=== PATIENT | female | born 1955 | race Caucasian/White ===

== ENCOUNTER 2016-08-21 10:24 | Outpatient (CLI) | payer OTHER ==
[~2016-08-21] VITALS: Ht 165.1 cm; Wt 92.3 kg
[~2016-08-21 10:24] MED LIST: /ADVA50050 IN; /ADVA50050 INH; /ESOM40CA; /ESOM40CA OR; /ONDA4TA; /TIOT18INH; ABIL2TAB; ABIL2TAB PO; ABIL2TAB2 PO; ACAM0.05 PO; ACET-654 PO; ACET500C; ACET50TA PO; ACET65TA PO; ACETAMINOPHEN TAB 650MG DOSE (2X325MG) PO SCH; ADV500INH INH; ALB2.5NEB INH; ALBU17IN INH; ALBU17IN2; ALBU83IN; ALBU83IN IN; ALBU83IN INH; ALBUTEROL SULFATE INH; ALPR0.25 PO; AMBI5TAB; ATRO1SOL13; ATROVENT INH; BACT20SS PO; BACT800T5 PO; BENA25CA2 PO; BENZ100C5 PO; BONI150T PO; BONI3INJ IV; BONIVA; BONIVA PO; BUDE0.5S6 INH; BUPR150T5 PO; BUPR15TA; BUPR15TA OR; BUPR300T34 PO; CALA180T PO; CALC600T10 PO; CALC600T21 PO; CALCCHW12; CALCCHW12 OR; CAMP333T PO; CEFD1CAP8 PO; CEFT500T; CEFT500T PO; CIPR500T89 PO; COLA100C2; DIPH50TA3 PO; DOCU10ELUD PO; ESTR3TA; ESTR625TA; FERR325T PO; FIRS3SUS PO; FURO20TA2 PO; FURO40TA2 PO; IBUP400T PO; IBUPOTC PO; IPRAINH INH; IPRASOL4 NEB; K-TA10TA; K-TA10TA2 PO; K-TA1TAB PO; KYTRIL; LACT10SO8; LASI40TA PO; LEVA1.256 INH; LEVA12INH INH; LEVA250T PO; LEVA500T; LEVA500T PO; LEVO750T PO; LISI10TA4 PO; MAG-TAB; MARINOL; MUCI600T34 PO; MULTTAB4 PO; NEXI1CAP4 PO; NEXI20CA; NEXI40CA PO; NORC7.5T PO; OCEA0.65; PERF20NE2 INH; POTA10CA2; POTA10PO PO; POTA20EL PO; PRED10TA PO; PRED10TA2; PRED10TA2 OR; PRED10TA2 PO; PRED20TA; PRED20TA PO; PRED20TAB PO; PRIV5INJ IV; PRIVIGEN IV; PULM1SUS INH; SENN8.6T5; SENO8.6T2 PO; SENO8.6T9 PO; SERT-138 PO; SING10TA32 PO; SING5CHW PO; SLEEPING PILL; SPIR1CAP INH; SPIRIVA INH; SPIRIVIA INH; SUCR1TA PO; Sucralfate PO; TAMAFLU; TESS100C; TESS100C PO; TUSSSUS5; VALT1TAB PO; VERA120T2 PO; VERA18TASA PO; VERA1TAB11 PO; VICO7.5T11 PO; VITA10002 PO; VITA100037 PO; VITA200016 PO; VITA250L PO; WELL75TA; WELLBUTRIN PO; XANA0.25; XANA0.25 PO; ZOLO100T; ZOLO100T PO; ZOLO25TA; ZOLO50TA; [UNRECOGNIZED DRUG - CODE] PO; [UNRECOGNIZED DRUG - OTHER]; [UNRECOGNIZED DRUG - OTHER] OR; [UNRECOGNIZED DRUG - REMARK]; [UNRECOGNIZED DRUG - REMARK]; [UNRECOGNIZED DRUG - REMARK] OR; diphenhydrAMINE 25 MG CAP PO SCH; home o2; marinol; mylicon PO
[2016-08-21] MEDS ORDERED: IMMUNE GLOBULIN 10% 5 GM in APPROPRIATE DILUENT 1 EA IV ONE (10:45)
[2016-08-21] MEDS ORDERED: PRED20TA PO (10:57)
[2016-08-21] MEDS ORDERED: IMMUNE GLOBULIN 10% 20 GM in APPROPRIATE DILUENT 1 EA IV ONE (11:30)
== END 2016-08-21 13:20 | disposition home or self-care (01) ==
LOC: M INFU 10:24
PROVIDERS: ATTEND Internal Medicine Infectious Disease
DX: D72.810 Lymphocytopenia (principal)
CPT/HCPCS: 96365; 96366; J1568

== ENCOUNTER 2016-09-18 08:25 | Outpatient (CLI) | payer OTHER ==
[~2016-09-18] VITALS: Ht 165.1 cm; Wt 92.3 kg
[2016-09-18] MEDS ORDERED: diphenhydrAMINE 50 MG CAP PO ONE (08:45)
[2016-09-18] MEDS ORDERED: ACETAMINOPHEN TAB 650MG DOSE (2X325MG) PO ONE (08:45)
[2016-09-18] MEDS ORDERED: IMMUNE GLOBULIN 10% 20 GM in APPROPRIATE DILUENT 1 EA IV ONE (09:00)
[2016-09-18] MEDS ORDERED: IMMUNE GLOBULIN 10% 5 GM in APPROPRIATE DILUENT 1 EA IV ONE (09:00)
== END 2016-09-18 11:30 | disposition home or self-care (01) ==
LOC: M INFU 08:25
PROVIDERS: ATTEND Internal Medicine Infectious Disease
DX: D80.1 Nonfamilial hypogammaglobulinemia (principal); Z79.51 Long term (current) use of inhaled steroids; Z79.52 Long term (current) use of systemic steroids; Z79.899 Other long term (current) drug therapy; Z88.5 Allergy status to narcotic agent
CPT/HCPCS: 96365; 96366; J1568

== ENCOUNTER → 2016-09-18 | Outpatient (CLI) | payer OTHER ==
[~2016-09-18] MED LIST changes: -ACETAMINOPHEN TAB 650MG DOSE (2X325MG) PO SCH; +POTA10SO11 PO; -POTA20EL PO; -diphenhydrAMINE 25 MG CAP PO SCH
--- NOTE | 2016-09-19 09:26 | REP ---
PET/CT: History: Restaging lung cancer. Comparisons: Comparison PET/CTs are reviewed, the most recent of which is from August 03, 2015. Comparison chest x-ray July 15, 2016. TECHNIQUE: 60 minutes following the intravenous injection of a 7.5 mCi dose of F-18 FDG, three-dimensional PET scintigraphy is acquired from the skull base to the proximal thighs. Triplanar noncontrast CT scanning is acquired through the same anatomic range for attenuation correction, and image registration with scan parameters optimized to minimize radiation exposure to the patient. PET scintigraphy and CT datasets were fused and displayed on a workstation with multiplanar and projection display capability. PET/CT Findings: There is a new area of hypermetabolic pulmonary parenchymal uptake in the left upper lobe. Maximum standard uptake value is 14.5 within this oval-shaped, 1.6 cm density in the periphery of the left upper lobe. This is infiltrative morphologically and may reflect an infectious etiology, i.e. pneumonia. Follow-up is recommended. The previously noted post-treatment fibrotic changes in the right chest are again seen with a small amount of right pleural fluid and right pericardial fluid. The right pleural fluid is decreased since the prior PET-CT study. No other abnormal hypermetabolic uptake is seen within the chest. No abnormal adrenal hypermetabolic uptake is seen. No abnormal uptake is seen in the abdomen or pelvis. Impression: New focus of hypermetabolic uptake in a peripheral infiltrate opacity in the left upper lobe. This may reflect a pneumonia. Follow-up is recommended. Signed by Moy Chaudhry MD 09/19/2016 09:17 A
== END ==
LOC: M RAD 11:28
DX: C34.90 Malignant neoplasm of unspecified part of unspecified bronchus or lung (principal)
CPT/HCPCS: 78815; A9552

== ENCOUNTER 2016-10-01 12:37 | Inpatient (IN) | payer OTHER ==
[~2016-10-01] VITALS: Ht 162.6 cm; Wt 85.3 kg
--- NOTE | 2016-10-01 14:07 | REP ---
Clinical: Shortness of breath. Comparison: 07/15/2016. Findings: Left perihilar opacities appear increased from prior examination and may reflect acute infiltrate. Right suprahilar markings are essentially unchanged and may represent chronic findings. No obvious effusion. No pneumothorax. Cardiac silhouette stable. Skeletal structures intact. Impression: Chronic mediastinal and right hilar/suprahilar findings. Increased opacities emanating from the left hilum may reflect acute pneumonia. Signed by Oh Torres MD 10/01/2016 01:58 P
[2016-10-01 14:12] LABS: BASO % 0.1 % (0.0-1.0); EOS # 0.1 K/mm3 (0.0-0.50); EOS % 0.7 % (0.0-3.0); LARGE UNSTAINED CELL # 0.1 K/mm3 (0.0-0.4); LARGE UNSTAINED CELL % 0.4 % (0.0-4.0); LYMPH # 0.5 K/mm3 (1.5-4.5); LYMPH % 3.5 % (24.0-44.0); MEAN CORPUSCULAR HEMOGLOBIN 25.1 pg (27.0-33.0); MEAN CORPUSCULAR HGB CONC 31.9 g/dl (32.0-36.5); MEAN CORPUSCULAR VOLUME 78.8 fl (80.0-96.0); MONO # 0.5 K/mm3 (0.0-0.8); MONO % 3.6 % (0.0-5.0); NEUTROPHILS # 11.7 K/mm3 (1.8-7.7); NEUTROPHILS % 91.6 % (36.0-66.0); PLATELET COUNT, AUTOMATED 279 k/mm3 (150-450); RED CELL DISTRIBUTION WIDTH 15.5 % (11.5-14.5); WHITE BLOOD COUNT 12.8 K/mm3 (4.0-10.0)
[2016-10-01] MEDS ORDERED: FUROSEMIDE 20 MG/2 ML VIAL (J1940) As Ordered ONE (14:14)
[2016-10-01 14:20] LABS: ABG BASE EXCESS 2.4 (-2.0-2.0); ABG DEVICE NASAL CANN; ABG HCO3 25.6 MEQ/L (22.0-26.0); ABG PARTIAL PRESSURE CO2 34.7 mmHg (35.0-45.0); ABG PARTIAL PRESSURE O2 63.3 mmHg (75.0-100.0); ABG STANDARD HCO3 26.5 MEQ/L (22.0-26.0); ABG TOTAL CO2 26.6 MEQ/L (22.0-29.0); ABG pH (ARTERIAL) 7.485 UNITS (7.350-7.450)
[2016-10-01 14:39] LABS: CALCIUM LEVEL 8.9 MG/DL (8.5-10.1); CREATININE FOR GFR 1.1 MG/DL (0.55-1.02); GLOMERULAR FILTRATION RATE 54.1 (>51); POTASSIUM SERUM 3.2 MEQ/L (3.5-5.1)
[2016-10-01] MEDS ORDERED: ISOVUE-370 76% 100ML VIAL (Q9967) As Ordered ONE (15:17)
[2016-10-01] MEDS ORDERED: ACAM0.05 PO (15:41)
[2016-10-01] MEDS ORDERED: NEXI40CA PO (15:41)
[2016-10-01] MEDS ORDERED: ALBU17IN INH (15:41)
--- NOTE | 2016-10-01 16:10 | REP ---
Clinical: Acute chest pain. Comparison: 09/23/2016 Technique: Axial contrast enhanced images from the thoracic inlet to the upper abdomen using 100 ml Isovue 370 intravenous contrast material with coronal and sagittal re-formations. Findings: Satisfactory enhancement of the pulmonary vasculature is achieved and no filling defects are identified to suggest pulmonary embolus. Areas of consolidation and alveolar ground-glass opacities involving the right lower lobe, left upper lobe, and left lower lobe as well as suspected adenopathy. These findings have increased since prior examination. Atherosclerotic changes of the coronary arteries and thoracic aorta noted. Mild cardiomegaly. Small right pleural effusion. No pneumothorax. Impression: No evidence for pulmonary embolus. Areas of consolidation involving the medial left upper lobe, perihilar right lower lobe and diffuse bilateral ground-glass alveolar opacities involving the left upper lobe and lower lobes. Signed by Oh Torres MD 10/01/2016 04:01 P
[2016-10-01] MEDS ORDERED: ALBUTEROL SULFATE 2.5 MG/0.5 ML INH NEB SOLN NEB PRN (17:15)
[2016-10-01] MEDS ORDERED: FUROSEMIDE 20 MG/2 ML VIAL (J1940) IV ONE (17:15)
[2016-10-01] MEDS ORDERED: LevoFLOXacin(LEVAQUIN)500 MG/100 ML BAG (J1956) As Ordered ONE (17:29)
[2016-10-01] MEDS ORDERED: DEXTROSE 50% 50 ML SYRINGE IV PRN (17:30)
[2016-10-01] MEDS ORDERED: ALBUTEROL 90 MCG/ACT 8GM HFA INHALER INH PRN (17:30)
[2016-10-01] MEDS ORDERED: GLUCAGON FOR INJ 1 MG VIAL (J1610) SC PRN (17:30)
[2016-10-01] MEDS ORDERED: GLUCOSE 4 GM CHEW TABLET PO PRN (17:30)
[2016-10-01] MEDS ORDERED: ALBUTEROL SULFATE 2.5 MG/0.5 ML INH NEB SOLN As Ordered ONE (17:54)
[2016-10-01] MEDS ORDERED: POTASSIUM CHLORIDE 10 MEQ SR TABLET PO SCH (20:00)
--- NOTE | 2016-10-01 20:32 | HPE ---
DATE OF ADMISSION: 10/01/2016 PRIMARY CARE PROVIDER: Casandra Ross DO HISTORY OF PRESENT ILLNESS: The patient is a 61-year-old female with a past medical history significant for chronic obstructive pulmonary disease (COPD), radiation pneumonitis, stage IIIB nonsmall cell lung cancer status post chemotherapy and radiation, obstructive sleep apnea (SILVER) on continuous positive airway pressure (CPAP), diastolic heart failure, history of cardiac tamponade status post pericardial window, diabetes, chronic kidney disease (CKD), hypertension, gastroesophageal reflux disease (GERD), anxiety/depression, presented to [facility] on 10/01/2016, for acute respiratory distress. Patient stated she was at her baseline yesterday, however this morning when she was walking around the house she started having acute shortness of breath, she started having significant sweating, she was complaining of chills, and when she used pulse oximetry she found that she had oxygen saturation of 75% and at baseline patient does not require any oxygen, and patient also complained about starting to have foamy, pink sputum production. Patient has been experiencing chest discomfort, unable to describe the details and the quality of the chest pain, it occurred in the past few days. Denies any associated symptoms. Denies any recent sick contacts. Patient was hospitalized in [facility] from 07/15/2016 to 07/26/2016, for COPD exacerbation, however patient stated her breathing returned to baseline after discharge from the hospital. ALLERGIES: CODEINE SULFATE (vomit). HOME MEDICATIONS: - Campral 666 mg by mouth three times a day - Ventolin two puffs inhalation four times a day as needed - Xanax 0.25 mg by mouth four times a day - Abilify 2 mg by mouth twice a day - Wellbutrin 300 mg by mouth daily - Protonix 40 mg by mouth daily - Lasix 40 mg by mouth daily - 25 grams intravenous (IV) monthly - Singulair 10 mg by mouth nightly - prednisone 20 mg by mouth daily - Zoloft 100 mg by mouth twice a day - verapamil 180 mg by mouth daily PAST MEDICAL HISTORY: 1. COPD. 2. Bronchial stenosis with radiation pneumonitis. 3. 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 4. Stage IIIB nonsmall cell lung cancer status post chemotherapy and radiation, in remission since 2008. 5. SILVER on CPAP. 6. Diastolic congestive heart failure. 7. History of cardiac tamponade status post pericardial window. 8. History of esophageal stricture. 9. Chronic kidney disease. 10. Diabetes. 11. Hypertension. 12. Gastroesophageal reflux disease. 13. Anxiety/depression. 14. Insomnia. PAST SURGICAL HISTORY: History of section, hysterectomy, upper endoscopy, pericardial window. SOCIAL HISTORY: Patient quit smoking in 2006. Patient had around 60 pack years. Patient drinks beer everyday. Denies any recreational drug use. REVIEW OF SYSTEMS: GENERAL: Positive chills starting today. Denies any fever. HEENT: No vision change or auditory changes. CARDIOVASCULAR: Vague chest discomfort located at left chest, unable to describe the quality of the discomfort, it started a few days ago. RESPIRATORY: Acute worsening of respiratory function since this morning. Patient has a history of COPD, does not require home oxygen at the baseline. GASTROINTESTINAL (GI): No nausea, no vomiting, no diarrhea. MUSCULOSKELETAL: No muscle pain or joint pain. NEUROLOGICAL: No numbness or tingling. OBJECTIVE: VITAL SIGNS: Blood pressure 136/78, pulse 109, respiration rate 21, temperature 97.6, pulse oximetry 98% on noninvasive positive pressure ventilation (NIPPV), bilevel positive airway pressure (BiPAP). GENERAL: Mild to moderate distress secondary to respiratory failure. Alert and oriented times three. HEENT: Normocephalic, atraumatic. Extraocular motors grossly intact. CARDIOVASCULAR: Positive S1, S2, regular rate, distant heart sounds. LUNGS: Coarse sounds throughout, bilateral wheezes. ABDOMEN: Obese, soft, nontender, nondistended, bowel sounds present. EXTREMITIES: 1+ edema bilaterally. No sign of cyanosis. LABORATORY DATA: WBC 12.8, hemoglobin 11.7, hematocrit 36.6, platelet count 279. Sodium 135, potassium 3.2, chloride 97, carbon dioxide 28, BUN 12, creatinine 1.1, GFR is 54.1, fasting glucose 88, calcium 8.9, total CK 148, troponin I is 0.75, BNP is 314. Arterial blood gas (ABG) shows pH of 7.485, pCO2 is 34.7, pO2 is 63.3, HCO3 is 25.6. IMAGING STUDIES: CT angiogram of the chest shows no evidence of pulmonary embolus (PE). Area of consolidation involving the medial left upper lobe, perihilar right lower lobe, and diffuse bilateral ground-glass alveolar opacities involving the left upper lobe and lower lobes. ASSESSMENT AND PLAN: 1. Acute respiratory failure. 2. Chronic obstructive pulmonary disease (COPD). 3. Diastolic congestive heart failure. 4. History of stage IIIB nonsmall cell lung cancer status post chemotherapy and radiation. 5. History of radiation pneumonitis. 6. Immunosuppression from prolonged steroid use. 7. Obstructive sleep apnea (SILVER) on continuous positive airway pressure (CPAP). 8. Gastroesophageal reflux disease. 9. Diabetes. 10. Chronic kidney disease. 11. Anxiety/depression. 12. Insomnia. 13. History of esophageal stricture. 14. History of cardiac tamponade status post pericardial window. 15. Elevated troponin. PLAN: Currently patient still requires bilevel positive airway pressure (BiPAP). Patient was admitted to the intensive care unit (ICU) under inpatient status. Robotic Machine Operator/rim roller setter, Dr. De Los Santos, has been consulted. Patient started on Rocephin and azithromycin for multifocal pneumonia. Patient will continue on breathing treatments. Patient shows some sign of fluid overload. Will give one dose of intravenous (IV) Lasix to help with diuresis and she can resume her home Lasix dose. We will follow with the sputum culture and upper respiratory panel. During admission, patient was found to have a troponin I of 0.75, however there is no significant ST changes noted on EKG. Will cycle the troponins every 6-8 hours. Patient will get potassium supplement for hypokalemia. Patient will be on consistent carbohydrate diet and insulin sliding scale for her diabetes. Patient will have heparin for deep venous thrombosis (DVT) prophylaxis.
[2016-10-01] MEDS: HumaLOG INSULIN (NovoLOG) PER UNIT SC SCH (21:00)
[2016-10-01] MEDS: ARIPiprazole 2 MG TAB PO SCH (21:00)
[2016-10-01] MEDS ORDERED: TICAGRELOR 90 MG TABLET (BRILINTA) PO SCH (21:30)
[2016-10-01] MEDS ORDERED: FUROSEMIDE 40 MG/4 ML VIAL (J1940) IV SCH (21:30)
[2016-10-01] MEDS ORDERED: ASPIRIN 325 MG TAB PO SCH (21:30)
--- NOTE | 2016-10-01 21:50 | EDDOCDS ---
Nurse's Notes [facility] Name: Carmen Ayala Age: 61 yrs Sex: Female : 1955 Arrival Date: 10/01/2016 Time: 12:37 Bed 7 Private MD: Casandra Meek DO Diagnosis: Shortness of breath;Chest pain, unspecified Presentation: 10/01 12:47 Presenting complaint: Patient states: sudden onset of diff breathing , sob on even mk4 slight exertion expect thick pink sputum , dyspneic on arrival. Adult Sepsis Screening: The patient does not have new or worsening altered mentation. Patient has a respiratory rate of greater than or equal to 22 (1 point). Systolic blood pressure is greater than 100. Patient has a qSOFA score of 1- Negative Sepsis Screen. Suicide/Homicide risk assessment- the patient denies having any suicidal and/or homicidal ideations and does not present with any other emotional, behavioral or mental health complaints. Status: Patient is not a customer service professional or dependent. Transition of care: patient was not received from another setting of care. 12:47 Acuity: MELISSA Level 2 mk4 12:47 Method Of Arrival: Walkin/Carried/Asstd mk4 12:49 Presenting complaint: sao2 87% room air, neb by EMS. mk4 Triage Assessment: 12:49 General: Appears in no apparent distress. mk4 12:52 Pain: Denies pain. HIV screening NA for this visit Offered previously. Neurological: mk4 Level of Consciousness is awake, alert. Respiratory: Onset: The symptoms/episode began/occurred this morning, Airway is patent Respiratory effort is labored, Respiratory pattern is hyperventilation. Derm: Skin is intact, Skin is pale. Historical: - Allergies: Codeine Sulfate (Vomit); - Home Meds: 1. alprazolam 0.25 mg Oral tab four times a day 2. Abilify 2 mg Oral tab 2 mg twice a day 3. bupropion HCl 300 mg Oral Tb24 1 tab once daily 4. furosemide 40 mg Oral tab 1 tab once daily 5. Privigen 25 grams intravenous monthly 6. Singulair 10 mg Oral tab 1 tab once daily 7. prednisone 20 mg Oral tab once daily increased to 40 mg daily 07/13/16 8. Zoloft 100 mg Oral tab 1 tab twice a day 9. verapamil 180 mg Oral C24P 1 tab once daily 10. camparil 333 mg 2 tab three times a day 11. benzonatate 100 mg oral cap 1 cap twice a day 12. esomeprazole magnesium 40 mg Oral cpDR 1 cap 2 times per day - PMHx: COPD; Cardiac tamponade; lung cancer; Anxiety; GERD; CHF; kidney disease; Sleep Apnea w/ CPAP; Depression; Hypogammaglobulinemia; lung ( bronchila) cancer; - PSHx: ; Hysterectomy; pericardial window; - Social history: Smoking status: Patient states former smoker of tobacco. No barriers to communication noted, The patient speaks fluent Chilean. - Family history: Not pertinent. - : The pt / caregiver states he / she is on anticoagulants: Home medication list is obtained from the patient. - Exposure Risk Screening:: None identified. Screenin:31 Screening information is obtained from the patient. Fall risk: No risks identified. cf2 Assistance ADL's: requires no assistance with activities of daily living. Abuse/DV Screen: The patient / caregiver reports he/she is: not in a situation that causes fear, pain or injury. Nutritional screening: No deficits noted. Advance Directives: Further advance directive information is declined. home support is adequate. Assessment: 12:30 Adult Sepsis Screening: The patient does not have new or worsening altered mentation. mk4 Patient has a respiratory rate of greater than or equal to 22 (1 point). Systolic blood pressure is greater than 100. Patient has cough and/or SOB- Positive Sepsis Screen. Patient made MELISSA Level 2. Patient placed in exam room. Charge nurse notified. General: Appears ill. Pain: Denies pain. Neurological: Level of Consciousness is awake, alert. Cardiovascular: Rhythm is sinus tachycardia Chest pain is denied. Respiratory: Airway is patent Respiratory effort is labored, Respiratory pattern is tachypnea Stridor noted Breath sounds with wheezes expiratory bilaterally. Reports cough that is productive, thick pink sputum , had a CT at [facility] last Friday that revealed pnuemonia however bc she was not symptomatic they did not treat , sudden onset this am of wheezing and dyspmea the patient has moderate shortness of breath. Derm: Skin is intact. 13:45 General: Appears in no apparent distress, comfortable, ill, Behavior is appropriate for ms18 age, cooperative, pleasant. Neurological: Level of Consciousness is awake, alert, obeys commands, Oriented to person, place, time. Respiratory: Airway is patent Respiratory effort is labored, Respiratory pattern is tachypnea. Derm: Skin is pink, warm & dry. 14:49 General: Appears in no apparent distress, Behavior is appropriate for age. dsf Neurological: Level of Consciousness is awake, alert. Cardiovascular: Capillary refill < 3 seconds Heart tones S1 S2 present. Respiratory: Airway is patent Respiratory effort is labored, Respiratory pattern is tachypnea Breath sounds are coarse bilaterally. Derm: Skin is pink, warm & dry. 15:49 General: Appears in no apparent distress, Behavior is appropriate for age, cooperative. dsf Neurological: Level of Consciousness is awake, alert. Cardiovascular: Capillary refill < 3 seconds Rhythm is sinus tachycardia No ectopy. Respiratory: Airway is patent Respiratory effort is even, Respiratory pattern is regular. Derm: Skin is pink, warm & dry. 16:31 General: Appears in no apparent distress, comfortable, Behavior is appropriate for age, dsf cooperative. Pain: Denies pain. Neurological: Level of Consciousness is awake, alert, Oriented to person, place, time. Cardiovascular: Capillary refill < 3 seconds Heart tones S1 S2 present Rhythm is sinus tachycardia No ectopy. Respiratory: Airway is patent Respiratory effort is even, Respiratory pattern is tachypnea Breath sounds are coarse bilaterally. Breath sounds with wheezes expiratory bilaterally. GI: Abdomen is non- distended Bowel sounds present X 4 quads. Abd is soft and non tender X 4 quads. Derm: Skin is pink, warm & dry. 17:31 Adult Sepsis Screening: The patient does not have new or worsening altered mentation. dsf Patient's respiratory rate is less than 22. Systolic blood pressure is greater than 100. General: Appears in no apparent distress, Behavior is appropriate for age, cooperative. Pain: Denies pain. Neurological: Level of Consciousness is awake, alert, Oriented to person, place, time. Cardiovascular: Capillary refill < 3 seconds Heart tones S1 S2 present Rhythm is sinus tachycardia No ectopy. Respiratory: Airway is patent Respiratory effort is labored, Respiratory pattern is regular, Breath sounds are coarse bilaterally. GI: Abdomen is non- distended Bowel sounds present X 4 quads. Abd is soft and non tender X 4 quads. Derm: Skin is pink, warm & dry. 17:57 General: Dr. De Los Santos in room examining patient. pt removed from bipap and placed on 4 dsf LNC . 18:00 General: Appears in no apparent distress, Behavior is appropriate for age, cooperative. dsf Neurological: Level of Consciousness is awake, alert. Cardiovascular: Capillary refill < 3 seconds. Respiratory: Airway is patent Respiratory effort is even, Respiratory pattern is regular. Derm: Skin is pink, warm & dry. 20:27 Reassessment: Patient states feeling better. Patient states symptoms have improved. cf2 General: Patient currently in high cardoso's position eating a snack tray. 20:57 Reassessment: Patient denies pain at this time. Patient states feeling better. Patient cf2 states symptoms have improved. 20:59 General: Report to ICU. Room being cleaned. cf2 Vital Signs: 12:45 BP 140 / 71 (auto/); mk4 12:46 Pulse 116 MON; Pulse Ox 87% on R/A; mk4 13:00 BP 113 / 70 (auto/); mk4 13:01 Pulse 110 MON; Pulse Ox 96% on 4 lpm NC; mk4 13:45 BP 112 / 76 (auto/); ms18 13:45 Pulse 106 MON; Pulse Ox 95% ; ms18 13:45 Resp 22; ms18 14:00 BP 139 / 72 (auto/); ms18 14:00 Pulse 106 MON; Pulse Ox 94% ; ms18 14:01 Pulse 104 MON; Pulse Ox 96% ; ms18 14:09 Temp 97.6(O); ms18 14:46 BP 121 / 79 (auto/); dsf 14:47 Pulse 102 MON; Resp 20; Pulse Ox 96% on 40% BiPAP; dsf 15:57 BP 126 / 71 (auto/); dsf 15:59 Pulse 103 MON; Pulse Ox 96% ; dsf 16:28 BP 130 / 71 (auto/); dsf 16:28 Pulse 106 MON; Pulse Ox 98% ; dsf 16:29 Pulse 109 MON; Pulse Ox 98% ; dsf 16:30 BP 136 / 78 (auto/); Resp 21; Temp 98.0(TE); Pain 0/10; dsf 16:45 BP 124 / 68 (auto/); dsf 16:46 Pulse 104 MON; Pulse Ox 100% ; dsf 17:00 Pulse 109 MON; Pulse Ox 99% ; dsf 17:00 BP 121 / 73 (auto/); dsf 17:01 Pulse 111 MON; Pulse Ox 100% ; dsf 17:15 BP 114 / 72 (auto/); dsf 17:16 Pulse 105 MON; Pulse Ox 98% ; dsf 17:30 BP 123 / 67 (auto/); dsf 17:31 Pulse 107 MON; Pulse Ox 99% ; dsf 17:50 BP 119 / 81 (auto/); dsf 17:51 Pulse 109 MON; Pulse Ox 100% ; dsf 19:00 BP 116 / 56 (auto/); cf2 19:01 Pulse 108 MON; Pulse Ox 97% ; cf2 19:15 BP 114 / 64 (auto/); cf2 19:16 Pulse 108 MON; Pulse Ox 98% ; cf2 19:30 BP 111 / 56 (auto/); cf2 19:31 Pulse 107 MON; Pulse Ox 99% ; cf2 19:45 BP 115 / 61 (auto/); cf2 19:46 Pulse 105 MON; Pulse Ox 97% ; cf2 20:00 BP 113 / 65 (auto/); cf2 20:01 Pulse 106 MON; Pulse Ox 98% ; cf2 20:15 BP 123 / 72 (auto/); cf2 20:16 Pulse 113 MON; Pulse Ox 97% ; cf2 20:30 BP 116 / 69 (auto/); cf2 20:31 Pulse 107 MON; Pulse Ox 98% ; cf2 20:45 BP 110 / 61 (auto/); cf2 20:46 Pulse 108 MON; Pulse Ox 98% ; cf2 21:15 BP 116 / 64 (auto/); cf2 21:16 Pulse 109 MON; Pulse Ox 98% ; cf2 21:30 BP 118 / 65 (auto/); cf2 21:31 Pulse 110 MON; Pulse Ox 98% ; cf2 ED Course: 12:38 Patient visited by Shayy Torrez, Customer Strategy Manager. lbd 12:38 Casandra Meek is Private Physician. lbd 12:38 Beatrice Fernando,JARET is Primary Nurse. lbd 12:38 Patient moved to Waiting lbd 12:38 Patient moved to 13 lbd 12:49 Triage Initiated mk4 13:16 The patient / caregiver is instructed regarding the plan of care and ED course. Cardiac mk4 monitor on. Pulse ox on. NIBP on. 13:16 Maintain field IV. IV is intact. mk4 13:16 O2 via nasal cannula \T\ 4L/min. mk4 13:17 Patient visited by Deedee Weiss RN. mk4 13:26 Yaneth Armas MD is Attending Physician. fg 13:41 Patient visited by Yaneth Armas MD. fg 14:02 Patient visited by Beatrice Fernando RN. ms18 14:02 B-Type Natiuretic Peptide Sent. ms18 14:02 Basic Metabolic Profile Sent. ms18 14:02 CBC with Diff Sent. ms18 14:02 Cardiac Injury Profile Sent. ms18 14:02 Troponin Sent. ms18 14:09 Patient visited by Beatrice Fernando RN. ms18 14:09 EKG done. (by ED staff). Reviewed by Yaneth Armas MD. ms18 14:36 portable chest Returned. EDMS 14:37 Patient visited by Beatrice Fernando RN. ms18 14:37 Patient moved to 1 kcs 14:50 Patient visited by Brielle Gonzales RN. dsf 15:02 BIPAP: Inspiratory Pressure: 10, Expiratory Pressure: 5, FiO2: 40%, Full face fask. dsf 15:28 Other: MOLST was scanned into [employer] and attached to record. gb 15:[address] dsf 15:59 Patient moved to 1 dsf 16:00 Patient visited by Brielle Gonzales RN. dsf 16:13 [facility] Payment Agreement was scanned into [employer] and attached to record. gjb 16:28 Mohini Porras is Hospitalizing Provider. fg 16:32 Patient visited by Brielle Gonzales RN. dsf 16:53 CT Chest Angio R/O PE Returned. EDMS 17:57 -Blood Culture Sent. dsf 17:59 Patient visited by Brielle Gonzales RN. dsf 17:59 Lactic Acid (Ramírez tube on ice) Sent. mk4 17:59 BLOOD CULTURES Sent. mk4 18:06 RESPIRATORY PANEL Sent. dsf 18:26 Written Provider Order was scanned into [employer] and attached to record. lbd 18:52 Patient visited by Brielle Gonzales RN. dsf 18:53 Patient moved to Admit Hold ml3 19:06 Primary Nurse role handed off by Beatrice Fernando RN cf2 19:06 Swathi Quinones,JARET is Primary Nurse. cf2 19:06 Patient visited by Swathi Quinones RN. cf2 20:16 Patient visited by Swathi Quinones RN. cf2 20:24 Patient moved to 1 ml3 20:26 Patient visited by Swathi Quinones RN. cf2 20:31 Patient has correct armband on for positive identification. Placed in gown. Bed in low cf2 position. Call light in reach. Side rails up X 1. Side rails up X2. Property :Personal belongings accompany Pt. Door closed. Noise minimized. Visitors limited. Lights dimmed. Moved to private room. 20:56 Patient visited by Swathi Quinones RN. cf2 21:09 Notified private physician of abnormal lab values. Dr Jacobo notified if troponin of 09.02 at 2100. 21:36 Patient visited by Swathi Quinones RN. cf2 21:37 Patient visited by Swathi Quinones RN. cf2 21:44 Patient moved to 7 ml3 Administered Medications: 17:57 Drug: levofloxacin 500 mg [levofloxacin 250 mg/50 mL in 5 % dextrose intravenous dsf piggyback] Route: IVPB; Infused Over: 60 mins; Site: right hand; 18:52 Not Given (doctor canceled order ): Furosemide 20 mg IVP once dsf RT: 14:15 ABG's drawn from right radial artery allens test done and positive pressure held for 5 ac1 minutes no bleeding noted pressure bandage applied specimen sent pt. tolerated well. 17:57 Initial Med Neb Given as ordered Patient was instructed and evaluated on procedure. ac1 Respiratory: Breath sounds with rhonchi bilaterally. Order Results: Lab Order: B-Type Natiuretic Peptide; SPEC'M 10/01/16 13:58 Test: BRAIN NATRIURETIC PEPTIDE; Value: 314; Range: <100; Abnormal: Above high normal; Units: PG/ML; Status: F Lab Order: Basic Metabolic Profile; SPEC'M 10/01/16 13:58 Test: GLUCOSE, FASTING; Value: 88; Range: 70-105; Units: MG/DL; Status: F Test: BLOOD UREA NITROGEN; Value: 12; Range: 7-18; Units: MG/DL; Status: F Test: CREATININE FOR GFR; Value: 1.10; Range: 0.55-1.02; Abnormal: Above high normal; Units: MG/DL; Status: F Test: GLOMERULAR FILTRATION RATE; Value: 54.1; Range: >51; Status: F Test: SODIUM LEVEL; Value: 135; Range: 136-145; Abnormal: Below low normal; Units: MEQ/L; Status: F Test: POTASSIUM SERUM; Value: 3.2; Range: 3.5-5.1; Abnormal: Below low normal; Units: MEQ/L; Status: F Test: CHLORIDE LEVEL; Value: 97; Range: 98-107; Abnormal: Below low normal; Units: MEQ/L; Status: F Test: CARBON DIOXIDE LEVEL; Value: 28; Range: 21-32; Units: MEQ/L; Status: F Test: ANION GAP; Value: 10; Range: 8-16; Units: MEQ/L; Status: F Test: CALCIUM LEVEL; Value: 8.9; Range: 8.5-10.1; Units: MG/DL; Status: F Test Note: ; Units are mL/min/1.73 m2 Chronic Kidney Disease Staging per NKF: Stage I & II GFR >=60 Normal to Mildly Decreased Stage III GFR 30-59 Moderately Decreased Stage IV GFR 15-29 Severely Decreased Stage V GFR <15 Very Little GFR Left ESRD GFR <15 on BELT PICKER Lab Order: CBC with Diff; SPEC'M 10/01/16 13:58 Test: WHITE BLOOD COUNT; Value: 12.8; Range: 4.0-10.0; Abnormal: Above high normal; Units: K/mm3; Status: F Test: RED BLOOD COUNT; Value: 4.65; Range: 4.00-5.40; Units: M/mm3; Status: F Test: HEMOGLOBIN; Value: 11.7; Range: 12.0-16.0; Abnormal: Below low normal; Units: g/dl; Status: F Test: HEMATOCRIT; Value: 36.6; Range: 36.0-47.0; Units: %; Status: F Test: MEAN CORPUSCULAR VOLUME; Value: 78.8; Range: 80.0-96.0; Abnormal: Below low normal; Units: fl; Status: F Test: MEAN CORPUSCULAR HEMOGLOBIN; Value: 25.1; Range: 27.0-33.0; Abnormal: Below low normal; Units: pg; Status: F Test: MEAN CORPUSCULAR HGB CONC; Value: 31.9; Range: 32.0-36.5; Abnormal: Below low normal; Units: g/dl; Status: F Test: RED CELL DISTRIBUTION WIDTH; Value: 15.5; Range: 11.5-14.5; Abnormal: Above high normal; Units: %; Status: F Test: PLATELET COUNT, AUTOMATED; Value: 279; Range: 150-450; Units: k/mm3; Status: F Test: NEUTROPHILS %; Value: 91.6; Range: 36.0-66.0; Abnormal: Above high normal; Units: %; Status: F Test: LYMPH %; Value: 3.5; Range: 24.0-44.0; Abnormal: Below low normal; Units: %; Status: F Test: MONO %; Value: 3.6; Range: 0.0-5.0; Units: %; Status: F Test: EOS %; Value: 0.7; Range: 0.0-3.0; Units: %; Status: F Test: BASO %; Value: 0.1; Range: 0.0-1.0; Units: %; Status: F Test: LARGE UNSTAINED CELL %; Value: 0.4; Range: 0.0-4.0; Units: %; Status: F Test: NEUTROPHILS #; Value: 11.7; Range: 1.8-7.7; Abnormal: Above high normal; Units: K/mm3; Status: F Test: LYMPH #; Value: 0.5; Range: 1.5-4.5; Abnormal: Below low normal; Units: K/mm3; Status: F Test: MONO #; Value: 0.5; Range: 0.0-0.8; Units: K/mm3; Status: F Test: EOS #; Value: 0.1; Range: 0.0-0.50; Units: K/mm3; Status: F Test: BASO #; Value: 0.0; Range: 0.0-0.2; Units: K/mm3; Status: F Test: LARGE UNSTAINED CELL #; Value: 0.1; Range: 0.0-0.4; Units: K/mm3; Status: F Lab Order: Cardiac Injury Profile; SPEC'M 02/14/17 13:58 Test: CPK CREATINE PHOSPHOKINASE; Value: 148; Range: 26-192; Units: U/L; Status: F Test: CK-MB VALUE MASS; Value: 7.3; Range: 0.0-3.6; Abnormal: Above high normal; Units: NG/ML; Status: F Test: MB/CK RELATIVE INDEX; Value: 4.93; Range: < OR =4; Abnormal: Above high normal; Status: F Test Note: ; DIAGNOSIS CRITERIA MMB ng/ml Relative Index (RI) NON-AMI < or = 5 N/A RAMÍREZ ZONE > 5 < or = 4 AMI > 5 > 4 Lab Order: Troponin; [facility] 10/01/16 13:58 Test: TROPONIN I; Value: 0.75; Range: < 0.10; Abnormal: Above high normal; Units: NG/ML; Status: F Test Note: ; Troponin I Reference Interval for [employer] LOCI: 99th Percentile= 0.00-0.045 ng/ml Risk Stratification: <= 0.10 ng/ml Decreased Risk for Adverse Clinical Events. 0.10-1.50 ng/ml Increased Risk for Adverse Clinical Events. Evaluation of additional criterion and/or repeat testing in 2-6 hours is suggested to rule out myocardial damage. >= 1.50 ng/ml Indicative of Myocardial Injury. Lab Order: -Arterial Blood Gas; [facility]' 10/01/16 14:08 Test: ABG pH (ARTERIAL); Value: 7.485; Range: 7.350-7.450; Abnormal: Above high normal; Units: UNITS; Status: F Test: ABG PARTIAL PRESSURE CO2; Value: 34.7; Range: 35.0-45.0; Abnormal: Below low normal; Units: mmHg; Status: F Test: ABG PARTIAL PRESSURE O2; Value: 63.3; Range: 75.0-100.0; Abnormal: Below low normal; Units: mmHg; Status: F Test: ABG TOTAL CO2; Value: 26.6; Range: 22.0-29.0; Units: MEQ/L; Status: F Test: ABG HCO3; Value: 25.6; Range: 22.0-26.0; Units: MEQ/L; Status: F Test: ABG BASE EXCESS; Value: 2.4; Range: -2.0-2.0; Abnormal: Above high normal; Status: F Test: ABG STANDARD HCO3; Value: 26.5; Range: 22.0-26.0; Abnormal: Above high normal; Units: MEQ/L; Status: F Test: ABG O2 SATURATION; Value: 92.0; Range: 95.0-99.0; Abnormal: Below low normal; Units: %; Status: F Test: ABG DEVICE; Value: NASAL EZEKIEL; Status: F Lab Order: Lactic Acid (Ramírez tube on ice); [facility] 10/01/16 17:39 Test: LACTIC ACID SEPSIS PROTOCOL; Value: 1.5; Range: 0.4-2.0; Units: MMOL/L; Status: F Lab Order: C REACTIVE PROTEIN QUANTITATIV; [facility] 10/01/16 17:48 Test: C REACTIVE PROTEIN QUANTITATIV; Value: 0.91; Range: 0.00-0.30; Abnormal: Above high normal; Units: MG/DL; Status: F Lab Order: ERYTHROCYTE SEDIMENTATION RATE; [facility] 17[facility]48 Test: ERYTHROCYTE SEDIMENTATION RATE; Value: 25; Range: 0-30; Units: mm/hr; Status: F Lab Order: TROPONIN; [facility] 10/01/16 19:55 Test: TROPONIN I; Value: 1.61; Range: < 0.10; Abnormal: Critical Delta High; Units: NG/ML; Status: F Test Note: ; Troponin I Reference Interval for [employer] LOCI: 99th Percentile= 0.00-0.045 ng/ml Risk Stratification: <= 0.10 ng/ml Decreased Risk for Adverse Clinical Events. 0.10-1.50 ng/ml Increased Risk for Adverse Clinical Events. Evaluation of additional criterion and/or repeat testing in 2-6 hours is suggested to rule out myocardial damage. >= 1.50 ng/ml Indicative of Myocardial Injury. Lab Order: RESPIRATORY PANEL; [facility] 18[facility]04 Test: RESPIRATORY PANEL; Value: RP PANEL RESULT NEGATIVE by PCR; Status: F Test: RESPIRATORY PANEL; Value: Comments:; Status: F Test Note: ; This respiratory PCR panel detects Influenza A H1, H3 and 2009 H1 viruses, Influenza B virus, Respiratory syncytial virus, Human metapneumovirus, Parainfluenza virus 1, 2, 3 and 4, Adenovirus, Rhinovirus/Enterovirus, Coronavirus HKU1, NL63, OC43 and 229E, Bordetella pertussis, Mycoplasma pneumoniae and Chlamydia pneumoniae. Lab Order: CARDIAC RISK PROFILE; SPEC'M 10/01/16 19:55 Test: TRIGLYCERIDES LEVEL; Range: <150; Units: MG/DL; Status: I Test: CHOLESTEROL LEVEL; Range: <200; Units: MG/DL; Status: I Test: HDL CHOLESTEROL; Range: >40; Units: MG/DL; Status: I Test: LDL CHOLESTEROL; Range: <100; Units: MG/DL; Status: I Test: NON-HDL-C; Units: MG/DL; Status: I Test: CHOLESTEROL RISK RATIO; Range: <5; Status: I Radiology Order: portable chest Test: portable chest REASON FOR EXAMINATION: Shortness of Breath; Clinical: Shortness of breath.; ; Comparison: 07/15/2016.; ; Findings:; Left perihilar opacities appear increased from prior examination and may reflect; acute infiltrate. Right suprahilar markings are essentially unchanged and may; represent chronic findings. No obvious effusion. No pneumothorax. Cardiac; silhouette stable. Skeletal structures intact.; ; Impression:; Chronic mediastinal and right hilar/suprahilar findings.; Increased opacities emanating from the left hilum may reflect acute pneumonia.; ; ; Signed by; Oh Torres MD 10/01/2016 01:58 P; Radiology Order: CT Chest Angio R/O PE Test: CT Chest Angio R/O PE REASON FOR EXAMINATION: Shortness of Breath; Clinical: Acute chest pain.; ; Comparison: 09/23/2016; ; Technique: Axial contrast enhanced images from the thoracic inlet to the upper; abdomen using 100 ml Isovue 370 intravenous contrast material with coronal and; sagittal re-formations.; ; Findings: Satisfactory enhancement of the pulmonary vasculature is achieved and; no filling defects are identified to suggest pulmonary embolus. Areas of; consolidation and alveolar ground-glass opacities involving the right lower lobe,; left upper lobe, and left lower lobe as well as suspected adenopathy. These; findings have increased since prior examination. Atherosclerotic changes of the; coronary arteries and thoracic aorta noted. Mild cardiomegaly. Small right; pleural effusion. No pneumothorax.; ; Impression:; No evidence for pulmonary embolus.; Areas of consolidation involving the medial left upper lobe, perihilar right; lower lobe and diffuse bilateral ground-glass alveolar opacities involving the; left upper lobe and lower lobes.; ; ; Signed by; Oh Torres MD 10/01/2016 04:01 P; Outcome: 16:28 Decision to Hospitalize by Provider. fg 21:47 The following High Risk Discharge criteria are identified: Admitted to ICU accompanied dion by nurse, on monitor, with chart. Condition: unchanged. 21:49 Patient left the ED. dion Signatures: Dispatcher [employer] EDMS Trang Good RN RN Shayy Wallace, Customer Strategy Manager Unit lbd Nadya Renee RN RN Sharon [place], Reg Reg gb Mila Ireland,RT RT ac1 Carlos Cuellar, Customer Strategy Manager Unit ml3 Brielle GonzalesRN RN dsf Deedee Weiss RN RN chun4 Beatrice Fernando,RN RN ms18 Yaneth Armas MD MD fg Beck, Gabriela gjb Familetti-Gonzalez, Christina,RN RN cf2 Corrections: (The following items were deleted from the chart) 12:50 12:47 Adult Sepsis Screening: The patient does not have new or worsening altered mk4 mentation. Patient has a respiratory rate of greater than or equal to 22 (1 point). Systolic blood pressure is greater than 100. Patient has a qSOFA score of 1- Negative Sepsis Screen. mk4 13:15 12:58 PMHx: COPD [Inactive]; kcs mk4 13:15 12:58 PMHx: Cardiac tamponade [Inactive]; kcs mk4 13:15 12:58 PMHx: lung cancer [Inactive]; kcs mk4 13:15 12:58 PMHx: Anxiety [Inactive]; kcs mk4 13:15 12:58 PMHx: GERD [Inactive]; kcs mk4 13:15 12:58 PMHx: CHF [Inactive]; kcs mk4 13:15 12:58 PMHx: kidney disease [Inactive]; kcs mk4 13:15 12:58 PMHx: Sleep Apnea w/ CPAP [Inactive]; kcs mk4 13:15 12:58 PMHx: Depression [Inactive]; kcs mk4 : PMHx: Hypogammaglobulinemia [Inactive]; kcs mk4 MTDD
--- NOTE | 2016-10-01 21:50 | EDDOCDS ---
Physician Documentation [facility] Name: Carmen Ayala Age: 61 yrs Sex: Female : 1955 Arrival Date: 10/01/2016 Time: 12:37 Bed 7 Private MD: Casandra Meek DO Disposition: 10/01/16 16:28 Hospitalization ordered by Mohini Porras for Inpatient Admission. Preliminary diagnosis are Shortness of breath, Chest pain, unspecified. - Bed requested for M ICU. - Status is Inpatient Admission. dion - Condition is Stable. - Problem is new. - Symptoms have improved. Historical: - Allergies: Codeine Sulfate (Vomit); - Home Meds: 1. alprazolam 0.25 mg Oral tab four times a day 2. Abilify 2 mg Oral tab 2 mg twice a day 3. bupropion HCl 300 mg Oral Tb24 1 tab once daily 4. furosemide 40 mg Oral tab 1 tab once daily 5. Privigen 25 grams intravenous monthly 6. Singulair 10 mg Oral tab 1 tab once daily 7. prednisone 20 mg Oral tab once daily increased to 40 mg daily 07/13/16 8. Zoloft 100 mg Oral tab 1 tab twice a day 9. verapamil 180 mg Oral C24P 1 tab once daily 10. camparil 333 mg 2 tab three times a day 11. benzonatate 100 mg oral cap 1 cap twice a day 12. esomeprazole magnesium 40 mg Oral cpDR 1 cap 2 times per day - PMHx: COPD; Cardiac tamponade; lung cancer; Anxiety; GERD; CHF; kidney disease; Sleep Apnea w/ CPAP; Depression; Hypogammaglobulinemia; lung ( bronchila) cancer; - PSHx: ; Hysterectomy; pericardial window; - Social history: Smoking status: Patient states former smoker of tobacco. No barriers to communication noted, The patient speaks fluent Andorran. - Family history: Not pertinent. - : The pt / caregiver states he / she is on anticoagulants: Home medication list is obtained from the patient. - Exposure Risk Screening:: None identified. Vital Signs: 10/01 12:45 BP 140 / 71 (auto/); mk4 12:46 Pulse 116 MON; Pulse Ox 87% on R/A; mk4 13:00 BP 113 / 70 (auto/); mk4 13:01 Pulse 110 MON; Pulse Ox 96% on 4 lpm NC; mk4 13:45 BP 112 / 76 (auto/); ms18 13:45 Pulse 106 MON; Pulse Ox 95% ; ms18 13:45 Resp 22; ms18 14:00 BP 139 / 72 (auto/); ms18 14:00 Pulse 106 MON; Pulse Ox 94% ; ms18 14:01 Pulse 104 MON; Pulse Ox 96% ; ms18 14:09 Temp 97.6(O); ms18 14:46 BP 121 / 79 (auto/); dsf 14:47 Pulse 102 MON; Resp 20; Pulse Ox 96% on 40% BiPAP; dsf 15:57 BP 126 / 71 (auto/); dsf 15:59 Pulse 103 MON; Pulse Ox 96% ; dsf 16:28 BP 130 / 71 (auto/); dsf 16:28 Pulse 106 MON; Pulse Ox 98% ; dsf 16:29 Pulse 109 MON; Pulse Ox 98% ; dsf 16:30 BP 136 / 78 (auto/); Resp 21; Temp 98.0(TE); Pain 0/10; dsf 16:45 BP 124 / 68 (auto/); dsf 16:46 Pulse 104 MON; Pulse Ox 100% ; dsf 17:00 Pulse 109 MON; Pulse Ox 99% ; dsf 17:00 BP 121 / 73 (auto/); dsf 17:01 Pulse 111 MON; Pulse Ox 100% ; dsf 17:15 BP 114 / 72 (auto/); dsf 17:16 Pulse 105 MON; Pulse Ox 98% ; dsf 17:30 BP 123 / 67 (auto/); dsf 17:31 Pulse 107 MON; Pulse Ox 99% ; dsf 17:50 BP 119 / 81 (auto/); dsf 17:51 Pulse 109 MON; Pulse Ox 100% ; dsf 19:00 BP 116 / 56 (auto/); cf2 19:01 Pulse 108 MON; Pulse Ox 97% ; cf2 19:15 BP 114 / 64 (auto/); cf2 19:16 Pulse 108 MON; Pulse Ox 98% ; cf2 19:30 BP 111 / 56 (auto/); cf2 19:31 Pulse 107 MON; Pulse Ox 99% ; cf2 19:45 BP 115 / 61 (auto/); cf2 19:46 Pulse 105 MON; Pulse Ox 97% ; cf2 20:00 BP 113 / 65 (auto/); cf2 20:01 Pulse 106 MON; Pulse Ox 98% ; cf2 20:15 BP 123 / 72 (auto/); cf2 20:16 Pulse 113 MON; Pulse Ox 97% ; cf2 20:30 BP 116 / 69 (auto/); cf2 20:31 Pulse 107 MON; Pulse Ox 98% ; cf2 20:45 BP 110 / 61 (auto/); cf2 20:46 Pulse 108 MON; Pulse Ox 98% ; cf2 21:15 BP 116 / 64 (auto/); cf2 21:16 Pulse 109 MON; Pulse Ox 98% ; cf2 21:30 BP 118 / 65 (auto/); cf2 21:31 Pulse 110 MON; Pulse Ox 98% ; cf2 MDM: 13:15 [facility] Order ordered. kcs 13:16 [facility] Order complete. jlm 13:27 Community Association Manager/Pulse Ox/q 30 min VS ordered. fg 13:27 IV Saline Lock ordered. fg 13:27 Rhythm Strip to chart ordered. fg 13:27 Undress patient appropriately for examination ordered. fg 13:28 portable chest Ordered. EDMS 13:28 B-Type Natiuretic Peptide Ordered. EDMS 13:28 Basic Metabolic Profile Ordered. EDMS 13:28 CBC with Diff Ordered. EDMS 13:28 Cardiac Injury Profile Ordered. EDMS 13:28 Troponin Ordered. EDMS 13:28 ECG WITH READING ER PHYS+CARDIAG ordered. EDMS 13:57 Call Respiratory ordered. fg 13:58 -Arterial Blood Gas Ordered. EDMS 14:02 Call Respiratory complete. ms18 14:06 Furosemide 20 mg IVP once ordered. fg 14:37 BED REQUEST+ADM ordered. EDMS 15:13 CT Chest Angio R/O PE Ordered. EDMS 15:28 Other: MOLST was scanned into [employer] and attached to record. gb 15:42 Financial registration complete. gjb 16:13 [facility] Payment Agreement was scanned into [employer] and attached to record. gjb 16:28 -Blood Culture (Adults Only), peripheral from different site, or from device/port/PICC fg etc. if present ordered. 16:28 levofloxacin 500 mg IVPB once over 60 mins ordered. fg 16:29 Lactic Acid (Ramírez tube on ice) Ordered. EDMS 16:30 -Blood Culture Ordered. EDMS 16:37 -Blood Culture (Adults Only), peripheral from different site, or from device/port/PICC lbd etc. if present complete. 16:39 BLOOD CULTURES Ordered. EDMS 17:07 Admission / Observation Status ordered. EDMS 17:08 2 GRAM SODIUM DIET ordered. EDMS 17:09 C REACTIVE PROTEIN QUANTITATIV Ordered. EDMS 17:09 ERYTHROCYTE SEDIMENTATION RATE Ordered. EDMS 17:10 RESPIRATORY PANEL Ordered. EDMS 17:10 SPUTUM CULTURE AND GRAM STAIN Ordered. EDMS 17:16 TROPONIN Ordered. EDMS 17:57 Misc. Nursing Order ordered. fg 18:11 RESPIRATORY PANEL Ordered. EDMS 18:25 REGULAR+DIET ordered. EDMS 18:26 Written Provider Order was scanned into [employer] and attached to record. lbd 19:33 COMPLETE BLOOD COUNT Ordered. EDMS 19:33 BASIC METABOLIC PROFILE Ordered. EDMS 21:23 CARDIAC MARKER PANEL Ordered. EDMS 21:24 CARDIAC MARKER PANEL Ordered. EDMS 21:26 ELECTROCARDIOGRAM ADULT ordered. EDMS 21:26 ECHOCARD,DOPPLER/COLOR FLOW ordered. EDMS 21:32 CARDIAC RISK PROFILE Ordered. EDMS Administered Medications: 17:57 Drug: levofloxacin 500 mg [levofloxacin 250 mg/50 mL in 5 % dextrose intravenous dsf piggyback] Route: IVPB; Infused Over: 60 mins; Site: right hand; 18:52 Not Given (doctor canceled order ): Furosemide 20 mg IVP once dsf Signatures: Dispatcher [employer] EDMS Trang Good RN RN kcs Daly, Linda, Animal Husbandman Unit lbd Nadya Renee RN RN jan Barnhardt, Gloria, Pepe Reg Carlos Knight, [employer] ml3 Deedee Weiss RN Florecita Yancey, Animal Husbandman Unit jlBeatrice LangfordRN RN ms18 Yaneth Armas MD MD fg Beck, Gabriela gjb Fuller, Desiree RN dsf The chart was reviewed and I authenticate all verbal orders and agree with the evaluation and treatment provided.Corrections: (The following items were deleted from the chart) 13:15 12:58 PMHx: COPD [Inactive]; erika garcia 13:15 12:58 PMHx: Cardiac tamponade [Inactive]; kcs mk4 13:15 12:58 PMHx: lung cancer [Inactive]; kcs mk4 13:15 12:58 PMHx: Anxiety [Inactive]; kcs mk4 13:15 12:58 PMHx: GERD [Inactive]; kcs mk4 13:15 12:58 PMHx: CHF [Inactive]; kcs mk4 13:15 12:58 PMHx: kidney disease [Inactive]; kcs mk4 13:15 12:58 PMHx: Sleep Apnea w/ CPAP [Inactive]; kcs mk4 13:15 12:58 PMHx: Depression [Inactive]; kcs mk4 13:15 12:58 PMHx: Hypogammaglobulinemia [Inactive]; [facility] [place] mk4 21:25 19:31 CARDIAC MARKER PANEL ordered. EDMS EDMS 21:35 21:25 CARDIAC RISK PROFILE ordered. EDMS EDMS Attachments: 16:13 [facility] Payment Agreement gj 18:26 Written Provider Order lbd MTDD
[2016-10-01 22:00] VITALS: BP 116/75
[2016-10-01] MEDS: AZITHROMYCIN INJ 500 MG, VIAL MATE ADAPTER 1 EACH in D5W 250 ML IV SCH (22:47)
[2016-10-01] MEDS: KCL 10MEQ IN 100ML SWI (KRUN) 10 MEQ in APPROPRIATE DILUENT 1 EA IV SCH ×4 (22:47→23:58)
[2016-10-01] MEDS: predniSONE 20 MG TAB PO SCH (23:06)
[2016-10-01] MEDS: ISOSORBIDE MON. (IMDUR) 30 MG XR TAB PO SCH (23:07)
[2016-10-01] MEDS: SERTRALINE 100 MG TAB PO SCH (23:08)
[2016-10-01] MEDS: PANTOPRAZOLE 40MG TAB (PROTONIX) PO SCH (23:08)
[2016-10-01] MEDS: ATORVASTATIN 20 MG TAB PO SCH (23:11)
[2016-10-01] MEDS: ACAMPROSATE CALCIUM 333 MG TABLET (CAMPRAL) PO SCH (23:12)
[2016-10-01] MEDS: MONTELUKAST 10 MG TAB PO SCH (23:13)
[2016-10-01] MEDS: ALPRAZolam 0.25 MG TAB PO SCH (23:13)
[2016-10-01] MEDS: HEPARIN SOD (PORCINE) 5000 UNITS/ML VIAL SC SCH (23:16)
[2016-10-01] MEDS ORDERED: ONDANSETRON 4MG/2ML VIAL (J2405) IV PRN (23:45)
[2016-10-01] MEDS: cefTRIAXone SOD 2 GM in D5W MINI-BAG PLUS 50 ML IV SCH (23:49)
[2016-10-02] VITALS (11 sets, daily range): BP systolic 93–116; BP diastolic 53–70; O2SAT 91
--- NOTE | 2016-10-02 03:46 | IPN ---
DATE: 10/01/2016 Patient was initially admitted on 10/01/2016, in the afternoon, with initial set of troponins was 0.5, without any significant EKG changes. The repeated troponin showed elevation from 0.75 to 1.6. I have consulted the as400 administrator, Dr. Humphreys (patient is seeing Dr. Brandon in the outpatient setting). After lengthy discussion of the case, Dr. Humphreys feels the patient will benefit from transfer. At this moment, he recommends to continue trending of the troponin and start the patient on aspirin 325 mg times one and Brilinta 180 mg times one now, and patient was started on aspirin 81 mg daily and Brilinta 90 mg by mouth twice a day. Patient will be on metoprolol 12.5 mg by mouth twice a day. It is recommended that the patient should have an echocardiogram tomorrow. We will also followup lipid panel and repeat EKG. Dr. Humphreys will evaluate the patient tomorrow.
[2016-10-02 06:09] LABS: MEAN CORPUSCULAR HEMOGLOBIN 24.6 pg (27.0-33.0); MEAN CORPUSCULAR HGB CONC 31.5 g/dl (32.0-36.5); RED CELL DISTRIBUTION WIDTH 15.7 % (11.5-14.5); WHITE BLOOD COUNT 9.3 K/mm3 (4.0-10.0)
[2016-10-02 06:15] LABS: CALCIUM LEVEL 8.9 MG/DL (8.5-10.1); CREATININE FOR GFR 1.24 MG/DL (0.55-1.02); GLOMERULAR FILTRATION RATE 47.1 (>51); POTASSIUM SERUM 4.5 MEQ/L (3.5-5.1)
[2016-10-02] MEDS: HEPARIN SOD (PORCINE) 5000 UNITS/ML VIAL SC SCH ×3 (06:27→21:45)
[2016-10-02] MEDS: ACETAMINOPHEN TAB 650MG DOSE (2X325MG) PO PRN ×2 (07:42→13:55)
[2016-10-02] MEDS: HumaLOG INSULIN (NovoLOG) PER UNIT SC SCH ×4 (07:43→21:00)
--- NOTE | 2016-10-02 07:45 | CCN ---
DATE: 10/01/2016 CRITICAL CARE NOTE: I was called to the emergency department to evaluate this patient well known to the pulmonary service with complex lung disease. Today while breathing at her baseline, she noted abrupt onset of symptoms. She was working around her home, developed dyspnea, measured her oxygen saturations and found them to be low and her pulse rate to be very high. She is not experiencing palpitations or chest pain at this time. A meter dose inhaler did not provide her with relief and she was brought to the emergency department via ambulance. When she was picked up by the ambulance, her oxygen saturations were low and heart rate elevated as was her blood pressure. In the emergency department after use of pressure therapy and oxygen, she is improved and is now comfortable, conversant, coughing, jim sputum. She has had no ill contacts that she or her are aware of, has been exposed no new environmental irritants. Her temperature is 99, pulse rate 103, respirations 26, blood pressure 126/76. She is awake, alert, oriented. HEENT: Oral mucosa is pink. Neck is supple. Jugular veins are 1-2 cm. Carotid upstroke is brisk. Heart: Sounds regular, distant breath sounds. Rhonchi over the right chest. Rales over the left. Abdomen is soft with intact bowel sounds. Extremities: Show no significant edema. Extensive diagnostic studies were reviewed. Her chest x-ray and CT scan were reviewed. There are ground-glass opacities in the left upper lobe, more concentrated in the left lower lobe and some in the right lower lobe in addition to chronic scarring changes. Her sodium is 135, potassium 3.2, chloride 97, CO2 28, BUN 12, creatinine 1.1, glucose 88. BNP 314. Troponin is 0.75, CPK 148, white count of 12.8, hemoglobin 11.7, hematocrit 36.8, platelet count is 279. Neutrophils 91.6%. An EKG shows really no change when compared to one performed in 06/2016. Arterial blood gases show pH 7.48, pCO2 34, pO2 63. The primary problem requiring critical attention is acute respiratory failure with hypoxemia. The patient has responded to positive pressure therapy but is more comfortable now without it. Will discontinue the BiPAP and continue supplemental oxygen to maintain a saturation of 90% plus. Interstitial infiltrate. Given the patient's history, infectious disease has to be a consideration, cultures are pending. I will ask that a nasal swab be performed for viral infections given the appearance on imaging. I agree with broad-spectrum antibiotics initially until cultures can be obtained. I do question the fact that this interstitial infiltrate may be related to edema from a cardiac event. The patient has not experienced chest pain and is not experiencing it now, however, will follow CIPs and repeat EKG in the morning. COPD. The patient has an extensive past smoking history and known underlying obstructive lung disease. Will continue bronchodilator therapy. Lung carcinoma. 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 Obstructive sleep apnea syndrome. The patient's disease is controlled on C-PAP. She does have her home device, will encourage her to use it. The patient's condition is critical. Prognosis is guarded. Will facilitate admission in the intensive care unit. 58 minutes spent in provision of bedside critical care and coordination.
--- NOTE | 2016-10-02 08:42 | ECGEPIP ---
Stationary ECG Study [facility] - ED Test Date: 2016-10-01 Pat Name: KYM OLIVER Department: Room: - Gender: F What Job Titles Mean: mayra : 1955 Requested By: FELIPE Stanley Order Number: [id number] Reading MD: Don Miner Measurements Intervals [place] Rate: 103 P: -72 [place]: 149 QRS: -81 QRSD: 109 T: 64 QT: 380 QTc: 499 Interpretive Statements ECTOPIC ATRIAL TACHYCARDIA MARKED LEFT AXIS DEVIATION PATTERN CONSISTENT WITH PULMONARY DISEASE NONSPECIFIC T-WAVE ABNORMALITY SIMILAR TO Electronically Signed On 10-02-2016 8:41:49 EST by Don Miner
[2016-10-02] MEDS ORDERED: METOPROLOL TART 12.5 MG PER 1/2 TAB PO SCH (09:00)
[2016-10-02] MEDS ORDERED: VERAPAMIL 180 MG SR TAB PO SCH (09:00)
[2016-10-02] MEDS: SERTRALINE 100 MG TAB PO SCH ×2 (09:15→21:46)
[2016-10-02] MEDS: predniSONE 20 MG TAB PO SCH ×2 (09:15→21:46)
[2016-10-02] MEDS: ALPRAZolam 0.25 MG TAB PO SCH ×4 (09:15→21:45)
[2016-10-02] MEDS: buPROPion **XL** TABLET 150MG (WELLBUTRIN XL) PO SCH (09:15)
[2016-10-02] MEDS: TICAGRELOR 90 MG TABLET (BRILINTA) PO SCH ×2 (09:15→21:46)
[2016-10-02] MEDS: ASPIRIN 81 MG ENTERIC TAB PO SCH (09:16)
[2016-10-02] MEDS: PANTOPRAZOLE 40MG TAB (PROTONIX) PO SCH ×2 (09:16→21:46)
[2016-10-02] MEDS: FUROSEMIDE 40 MG TAB PO SCH (09:16)
[2016-10-02] MEDS: ACAMPROSATE CALCIUM 333 MG TABLET (CAMPRAL) PO SCH ×3 (12:13→21:45)
[2016-10-02] MEDS: cefTRIAXone SOD 2 GM in D5W MINI-BAG PLUS 50 ML IV SCH ×2 (12:13→23:23)
[2016-10-02] MEDS: ARIPiprazole 2 MG TAB PO SCH ×2 (12:14→21:46)
--- NOTE | 2016-10-02 19:28 | IPNPDOC ---
Subjective General Date Seen The patient was seen on 10/02/16. Subjective Chief Complaint/HPI The patient is a 61-year-old female admitted with a reason for visit of Acute Respiratory Failure. Constitutional: Denies: Chills, Fever, Night Sweats Pulmonary: Reports: Dyspnea, Denies: Cough Cardiovascular: Denies: Chest Pain, Edema, Lt Headedness, Orthopnea, Other Symptoms, Palpitations, Paroxysmal Noc. Dyspnea Objective Physical Examination General Exam: Positive: Alert, No Acute Distress Eye Exam: Positive: Conjunctiva & lids normal, EOMI, PERRLA, Negative: Sclera icteric ENT Exam: Positive: Atraumatic, Mucous membr. moist/pink, Pharynx Normal Chest Exam: Positive: Diminished Heart Exam: Positive: Rate Normal Abdomen Exam: Positive: Normal bowel sounds, Soft, Negative: Hepatospenomegaly, Tenderness Extremity Exam: Positive: Normal pulses, Negative: Clubbing, Cyanosis, Edema Assessment /Plan Problems Problems: (1) Dyspnea and respiratory abnormalities Onset Date: 06/04/2014 Status: Acute Response to Treatment: Improving Problem Text: * pt has history of respiratory failure due to copd, lung ca * Dr salvador consulted (2) Lung cancer Status: Chronic (3) Elevated troponin Status: Acute Response to Treatment: Improving Problem Specific Plan: Consult Specialist Problem Text: * trending down * per Dr Humphreys he doesn't feel that pt needs to be transferred now * he has made medication adjustments * echo pending (4) Diabetes Status: Chronic (5) Bronchial stenosis Status: Chronic (6) Chronic respiratory failure with hypoxia Status: Chronic VS, I&O, 24H, Fishbone Vital Signs/I&O Vital Signs Date Time Temp Pulse Resp B/P Pulse Ox O2 Delivery O2 Flow Rate FiO2 10/02/16 18:00 92 16 116/56 96 Room Air 10/02/16 16:00 97.8 10/02/16 12:00 0.5 I&O- Last 24 Hours up to 6 AM 10/02/16 06:00 Intake Total 1600 ml Output Total 1225 ml Balance 375 ml Laboratory Data 24H LABS Laboratory Tests 2 10/01/16 19:55: Triglycerides Level 123, Cholesterol Level 255H, HDL Cholesterol 67, LDL Cholesterol 163.4H, Cholesterol/HDL Ratio 3.805, Non-HDL Cholesterol (LDL + VLDL ) 188, Troponin I 1.61#*H 10/01/16 22:55: Bedside Glucose (Misc Panel) 129H 10/02/16 00:59: Troponin I 0.66#H, Creatine Kinase MB 6.7H, Creatine Kinase MB Relative Index 4.18H, Total Creatine Kinase 160 10/02/16 05:40: Troponin I 0.42#H, Creatine Kinase MB 6.1H, Creatine Kinase MB Relative Index 4.80H, Total Creatine Kinase 127, Anion Gap 9, Blood Urea Nitrogen 12, Creatinine 1.24H, Sodium Level 133L, Potassium Level 4.5#, Chloride Level 97L, Carbon Dioxide Level 27, Calcium Level 8.9, Glomerular Filtration Rate 47.1L 10/02/16 12:12: Bedside Glucose (Misc Panel) 133H 10/02/16 16:38: Bedside Glucose (Misc Panel) 135H CBC/BMP Laboratory Tests 10/02/16 05:40 Calcium Level 8.9, Red Blood Count 4.17, Mean Corpuscular Volume 78.0 L, Mean Corpuscular Hemoglobin 24.6 L, Mean Corpuscular Hemoglobin Concent 31.5 L, Red Cell Distribution Width 15.7 H Microbiology Microbiology 10/01/16 Blood Culture - Preliminary, Resulted No growth after 24 hours . All specim... 10/01/16 Blood Culture - Preliminary, Resulted No growth after 24 hours . All specim... 10/01/16 MRSA Screen, Received Pending 10/01/16 Respiratory Virus Panel (PCR) (DIANE) - Final, Complete DARLINE STILES DO Oct 02, 2016 19:28
[2016-10-02] MEDS: METOPROLOL TART 50 MG TAB PO SCH (21:00)
[2016-10-02] MEDS: AZITHROMYCIN INJ 500 MG, VIAL MATE ADAPTER 1 EACH in D5W 250 ML IV SCH (21:45)
[2016-10-02] MEDS: ATORVASTATIN 20 MG TAB PO SCH (21:45)
[2016-10-02] MEDS: MONTELUKAST 10 MG TAB PO SCH (21:46)
[2016-10-02] MEDS: ISOSORBIDE MON. (IMDUR) 30 MG XR TAB PO SCH (21:46)
[2016-10-03] VITALS (10 sets, daily range): BP systolic 94–134; BP diastolic 51–68
--- NOTE | 2016-10-03 03:26 | IPN ---
DATE: 10/02/2016 Mrs. Carmen Ayala was seen early this morning. She was lying in bed in no acute distress at rest. She stated that her shortness of breath has improved and she has not been having any chest pain. She denies any bleeding. She was seen yesterday in the evening because of abnormal serum troponin and upon talking to her, it seemed that chest pain might be related to angina and she has multiple risk factors for coronary artery disease (CAD) and she was started on treatment for acute coronary syndrome. She has no nausea, vomiting, diarrhea, melena or hematemesis. There is no report of bleeding. PHYSICAL EXAMINATION: Patient is alert and oriented, in no acute distress at rest. Her last vital signs today revealed a blood pressure of 106/69 with a pulse of 94, respirations 18, and her temperature is 97.4 degrees Fahrenheit with an oxygen saturation of 90-96% on room air. Examination of the head, ears, eyes, nose and throat: Atraumatic. Neck is supple. No jugular venous distention (JVD). The lungs were clear bilaterally on auscultation without any wheezing. The heart examination revealed normal S1 and S2 without gallops. The point of maximal impulse (PMI) is slightly displaced inferiorly. There is no rub. There is a diastolic murmur over the precordium at the left side of the sternum without radiation. Abdomen is soft and nontender. Bowel sounds are active. Extremities revealed no pedal edema. Neurological examination grossly is negative for focal deficit. LABORATORIES: CBC done today revealed a WBC of 9.3, hemoglobin 10.2, hematocrit 32.5, and platelets 267,000. BMP revealed a sodium of 133, potassium 4.5, chloride 97, CO2 27, BUN 12, creatinine 1.24, GFR 47.1, fasting glucose 139, and calcium 8.9. Serum CPK peaked up to 1.61, then around midnight it was 0.66 and this morning 0.42. IMPRESSION: 61-year-old woman with a history of hypertension, hyperlipidemia developed sudden onset of shortness of breath and also she was complaining of chest discomfort that seems to be related to angina. Her chest x-ray is negative, but the etiology of the findings on the chest x-ray is not quite clear and case was discussed earlier this morning with Dr. De Los Santos. Case was further discussed with her hospitalist and we will continue current cardiac medications. She did have an echocardiogram done today and it seemed that the left ventricular ejection fraction (LVEF) is lower when compared with last echocardiogram done at the beginning of 2016. Therefore, I will discontinue the and she will be started on a beta raven in short acting of metoprolol tartrate at 60 mg by mouth twice a day and she will be monitored. In the future, I plan to start her on an angiotensin-converting enzyme (NATE) inhibitor or ARB, but this is on hold for now because I am contemplating possibly with a cardiac catheterization. She will continue with the aspirin, the statin, and the long-acting nitrate, as well as the ticagrelor.
[2016-10-03 04:40] LABS: MEAN CORPUSCULAR HEMOGLOBIN 24.3 pg (27.0-33.0); MEAN CORPUSCULAR HGB CONC 30.9 g/dl (32.0-36.5); MEAN CORPUSCULAR VOLUME 78.5 fl (80.0-96.0); RED CELL DISTRIBUTION WIDTH 15.6 % (11.5-14.5); WHITE BLOOD COUNT 7.8 K/mm3 (4.0-10.0)
[2016-10-03 04:55] LABS: CALCIUM LEVEL 8.7 MG/DL (8.5-10.1); CREATININE FOR GFR 1.2 MG/DL (0.55-1.02); POTASSIUM SERUM 4.2 MEQ/L (3.5-5.1)
[2016-10-03] MEDS: HEPARIN SOD (PORCINE) 5000 UNITS/ML VIAL SC SCH ×3 (05:21→22:09)
--- NOTE | 2016-10-03 05:46 | ECHO ---
DATE OF PROCEDURE: 10/02/2016 DATE OF : 1955 AGE: 61 REFERRING PROVIDER: Dr. Porras. PATIENT LOCATION: Room 3201. REASON FOR ECHOCARDIOGRAM: Shortness of breath. 2D MEASUREMENTS: IVS: 1.3 cm LV: 4,1 cm LVPW: 1.2 cm LA: 3.7 cm Aorta: 2.7 cm IVC: 1.8 cm DOPPLER MEASUREMENTS: Peak velocity across the aortic valve: 1.4 m/s Peak velocity across the LVOT: 0.87 m/s Mitral E: 0.98 Mitral A: 0.87 Ratio 1.1 Maximum tricuspid valve velocity: 1.9 m/s 2D COMMENTS: 1. Normal left ventricular size with mildly increased left ventricular wall thickness but left ventricular systolic function appeared to be mildly depressed with an estimated LVEF of 45%. The anterior septum mid to apical portion appeared to be mildly hypokinetic. The estimated global left ventricular systolic ejection fraction is 45%. 2. Normal left atrium. Normal right atrium and right ventricle. 3. The atrial septum appeared to be normal without evidence of defect or shunt. 4. Normal aortic root. 5. Possible trace pericardial effusion noted. 6. Mildly calcified aortic valve with normal leaflet excursion. Normal mitral valve, tricuspid valve. The pulmonic valve and proximal pulmonary artery branches were not well visualized. 7. The inferior vena cava was normal in size, central venous pressure is most likely normal. DOPPLER: It detects probably moderate aortic regurgitation, mild mitral regurgitation, trace tricuspid regurgitation. The calculated pulmonary artery systolic pressure was normal. Abnormal relaxation pattern was noted across the septal and lateral mitral valve annulus consistent with a pseudonormal pattern, left ventricular and diastolic pressure may be elevated. IMPRESSION: 1. Probably mild global left ventricular systolic dysfunction with regional wall motion abnormalities as mentioned above. There are features of left ventricular diastolic dysfunction. 2. Aortic valve sclerosis with moderate aortic regurgitation. 3. Mild mitral regurgitation. 4. Trace tricuspid regurgitation with a normal calculated pulmonary artery systolic pressure. 5. Trace pericardial effusion. 6. This echocardiogram report was compared with echocardiogram report on 08/30/2015 and at that time, the anterior septum was moving very well and LVEF was normal. 7. Aortic regurgitation seems to be about the same.
--- NOTE | 2016-10-03 07:13 | CR ---
DATE OF CONSULTATION: 10/01/2016 CARDIOLOGY CONSULTATION: REFERRING PROVIDER: Dr. Mohini Porras REASON FOR THE CONSULTATION: Abnormal serum troponin. HISTORY OF PRESENT ILLNESS: 61-year-old woman with a history of hypertension came to the hospital with shortness of breath and was found to have abnormal serum troponin. She also was complaining of some chest discomfort. Cardiology consult was called. When I saw Mrs. Carmen Ayala, she just arrived at the intensive care unit (ICU)/critical care unit (CCU), in supine in bed in no acute distress at rest. She said that she was feeling fine yesterday and this morning, but suddenly started having shortness of breath , cough, and a foamy pink sputum as well as discomfort in her chest and on a scale of 0-10, it was a 3. That chest pain was going back and forth, and she is still having it while in the hospital. She denies any palpitations, and there was no orthopnea or paroxysmal nocturnal dyspnea (PND). Patient denied prior history of chest pain. She has no fever or chills. She has nausea, vomiting, diarrhea, melena, or hematemesis. She denies any bleeding. She has no focal manifestation. She has no headache or dizziness or lightheadedness. She has a past medical history positive for lung cancer in 01/2009, has not been any recurrence. 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 She also has history of chronic obstructive pulmonary disease (COPD), obstructive sleep apnea for which she has been on continuous positive airway pressure (CPAP), congestive heart failure secondary to left ventricular diastolic dysfunction, cardiac tamponade and pericardial window, hypertension, anxiety/depression, gastroesophageal reflux disease (GERD), insomnia. She denies any history of diabetes mellitus, prior history of hyperlipidemia, prior history of coronary artery disease, myocardial infarction, significant valvular heart disease, atrial fibrillation, CVA, cardiomyopathy, sudden cardiac . MEDICATIONS AT HOME: - verapamil 180 mg by mouth daily - Zoloft 100 mg by mouth twice a day - prednisone 20 mg by mouth daily - Singulair 10 mg by mouth daily - Lasix 40 mg by mouth daily - Protonix 40 mg by mouth daily - Wellbutrin 300 mg by mouth daily - Abilify 2 mg by mouth twice a day - Xanax 0.25 mg by mouth four times a day - Ventolin two puffs inhalation four times a day as needed - Campral 666 mg by mouth three times a day CURRENT MEDICATIONS: Are: - Wellbutrin 300 mg by mouth daily - Lasix 40 mg by mouth daily - verapamil 180 mg by mouth daily - Ecotrin 81 mg by mouth daily - Ticagrelor 90 mg by mouth twice a day - Humalog insulin as directed - ondansetron 4 mg intravenously (IV) every 6 hours as needed for nausea or vomiting - ceftriaxone 2 grams IV every 12 hours - heparin subcutaneously 5000 units every 8 hours - azithromycin 500 mg IV every 24 hours - Lasix 40 mg IV one time given at 9:30 p.m. - KCl 10 mEq IV times two - She had received ticagrelor 180 mg at about 9:30, aspirin 325 mg also at about 9:30. - She is also on prednisone 40 mg by mouth every 12 hours. - Campral 666 mg by mouth three times daily - alprazolam 0.25 mg by mouth four times a day - Abilify 2 mg by mouth twice a day - pantoprazole 40 mg by mouth twice a day - Singulair 10 mg by mouth daily - sertraline 100 mg by mouth twice a day - insulin coverage and also has received potassium 40 mEq by mouth at 8 p.m. - Also on albuterol metered-dose inhaler (MDI) two puffs four times a day as needed via inhalation. - glucagon 1 mg subcutaneously as needed for hypoglycemia - glucose 16 grams by mouth as needed for hypoglycemia - D50, 25 mL as needed for hypoglycemia - Tylenol 650 mg every 4 hours as needed for mild pain or fever PAST SURGICAL HISTORY: Is positive for (C) section, hysterectomy, pericardial window. SOCIAL HISTORY: Patient lives with her , and she is a former smoker, stopped in 2006. She denies ethyl alcohol (EtOH) abuse or illicit drugs. ALLERGIES: She has allergies to CODEINE. ADVANCE DIRECTIVES: Patient is a FULL CODE. ON PHYSICAL EXAMINATION: Patient is alert and oriented, in no acute distress at rest, and her last vital signs revealed a blood pressure of 116/75 with a pulse of 103, respiration 18-20. Examination of head, ears, eyes, nose, and throat: Atraumatic. Neck is supple with extended jugular. The lungs did not reveal any wheezing or crackles. The heart examination revealed normal S1 and S2 without gallops. The point of maximal impulse (PMI) is slightly displaced inferiorly. There is no rub. Abdomen is unremarkable. Extremities reveal trace bilateral ankle and lower leg edema. Neurological examination is negative for focal deficit. LABS: The CBC on 10/01/2016 revealed a WBC of 12.8, hemoglobin 11.7, hematocrit 36.6, and platelets 279,000. BMP revealed a sodium of 135, potassium 3.2, chloride of 97, CO2 of 28, BUN 12, creatinine 1.1, GFR 54.1, fasting glucose 88, and calcium 8.9. Serum troponin was 0.75 and 1.61. Serum C-reactive protein was 0.91. Serum BNP was 314. Lipid profile done in the evening revealed a total cholesterol of 255, LDL 163, triglycerides 123, and HDL 66 with a total cholesterol/HDL ratio of 3.8. ABG on admission revealed a pH of 7.48, pCO2 of 34.7, pO2 of 63.3, and bicarbonate was 26.5 with an oxygen saturation of 92% on nasal cannula. Chest x-ray revealed chronic changes and increased opacities at the level of the left hilum that may reflect infiltrate. CT angiogram done on 10/01/2016 revealed no evidence of pulmonary embolism but areas of consolidation involving the medial left upper lobe, perihilar right lower lobe, and diffuse bilateral ground glass alveolar opacity involving the left upper and lower lobes. Electrocardiogram revealed normal sinus rhythm without any significant ST-T abnormalities. IMPRESSION: 1. Possible acute coronary syndrome. 2. Congestive heart failure, appears to be acute. 3. Probably pneumonia. 4. Hypertension. 5. Hyperlipidemia. 6. Gastroesophageal reflux disorder. 7. Hypokalemia. 8. Anxiety/depression. 9. History of lung cancer, treated with chemotherapy and radiotherapy and in remission since 2008. 10. Obesity and sleep apnea, on CPAP. 11. Chronic obstructive pulmonary disease. Mrs. Carmen Ayala is probably having acute coronary syndrome in addition to probably bilateral pneumonia. She continues to have minimal chest pain in the hospital, and her shortness of breath seems to be stable. Otherwise, her physical examination is benign. Her blood pressure is under control. Case was discussed with the hospitalist covering, and patient was loaded with ticagrelor and started on a baby aspirin daily. Initially, she was started on beta-raven on top of the calcium channel raven and, in the morning, I will discontinue the calcium channel raven and she will be started back on the beta-raven if no contraindication. In the meantime, she will be started on nitrate. She was not given nitro paste because her blood pressure is on the low side. Because her cholesterol is markedly elevated, she was started on atorvastatin, as mentioned above. She will have an echocardiogram done in the morning in order to assess her left ventricular ejection fraction (LVEF), and also case will be discussed with Dr. De Los Santos who has more information about her underlying cardiac condition. She might benefit from a cardiac catheterization. It was a pleasure to participate in the care of Mrs. Carmen Ayala for her underlying cardiac condition. I will continue to monitor her along with you here. Please do not hesitate to call if any questions.
[2016-10-03] MEDS: HumaLOG INSULIN (NovoLOG) PER UNIT SC SCH ×4 (07:25→20:09)
--- NOTE | 2016-10-03 08:23 | REP ---
Clinical: Shortness of breath. Pulmonary edema. Comparison: 10/01/2016. Findings: Bilateral perihilar markings are again identified and essentially unchanged. No new acute process identified. Elevation of the right hemidiaphragm is stable. No pneumothorax. No obvious pleural effusion. Skeletal structures intact. Impression: No significant change from prior examination. Increased markings emanating from the bilateral brenda again noted which may reflect chronic changes with superimposed infiltrates. Signed by Oh Torres MD 10/03/2016 08:15 A
[2016-10-03] MEDS: TICAGRELOR 90 MG TABLET (BRILINTA) PO SCH ×2 (08:45→20:32)
[2016-10-03] MEDS: predniSONE 20 MG TAB PO SCH ×2 (08:45→20:31)
[2016-10-03] MEDS: METOPROLOL TART 50 MG TAB PO SCH ×2 (08:45→20:31)
[2016-10-03] MEDS: buPROPion **XL** TABLET 150MG (WELLBUTRIN XL) PO SCH (08:46)
[2016-10-03] MEDS: ACAMPROSATE CALCIUM 333 MG TABLET (CAMPRAL) PO SCH ×3 (08:46→20:31)
[2016-10-03] MEDS: FUROSEMIDE 40 MG TAB PO SCH (08:46)
[2016-10-03] MEDS: ASPIRIN 81 MG ENTERIC TAB PO SCH (08:46)
[2016-10-03] MEDS: SERTRALINE 100 MG TAB PO SCH ×2 (08:46→20:32)
[2016-10-03] MEDS: ALPRAZolam 0.25 MG TAB PO SCH ×4 (08:46→20:31)
[2016-10-03] MEDS: PANTOPRAZOLE 40MG TAB (PROTONIX) PO SCH ×2 (08:46→20:31)
[2016-10-03] MEDS: ARIPiprazole 2 MG TAB PO SCH ×2 (08:46→20:32)
--- NOTE | 2016-10-03 09:02 | ECGEPIP ---
Stationary ECG Study [facility] Test Date: 2016-10-02 Pat Name: KYM OLIVER Department: Room: [place] [address] Gender: F Senior Biostatistician/Group Leader: KENDY : 1955 Requested By: LISA LOMELI Order Number: [id number] Reading MD: Vineet Park Measurements Intervals [place] Rate: 102 P: -73 CO: 145 QRS: 267 QRSD: 114 T: 145 QT: 386 QTc: 503 Interpretive Statements ECTOPIC ATRIAL TACHYCARDIA PATTERN CONSISTENT WITH PULMONARY DISEASE INCOMPLETE RIGHT BUNDLE BRANCH BLOCK RIGHT VENTRICULAR HYPERTROPHY AND ST-T CHANGE No change from 10/01/16 Electronically Signed On 10-03-2016 9:01:51 EST by Vineet Park
[2016-10-03] MEDS: cefTRIAXone SOD 2 GM in D5W MINI-BAG PLUS 50 ML IV SCH ×2 (10:55→22:09)
--- NOTE | 2016-10-03 19:13 | IPNPDOC ---
Subjective Date Seen The patient was seen on 10/03/16. Subjective Chief Complaint/HPI The patient is a 61-year-old female admitted with a reason for visit of Acute Respiratory Failure. Events since last encounter pt seen and examined, doing well feels better she had some chest pain last night. Objective Physical Examination General Exam: Positive: Alert, No Acute Distress Eye Exam: Positive: Conjunctiva & lids normal, EOMI, PERRLA, Negative: Sclera icteric ENT Exam: Positive: Atraumatic, Mucous membr. moist/pink, Pharynx Normal Chest Exam: Positive: Diminished Heart Exam: Positive: Rate Normal Abdomen Exam: Positive: Normal bowel sounds, Soft, Negative: Hepatospenomegaly, Tenderness Extremity Exam: Positive: Normal pulses, Negative: Clubbing, Cyanosis, Edema Assessment /Plan Problems (1) Elevated troponin Status: Acute Response to Treatment: Improving Problem Specific Plan: Consult Specialist Problem Text: * trending down * per Dr Humphreys is consulted * she states she had some chest pain last nigh * nothing today * he will reassess today (2) Dyspnea and respiratory abnormalities Onset Date: 06/04/2014 Status: Acute Response to Treatment: Improving Problem Text: * pt has history of respiratory failure due to copd, lung ca * Dr salvador consulted (3) Lung cancer Status: Chronic (4) Diabetes Status: Chronic (5) Bronchial stenosis Status: Chronic (6) Chronic respiratory failure with hypoxia Status: Chronic VS, I&O, 24H, Fishbone Vital Signs/I&O Vital Signs Date Time Temp Pulse Resp B/P Pulse Ox O2 Delivery O2 Flow Rate FiO2 10/03/16 16:00 97.8 92 18 109/59 94 Room Air 10/03/16 00:00 1.0 I&O- Last 24 Hours up to 6 AM 10/03/16 06:00 Intake Total 3225 ml Output Total 1100 ml Balance 2125 ml Laboratory Data 24H LABS Laboratory Tests 2 10/02/16 21:31: Bedside Glucose (Misc Panel) 114H 10/03/16 04:07: Anion Gap 8, Blood Urea Nitrogen 16, Creatinine 1.20H, Sodium Level 137, Potassium Level 4.2, Chloride Level 101, Carbon Dioxide Level 28, Calcium Level 8.7, Glomerular Filtration Rate 49.0L 10/03/16 11:33: Bedside Glucose (Misc Panel) 115H 10/03/16 17:15: Bedside Glucose (Misc Panel) 129H CBC/BMP Laboratory Tests 10/03/16 04:07 Calcium Level 8.7, Red Blood Count 3.92 L, Mean Corpuscular Volume 78.5 L, Mean Corpuscular Hemoglobin 24.3 L, Mean Corpuscular Hemoglobin Concent 30.9 L, Red Cell Distribution Width 15.6 H Microbiology Microbiology 10/01/16 Blood Culture - Preliminary, Resulted No Growth after 48 hours. All Specime... 10/01/16 Blood Culture - Preliminary, Resulted No Growth after 48 hours. All Specime... 10/03/16 Gram Stain - Final, Resulted 10/03/16 Sputum Culture, Resulted Pending 10/01/16 MRSA Screen - Final, Complete 10/01/16 Respiratory Virus Panel (PCR) ([facility]) - Final, Complete DARLINE STILES DO Oct 03, 2016 19:13
[2016-10-03] MEDS: ATORVASTATIN 20 MG TAB PO SCH (20:30)
[2016-10-03] MEDS: MONTELUKAST 10 MG TAB PO SCH (20:32)
[2016-10-03] MEDS: ISOSORBIDE MON. (IMDUR) 30 MG XR TAB PO SCH (20:32)
[2016-10-03] MEDS ORDERED: AZITHROMYCIN 250 MG TAB PO SCH (21:00)
[2016-10-03] MEDS: METOPROLOL TARTRATE 100 MG TAB PO SCH (21:06)
--- NOTE | 2016-10-03 21:14 | IPN ---
DATE: 10/03/2016 CARDIOLOGY IN HOUSE PROGRESS NOTE Mrs. Carmen Ayala was seen this evening, she was sitting in a chair in no acute distress at rest. Her shortness of breath and cough have improved, but she continues to have chest discomfort on and off with activities, at rest. She also complains of feeling diaphoretic at times. She denies any palpitations. There is no orthopnea or paroxysmal nocturnal dyspnea (PND). There is no bleeding reported. She has not been having any fever. She was admitted here on 10/01/2016 with manifestation of congestive heart failure that was thought to be related to pneumonia versus congestive heart failure proper. Her serum troponin initially was 0.75, then peaked up to 1.61 and the last one was 0.42. She underwent an echocardiogram yesterday that revealed a left ventricular ejection fraction (LVEF) estimated at 45% and when compared with prior echocardiogram done last year, the LVEF was essentially normal. On physical examination, the patient is alert and oriented, in no acute distress at rest and her vital signs today revealed a blood pressure of 109/59 with a pulse of 92, respirations 18 and her temperature is 97.8 degrees Fahrenheit with an oxygen saturation of 94% on room air. She was in a positive fluid balance of 1.6 liters on 10/02/2016. Examination of the head, ears, eyes, nose and throat: Atraumatic. Neck is supple. No jugular venous distention (JVD). The lungs did not reveal any wheezing or crackles. The heart examination revealed normal S1 and S2 without gallops. The point of maximum impulse (PMI) is not displaced. There is no rub. There is a diastolic murmur noted on the left side of the sternum, grade 2/6. Abdomen is soft and nontender. Extremities reveal no pedal edema. Neurological examination is negative for focal deficit. LABORATORY: BMP done today revealed a sodium of 137, potassium 4.2, chloride 101, CO2 28, BUN 16, creatinine 1.2, GFR 49.0, fasting glucose 134 and calcium 8.7. CBC revealed a WBC of 7.8, hemoglobin 9.5, hematocrit 30.8 and platelets 242,000. Chest x-ray done today revealed no manifestation of congestive heart failure, no pleural effusion. There are increased markings from bilateral brenda that may reflect chronic changes with possible superimposed infiltrates. Telemetry revealed normal sinus rhythm. IMPRESSION: A 61-year-old woman with hypertension, hyperlipidemia, diabetes mellitus and she is a former smoker, was admitted with shortness of breath and also complained of chest pain. Initially, it was thought to be related to pneumonia with some demand ischemia. Based on the pattern of the serum troponin, the normally depressed global left ventricular systolic function when compared with 1 year ago and she continues to have chest discomfort in the hospital, she probably was having acute coronary syndrome and she will benefit from a cardiac catheterization to reassess her coronary anatomy and have a treatment plan. The case will be discussed with the invasive team in [place]. I have discussed her condition earlier today with the hospitalist. I will increase the beta raven and will hold the furosemide for tomorrow. After the cardiac catheterization, she should be started on one of the angiotensin-converting enzyme (NATE) inhibitors or angiotensin receptor blockers (ARBs). This was discussed with the patient. She has agreed to proceed.
--- NOTE | 2016-10-03 22:51 | EDDOCDS ---
Nurse's Notes [facility] Name: Carmen Ayala Age: 61 yrs Sex: Female : 1955 Arrival Date: 10/01/2016 Time: 12:37 Bed 7 Private MD: Casandra Meek DO Diagnosis: Shortness of breath;Chest pain, unspecified Presentation: 10/01 12:47 Presenting complaint: Patient states: sudden onset of diff breathing , sob on even mk4 slight exertion expect thick pink sputum , dyspneic on arrival. Adult Sepsis Screening: The patient does not have new or worsening altered mentation. Patient has a respiratory rate of greater than or equal to 22 (1 point). Systolic blood pressure is greater than 100. Patient has a qSOFA score of 1- Negative Sepsis Screen. Suicide/Homicide risk assessment- the patient denies having any suicidal and/or homicidal ideations and does not present with any other emotional, behavioral or mental health complaints. Status: Patient is not a claim service representative or dependent. Transition of care: patient was not received from another setting of care. 12:47 Acuity: MELISSA Level 2 mk4 12:47 Method Of Arrival: Walkin/Carried/Asstd mk4 12:49 Presenting complaint: sao2 87% room air, neb by EMS. mk4 Triage Assessment: 12:49 General: Appears in no apparent distress. mk4 12:52 Pain: Denies pain. HIV screening NA for this visit Offered previously. Neurological: mk4 Level of Consciousness is awake, alert. Respiratory: Onset: The symptoms/episode began/occurred this morning, Airway is patent Respiratory effort is labored, Respiratory pattern is hyperventilation. Derm: Skin is intact, Skin is pale. Historical: - Allergies: Codeine Sulfate (Vomit); - Home Meds: 1. alprazolam 0.25 mg Oral tab four times a day 2. Abilify 2 mg Oral tab 2 mg twice a day 3. bupropion HCl 300 mg Oral Tb24 1 tab once daily 4. furosemide 40 mg Oral tab 1 tab once daily 5. Privigen 25 grams intravenous monthly 6. Singulair 10 mg Oral tab 1 tab once daily 7. prednisone 20 mg Oral tab once daily increased to 40 mg daily 07/13/16 8. Zoloft 100 mg Oral tab 1 tab twice a day 9. verapamil 180 mg Oral C24P 1 tab once daily 10. camparil 333 mg 2 tab three times a day 11. benzonatate 100 mg oral cap 1 cap twice a day 12. esomeprazole magnesium 40 mg Oral cpDR 1 cap 2 times per day - PMHx: COPD; Cardiac tamponade; lung cancer; Anxiety; GERD; CHF; kidney disease; Sleep Apnea w/ CPAP; Depression; Hypogammaglobulinemia; lung ( bronchila) cancer; - PSHx: ; Hysterectomy; pericardial window; - Social history: Smoking status: Patient states former smoker of tobacco. No barriers to communication noted, The patient speaks fluent Liberian. - Family history: Not pertinent. - : The pt / caregiver states he / she is on anticoagulants: Home medication list is obtained from the patient. - Exposure Risk Screening:: None identified. Screenin:31 Screening information is obtained from the patient. Fall risk: No risks identified. cf2 Assistance ADL's: requires no assistance with activities of daily living. Abuse/DV Screen: The patient / caregiver reports he/she is: not in a situation that causes fear, pain or injury. Nutritional screening: No deficits noted. Advance Directives: Further advance directive information is declined. home support is adequate. Assessment: 12:30 Adult Sepsis Screening: The patient does not have new or worsening altered mentation. mk4 Patient has a respiratory rate of greater than or equal to 22 (1 point). Systolic blood pressure is greater than 100. Patient has cough and/or SOB- Positive Sepsis Screen. Patient made MELISSA Level 2. Patient placed in exam room. Charge nurse notified. General: Appears ill. Pain: Denies pain. Neurological: Level of Consciousness is awake, alert. Cardiovascular: Rhythm is sinus tachycardia Chest pain is denied. Respiratory: Airway is patent Respiratory effort is labored, Respiratory pattern is tachypnea Stridor noted Breath sounds with wheezes expiratory bilaterally. Reports cough that is productive, thick pink sputum , had a CT at [facility] last Friday that revealed pnuemonia however bc she was not symptomatic they did not treat , sudden onset this am of wheezing and dyspmea the patient has moderate shortness of breath. Derm: Skin is intact. 13:45 General: Appears in no apparent distress, comfortable, ill, Behavior is appropriate for ms18 age, cooperative, pleasant. Neurological: Level of Consciousness is awake, alert, obeys commands, Oriented to person, place, time. Respiratory: Airway is patent Respiratory effort is labored, Respiratory pattern is tachypnea. Derm: Skin is pink, warm & dry. 14:49 General: Appears in no apparent distress, Behavior is appropriate for age. dsf Neurological: Level of Consciousness is awake, alert. Cardiovascular: Capillary refill < 3 seconds Heart tones S1 S2 present. Respiratory: Airway is patent Respiratory effort is labored, Respiratory pattern is tachypnea Breath sounds are coarse bilaterally. Derm: Skin is pink, warm & dry. 15:49 General: Appears in no apparent distress, Behavior is appropriate for age, cooperative. dsf Neurological: Level of Consciousness is awake, alert. Cardiovascular: Capillary refill < 3 seconds Rhythm is sinus tachycardia No ectopy. Respiratory: Airway is patent Respiratory effort is even, Respiratory pattern is regular. Derm: Skin is pink, warm & dry. 16:31 General: Appears in no apparent distress, comfortable, Behavior is appropriate for age, dsf cooperative. Pain: Denies pain. Neurological: Level of Consciousness is awake, alert, Oriented to person, place, time. Cardiovascular: Capillary refill < 3 seconds Heart tones S1 S2 present Rhythm is sinus tachycardia No ectopy. Respiratory: Airway is patent Respiratory effort is even, Respiratory pattern is tachypnea Breath sounds are coarse bilaterally. Breath sounds with wheezes expiratory bilaterally. GI: Abdomen is non- distended Bowel sounds present X 4 quads. Abd is soft and non tender X 4 quads. Derm: Skin is pink, warm & dry. 17:31 Adult Sepsis Screening: The patient does not have new or worsening altered mentation. dsf Patient's respiratory rate is less than 22. Systolic blood pressure is greater than 100. General: Appears in no apparent distress, Behavior is appropriate for age, cooperative. Pain: Denies pain. Neurological: Level of Consciousness is awake, alert, Oriented to person, place, time. Cardiovascular: Capillary refill < 3 seconds Heart tones S1 S2 present Rhythm is sinus tachycardia No ectopy. Respiratory: Airway is patent Respiratory effort is labored, Respiratory pattern is regular, Breath sounds are coarse bilaterally. GI: Abdomen is non- distended Bowel sounds present X 4 quads. Abd is soft and non tender X 4 quads. Derm: Skin is pink, warm & dry. 17:57 General: Dr. De Los Santos in room examining patient. pt removed from bipap and placed on 4 dsf LNC . 18:00 General: Appears in no apparent distress, Behavior is appropriate for age, cooperative. dsf Neurological: Level of Consciousness is awake, alert. Cardiovascular: Capillary refill < 3 seconds. Respiratory: Airway is patent Respiratory effort is even, Respiratory pattern is regular. Derm: Skin is pink, warm & dry. 20:27 Reassessment: Patient states feeling better. Patient states symptoms have improved. cf2 General: Patient currently in high cardoso's position eating a snack tray. 20:57 Reassessment: Patient denies pain at this time. Patient states feeling better. Patient cf2 states symptoms have improved. 20:59 General: Report to ICU. Room being cleaned. cf2 Vital Signs: 12:45 BP 140 / 71 (auto/); mk4 12:46 Pulse 116 MON; Pulse Ox 87% on R/A; mk4 13:00 BP 113 / 70 (auto/); mk4 13:01 Pulse 110 MON; Pulse Ox 96% on 4 lpm NC; mk4 13:45 BP 112 / 76 (auto/); ms18 13:45 Pulse 106 MON; Pulse Ox 95% ; ms18 13:45 Resp 22; ms18 14:00 BP 139 / 72 (auto/); ms18 14:00 Pulse 106 MON; Pulse Ox 94% ; ms18 14:01 Pulse 104 MON; Pulse Ox 96% ; ms18 14:09 Temp 97.6(O); ms18 14:46 BP 121 / 79 (auto/); dsf 14:47 Pulse 102 MON; Resp 20; Pulse Ox 96% on 40% BiPAP; dsf 15:57 BP 126 / 71 (auto/); dsf 15:59 Pulse 103 MON; Pulse Ox 96% ; dsf 16:28 BP 130 / 71 (auto/); dsf 16:28 Pulse 106 MON; Pulse Ox 98% ; dsf 16:29 Pulse 109 MON; Pulse Ox 98% ; dsf 16:30 BP 136 / 78 (auto/); Resp 21; Temp 98.0(TE); Pain 0/10; dsf 16:45 BP 124 / 68 (auto/); dsf 16:46 Pulse 104 MON; Pulse Ox 100% ; dsf 17:00 Pulse 109 MON; Pulse Ox 99% ; dsf 17:00 BP 121 / 73 (auto/); dsf 17:01 Pulse 111 MON; Pulse Ox 100% ; dsf 17:15 BP 114 / 72 (auto/); dsf 17:16 Pulse 105 MON; Pulse Ox 98% ; dsf 17:30 BP 123 / 67 (auto/); dsf 17:31 Pulse 107 MON; Pulse Ox 99% ; dsf 17:50 BP 119 / 81 (auto/); dsf 17:51 Pulse 109 MON; Pulse Ox 100% ; dsf 19:00 BP 116 / 56 (auto/); cf2 19:01 Pulse 108 MON; Pulse Ox 97% ; cf2 19:15 BP 114 / 64 (auto/); cf2 19:16 Pulse 108 MON; Pulse Ox 98% ; cf2 19:30 BP 111 / 56 (auto/); cf2 19:31 Pulse 107 MON; Pulse Ox 99% ; cf2 19:45 BP 115 / 61 (auto/); cf2 19:46 Pulse 105 MON; Pulse Ox 97% ; cf2 20:00 BP 113 / 65 (auto/); cf2 20:01 Pulse 106 MON; Pulse Ox 98% ; cf2 20:15 BP 123 / 72 (auto/); cf2 20:16 Pulse 113 MON; Pulse Ox 97% ; cf2 20:30 BP 116 / 69 (auto/); cf2 20:31 Pulse 107 MON; Pulse Ox 98% ; cf2 20:45 BP 110 / 61 (auto/); cf2 20:46 Pulse 108 MON; Pulse Ox 98% ; cf2 21:15 BP 116 / 64 (auto/); cf2 21:16 Pulse 109 MON; Pulse Ox 98% ; cf2 21:30 BP 118 / 65 (auto/); cf2 21:31 Pulse 110 MON; Pulse Ox 98% ; cf2 ED Course: 12:38 Patient visited by Shayy Torrez, [employer]. lbd 12:38 Casandra Meek is Private Physician. lbd 12:38 Beatrice Fernando,JARET is Primary Nurse. lbd 12:38 Patient moved to Waiting lbd 12:38 Patient moved to 13 lbd 12:49 Triage Initiated mk4 13:16 The patient / caregiver is instructed regarding the plan of care and ED course. Cardiac mk4 monitor on. Pulse ox on. NIBP on. 13:16 Maintain field IV. IV is intact. mk4 13:16 O2 via nasal cannula \T\ 4L/min. mk4 13:17 Patient visited by Deedee Weiss RN. mk4 13:26 Yaneth Armas MD is Attending Physician. fg 13:41 Patient visited by Yaneth Armas MD. fg 14:02 Patient visited by Beatrice Fernando RN. ms18 14:02 B-Type Natiuretic Peptide Sent. ms18 14:02 Basic Metabolic Profile Sent. ms18 14:02 CBC with Diff Sent. ms18 14:02 Cardiac Injury Profile Sent. ms18 14:02 Troponin Sent. ms18 14:09 Patient visited by Beatrice Fernando RN. ms18 14:09 EKG done. (by ED staff). Reviewed by Yaneth Armas MD. ms18 14:36 portable chest Returned. EDMS 14:37 Patient visited by Beatrice Fernando RN. ms18 14:37 Patient moved to 1 kcs 14:50 Patient visited by Brielle Gonzales RN. dsf 15:02 BIPAP: Inspiratory Pressure: 10, Expiratory Pressure: 5, FiO2: 40%, Full face fask. dsf 15:28 Other: MOLST was scanned into [employer] and attached to record. gb 15:[address] dsf 15:59 Patient moved to 1 dsf 16:00 Patient visited by Brielle Gonzales RN. dsf 16:13 [facility] Payment Agreement was scanned into [employer] and attached to record. gjb 16:28 Mohini Porras is Hospitalizing Provider. fg 16:32 Patient visited by Brielle Gonzales RN. dsf 16:53 CT Chest Angio R/O PE Returned. EDMS 17:57 -Blood Culture Sent. dsf 17:59 Patient visited by Brielle Gonzales RN. dsf 17:59 Lactic Acid (Ramírez tube on ice) Sent. mk4 17:59 BLOOD CULTURES Sent. mk4 18:06 RESPIRATORY PANEL Sent. dsf 18:26 Written Provider Order was scanned into [employer] and attached to record. lbd 18:52 Patient visited by Brielle Gonzales RN. dsf 18:53 Patient moved to Admit Hold ml3 19:06 Primary Nurse role handed off by Beatrice Fernando RN cf2 19:06 Swathi Quinones,JARET is Primary Nurse. cf2 19:06 Patient visited by Swathi Quinones RN. cf2 20:16 Patient visited by Swathi Quinones RN. cf2 20:24 Patient moved to 1 ml3 20:26 Patient visited by Swathi Quinones RN. cf2 20:31 Patient has correct armband on for positive identification. Placed in gown. Bed in low cf2 position. Call light in reach. Side rails up X 1. Side rails up X2. Property :Personal belongings accompany Pt. Door closed. Noise minimized. Visitors limited. Lights dimmed. Moved to private room. 20:56 Patient visited by Swathi Quinones RN. cf2 21:09 Notified private physician of abnormal lab values. Dr Jacobo notified if troponin of 09.02 at 2100. 21:36 Patient visited by Swathi Quinones RN. cf2 21:37 Patient visited by Swathi Quinones RN. cf2 21:44 Patient moved to 7 ml3 10/02 13:13 T-Sheet-- Draft Copy was scanned into [employer] and attached to record. gb 13:14 ECG/EKG was scanned into [employer] and attached to record. gb Administered Medications: 10/01 17:57 Drug: levofloxacin 500 mg [levofloxacin 250 mg/50 mL in 5 % dextrose intravenous dsf piggyback] Route: IVPB; Infused Over: 60 mins; Site: right hand; 18:52 Not Given (doctor canceled order ): Furosemide 20 mg IVP once dsf RT: 14:15 ABG's drawn from right radial artery allens test done and positive pressure held for 5 ac1 minutes no bleeding noted pressure bandage applied specimen sent pt. tolerated well. 17:57 Initial Med Neb Given as ordered Patient was instructed and evaluated on procedure. ac1 Respiratory: Breath sounds with rhonchi bilaterally. Order Results: Lab Order: B-Type Natiuretic Peptide; SPEC'M 10/01/16 13:58 Test: BRAIN NATRIURETIC PEPTIDE; Value: 314; Range: <100; Abnormal: Above high normal; Units: PG/ML; Status: F Lab Order: Basic Metabolic Profile; SPEC'M 10/01/16 13:58 Test: GLUCOSE, FASTING; Value: 88; Range: 70-105; Units: MG/DL; Status: F Test: BLOOD UREA NITROGEN; Value: 12; Range: 7-18; Units: MG/DL; Status: F Test: CREATININE FOR GFR; Value: 1.10; Range: 0.55-1.02; Abnormal: Above high normal; Units: MG/DL; Status: F Test: GLOMERULAR FILTRATION RATE; Value: 54.1; Range: >51; Status: F Test: SODIUM LEVEL; Value: 135; Range: 136-145; Abnormal: Below low normal; Units: MEQ/L; Status: F Test: POTASSIUM SERUM; Value: 3.2; Range: 3.5-5.1; Abnormal: Below low normal; Units: MEQ/L; Status: F Test: CHLORIDE LEVEL; Value: 97; Range: 98-107; Abnormal: Below low normal; Units: MEQ/L; Status: F Test: CARBON DIOXIDE LEVEL; Value: 28; Range: 21-32; Units: MEQ/L; Status: F Test: ANION GAP; Value: 10; Range: 8-16; Units: MEQ/L; Status: F Test: CALCIUM LEVEL; Value: 8.9; Range: 8.5-10.1; Units: MG/DL; Status: F Test Note: ; Units are mL/min/1.73 m2 Chronic Kidney Disease Staging per NKF: Stage I & II GFR >=60 Normal to Mildly Decreased Stage III GFR 30-59 Moderately Decreased Stage IV GFR 15-29 Severely Decreased Stage V GFR <15 Very Little GFR Left ESRD GFR <15 on STAFF [employer] Lab Order: CBC with Diff; SPEC'M 10/01/16 13:58 Test: WHITE BLOOD COUNT; Value: 12.8; Range: 4.0-10.0; Abnormal: Above high normal; Units: K/mm3; Status: F Test: RED BLOOD COUNT; Value: 4.65; Range: 4.00-5.40; Units: M/mm3; Status: F Test: HEMOGLOBIN; Value: 11.7; Range: 12.0-16.0; Abnormal: Below low normal; Units: g/dl; Status: F Test: HEMATOCRIT; Value: 36.6; Range: 36.0-47.0; Units: %; Status: F Test: MEAN CORPUSCULAR VOLUME; Value: 78.8; Range: 80.0-96.0; Abnormal: Below low normal; Units: fl; Status: F Test: MEAN CORPUSCULAR HEMOGLOBIN; Value: 25.1; Range: 27.0-33.0; Abnormal: Below low normal; Units: pg; Status: F Test: MEAN CORPUSCULAR HGB CONC; Value: 31.9; Range: 32.0-36.5; Abnormal: Below low normal; Units: g/dl; Status: F Test: RED CELL DISTRIBUTION WIDTH; Value: 15.5; Range: 11.5-14.5; Abnormal: Above high normal; Units: %; Status: F Test: PLATELET COUNT, AUTOMATED; Value: 279; Range: 150-450; Units: k/mm3; Status: F Test: NEUTROPHILS %; Value: 91.6; Range: 36.0-66.0; Abnormal: Above high normal; Units: %; Status: F Test: LYMPH %; Value: 3.5; Range: 24.0-44.0; Abnormal: Below low normal; Units: %; Status: F Test: MONO %; Value: 3.6; Range: 0.0-5.0; Units: %; Status: F Test: EOS %; Value: 0.7; Range: 0.0-3.0; Units: %; Status: F Test: BASO %; Value: 0.1; Range: 0.0-1.0; Units: %; Status: F Test: LARGE UNSTAINED CELL %; Value: 0.4; Range: 0.0-4.0; Units: %; Status: F Test: NEUTROPHILS #; Value: 11.7; Range: 1.8-7.7; Abnormal: Above high normal; Units: K/mm3; Status: F Test: LYMPH #; Value: 0.5; Range: 1.5-4.5; Abnormal: Below low normal; Units: K/mm3; Status: F Test: MONO #; Value: 0.5; Range: 0.0-0.8; Units: K/mm3; Status: F Test: EOS #; Value: 0.1; Range: 0.0-0.50; Units: K/mm3; Status: F Test: BASO #; Value: 0.0; Range: 0.0-0.2; Units: K/mm3; Status: F Test: LARGE UNSTAINED CELL #; Value: 0.1; Range: 0.0-0.4; Units: K/mm3; Status: F Lab Order: Cardiac Injury Profile; [facility] 10/01/16 13:58 Test: CPK CREATINE PHOSPHOKINASE; Value: 148; Range: 26-192; Units: U/L; Status: F Test: CK-MB VALUE MASS; Value: 7.3; Range: 0.0-3.6; Abnormal: Above high normal; Units: NG/ML; Status: F Test: MB/CK RELATIVE INDEX; Value: 4.93; Range: < OR =4; Abnormal: Above high normal; Status: F Test Note: ; DIAGNOSIS CRITERIA MMB ng/ml Relative Index (RI) NON-AMI < or = 5 N/A RAMÍREZ ZONE > 5 < or = 4 AMI > 5 > 4 Lab Order: Troponin; [facility] 10/01/16 13:58 Test: TROPONIN I; Value: 0.75; Range: < 0.10; Abnormal: Above high normal; Units: NG/ML; Status: F Test Note: ; Troponin I Reference Interval for [employer] LOCI: 99th Percentile= 0.00-0.045 ng/ml Risk Stratification: <= 0.10 ng/ml Decreased Risk for Adverse Clinical Events. 0.10-1.50 ng/ml Increased Risk for Adverse Clinical Events. Evaluation of additional criterion and/or repeat testing in 2-6 hours is suggested to rule out myocardial damage. >= 1.50 ng/ml Indicative of Myocardial Injury. Lab Order: -Arterial Blood Gas; [facility] 10/01/16 14:08 Test: ABG pH (ARTERIAL); Value: 7.485; Range: 7.350-7.450; Abnormal: Above high normal; Units: UNITS; Status: F Test: ABG PARTIAL PRESSURE CO2; Value: 34.7; Range: 35.0-45.0; Abnormal: Below low normal; Units: mmHg; Status: F Test: ABG PARTIAL PRESSURE O2; Value: 63.3; Range: 75.0-100.0; Abnormal: Below low normal; Units: mmHg; Status: F Test: ABG TOTAL CO2; Value: 26.6; Range: 22.0-29.0; Units: MEQ/L; Status: F Test: ABG HCO3; Value: 25.6; Range: 22.0-26.0; Units: MEQ/L; Status: F Test: ABG BASE EXCESS; Value: 2.4; Range: -2.0-2.0; Abnormal: Above high normal; Status: F Test: ABG STANDARD HCO3; Value: 26.5; Range: 22.0-26.0; Abnormal: Above high normal; Units: MEQ/L; Status: F Test: ABG O2 SATURATION; Value: 92.0; Range: 95.0-99.0; Abnormal: Below low normal; Units: %; Status: F Test: ABG DEVICE; Value: NASAL EZEKIEL; Status: F Lab Order: Lactic Acid (Ramírez tube on ice); [facility] 10/01/16 17:39 Test: LACTIC ACID SEPSIS PROTOCOL; Value: 1.5; Range: 0.4-2.0; Units: MMOL/L; Status: F Lab Order: C REACTIVE PROTEIN QUANTITATIV; [facility] 10/01/16 17:48 Test: C REACTIVE PROTEIN QUANTITATIV; Value: 0.91; Range: 0.00-0.30; Abnormal: Above high normal; Units: MG/DL; Status: F Lab Order: ERYTHROCYTE SEDIMENTATION RATE; [facility] 10/01/16 17:48 Test: ERYTHROCYTE SEDIMENTATION RATE; Value: 25; Range: 0-30; Units: mm/hr; Status: F Lab Order: TROPONIN; [facility] 10/01/16 19:55 Test: TROPONIN I; Value: 1.61; Range: < 0.10; Abnormal: Critical Delta High; Units: NG/ML; Status: F Test Note: ; Troponin I Reference Interval for [employer] LOCI: 99th Percentile= 0.00-0.045 ng/ml Risk Stratification: <= 0.10 ng/ml Decreased Risk for Adverse Clinical Events. 0.10-1.50 ng/ml Increased Risk for Adverse Clinical Events. Evaluation of additional criterion and/or repeat testing in 2-6 hours is suggested to rule out myocardial damage. >= 1.50 ng/ml Indicative of Myocardial Injury. Lab Order: RESPIRATORY PANEL; [facility] 10/01/16 18:04 Test: RESPIRATORY PANEL; Value: RP PANEL RESULT NEGATIVE by PCR; Status: F Test: RESPIRATORY PANEL; Value: Comments:; Status: F Test Note: ; This respiratory PCR panel detects Influenza A H1, H3 and 2009 H1 viruses, Influenza B virus, Respiratory syncytial virus, Human metapneumovirus, Parainfluenza virus 1, 2, 3 and 4, Adenovirus, Rhinovirus/Enterovirus, Coronavirus HKU1, NL63, OC43 and 229E, Bordetella pertussis, Mycoplasma pneumoniae and Chlamydia pneumoniae. Lab Order: CARDIAC RISK PROFILE; SPEC'M 10/01/16 19:55 Test: TRIGLYCERIDES LEVEL; Value: 123; Range: <150; Units: MG/DL; Status: F Test: CHOLESTEROL LEVEL; Value: 255; Range: <200; Abnormal: Above high normal; Units: MG/DL; Status: F Test: HDL CHOLESTEROL; Value: 67; Range: >40; Units: MG/DL; Status: F Test: LDL CHOLESTEROL; Value: 163.4; Range: <100; Abnormal: Above high normal; Units: MG/DL; Status: F Test: NON-HDL-C; Value: 188; Units: MG/DL; Status: F Test: CHOLESTEROL RISK RATIO; Value: 3.805; Range: <5; Status: F Radiology Order: portable chest Test: portable chest REASON FOR EXAMINATION: Shortness of Breath; Clinical: Shortness of breath.; ; Comparison: 07/15/2016.; ; Findings:; Left perihilar opacities appear increased from prior examination and may reflect; acute infiltrate. Right suprahilar markings are essentially unchanged and may; represent chronic findings. No obvious effusion. No pneumothorax. Cardiac; silhouette stable. Skeletal structures intact.; ; Impression:; Chronic mediastinal and right hilar/suprahilar findings.; Increased opacities emanating from the left hilum may reflect acute pneumonia.; ; ; Signed by; Oh Torres MD 10/01/2016 01:58 P; Radiology Order: CT Chest Angio R/O PE Test: CT Chest Angio R/O PE REASON FOR EXAMINATION: Shortness of Breath; Clinical: Acute chest pain.; ; Comparison: 09/23/2016; ; Technique: Axial contrast enhanced images from the thoracic inlet to the upper; abdomen using 100 ml Isovue 370 intravenous contrast material with coronal and; sagittal re-formations.; ; Findings: Satisfactory enhancement of the pulmonary vasculature is achieved and; no filling defects are identified to suggest pulmonary embolus. Areas of; consolidation and alveolar ground-glass opacities involving the right lower lobe,; left upper lobe, and left lower lobe as well as suspected adenopathy. These; findings have increased since prior examination. Atherosclerotic changes of the; coronary arteries and thoracic aorta noted. Mild cardiomegaly. Small right; pleural effusion. No pneumothorax.; ; Impression:; No evidence for pulmonary embolus.; Areas of consolidation involving the medial left upper lobe, perihilar right; lower lobe and diffuse bilateral ground-glass alveolar opacities involving the; left upper lobe and lower lobes.; ; ; Signed by; Oh Torres MD 10/01/2016 04:01 P; Outcome: 16:28 Decision to Hospitalize by Provider. fg 21:47 The following High Risk Discharge criteria are identified: Admitted to ICU accompanied dion by nurse, on monitor, with chart. Condition: unchanged. 21:49 Patient left the ED. dion Signatures: Dispatcher [employer] EDMS Trang Good, RN RN Shayy Wallace, [employer] lbd Nadya Renee, RN RN Sharon [place], Reg Reg gb Mila Ireland,RT RT ac1 Carlos Cuellar, [employer] ml3 Brielle Gonzales,RN RN dsf Deedee Weiss RN RN mk4 Beatrice Fernando,RN RN ms18 Yaneth Armas MD MD fg Beck, Gabriela gjb Familetti-Gonzalez, Christina,RN RN cf2 Corrections: (The following items were deleted from the chart) 12:50 12:47 Adult Sepsis Screening: The patient does not have new or worsening altered mk4 mentation. Patient has a respiratory rate of greater than or equal to 22 (1 point). Systolic blood pressure is greater than 100. Patient has a qSOFA score of 1- Negative Sepsis Screen. mk4 13:15 12:58 PMHx: COPD [Inactive]; kcs mk4 13:15 12:58 PMHx: Cardiac tamponade [Inactive]; kcs mk4 13:15 12:58 PMHx: lung cancer [Inactive]; kcs mk4 13:15 12:58 PMHx: Anxiety [Inactive]; kcs mk4 13:15 12:58 PMHx: GERD [Inactive]; kcs mk4 : 12:58 PMHx: CHF [Inactive]; kcs mk4 : 12:58 PMHx: kidney disease [Inactive]; kcs mk4 : 12:58 PMHx: Sleep Apnea w/ CPAP [Inactive]; kcs mk4 : 12:58 PMHx: Depression [Inactive]; kcs mk4 :15 12:58 PMHx: Hypogammaglobulinemia [Inactive]; kcs mk4 Chart Complete MTDD
--- NOTE | 2016-10-03 22:51 | EDDOCDS ---
Physician Documentation [facility] Name: Carmen Ayala Age: 61 yrs Sex: Female : 1955 Arrival Date: 10/01/2016 Time: 12:37 Bed 7 Private MD: Casandra Meek DO Disposition: 10/01/16 16:28 Hospitalization ordered by Mohini Porras for Inpatient Admission. Preliminary diagnosis are Shortness of breath, Chest pain, unspecified. - Bed requested for M ICU. - Status is Inpatient Admission. dion - Condition is Stable. - Problem is new. - Symptoms have improved. Historical: - Allergies: Codeine Sulfate (Vomit); - Home Meds: 1. alprazolam 0.25 mg Oral tab four times a day 2. Abilify 2 mg Oral tab 2 mg twice a day 3. bupropion HCl 300 mg Oral Tb24 1 tab once daily 4. furosemide 40 mg Oral tab 1 tab once daily 5. Privigen 25 grams intravenous monthly 6. Singulair 10 mg Oral tab 1 tab once daily 7. prednisone 20 mg Oral tab once daily increased to 40 mg daily 07/13/16 8. Zoloft 100 mg Oral tab 1 tab twice a day 9. verapamil 180 mg Oral C24P 1 tab once daily 10. camparil 333 mg 2 tab three times a day 11. benzonatate 100 mg oral cap 1 cap twice a day 12. esomeprazole magnesium 40 mg Oral cpDR 1 cap 2 times per day - PMHx: COPD; Cardiac tamponade; lung cancer; Anxiety; GERD; CHF; kidney disease; Sleep Apnea w/ CPAP; Depression; Hypogammaglobulinemia; lung ( bronchila) cancer; - PSHx: ; Hysterectomy; pericardial window; - Social history: Smoking status: Patient states former smoker of tobacco. No barriers to communication noted, The patient speaks fluent Australian. - Family history: Not pertinent. - : The pt / caregiver states he / she is on anticoagulants: Home medication list is obtained from the patient. - Exposure Risk Screening:: None identified. Vital Signs: 10/01 12:45 BP 140 / 71 (auto/); mk4 12:46 Pulse 116 MON; Pulse Ox 87% on R/A; mk4 13:00 BP 113 / 70 (auto/); mk4 13:01 Pulse 110 MON; Pulse Ox 96% on 4 lpm NC; mk4 13:45 BP 112 / 76 (auto/); ms18 13:45 Pulse 106 MON; Pulse Ox 95% ; ms18 13:45 Resp 22; ms18 14:00 BP 139 / 72 (auto/); ms18 14:00 Pulse 106 MON; Pulse Ox 94% ; ms18 14:01 Pulse 104 MON; Pulse Ox 96% ; ms18 14:09 Temp 97.6(O); ms18 14:46 BP 121 / 79 (auto/); dsf 14:47 Pulse 102 MON; Resp 20; Pulse Ox 96% on 40% BiPAP; dsf 15:57 BP 126 / 71 (auto/); dsf 15:59 Pulse 103 MON; Pulse Ox 96% ; dsf 16:28 BP 130 / 71 (auto/); dsf 16:28 Pulse 106 MON; Pulse Ox 98% ; dsf 16:29 Pulse 109 MON; Pulse Ox 98% ; dsf 16:30 BP 136 / 78 (auto/); Resp 21; Temp 98.0(TE); Pain 0/10; dsf 16:45 BP 124 / 68 (auto/); dsf 16:46 Pulse 104 MON; Pulse Ox 100% ; dsf 17:00 Pulse 109 MON; Pulse Ox 99% ; dsf 17:00 BP 121 / 73 (auto/); dsf 17:01 Pulse 111 MON; Pulse Ox 100% ; dsf 17:15 BP 114 / 72 (auto/); dsf 17:16 Pulse 105 MON; Pulse Ox 98% ; dsf 17:30 BP 123 / 67 (auto/); dsf 17:31 Pulse 107 MON; Pulse Ox 99% ; dsf 17:50 BP 119 / 81 (auto/); dsf 17:51 Pulse 109 MON; Pulse Ox 100% ; dsf 19:00 BP 116 / 56 (auto/); cf2 19:01 Pulse 108 MON; Pulse Ox 97% ; cf2 19:15 BP 114 / 64 (auto/); cf2 19:16 Pulse 108 MON; Pulse Ox 98% ; cf2 19:30 BP 111 / 56 (auto/); cf2 19:31 Pulse 107 MON; Pulse Ox 99% ; cf2 19:45 BP 115 / 61 (auto/); cf2 19:46 Pulse 105 MON; Pulse Ox 97% ; cf2 20:00 BP 113 / 65 (auto/); cf2 20:01 Pulse 106 MON; Pulse Ox 98% ; cf2 20:15 BP 123 / 72 (auto/); cf2 20:16 Pulse 113 MON; Pulse Ox 97% ; cf2 20:30 BP 116 / 69 (auto/); cf2 20:31 Pulse 107 MON; Pulse Ox 98% ; cf2 20:45 BP 110 / 61 (auto/); cf2 20:46 Pulse 108 MON; Pulse Ox 98% ; cf2 21:15 BP 116 / 64 (auto/); cf2 21:16 Pulse 109 MON; Pulse Ox 98% ; cf2 21:30 BP 118 / 65 (auto/); cf2 21:31 Pulse 110 MON; Pulse Ox 98% ; cf2 [facility]. kcs [facility] Order complete. jlm 13:27 Radial Drill Operator/Pulse Ox/q 30 min VS ordered. fg 13:27 IV Saline Lock ordered. fg 13:27 Rhythm Strip to chart ordered. fg 13:27 Undress patient appropriately for examination ordered. fg 13:28 portable chest Ordered. EDMS 13:28 B-Type Natiuretic Peptide Ordered. EDMS 13:28 Basic Metabolic Profile Ordered. EDMS 13:28 CBC with Diff Ordered. EDMS 13:28 Cardiac Injury Profile Ordered. EDMS 13:28 Troponin Ordered. EDMS 13:28 ECG WITH READING ER PHYS+CARDIAG ordered. EDMS 13:57 Call Respiratory ordered. fg 13:58 -Arterial Blood Gas Ordered. EDMS 14:02 Call Respiratory complete. ms18 14:06 Furosemide 20 mg IVP once ordered. fg 14:37 BED REQUEST+ADM ordered. EDMS 15:13 CT Chest Angio R/O PE Ordered. EDMS 15:28 Other: MOLST was scanned into [employer] and attached to record. gb 15:42 Financial registration complete. gjb 16:13 [facility] Payment Agreement was scanned into [employer] and attached to record. gjb 16:28 -Blood Culture (Adults Only), peripheral from different site, or from device/port/PICC fg etc. if present ordered. 16:28 levofloxacin 500 mg IVPB once over 60 mins ordered. fg 16:29 Lactic Acid (Ramírez tube on ice) Ordered. EDMS 16:30 -Blood Culture Ordered. EDMS 16:37 -Blood Culture (Adults Only), peripheral from different site, or from device/port/PICC lbd etc. if present complete. 16:39 BLOOD CULTURES Ordered. EDMS 17:07 Admission / Observation Status ordered. EDMS 17:08 2 GRAM SODIUM DIET ordered. EDMS 17:09 C REACTIVE PROTEIN QUANTITATIV Ordered. EDMS 17:09 ERYTHROCYTE SEDIMENTATION RATE Ordered. EDMS 17:10 RESPIRATORY PANEL Ordered. EDMS 17:10 SPUTUM CULTURE AND GRAM STAIN Ordered. EDMS 17:16 TROPONIN Ordered. EDMS 17:57 Misc. Nursing Order ordered. fg 18:11 RESPIRATORY PANEL Ordered. EDMS 18:25 REGULAR+DIET ordered. EDMS 18:26 Written Provider Order was scanned into [employer] and attached to record. lbd 19:33 COMPLETE BLOOD COUNT Ordered. EDMS 19:33 BASIC METABOLIC PROFILE Ordered. EDMS 21:23 CARDIAC MARKER PANEL Ordered. EDMS 21:24 CARDIAC MARKER PANEL Ordered. EDMS 21:26 ELECTROCARDIOGRAM ADULT ordered. EDMS 21:26 ECHOCARD,DOPPLER/COLOR FLOW ordered. EDMS 21:32 CARDIAC RISK PROFILE Ordered. EDMS 10/02 13:13 T-Sheet-- Draft Copy was scanned into [employer] and attached to record. 13:14 ECG/EKG was scanned into [employer] and attached to record. gb Administered Medications: 10/01 17:57 Drug: levofloxacin 500 mg [levofloxacin 250 mg/50 mL in 5 % dextrose intravenous dsf piggyback] Route: IVPB; Infused Over: 60 mins; Site: right hand; 18:52 Not Given (doctor canceled order ): Furosemide 20 mg IVP once dsf Signatures: Dispatcher [employer] EDMS Trang Good, RN RN Shayy Wallace, Rotary Bar Operator Unit lbd Nadya Renee RN Sharon Woodson, Pepe Reg gb Carlos Cuellar, Rotary Bar Operator Unit ml3 Deedee Weiss RN RN mk4 Florecita Ruiz, Rotary Bar Operator Unit jlBeatrice Langford RN RN ms18 Yaneth Armas MD MD fg Beck, Gabriela gjb Fuller, Desiree RN dsf The chart was reviewed and I authenticate all verbal orders and agree with the evaluation and treatment provided.Corrections: (The following items were deleted from the chart) 13:15 12:58 PMHx: COPD [Inactive]; kcs mk4 13:15 12:58 PMHx: Cardiac tamponade [Inactive]; kcs mk4 13:15 12:58 PMHx: lung cancer [Inactive]; kcs mk4 13:15 12:58 PMHx: Anxiety [Inactive]; kcs mk4 13:15 12:58 PMHx: GERD [Inactive]; kcs mk4 13:15 12:58 PMHx: CHF [Inactive]; kcs mk4 13:15 12:58 PMHx: kidney disease [Inactive]; kcs mk4 13:15 12:58 PMHx: Sleep Apnea w/ CPAP [Inactive]; kcs mk4 13:15 12:58 PMHx: Depression [Inactive]; kcs mk4 13:15 12:58 PMHx: Hypogammaglobulinemia [Inactive]; kcs mk4 21:25 19:31 CARDIAC MARKER PANEL ordered. EDMS EDMS 21:35 21:25 CARDIAC RISK PROFILE ordered. EDMS EDMS Attachments: 16:13 [facility] Payment Agreement gjb 18:26 Written Provider Order lbd 10/02 13:13 T-Sheet-- Draft Copy gb 13:14 ECG/EKG gb Chart Complete MTDD
--- NOTE | 2016-10-03 22:52 | EDDOCDS ---
Physician Documentation [facility] Name: Carmen Ayala Age: 61 yrs Sex: Female : 1955 Arrival Date: 10/01/2016 Time: 12:37 Bed 7 Private MD: Casandra Meek DO Disposition: 10/01/16 16:28 Hospitalization ordered by Mohini Porras for Inpatient Admission. Preliminary diagnosis are Shortness of breath, Chest pain, unspecified. - Bed requested for M ICU. - Status is Inpatient Admission. dion - Condition is Stable. - Problem is new. - Symptoms have improved. Historical: - Allergies: Codeine Sulfate (Vomit); - Home Meds: 1. alprazolam 0.25 mg Oral tab four times a day 2. Abilify 2 mg Oral tab 2 mg twice a day 3. bupropion HCl 300 mg Oral Tb24 1 tab once daily 4. furosemide 40 mg Oral tab 1 tab once daily 5. Privigen 25 grams intravenous monthly 6. Singulair 10 mg Oral tab 1 tab once daily 7. prednisone 20 mg Oral tab once daily increased to 40 mg daily 07/13/16 8. Zoloft 100 mg Oral tab 1 tab twice a day 9. verapamil 180 mg Oral C24P 1 tab once daily 10. camparil 333 mg 2 tab three times a day 11. benzonatate 100 mg oral cap 1 cap twice a day 12. esomeprazole magnesium 40 mg Oral cpDR 1 cap 2 times per day - PMHx: COPD; Cardiac tamponade; lung cancer; Anxiety; GERD; CHF; kidney disease; Sleep Apnea w/ CPAP; Depression; Hypogammaglobulinemia; lung ( bronchila) cancer; - PSHx: ; Hysterectomy; pericardial window; - Social history: Smoking status: Patient states former smoker of tobacco. No barriers to communication noted, The patient speaks fluent Yemeni. - Family history: Not pertinent. - : The pt / caregiver states he / she is on anticoagulants: Home medication list is obtained from the patient. - Exposure Risk Screening:: None identified. Vital Signs: 10/01 12:45 BP 140 / 71 (auto/); mk4 12:46 Pulse 116 MON; Pulse Ox 87% on R/A; mk4 13:00 BP 113 / 70 (auto/); mk4 13:01 Pulse 110 MON; Pulse Ox 96% on 4 lpm NC; mk4 13:45 BP 112 / 76 (auto/); ms18 13:45 Pulse 106 MON; Pulse Ox 95% ; ms18 13:45 Resp 22; ms18 14:00 BP 139 / 72 (auto/); ms18 14:00 Pulse 106 MON; Pulse Ox 94% ; ms18 14:01 Pulse 104 MON; Pulse Ox 96% ; ms18 14:09 Temp 97.6(O); ms18 14:46 BP 121 / 79 (auto/); dsf 14:47 Pulse 102 MON; Resp 20; Pulse Ox 96% on 40% BiPAP; dsf 15:57 BP 126 / 71 (auto/); dsf 15:59 Pulse 103 MON; Pulse Ox 96% ; dsf 16:28 BP 130 / 71 (auto/); dsf 16:28 Pulse 106 MON; Pulse Ox 98% ; dsf 16:29 Pulse 109 MON; Pulse Ox 98% ; dsf 16:30 BP 136 / 78 (auto/); Resp 21; Temp 98.0(TE); Pain 0/10; dsf 16:45 BP 124 / 68 (auto/); dsf 16:46 Pulse 104 MON; Pulse Ox 100% ; dsf 17:00 Pulse 109 MON; Pulse Ox 99% ; dsf 17:00 BP 121 / 73 (auto/); dsf 17:01 Pulse 111 MON; Pulse Ox 100% ; dsf 17:15 BP 114 / 72 (auto/); dsf 17:16 Pulse 105 MON; Pulse Ox 98% ; dsf 17:30 BP 123 / 67 (auto/); dsf 17:31 Pulse 107 MON; Pulse Ox 99% ; dsf 17:50 BP 119 / 81 (auto/); dsf 17:51 Pulse 109 MON; Pulse Ox 100% ; dsf 19:00 BP 116 / 56 (auto/); cf2 19:01 Pulse 108 MON; Pulse Ox 97% ; cf2 19:15 BP 114 / 64 (auto/); cf2 19:16 Pulse 108 MON; Pulse Ox 98% ; cf2 19:30 BP 111 / 56 (auto/); cf2 19:31 Pulse 107 MON; Pulse Ox 99% ; cf2 19:45 BP 115 / 61 (auto/); cf2 19:46 Pulse 105 MON; Pulse Ox 97% ; cf2 20:00 BP 113 / 65 (auto/); cf2 20:01 Pulse 106 MON; Pulse Ox 98% ; cf2 20:15 BP 123 / 72 (auto/); cf2 20:16 Pulse 113 MON; Pulse Ox 97% ; cf2 20:30 BP 116 / 69 (auto/); cf2 20:31 Pulse 107 MON; Pulse Ox 98% ; cf2 20:45 BP 110 / 61 (auto/); cf2 20:46 Pulse 108 MON; Pulse Ox 98% ; cf2 21:15 BP 116 / 64 (auto/); cf2 21:16 Pulse 109 MON; Pulse Ox 98% ; cf2 21:30 BP 118 / 65 (auto/); cf2 21:31 Pulse 110 MON; Pulse Ox 98% ; cf2 MDM: 13:15 [facility] Business Development Coordinator Order ordered. kcs 13:16 [facility] Business Development Coordinator Order complete. jlm 13:27 Russet Repairer/Pulse Ox/q 30 min VS ordered. fg 13:27 IV Saline Lock ordered. fg 13:27 Rhythm Strip to chart ordered. fg 13:27 Undress patient appropriately for examination ordered. fg 13:28 portable chest Ordered. EDMS 13:28 B-Type Natiuretic Peptide Ordered. EDMS 13:28 Basic Metabolic Profile Ordered. EDMS 13:28 CBC with Diff Ordered. EDMS 13:28 Cardiac Injury Profile Ordered. EDMS 13:28 Troponin Ordered. EDMS 13:28 ECG WITH READING ER PHYS+CARDIAG ordered. EDMS 13:57 Call Respiratory ordered. fg 13:58 -Arterial Blood Gas Ordered. EDMS 14:02 Call Respiratory complete. ms18 14:06 Furosemide 20 mg IVP once ordered. fg 14:37 BED REQUEST+ADM ordered. EDMS 15:13 CT Chest Angio R/O PE Ordered. EDMS 15:28 Other: MOLST was scanned into [employer] and attached to record. gb 15:42 Financial registration complete. gjb 16:13 [facility] Payment Agreement was scanned into [employer] and attached to record. gjb 16:28 -Blood Culture (Adults Only), peripheral from different site, or from device/port/PICC fg etc. if present ordered. 16:28 levofloxacin 500 mg IVPB once over 60 mins ordered. fg 16:29 Lactic Acid (Ramírez tube on ice) Ordered. EDMS 16:30 -Blood Culture Ordered. EDMS 16:37 -Blood Culture (Adults Only), peripheral from different site, or from device/port/PICC lbd etc. if present complete. 16:39 BLOOD CULTURES Ordered. EDMS 17:07 Admission / Observation Status ordered. EDMS 17:08 2 GRAM SODIUM DIET ordered. EDMS 17:09 C REACTIVE PROTEIN QUANTITATIV Ordered. EDMS 17:09 ERYTHROCYTE SEDIMENTATION RATE Ordered. EDMS 17:10 RESPIRATORY PANEL Ordered. EDMS 17:10 SPUTUM CULTURE AND GRAM STAIN Ordered. EDMS 17:16 TROPONIN Ordered. EDMS 17:57 Misc. Nursing Order ordered. fg 18:11 RESPIRATORY PANEL Ordered. EDMS 18:25 REGULAR+DIET ordered. EDMS 18:26 Written Provider Order was scanned into [employer] and attached to record. lbd 19:33 COMPLETE BLOOD COUNT Ordered. EDMS 19:33 BASIC METABOLIC PROFILE Ordered. EDMS 21:23 CARDIAC MARKER PANEL Ordered. EDMS 21:24 CARDIAC MARKER PANEL Ordered. EDMS 21:26 ELECTROCARDIOGRAM ADULT ordered. EDMS 21:26 ECHOCARD,DOPPLER/COLOR FLOW ordered. EDMS 21:32 CARDIAC RISK PROFILE Ordered. EDMS 10/02 13:13 T-Sheet-- Draft Copy was scanned into [employer] and attached to record. 13:14 ECG/EKG was scanned into [employer] and attached to record. gb Administered Medications: 10/01 17:57 Drug: levofloxacin 500 mg [levofloxacin 250 mg/50 mL in 5 % dextrose intravenous dsf piggyback] Route: IVPB; Infused Over: 60 mins; Site: right hand; 18:52 Not Given (doctor canceled order ): Furosemide 20 mg IVP once dsf Signatures: Dispatcher [employer] EDMS Trang Good, RN RN Shayy Wallace, Baggage Handling Supervisor Unit lbd Nadya Renee RN Sharon Woodson, Pepe Reg gb Carlos Cuellar, Baggage Handling Supervisor Unit ml3 Deedee Weiss RN RN mk4 Florecita Ruiz, Baggage Handling Supervisor Unit jlBeatrice Langford RN RN ms18 Ynaeth Armas MD MD fg Beck, Gabriela gjb Fuller, Desiree RN dsf The chart was reviewed and I authenticate all verbal orders and agree with the evaluation and treatment provided.Corrections: (The following items were deleted from the chart) 13:15 12:58 PMHx: COPD [Inactive]; kcs mk4 13:15 12:58 PMHx: Cardiac tamponade [Inactive]; kcs mk4 13:15 12:58 PMHx: lung cancer [Inactive]; kcs mk4 13:15 12:58 PMHx: Anxiety [Inactive]; kcs mk4 13:15 12:58 PMHx: GERD [Inactive]; kcs mk4 13:15 12:58 PMHx: CHF [Inactive]; kcs mk4 13:15 12:58 PMHx: kidney disease [Inactive]; kcs mk4 13:15 12:58 PMHx: Sleep Apnea w/ CPAP [Inactive]; kcs mk4 13:15 12:58 PMHx: Depression [Inactive]; kcs mk4 13:15 12:58 PMHx: Hypogammaglobulinemia [Inactive]; kcs mk4 21:25 19:31 CARDIAC MARKER PANEL ordered. EDMS EDMS 21:35 21:25 CARDIAC RISK PROFILE ordered. EDMS EDMS Attachments: 16:13 [facility] Payment Agreement gjb 18:26 Written Provider Order lbd 10/02 13:13 T-Sheet-- Draft Copy gb 13:14 ECG/EKG gb Chart Complete MTDD
[2016-10-04 04:00] VITALS: BP 115/66
[2016-10-04] MEDS: HEPARIN SOD (PORCINE) 5000 UNITS/ML VIAL SC SCH (05:26)
[2016-10-04 05:38] LABS: MEAN CORPUSCULAR HEMOGLOBIN 25.5 pg (27.0-33.0); MEAN CORPUSCULAR HGB CONC 32.2 g/dl (32.0-36.5); MEAN CORPUSCULAR VOLUME 79.2 fl (80.0-96.0); RED CELL DISTRIBUTION WIDTH 15.7 % (11.5-14.5); WHITE BLOOD COUNT 10.4 K/mm3 (4.0-10.0)
[2016-10-04 05:45] LABS: CALCIUM LEVEL 9.2 MG/DL (8.5-10.1); CREATININE FOR GFR 1.15 MG/DL (0.55-1.02); GLOMERULAR FILTRATION RATE 51.4 (>51)
[2016-10-04] MEDS: HumaLOG INSULIN (NovoLOG) PER UNIT SC SCH (07:30)
[2016-10-04 07:40] VITALS: BP 136/77
[2016-10-04] MEDS: ASPIRIN 81 MG ENTERIC TAB PO SCH (09:02)
[2016-10-04] MEDS: ALPRAZolam 0.25 MG TAB PO SCH (09:02)
[2016-10-04] MEDS: predniSONE 20 MG TAB PO SCH (09:02)
[2016-10-04] MEDS: buPROPion **XL** TABLET 150MG (WELLBUTRIN XL) PO SCH (09:04)
[2016-10-04] MEDS: SERTRALINE 100 MG TAB PO SCH (09:05)
[2016-10-04] MEDS: PANTOPRAZOLE 40MG TAB (PROTONIX) PO SCH (09:05)
[2016-10-04] MEDS: TICAGRELOR 90 MG TABLET (BRILINTA) PO SCH (09:06)
[2016-10-04 09:08] VITALS: BP 136/77
[2016-10-04] MEDS: METOPROLOL TARTRATE 100 MG TAB PO SCH (09:08)
[2016-10-04] MEDS: cefTRIAXone SOD 2 GM in D5W MINI-BAG PLUS 50 ML IV SCH (10:23)
[2016-10-04] MEDS: ACAMPROSATE CALCIUM 333 MG TABLET (CAMPRAL) PO SCH (11:11)
[2016-10-04] MEDS: ARIPiprazole 2 MG TAB PO SCH (11:11)
--- NOTE | 2016-10-06 16:53 | DSES ---
DATE OF ADMISSION: 10/01/2016 DATE OF DISCHARGE: 10/04/2016 The patient was discharged. She was transferred to [facility] in [place]. REASON FOR ADMISSION: Shortness of breath and chest pain. PRIMARY CARE PROVIDER: Dr. Ross. FINAL DIAGNOSES: 1. Elevated troponin. 2. Non-ST segment elevation myocardial infarction (NSTEMI). 3. Dyspnea and respiratory abnormalities. 4. History of lung cancer. 5. Diabetes. 6. Bronchiostenosis. 7. Chronic respiratory failure with hypoxia. HISTORY OF PRESENT ILLNESS: The patient is a 61-year-old female, past medical history significant for: 1. Chronic obstructive pulmonary disease (COPD), radiation pneumonitis, stage IIIB [id number] lung cancer status post chemotherapy and radiation. 2. Obstructive sleep apnea 3. Diastolic heart failure. 4. History of cardiac tamponade status post pericardial window. 5. Diabetes. 6. Chronic kidney disease. 7. Hypertension. 8. Gastroesophageal reflux disease (GERD). 9. Anxiety/depression. The patient presented to the emergency room for acute respiratory distress, worsened from her baseline. This morning, the patient was walking around the house and started to have acute shortness of breath and significant sweating, diaphoresis, complaining of chills. Used her pulse oximeter and was found to have oxygen saturation of 75%. At her baseline did not require any oxygen. The patient presented to the emergency room. She stated she is also having foamy pink sputum production and was experiencing some chest discomfort, unable to describe in detail. The patient had no other associated symptoms. No sick contacts. She was hospitalized. The patient was found to have elevated troponins. She was started on bilevel positive airway pressure (BiPAP) and moved to the intensive care unit (ICU) where Dr. De Los Santos was consulted. She was started on Rocephin and azithromycin for pneumonia. Her troponin was 0.75 and went up to 1.6 before starting to come down again to 0.66. Dr. Humphreys was consulted. He ordered an echocardiogram which showed a reduced ejection fraction (EF) of 45% which is lower than it was when it was done last year. Initially was thought to be all related to demand ischemia due to pneumonia, but based on the pattern of serum troponin and the fact that she continued to have chest discomfort in the hospital, she was thought to may be having acute coronary syndrome and will benefit cardiac catheterization. At that time, the patient was transferred to [place] for cardiac catheterization. The patient's condition was guarded.
== END 2016-10-04 11:27 | disposition short-term general hospital (02) | DRG 190 ==
LOC: M ED 12:37 → M ED INP 17:02 → M ICU 22:07 → M PCU 10-03 21:23
PROVIDERS: ADMIT Internal Medicine; ATTEND Internal Medicine
DX: I21.4 Non-ST elevation (NSTEMI) myocardial infarction (principal); J96.21 Acute and chronic respiratory failure with hypoxia; I50.31 Acute diastolic (congestive) heart failure; E11.9 Type 2 diabetes mellitus without complications; K21.9 Gastro-esophageal reflux disease without esophagitis; I12.9 Hypertensive chronic kidney disease with stage 1 through stage 4 chronic kidney disease, or unspecified chronic kidney disease; G47.33 Obstructive sleep apnea (adult) (pediatric); Z85.818 Personal history of malignant neoplasm of other sites of lip, oral cavity, and pharynx; F41.9 Anxiety disorder, unspecified; F32.9 Major depressive disorder, single episode, unspecified; J44.9 Chronic obstructive pulmonary disease, unspecified; Z79.899 Other long term (current) drug therapy; Z87.891 Personal history of nicotine dependence; E87.6 Hypokalemia; E78.5 Hyperlipidemia, unspecified; Z79.82 Long term (current) use of aspirin; Z88.5 Allergy status to narcotic agent; E66.9 Obesity, unspecified

== ENCOUNTER 2016-10-16 08:26 | Outpatient (CLI) | payer OTHER ==
[~2016-10-16] VITALS: Ht 165.1 cm; Wt 92.3 kg
[~2016-10-16 08:26] MED LIST changes: +ACETAMINOPHEN TAB 650MG DOSE (2X325MG) PO SCH; +diphenhydrAMINE 50 MG CAP PO SCH
[2016-10-16] MEDS ORDERED: IMMUNE GLOBULIN 10% 20 GM in APPROPRIATE DILUENT 1 EA IV ONE (09:00)
[2016-10-16] MEDS ORDERED: IMMUNE GLOBULIN 10% 5 GM in APPROPRIATE DILUENT 1 EA IV ONE (09:00)
== END 2016-10-16 12:00 | disposition home or self-care (01) ==
LOC: M INFU 08:26
PROVIDERS: ATTEND Internal Medicine Infectious Disease
DX: D72.810 Lymphocytopenia (principal); D80.1 Nonfamilial hypogammaglobulinemia; I10 Essential (primary) hypertension; D64.9 Anemia, unspecified; Z88.2 Allergy status to sulfonamides; Z88.5 Allergy status to narcotic agent; Z79.52 Long term (current) use of systemic steroids; Z79.899 Other long term (current) drug therapy; Z87.891 Personal history of nicotine dependence
CPT/HCPCS: 82784; 86360; 96365; 96366; J1568

== ENCOUNTER → 2016-10-22 | Outpatient (REF) | payer OTHER ==
[~2016-10-22] MED LIST changes: -ACETAMINOPHEN TAB 650MG DOSE (2X325MG) PO SCH; -diphenhydrAMINE 50 MG CAP PO SCH
[2016-10-28 10:09] LABS: A1A FOR PHENOTYPE 143 mg/dL (90-200)
== END ==
LOC: M LABDRAWP 15:26
PROVIDERS: ATTEND Nurse Practitioner Family
DX: J44.9 Chronic obstructive pulmonary disease, unspecified (principal)

== ENCOUNTER → 2016-11-13 | Outpatient (REF) | payer OTHER ==
[2016-11-13 19:17] LABS: PERCENT SATURATION 14.9 % (13.2-37.4)
== END ==
LOC: M LAB REF 16:48
PROVIDERS: ATTEND Internal Medicine
DX: D64.9 Anemia, unspecified (principal)

== ENCOUNTER 2016-11-14 08:32 | Outpatient (CLI) | payer OTHER ==
[~2016-11-14] VITALS: Ht 165.1 cm; Wt 92.3 kg
[~2016-11-14 08:32] MED LIST changes: +ACETAMINOPHEN TAB 650MG DOSE (2X325MG) PO SCH; +diphenhydrAMINE 25 MG CAP PO SCH
[2016-11-14] MEDS ORDERED: IMMUNE GLOBULIN 10% 5 GM in APPROPRIATE DILUENT 1 EA IV ONE (08:45)
[2016-11-14] MEDS ORDERED: IMMUNE GLOBULIN 10% 20 GM in APPROPRIATE DILUENT 1 EA IV ONE (08:45)
== END 2016-11-14 12:10 | disposition home or self-care (01) ==
LOC: M INFU 08:32
PROVIDERS: ATTEND Internal Medicine Infectious Disease
DX: D80.1 Nonfamilial hypogammaglobulinemia (principal); Z79.899 Other long term (current) drug therapy; Z79.52 Long term (current) use of systemic steroids; Z88.5 Allergy status to narcotic agent
CPT/HCPCS: 96365; 96366; J1568

== ENCOUNTER → 2016-12-10 | Outpatient (CLI) | payer OTHER ==
[~2016-12-10] MED LIST changes: -ACETAMINOPHEN TAB 650MG DOSE (2X325MG) PO SCH; +E-Z-GAS II EFFERVESCENT PACKET (SODIUM BICARB./CITRIC ACID/SIMETHICONE) As Ordered ONE; +E-Z-HD 98% w/w 340GM SUSP BTL As Ordered ONE; +E-Z-PAQUE 96% w/w SUSP 176GM BTL As Ordered ONE; -diphenhydrAMINE 25 MG CAP PO SCH
--- NOTE | 2016-12-10 17:43 | REP ---
ESOPHAGRAM: The procedure was performed under the direct supervision of Dr. Ramírez. The exam was compared to the previous study performed on 01/02/2016. A single view PA chest x-ray is submitted as a assessment specialist film. There is no change compared to the previous study dated 01/02/2016. Liquid barium was given in the erect and prone oblique positions. During the oral and pharyngeal stages of deglutition there is penetration. During esophageal transport there are tertiary waves demonstrated. In the mid esophagus there is mucosal irregularity with mild narrowing. This measures approximately 4 to 5 cm in length. The length of the lesion and the narrowing is essentially unchanged compared to the previous examination. However, there is increased irregularity and thickening of the mucosa with multiple small ulcers. There is a hiatal hernia present. Gastroesophageal reflux is not demonstrated on this examination. IMPRESSION: 1. There is laryngeal penetration. 2. In the mid esophagus there is a 4 to 5 cm area of irregular mucosa and narrowing. The length of the lesion and narrowing is essentially unchanged compared to the previous study performed on 01/02/2016. However, there is increased irregularity and thickening of the mucosa with multiple small ulcers identified, 3. There is a hiatal hernia present. 1 minute and 39 seconds of fluoroscopy time was utilized for this procedure. Reviewed by CESAR Paz 12/11/2016 09:21 AEdited and Signed by Jose Ramírez MD 12/12/2016 04:58 P
== END ==
LOC: M RAD 09:48
PROVIDERS: ATTEND Internal Medicine Gastroenterology
DX: K22.2 Esophageal obstruction (principal)

== ENCOUNTER 2016-12-12 08:24 | Outpatient (CLI) | payer OTHER ==
[~2016-12-12] VITALS: Ht 165.1 cm; Wt 92.3 kg
[~2016-12-12 08:24] MED LIST changes: +ACETAMINOPHEN TAB 650MG DOSE (2X325MG) PO SCH; -E-Z-GAS II EFFERVESCENT PACKET (SODIUM BICARB./CITRIC ACID/SIMETHICONE) As Ordered ONE; -E-Z-HD 98% w/w 340GM SUSP BTL As Ordered ONE; -E-Z-PAQUE 96% w/w SUSP 176GM BTL As Ordered ONE; +diphenhydrAMINE 25 MG CAP PO SCH
[2016-12-12] MEDS ORDERED: IMMUNE GLOBULIN 10% 20 GM in APPROPRIATE DILUENT 1 EA IV ONE (08:45)
[2016-12-12] MEDS ORDERED: IMMUNE GLOBULIN 10% 5 GM in APPROPRIATE DILUENT 1 EA IV ONE (08:45)
== END 2016-12-12 12:10 | disposition home or self-care (01) ==
LOC: M INFU 08:24
PROVIDERS: ATTEND Internal Medicine Infectious Disease
DX: D80.1 Nonfamilial hypogammaglobulinemia (principal); D80.3 Selective deficiency of immunoglobulin G [IgG] subclasses; Z79.52 Long term (current) use of systemic steroids; Z79.899 Other long term (current) drug therapy; Z88.5 Allergy status to narcotic agent; Z88.2 Allergy status to sulfonamides; Z87.891 Personal history of nicotine dependence
CPT/HCPCS: 96365; 96366; J1568

== ENCOUNTER → 2016-12-17 | Outpatient (CLI) | payer OTHER ==
[~2016-12-17] MED LIST changes: -ACETAMINOPHEN TAB 650MG DOSE (2X325MG) PO SCH; -diphenhydrAMINE 25 MG CAP PO SCH
--- NOTE | 2016-12-18 02:00 | REP ---
Clinical: Chest pain. Cough. Technique: PA and lateral. Comparison: 11/05/2016. Findings: Right perihilar mass/opacity and bilateral mediastinal fullness is essentially unchanged from prior examination. Elevation and tenting to the right hemidiaphragm is again noted and relatively stable. Aerated lung cabrera are relatively clear. No obvious acute effusion, or pneumothorax. Skeletal structures demonstrate age-related osteopenia and degenerative changes primarily involving the thoracic spine. Impression: Right hilar and bilateral mediastinal fullness similar to prior examination may represent underlying mass lesion and adenopathy. Chronic pleuroparenchymal changes. Signed by Oh Torres MD 12/18/2016 01:52 A
== END ==
LOC: M RAD 12:40
PROVIDERS: ATTEND Nurse Practitioner Family
DX: J44.9 Chronic obstructive pulmonary disease, unspecified (principal)

== ENCOUNTER → 2016-12-17 | Outpatient (CLI) | payer OTHER ==
[~2016-12-17] MED LIST changes: +LIDOCAINE 1% MDV 20ML VIAL As Ordered ONE
--- NOTE | 2016-12-17 14:16 | REP ---
SPECIMEN RADIOGRAPH: Specimen radiograph performed following stereotactic biopsy of left breast microcalcifications. Multiple microcalcifications are seen in the specimens. Signed by Jose Ramírez MD 12/17/2016 07:50 P
--- NOTE | 2016-12-17 14:18 | REP ---
POSTBIOPSY MAMMOGRAM LEFT BREAST: Postbiopsy mammogram of the left breast is performed following stereotactic biopsy of microcalcifications in the upper outer quadrant. A metallic clip is seen at the site of the calcifications and the calcifications are no longer visualized. Signed by Jose Ramírez MD 12/17/2016 07:50 P
--- NOTE | 2016-12-17 18:09 | REP ---
STEREOTACTIC LEFT BREAST BIOPSY: The procedure was performed under the personal supervision of Dr. Ramírez. The patient has a history of calcifications in the upper outer quadrant of the left breast seen on a previous mammogram from [facility] performed on 11/28/2016. The risks and benefits of the procedure were explained to the patient and informed consent was obtained. A lateral medial approach was utilized. The calcifications were localized using stereotactic mammographic guidance. The skin was prepped and draped in a sterile fashion. 1% Xylocaine was used as a local anesthetic. A 10-gauge suction-assisted Mammotome needle was inserted and 5 core biopsy samples were obtained. Specimen radiograph demonstrates the presence of calcifications to be within the specimen. A marker clip was placed at the biopsy site. The patient tolerated the procedure well and there were no immediate complications. After the appropriate amount of monitored convalescence the patient was discharged from the department. Reviewed by CESAR Paz 12/18/2016 09:43 AEdited and Signed by Jose Ramírez MD 12/18/2016 04:41 P
== END ==
LOC: M RADPRO 12:33
PROVIDERS: ATTEND Internal Medicine
DX: R92.0 Mammographic microcalcification found on diagnostic imaging of breast (principal); Z88.5 Allergy status to narcotic agent; Z87.891 Personal history of nicotine dependence; Z79.82 Long term (current) use of aspirin; Z79.52 Long term (current) use of systemic steroids; Z79.899 Other long term (current) drug therapy

== ENCOUNTER 2017-01-09 08:35 | Outpatient (CLI) | payer OTHER ==
[~2017-01-09] VITALS: Ht 165.1 cm; Wt 92.3 kg
[~2017-01-09 08:35] MED LIST changes: -LIDOCAINE 1% MDV 20ML VIAL As Ordered ONE
[2017-01-09] MEDS ORDERED: ACETAMINOPHEN TAB 650MG DOSE (2X325MG) PO ONE (08:45)
[2017-01-09] MEDS ORDERED: diphenhydrAMINE 50 MG CAP PO ONE (08:45)
[2017-01-09] MEDS ORDERED: IMMUNE GLOBULIN 10% 20GM 200ML 20 GM in APPROPRIATE DILUENT 1 EA IV ONE (09:00)
[2017-01-09] MEDS ORDERED: IMMUNE GLOBULIN 10% 5GM 5 GM in APPROPRIATE DILUENT 1 EA IV ONE (09:00)
== END 2017-01-09 12:25 | disposition home or self-care (01) ==
LOC: M INFU 08:35
PROVIDERS: ATTEND Internal Medicine Infectious Disease
DX: D80.1 Nonfamilial hypogammaglobulinemia (principal); Z88.5 Allergy status to narcotic agent; Z88.2 Allergy status to sulfonamides; Z87.891 Personal history of nicotine dependence; Z79.52 Long term (current) use of systemic steroids; Z79.899 Other long term (current) drug therapy
CPT/HCPCS: 96365; 96366; J1569

== ENCOUNTER 2017-01-09 12:33 | Outpatient (RCR) | payer OTHER | END 2017-01-15 | LOC: M PR 12:33 | PROVIDERS: ATTEND Internal Medicine Pulmonary Disease | DX: Z51.81 Encounter for therapeutic drug level monitoring (principal); J44.9 Chronic obstructive pulmonary disease, unspecified ==

== ENCOUNTER → 2017-01-30 | Outpatient (CLI) | payer OTHER ==
[~2017-01-30] MED LIST changes: +E-Z-PAQUE 96% w/w SUSP 176GM BTL As Ordered ONE; +VARIBAR NECTAR 40% w/v 240ML SUSP BTL As Ordered ONE; +VARIBAR PUDDING 40% w/v 230ML TUBE As Ordered ONE
--- NOTE | 2017-01-30 12:24 | REP ---
COOKIE SWALLOW: The procedure was performed under the direct supervision of Dr. Ramírez. The procedure was performed with Gaby Sanchez from speech pathology present. 5 mL aliquots of nectar pudding, solid and thin consistency barium was administered. With thin consistency barium, there is penetration. A detailed report of this examination will be provided by speech pathology. 45 seconds of fluoroscopy time was utilized for this procedure. Reviewed by CESAR Paz 01/30/2017 03:16 PEdited and Signed by Jose Ramírez MD 01/30/2017 04:32 P
== END ==
LOC: M ST 10:22
PROVIDERS: ATTEND Nurse Practitioner Family
DX: R13.10 Dysphagia, unspecified (principal)
CPT/HCPCS: 74230; 92611; G8996; G8997; G8998

== ENCOUNTER 2017-02-05 08:17 | Outpatient (CLI) | payer OTHER ==
[~2017-02-05] VITALS: Ht 165.1 cm; Wt 92.3 kg
[~2017-02-05 08:17] MED LIST changes: -E-Z-PAQUE 96% w/w SUSP 176GM BTL As Ordered ONE; -VARIBAR NECTAR 40% w/v 240ML SUSP BTL As Ordered ONE; -VARIBAR PUDDING 40% w/v 230ML TUBE As Ordered ONE
[2017-02-05] MEDS ORDERED: IMMUNE GLOBULIN 10% 10 GM in APPROPRIATE DILUENT 1 EA IV ONE ×6 (08:30)
[2017-02-05] MEDS ORDERED: IMMUNE GLOBULIN 10% 20GM 200ML 20 GM in APPROPRIATE DILUENT 1 EA IV ONE (08:30)
[2017-02-05] MEDS ORDERED: IMMUNE GLOBULIN 10% 5GM 5 GM in APPROPRIATE DILUENT 1 EA IV ONE (08:30)
[2017-02-05] MEDS ORDERED: IMMUNE GLOBULIN 10% 5 GM in APPROPRIATE DILUENT 1 EA IV ONE (08:30)
[2017-02-05] MEDS ORDERED: diphenhydrAMINE 50 MG CAP PO ONE (09:15)
[2017-02-05] MEDS ORDERED: ACETAMINOPHEN TAB 650MG DOSE (2X325MG) PO ONE (09:15)
== END 2017-02-05 12:10 | disposition home or self-care (01) ==
LOC: M INFU 08:17
PROVIDERS: ATTEND Internal Medicine Infectious Disease
DX: D80.1 Nonfamilial hypogammaglobulinemia (principal); Z88.5 Allergy status to narcotic agent; Z88.2 Allergy status to sulfonamides; Z87.891 Personal history of nicotine dependence; Z79.52 Long term (current) use of systemic steroids; Z79.899 Other long term (current) drug therapy
CPT/HCPCS: 96365; 96366; J1569

== ENCOUNTER 2017-02-13 09:56 | Outpatient (RCR) | payer OTHER ==
[~2017-02-13 09:56] MED LIST changes: +ABIL1TAB13 PO; -ABIL2TAB2 PO; -ACET-654 PO; +ACET1TAB17 PO; -CALC600T10 PO; -CALC600T21 PO; +CALC600T31 PO; +CALC600T60 PO; +FERR1TAB8 PO; -FERR325T PO; +LEVA1TAB2 PO; -LEVA500T PO; -MUCI600T34 PO; +MUCI600T37 PO; -NORC7.5T PO; +NORC7.5T35 PO; -SENO8.6T2 PO; +SENO8.6T5 PO; -VITA100037 PO; +VITA100067 PO
== END 2017-02-14 ==
LOC: M PR 09:56
PROVIDERS: ATTEND Internal Medicine Pulmonary Disease
DX: J44.9 Chronic obstructive pulmonary disease, unspecified (principal); Z51.89 Encounter for other specified aftercare

== ENCOUNTER 2017-02-27 10:00 | Outpatient (RCR) | payer OTHER ==
[2017-03-01] MEDS ORDERED: ASPI81TA24 PO (18:37)
[2017-03-01] MEDS ORDERED: FERR1TAB8 PO (18:37)
[2017-03-01] MEDS ORDERED: SPIR1AER INH (18:37)
[2017-03-01] MEDS ORDERED: BREO1INH3 INH (18:37)
[2017-03-01] MEDS ORDERED: BACT400T PO (18:37)
[2017-03-01] MEDS ORDERED: TORS100T PO (18:37)
[2017-03-01] MEDS ORDERED: BENZ100C5 PO (18:37)
[2017-03-06] MEDS ORDERED: PRED10TA2 PO (10:27)
[2017-03-06] MEDS ORDERED: IPRASOL4 NEB (10:27)
[2017-03-06] MEDS ORDERED: LEVA750T7 PO (10:30)
== END 2017-03-17 ==
LOC: M PR 10:00
PROVIDERS: ATTEND Internal Medicine Pulmonary Disease
DX: Z51.89 Encounter for other specified aftercare (principal); J44.9 Chronic obstructive pulmonary disease, unspecified

== ENCOUNTER 2017-03-01 12:25 | Inpatient (IN) | payer OTHER ==
[~2017-03-01] VITALS: Ht 162.6 cm; Wt 81.7 kg
[2017-03-01] MEDS ORDERED: ASPIRIN 81 MG CHEW TABLET PO ONE ×2 (13:00→14:00)
[2017-03-01] MEDS ORDERED: IPRATROPIUM 0.5MG/ALBUTEROL 2.5MG INH SOL UD 3ML (DUONEB)(J7620) NEB ONE (13:00)
[2017-03-01] MEDS ORDERED: ONDANSETRON 4MG/2ML VIAL (J2405) IV ONE (13:00)
[2017-03-01 13:38] LABS: BASO % 0.1 % (0.0-1.0); EOS % 0.1 % (0.0-3.0); LARGE UNSTAINED CELL # 0.1 K/mm3 (0.0-0.4); LARGE UNSTAINED CELL % 0.4 % (0.0-4.0); LYMPH # 0.3 K/mm3 (1.5-4.5); LYMPH % 2.2 % (24.0-44.0); MEAN CORPUSCULAR HEMOGLOBIN 29.6 pg (27.0-33.0); MEAN CORPUSCULAR VOLUME 87.2 fl (80.0-96.0); MONO # 0.4 K/mm3 (0.0-0.8); MONO % 3.1 % (0.0-5.0); NEUTROPHILS # 12.4 K/mm3 (1.8-7.7); NEUTROPHILS % 94.1 % (36.0-66.0); PLATELET COUNT, AUTOMATED 224 k/mm3 (150-450); RED CELL DISTRIBUTION WIDTH 16.6 % (11.5-14.5); WHITE BLOOD COUNT 13.2 K/mm3 (4.0-10.0)
[2017-03-01 14:00] LABS: ALBUMIN 3.5 GM/DL (3.2-5.2); ALBUMIN/GLOBULIN RATIO 0.88 (1.00-1.93); BILIRUBIN,DIRECT 0.1 MG/DL (0.0-0.2); BILIRUBIN,TOTAL 0.5 MG/DL (0.2-1.0); CALCIUM LEVEL 9.7 MG/DL (8.5-10.1); CREATININE FOR GFR 1.19 MG/DL (0.55-1.02); GLOMERULAR FILTRATION RATE 49.4 (>51); POTASSIUM SERUM 3.1 MEQ/L (3.5-5.1); TOTAL PROTEIN 7.5 GM/DL (6.4-8.2)
[2017-03-01] MEDS ORDERED: ISOVUE-370 76% 100ML VIAL (Q9967) As Ordered ONE (14:09)
--- NOTE | 2017-03-01 14:47 | REP ---
PORTABLE CHEST, ONE VIEW: HISTORY: Chest pain. COMPARISON: 12/17/2016 There is elevation of the right hemidiaphragm. Ill-defined perihilar density is present in the right perihilar region that appears unchanged compared to the previous study. The left lung is clear. The heart is normal in size. The pulmonary vasculature is normal in appearance. IMPRESSION: Ill-defined right perihilar density , unchanged compared to the previous study. Signed by Varun Camacho MD 03/01/2017 02:50 P
--- NOTE | 2017-03-01 15:23 | REP ---
CT ANGIO CHEST: HISTORY: Rule out pulmonary embolism. CONTRAST: Isovue-370, 75 mL COMPARISON: CT chest 12/30/2016 There are no filling defects in the main, right and left pulmonary arteries or their branches. Patchy density is present in the right lower and left upper lobe, unchanged compared to the previous study. Patchy density is present in the right upper lobe increased compared to the previous study. A small right pleural effusion is present that is slightly increased in size compared to the previous study. A small pericardial effusion is present, unchanged compared to the previous study. Degenerative change is present in the spine. IMPRESSION: 1. There is no pulmonary embolism. 2. Right lower lobe and left upper lobe infiltrates, unchanged compared to the previous study. 3. Right upper lobe infiltrate increased compared to the previous study. 4. Small right pleural effusion increased in size compared to the previous study. 5. Small pericardial effusion, unchanged compared to the previous study. Signed by Varun Camacho MD 03/01/2017 03:27 P
[2017-03-01] MEDS ORDERED: PIPERACILLIN/TAZOBACTAM SOD 3.375 GM in D5W MINI-BAG PLUS 50 ML IV ONE (16:45)
--- NOTE | 2017-03-01 17:00 | ECGEPIP ---
Stationary ECG Study [facility] - ED Test Date: 2017-03-01 Pat Name: KYM OLIVER Department: Room: - Gender: F Cork Molder: colby : 1955 Requested By: FELIPE Stanley Order Number: [id number] Reading MD: Wanda Arellano Measurements Intervals [place] Rate: 94 P: 267 [place]: 141 QRS: -73 QRSD: 116 T: 69 QT: 414 QTc: 519 Interpretive Statements ECTOPIC ATRIAL RHYTHM Left axis deviation LEFT ANTERIOR FASCICULAR BLOCK NONSPECIFIC ST & T-WAVE ABNORMALITY INCOMPLETE RBBB CW 10/02/[address] T WAVE CHANGES Electronically Signed On 03-01-2017 17:00:29 EDT by Wanda Arellano
--- NOTE | 2017-03-01 18:15 | HPEPDOC ---
General Date of Admission 03-01-17 Primary Care Physician: Jr Christian Collins Chief Complaint The patient is a 61-year-old female admitted with a reason for visit of Chest Pain. Source: Patient Exam Limitations: No limitations Timing/Duration: Day(s) (3-4) History of Present Illness Ms. Ayala is a very pleasant 61 y/o female with an unfortunate past medical history of Stage IIIB non-small cell lung cancer lung cancer s/p chemo and radiation 7 years ago with complication of radiation pneumonitis, bronchial and esophageal stenosis of which she sees [facility] and a GI doctor in [place] for both periodic bronchoscopic balloon and esophageal dilatation respectively, pericardial effusion s/p pericardial window w/ Dr. Burris in 2006 , immunosuppresion due to chronic steroid use and history of T-cell counts less than 200, Grade 1 Diastolic HF w/ last Echo on 09/2016 showing EF 45%, SILVER on CPAP, COPD, DM2, HTN, GERD, anxiety/depression who presents to ED w/ CC of coughing up blood (2-3 episodes with 1/2 teaspoon bright red blood per episode) for the past three days associated with gradually worsening of chronic SOB and chest wall pain for the past two days, the pt states the chest wall pain is worse with inspiration and touching the area, she also states shes felt like shes been having fevers at home w/ highest 100.2 F. She denied abdominal pain, edema of extremities, palpitations of her heart, pain w/ urination/defecation nor blood in urine/stool, denied diarrhea or constipation, admits to increased vomiting episodes (almost every time she tries to eat) for the past week ( states its normal for her to vomit intermittently due to her esophageal stricture), states it is just the food and pills she attempts to swallow, she sees a GI doctor in [place] for her esophageal stricture and states she has an appt with him this coming , she states that her last Upper Endoscopy was December 2016 and he balloon dilated at that time, however she is unsure if he will again this time. She denies change in weight nor appetite, denies muscle aches or chills but does admit to sweating when her "Fever breaks", denies profuse sweats at night. Home Medications Scheduled (Spiriva Respimat) 1.25 Mcg/Act Aer, 1.25 MCG INH DAILY, (Reported) Acamprosate Calcium (Acamprosate Calcium Dr) 333 Mg Tab, 666 MG PO WM, (Reported ) Alprazolam (Alprazolam) 0.25 Mg Tab, 0.25 MG PO QID, (Reported) Aripiprazole (Abilify) 2 Mg Tab, 2 MG PO BID, (Reported) Aspirin (Aspirin EC) 81 Mg Tab, 81 MG PO DAILY, (Reported) Bupropion HCl (Bupropion HCl Xl) 300 Mg Tab, 300 MG PO DAILY, (Reported) Esomeprazole Magnesium Trihydr (Nexium) 40 Mg Cap, 40 MG PO BID, (Reported) Ferrous Sulfate (Ferrous Sulfate) 325 Mg Tab, 325 MG PO DAILY, (Reported) Fluticasone/Vilanterol (Breo Ellipta 200-25 Mcg/INH) 1 Inh Inh, 1 PUFF INH DAILY , (Reported) IV Immune Globulin (Rosado) (Privigen) 5 Gm/50 Ml Inj, 25 GM IV QMONTH, ( Reported) Montelukast Sodium (Singulair) 10 Mg Tab, 10 MG PO QHS, (Reported) Prednisone (Prednisone) 20 Mg Tab, 20 MG PO DAILY, (Reported) Sertraline Hcl (Zoloft) 100 Mg Tab, 100 MG PO BID, (Reported) Torsemide (Torsemide) 100 Mg Tab, 100 MG PO DAILY, (Reported) Trimethoprim/Sulfamethoxazole (Bactrim 400-80 mg) 1 Tab Tab, 1 TAB PO DAILY, ( Reported) Verapamil HCl (Verapamil HCl ER) 180 Mg Tab, 180 MG PO DAILY, (Reported) Scheduled PRN Albuterol Sulfate (Ventolin Hfa) 200 Puff/8 Gm Aers, 2 PUFF INH QID PRN for SHORTNESS OF BREATH, (Reported) Benzonatate (Benzonatate) 100 Mg Cap, 100 MG PO BID PRN for COUGH, (Reported) Allergies Coded Allergies: Codeine (Verified Adverse Reaction, Mild, VOMITING, 11/21/12) Past Medical History Medical History COPD HTN DLP STAGE 3 B NON SMALL CELL LUNG CA S/P RADIATION AND CHEMO RADIATION PNEUMONITIS W/BRONCHIAL STENOSIS ESOPHAGEAL STENOSIS DIASTOLIC CHF ANXIETY DM2 DEPRESSION HX OF PERICARDIAL EFFUSION S/P PERICARDIAL WINDOW Family History MOTHER HAD DM2 Social History * Smoker: former Smoker (QUIT 2006, PRIOR TO THIS WAS 27 YR SMOKER AT 1/2 [facility]) Alcohol: Denies LIVES AT HOME W/ HER Review of Symptoms Constitutional: Reports: Fever, Malaise, Weakness, Fatigue, Denies: Chills, Night Sweats, Weight Loss Eyes: Denies: Vision change, Conjunctivae inflammation ENT: Denies: Head Aches Skin: Denies: Rash, Lesions, Jaundice, Bruising Pulmonary: Reports: Dyspnea, Cough, Pleuritic Chest Pain Cardiovascular: Reports: Chest Pain, Denies: Palpitations, Orthopnea, Paroxysmal Noc. Dyspnea, Edema Gastrointestinal: Reports: Vomiting, Denies: Nausea, Abdominal Pain, Diarrhea, Constipation Genitourinary: Denies: Dysuria, Frequency Hematologic: Denies: Bruising Neurological: Denies: Weakness, Numbness Psych: Reports: Mood Normal Vital Signs Vital Signs Date Time Temp Pulse Resp B/P (MAP) Pulse Ox O2 Delivery O2 Flow Rate FiO2 03/01/17 17:36 90 110/61 (77) 91 03/01/17 12:26 97.3 18 Room Air Laboratory Data Labs 24H Laboratory Tests 2 03/01/17 13:14: White Blood Count 13.2H, Red Blood Count 4.08, Hemoglobin 12.1, Hematocrit 35.6L , Mean Corpuscular Volume 87.2, Mean Corpuscular Hemoglobin 29.6, Mean Corpuscular Hemoglobin Concent 34.0, Red Cell Distribution Width 16.6H, Platelet Count 224, Neutrophils (%) (Auto) 94.1H, Lymphocytes (%) (Auto) 2.2L, Monocytes (%) (Auto) 3.1, Eosinophils (%) (Auto) 0.1, Basophils (%) (Auto) 0.1, Neutrophils # (Auto) 12.4H, Lymphocytes # (Auto) 0.3L, Monocytes # (Auto) 0.4, Eosinophils # (Auto) 0.0, Basophils # (Auto) 0.0, Large Unclassified Cells % 0.4 , Large Unclassified Cells # 0.1, Activated Partial Thromboplast Time 28.7, Anion Gap 10, Glomerular Filtration Rate 49.4L, Calcium Level 9.7, Aspartate Amino Transf (AST/SGOT) 17, Alanine Aminotransferase (ALT/SGPT) 23, Alkaline Phosphatase 71, Total Bilirubin 0.5, Direct Bilirubin 0.1, Total Creatine Kinase 216H, Creatine Kinase MB 3.7H, Creatine Kinase MB Relative Index 1.71, Troponin I 0.04, Total Protein 7.5, Albumin 3.5, Albumin/Globulin Ratio 0.88L, Lipase 125 03/01/17 13:15: B-Type Natriuretic Peptide 294H CBC/BMP Laboratory Tests 03/01/17 13:14 Red Blood Count 4.08, Mean Corpuscular Volume 87.2, Mean Corpuscular Hemoglobin 29.6, Mean Corpuscular Hemoglobin Concent 34.0, Red Cell Distribution Width 16.6 H, Neutrophils (%) (Auto) 94.1 H, Lymphocytes (%) (Auto) 2.2 L, Monocytes ( %) (Auto) 3.1, Eosinophils (%) (Auto) 0.1, Basophils (%) (Auto) 0.1, Neutrophils # (Auto) 12.4 H, Lymphocytes # (Auto) 0.3 L, Monocytes # (Auto) 0.4 , Eosinophils # (Auto) 0.0, Basophils # (Auto) 0.0 Problems (1) Lung infiltrate Status: Acute Response to Treatment: Stable Problem Text: possibility for pneumonia- CAP vs Aspiration pneumonia will put in for speech evaluation in AM Pt has history of being on honey thickend diet, has not been on this for some time aspiration precautions -keep HOB elevated s/p chemo & radiation many years ago for stage 3B non-small cell lung cancer blood cx pending WBC 13.2 despite being on chronic steroids, pts WBC has not been chronically elevated, suspect this could be new finding no fever in ED, although admitted to fever highest of 100.3 at home 93% on room air-not on home oxygen culture sensitivities from prior admission + for Group F Strep and Pseudomonas, pt has responded well to Levo in past., will begin Levofloxacin 750 mg Iv qd sputum culture pending (2) Lung cancer Status: Chronic Response to Treatment: Stable Problem Text: Stage 3B non-small cell lung cancer s/p chemo. & radiation seven years ago in remission no new lesions on imaging-no hx of weight loss continue to montor (3) Pericardial effusion Status: Chronic Response to Treatment: Stable Problem Text: pt is not tachycardic, BP stable no radiographic changes will continue to monitor (4) Bronchial stenosis, right Status: Chronic Response to Treatment: Stable Problem Text: has been dilated 2x in past by [facility], most recent December 2016 stable and actually improved w/most recent dilatation continue to monitor (5) N&V (nausea and vomiting) Status: Acute Response to Treatment: Stable Problem Text: will schedule zofran Radiation esophageal stricture, sees GI doctor in [place] for balloon dilatation, most recent December 2016, has appt for this coming with him, will leave for outpt management and f/u stable continue to monitor (6) Hypokalemia Status: Acute Response to Treatment: Stable Problem Text: 3.1 on presentation will replete continue to monitor will check MAG level and replete if necessary (7) Anemia Status: Resolved Response to Treatment: Stable Problem Text: chronic Fe def. anemia H/H stable today, actually better than on past admissions do not suspect active source of bleeding continue to monitor (8) COPD exacerbation Status: Chronic Response to Treatment: Stable Problem Text: given hx of increasing SOB, change in sputum quality and production this could be TIFFANY exacerbation and cause of patients SOB will schedule O2 orders, Duonebs and columederaol 60mg q6h have ordered sputum cx will order Resp CPR panel continue to monitor (9) Radiation pneumonitis Status: Chronic Response to Treatment: Stable Problem Text: pt is on prednisone at home, chronic steroid use, will begin IV solumederol and d/c prednisone stable -no new changes on imaging no new radiation recently continue to monitor (10) Chronic kidney disease Status: Chronic Response to Treatment: Stable Problem Text: Kidney function is at baseline continue to monitor (11) HTN (hypertension) Status: Chronic Response to Treatment: Stable Problem Text: 113/89 conitnue to monitor c/w home meds stable (12) Anxiety and depression Status: Chronic Response to Treatment: Stable Problem Text: stable continue home meds (13) Diastolic CHF, chronic Status: Chronic Response to Treatment: Stable Problem Text: Minimal JVD on exam NO perphrial extermity edema Euvolemic, compensated pt admits some SOB with laying flat do not think SOB is due to CHF exacerbation BNP 294 last ECHO 09/2016 EF 45% continue to monitor continue home torsemide (14) SILVER on CPAP Status: Chronic Response to Treatment: Stable Problem Text: stable continue home cpap (15) Immunodeficiency Status: Chronic Response to Treatment: Stable Problem Text: pt sees ID Dr Hays on monthly IVIG-hold for now, if pt still inpt. at time when she needs meds, will continue stable pt is on Bactrim for PCP prophylaxix- will continue (16) DM2 (diabetes mellitus, type 2) Status: Chronic Response to Treatment: Stable Problem Text: sliding scale (17) DVT of proximal leg (deep vein thrombosis) Status: Acute Response to Treatment: Stable Problem Text: scd teds Plan / VTE VTE Prophylaxis Ordered?: Yes GME ATTESTATION GME ATTESTATION My preceptor for this patient encounter was physically present in the building during the encounter and was fully available. As needed, all aspects of the patient interview, examination, medical decision making process, and medical care plan development were reviewed and approved by the preceptor. Preceptor is aware and concurs with the plan as stated in the body of this note and will attest to such by his/her cosignature. ALLISON VERDUZCO DO Mar 01, 2017 18:15
[2017-03-01] MEDS ORDERED: FERR1TAB8 PO (18:37)
[2017-03-01] MEDS ORDERED: BACT400T PO (18:37)
[2017-03-01] MEDS ORDERED: BREO1INH3 INH (18:37)
[2017-03-01] MEDS ORDERED: TORS100T PO (18:37)
[2017-03-01] MEDS ORDERED: SPIR1AER INH (18:37)
[2017-03-01] MEDS ORDERED: BENZ100C5 PO (18:37)
[2017-03-01] MEDS ORDERED: ASPI81TA24 PO (18:37)
[2017-03-01] MEDS ORDERED: ONDANSETRON 4MG/2ML VIAL (J2405) IV PRN (19:45)
[2017-03-01] MEDS ORDERED: IPRATROPIUM 0.5MG/ALBUTEROL 2.5MG INH SOL UD 3ML (DUONEB)(J7620) NEB PRN (19:45)
[2017-03-01] MEDS ORDERED: DEXTROSE 50% 50 ML SYRINGE IV PRN (20:00)
[2017-03-01] MEDS ORDERED: BENZONATATE 100 MG CAP PO PRN (20:00)
[2017-03-01] MEDS ORDERED: GLUCAGON FOR INJ 1 MG VIAL (J1610) SC PRN (20:00)
[2017-03-01] MEDS ORDERED: GLUCOSE 4 GM CHEW TABLET PO PRN (20:00)
[2017-03-01 20:14] LABS: MAGNESIUM LEVEL 2.1 MG/DL (1.8-2.4)
[2017-03-01 20:50] VITALS: BP 111/57
[2017-03-01] MEDS: HumaLOG INSULIN (NovoLOG) PER UNIT SC SCH (21:00)
[2017-03-01] MEDS ORDERED: POTASSIUM CHLORIDE 10 MEQ SR TABLET PO ONE (21:00)
[2017-03-01] MEDS: MONTELUKAST 10 MG TAB PO SCH (22:16)
[2017-03-01] MEDS: LevoFLOXacin IV 750 MG in APPROPRIATE DILUENT 1 EA IV SCH (22:16)
[2017-03-01] MEDS: ARIPiprazole 2 MG TAB PO SCH (22:16)
[2017-03-01] MEDS: SERTRALINE 100 MG TAB PO SCH (22:17)
[2017-03-01] MEDS: ALPRAZolam 0.25 MG TAB PO SCH (22:17)
[2017-03-01] MEDS: PANTOPRAZOLE 40MG TAB (PROTONIX) PO SCH (22:17)
[2017-03-02] MEDS: methylPREDNISolone INJ 125 MG/2 ML VIAL (J2930) IV SCH ×2 (00:09→06:20)
[2017-03-02 05:58] LABS: BASO % 0.1 % (0.0-1.0); EOS # 0.1 K/mm3 (0.0-0.50); EOS % 0.8 % (0.0-3.0); LARGE UNSTAINED CELL % 0.2 % (0.0-4.0); LYMPH # 0.2 K/mm3 (1.5-4.5); LYMPH % 2.1 % (24.0-44.0); MEAN CORPUSCULAR HEMOGLOBIN 29.2 pg (27.0-33.0); MEAN CORPUSCULAR HGB CONC 32.8 g/dl (32.0-36.5); MEAN CORPUSCULAR VOLUME 89.2 fl (80.0-96.0); MONO # 0.2 K/mm3 (0.0-0.8); MONO % 1.9 % (0.0-5.0); NEUTROPHILS # 9.7 K/mm3 (1.8-7.7); NEUTROPHILS % 94.9 % (36.0-66.0); PLATELET COUNT, AUTOMATED 214 k/mm3 (150-450); RED CELL DISTRIBUTION WIDTH 16.8 % (11.5-14.5); WHITE BLOOD COUNT 10.2 K/mm3 (4.0-10.0)
[2017-03-02 06:00] VITALS: BP 127/78
[2017-03-02 06:03] LABS: CALCIUM LEVEL 10.2 MG/DL (8.5-10.1); CREATININE FOR GFR 1.22 MG/DL (0.55-1.02); POTASSIUM SERUM 3.8 MEQ/L (3.5-5.1)
[2017-03-02] MEDS: IPRATROPIUM 0.5MG/ALBUTEROL 2.5MG INH SOL UD 3ML (DUONEB)(J7620) NEB SCH ×4 (07:18→19:57)
[2017-03-02] MEDS ORDERED: MORPHINE 2 MG/ML 1ML SYRINGE IV ONE (08:15)
[2017-03-02] MEDS ORDERED: ONDANSETRON 4MG/2ML VIAL (J2405) IV PRN (08:15)
[2017-03-02] MEDS: ALPRAZolam 0.25 MG TAB PO SCH ×4 (08:41→21:16)
[2017-03-02] MEDS: ASPIRIN 81 MG ENTERIC TAB PO SCH (08:41)
[2017-03-02] MEDS: SERTRALINE 100 MG TAB PO SCH ×2 (08:42→21:15)
[2017-03-02] MEDS: buPROPion **XL** TABLET 150MG (WELLBUTRIN XL) PO SCH (08:42)
[2017-03-02] MEDS: PANTOPRAZOLE 40MG TAB (PROTONIX) PO SCH ×2 (08:42→21:15)
[2017-03-02] MEDS: FERROUS SULFATE 325MG TAB PO SCH (08:42)
[2017-03-02] MEDS ORDERED: IMMUNE GLOBULIN IV SCH (09:00)
[2017-03-02] MEDS ORDERED: TORSEMIDE 100 MG TAB PO SCH (09:00)
[2017-03-02] MEDS: VERAPAMIL 180 MG SR TAB PO SCH (10:01)
[2017-03-02] MEDS: ARIPiprazole 2 MG TAB PO SCH ×2 (10:01→21:16)
[2017-03-02] MEDS: ACAMPROSATE CALCIUM 333 MG TABLET (CAMPRAL) PO SCH ×3 (10:01→17:52)
[2017-03-02] MEDS: BACTRIM 80MG/400MG TAB PO SCH (10:01)
[2017-03-02] MEDS: HumaLOG INSULIN (NovoLOG) PER UNIT SC SCH ×4 (10:02→21:00)
--- NOTE | 2017-03-02 10:23 | IPNPDOC ---
Subjective Date Seen The patient was seen on 03/02/17. Subjective Chief Complaint/HPI The patient is a 61-year-old female admitted with a reason for visit of SOB. Events since last encounter complaining of chest heaviness and pain from this morning, continues to have cough with hemoptysis, no fever or chills, no nausea or vomiting or diarrhea. no palpitation. no abdominal pain . Objective Physical Examination General Exam: Positive: Alert, Cooperative, No Acute Distress Eye Exam: Positive: PERRLA, Conjunctiva & lids normal, EOMI, Negative: Sclera icteric ENT Exam: Positive: Atraumatic, Mucous membr. moist/pink, Pharynx Normal Neck Exam: Positive: Supple Chest Exam: Positive: Wheezing, Other (tenderness in the right costochondral junctions. ) Heart Exam: Positive: Rate Normal, Regular Rhythm, Normal S1, Normal S2 Abdomen Exam: Positive: Normal bowel sounds, Soft, Negative: Tenderness, Hepatospenomegaly Extremity Exam: Positive: Normal pulses, Negative: Clubbing, Cyanosis, Edema Skin Exam: Positive: Nl turgor and temperature, Negative: Rash, Breakdown Assessment /Plan Problems (1) Hemoptysis Status: Acute Problem Text: patient immunosuppressed. will send AFB three samples place on airborne isolation (2) Chest pain Status: Acute Problem Text: will work up for cardiological cause , till now ekg no acute changes and cardiac enzymes negative will get another set. may be musculoskeletal from coughing will try pain meds. not hypoxic , low probability for PE. (3) Lung infiltrate Status: Acute Response to Treatment: Stable Problem Text: possibility for pneumonia- CAP vs Aspiration pneumonia will put in for speech evaluation in AM Pt has history of being on honey thickend diet, has not been on this for some time aspiration precautions -keep HOB elevated s/p chemo & radiation many years ago for stage 3B non-small cell lung cancer blood cx pending WBC 13.2 despite being on chronic steroids, pts WBC has not been chronically elevated, suspect this could be new finding no fever in ED, although admitted to fever highest of 100.3 at home 93% on room air-not on home oxygen culture sensitivities from prior admission + for Group F Strep and Pseudomonas, pt has responded well to Levo in past., will begin Levofloxacin 750 mg Iv qd sputum culture pending (4) Lung cancer Status: Chronic Response to Treatment: Stable Problem Text: Stage 3B non-small cell lung cancer s/p chemo. & radiation seven years ago in remission no new lesions on imaging-no hx of weight loss continue to montor (5) Pericardial effusion Status: Chronic Response to Treatment: Stable Problem Text: pt is not tachycardic, BP stable no radiographic changes will continue to monitor (6) Bronchial stenosis, right Status: Chronic Response to Treatment: Stable Problem Text: has been dilated 2x in past by [facility], most recent December 2016 stable and actually improved w/most recent dilatation continue to monitor (7) N&V (nausea and vomiting) Status: Acute Response to Treatment: Stable Problem Text: will schedule zofran Radiation esophageal stricture, sees GI doctor in [place] for balloon dilatation, most recent December 2016, has appt for this coming with him, will leave for outpt management and f/u stable continue to monitor (8) Hypokalemia Status: Acute Response to Treatment: Stable Problem Text: 3.1 on presentation will replete continue to monitor will check MAG level and replete if necessary (9) Anemia Status: Resolved Response to Treatment: Stable Problem Text: chronic Fe def. anemia H/H stable today, actually better than on past admissions do not suspect active source of bleeding continue to monitor (10) COPD exacerbation Status: Chronic Response to Treatment: Stable Problem Text: given hx of increasing SOB, change in sputum quality and production this could be TIFFANY exacerbation and cause of patients SOB will schedule O2 orders, Duonebs and columederaol 60mg q6h have ordered sputum cx will order Resp CPR panel continue to monitor (11) Radiation pneumonitis Status: Chronic Response to Treatment: Stable Problem Text: pt is on prednisone at home, chronic steroid use, will begin IV solumederol and d/c prednisone stable -no new changes on imaging no new radiation recently continue to monitor (12) Chronic kidney disease Status: Chronic Response to Treatment: Stable Problem Text: Kidney function is at baseline continue to monitor (13) HTN (hypertension) Status: Chronic Response to Treatment: Stable Problem Text: 113/89 conitnue to monitor c/w home meds stable (14) Anxiety and depression Status: Chronic Response to Treatment: Stable Problem Text: stable continue home meds (15) Diastolic CHF, chronic Status: Chronic Response to Treatment: Stable Problem Text: Minimal JVD on exam NO perphrial extermity edema Euvolemic, compensated pt admits some SOB with laying flat do not think SOB is due to CHF exacerbation BNP 294 last ECHO 09/2016 EF 45% continue to monitor continue home torsemide (16) SILVER on CPAP Status: Chronic Response to Treatment: Stable Problem Text: stable continue home cpap (17) Immunodeficiency Status: Chronic Response to Treatment: Stable Problem Text: pt sees ID Dr Hays on monthly IVIG-hold for now, if pt still inpt. at time when she needs meds, will continue stable pt is on Bactrim for PCP prophylaxix- will continue (18) DM2 (diabetes mellitus, type 2) Status: Chronic Response to Treatment: Stable Problem Text: sliding scale (19) DVT of proximal leg (deep vein thrombosis) Status: Acute Response to Treatment: Stable Problem Text: scd teds Plan/VTE VTE Prophylaxis Ordered?: Yes VS, I&O, 24H, Fishbone Vital Signs/I&O Vital Signs Date Time Temp Pulse Resp B/P (MAP) Pulse Ox O2 Delivery O2 Flow Rate FiO2 03/02/17 08:43 16 Nasal Cannula 2.0 03/02/17 06:00 96.2 101 127/78 (94) 90 I&O- Last 24 Hours up to 6 AM 03/02/17 06:00 Intake Total 1350 ml Output Total 820 ml Balance 530 ml Laboratory Data 24H LABS Laboratory Tests 2 03/01/17 13:14: White Blood Count 13.2H, Red Blood Count 4.08, Hemoglobin 12.1, Hematocrit 35.6L , Mean Corpuscular Volume 87.2, Mean Corpuscular Hemoglobin 29.6, Mean Corpuscular Hemoglobin Concent 34.0, Red Cell Distribution Width 16.6H, Platelet Count 224, Neutrophils (%) (Auto) 94.1H, Lymphocytes (%) (Auto) 2.2L, Monocytes (%) (Auto) 3.1, Eosinophils (%) (Auto) 0.1, Basophils (%) (Auto) 0.1, Neutrophils # (Auto) 12.4H, Lymphocytes # (Auto) 0.3L, Monocytes # (Auto) 0.4, Eosinophils # (Auto) 0.0, Basophils # (Auto) 0.0, Large Unclassified Cells % 0.4 , Large Unclassified Cells # 0.1, Activated Partial Thromboplast Time 28.7, Anion Gap 10, Glomerular Filtration Rate 49.4L, Calcium Level 9.7, Magnesium Level 2.1, Aspartate Amino Transf (AST/SGOT) 17, Alanine Aminotransferase (ALT/ SGPT) 23, Alkaline Phosphatase 71, Total Bilirubin 0.5, Direct Bilirubin 0.1, Total Creatine Kinase 216H, Creatine Kinase MB 3.7H, Creatine Kinase MB Relative Index 1.71, Troponin I 0.04, Total Protein 7.5, Albumin 3.5, Albumin/ Globulin Ratio 0.88L, Lipase 125 03/01/17 13:15: B-Type Natriuretic Peptide 294H 03/01/17 21:48: Bedside Glucose (Misc Panel) 103 03/02/17 05:39: White Blood Count 10.2H, Red Blood Count 4.08, Hemoglobin 11.9L, Hematocrit 36.4 , Mean Corpuscular Volume 89.2, Mean Corpuscular Hemoglobin 29.2, Mean Corpuscular Hemoglobin Concent 32.8, Red Cell Distribution Width 16.8H, Platelet Count 214, Neutrophils (%) (Auto) 94.9H, Lymphocytes (%) (Auto) 2.1L, Monocytes (%) (Auto) 1.9, Eosinophils (%) (Auto) 0.8, Basophils (%) (Auto) 0.1, Neutrophils # (Auto) 9.7H, Lymphocytes # (Auto) 0.2L, Monocytes # (Auto) 0.2, Eosinophils # (Auto) 0.1, Basophils # (Auto) 0.0, Large Unclassified Cells % 0.2 , Large Unclassified Cells # 0.0, Anion Gap 9, Glomerular Filtration Rate 48.0L , Calcium Level 10.2H, Total Creatine Kinase 137, Creatine Kinase MB 2.4, Creatine Kinase MB Relative Index 1.75, Troponin I 0.02#, Blood Urea Nitrogen 14 , Creatinine 1.22H, Sodium Level 133L, Potassium Level 3.8#, Chloride Level 96L , Carbon Dioxide Level 28 CBC/BMP Laboratory Tests 03/01/17 13:14 Red Blood Count 4.08, Mean Corpuscular Volume 87.2, Mean Corpuscular Hemoglobin 29.6, Mean Corpuscular Hemoglobin Concent 34.0, Red Cell Distribution Width 16.6 H, Neutrophils (%) (Auto) 94.1 H, Lymphocytes (%) (Auto) 2.2 L, Monocytes ( %) (Auto) 3.1, Eosinophils (%) (Auto) 0.1, Basophils (%) (Auto) 0.1, Neutrophils # (Auto) 12.4 H, Lymphocytes # (Auto) 0.3 L, Monocytes # (Auto) 0.4 , Eosinophils # (Auto) 0.0, Basophils # (Auto) 0.0 03/02/17 05:39 Red Blood Count 4.08, Mean Corpuscular Volume 89.2, Mean Corpuscular Hemoglobin 29.2, Mean Corpuscular Hemoglobin Concent 32.8, Red Cell Distribution Width 16.8 H, Neutrophils (%) (Auto) 94.9 H, Lymphocytes (%) (Auto) 2.1 L, Monocytes ( %) (Auto) 1.9, Eosinophils (%) (Auto) 0.8, Basophils (%) (Auto) 0.1, Neutrophils # (Auto) 9.7 H, Lymphocytes # (Auto) 0.2 L, Monocytes # (Auto) 0.2, Eosinophils # (Auto) 0.1, Basophils # (Auto) 0.0, Calcium Level 10.2 H, Total Creatine Kinase 137 Microbiology Microbiology 03/01/17 Blood Culture, Received Pending 03/01/17 Blood Culture, Received Pending 03/01/17 Respiratory Virus Panel (PCR) ([facility]) - Final, Complete JEAN DELVALLE MD Mar 02, 2017 10:23
--- NOTE | 2017-03-02 11:45 | ECGEPIP ---
Stationary ECG Study [facility] Test Date: 2017-03-02 Pat Name: KYM OLIVER Department: Room: [place] [address] Gender: F [employer] Supervisor: KEVIN : 1955 Requested By: JEAN DELVALLE Order Number: [id number] Reading MD: [place] Measurements Intervals [place] Rate: 98 P: 268 [place]: 139 QRS: -70 QRSD: 113 T: 65 QT: 359 QTc: 460 Interpretive Statements Normal sinus rhythm. Intra-atrial conduction disturbance. Left anterior hemiblock. Incomplete Right bundle branch block , prominent right precordial R waves and S waves V5 and V6; RVH. Subtle primary repolarization abnormalities less than 03/01/17 Electronically Signed On 03-02-2017 11:44:53 EDT by Vineet Park
[2017-03-02] MEDS: methylPREDNISolone INJ 40 MG/1 ML VIAL (J2920) IV SCH ×3 (13:16→23:32)
[2017-03-02] MEDS ORDERED: traMADol 50 MG TAB PO PRN (13:30)
[2017-03-02 14:00] VITALS: BP 128/66
[2017-03-02] MEDS: ACETAMINOPHEN 500 MG TAB PO PRN (14:14)
[2017-03-02] MEDS: LevoFLOXacin IV 750 MG in APPROPRIATE DILUENT 1 EA IV SCH (21:15)
[2017-03-02] MEDS: MONTELUKAST 10 MG TAB PO SCH (21:15)
--- NOTE | 2017-03-02 21:33 | ECGEPIP ---
Stationary ECG Study [facility] Test Date: 2017-03-02 Pat Name: KYM OLIVER Department: Room: [place] [address] Gender: F [place] Guide: : 1955 Requested By: JEAN DELVALLE Order Number: [id number] Reading MD: [place]et Park Measurements Intervals [place] Rate: 87 P: -81 IN: 149 QRS: -63 QRSD: 122 T: 70 QT: 431 QTc: 521 Interpretive Statements NORMAL SINUS RHYTHM LA CONDUCTION DEFECT RIGHT BUNDLE BRANCH BLOCK LEFT ANTERIOR FASCICULAR BLOCK PROBABLE RVH NO CHANGE FROM EARLIER SAME DAY Electronically Signed On 03-02-2017 21:32:33 EDT by Vineet Park
[2017-03-02 22:00] VITALS: BP 110/64
[2017-03-03] MEDS: ACETAMINOPHEN 500 MG TAB PO PRN ×3 (02:15→17:51)
[2017-03-03] MEDS: methylPREDNISolone INJ 40 MG/1 ML VIAL (J2920) IV SCH ×2 (05:30→17:45)
[2017-03-03 06:00] VITALS: BP 130/68
[2017-03-03 06:17] LABS: BASO % 0.1 % (0.0-1.0); EOS # 0.1 K/mm3 (0.0-0.50); EOS % 0.8 % (0.0-3.0); LARGE UNSTAINED CELL # 0.1 K/mm3 (0.0-0.4); LARGE UNSTAINED CELL % 0.7 % (0.0-4.0); LYMPH # 0.2 K/mm3 (1.5-4.5); LYMPH % 1.7 % (24.0-44.0); MEAN CORPUSCULAR HEMOGLOBIN 29.3 pg (27.0-33.0); MEAN CORPUSCULAR HGB CONC 32.4 g/dl (32.0-36.5); MEAN CORPUSCULAR VOLUME 90.5 fl (80.0-96.0); MONO # 0.4 K/mm3 (0.0-0.8); MONO % 2.9 % (0.0-5.0); NEUTROPHILS # 12.2 K/mm3 (1.8-7.7); NEUTROPHILS % 93.9 % (36.0-66.0); PLATELET COUNT, AUTOMATED 230 k/mm3 (150-450); RED CELL DISTRIBUTION WIDTH 16.3 % (11.5-14.5)
[2017-03-03 06:29] LABS: CREATININE FOR GFR 1.12 MG/DL (0.55-1.02); POTASSIUM SERUM 4.3 MEQ/L (3.5-5.1)
[2017-03-03] MEDS: IPRATROPIUM 0.5MG/ALBUTEROL 2.5MG INH SOL UD 3ML (DUONEB)(J7620) NEB SCH ×4 (08:06→20:11)
[2017-03-03] MEDS: PANTOPRAZOLE 40MG TAB (PROTONIX) PO SCH ×2 (08:58→20:36)
[2017-03-03] MEDS: SERTRALINE 100 MG TAB PO SCH ×2 (08:58→20:36)
[2017-03-03] MEDS: ALPRAZolam 0.25 MG TAB PO SCH ×4 (08:58→20:36)
[2017-03-03] MEDS: FERROUS SULFATE 325MG TAB PO SCH (08:58)
[2017-03-03] MEDS: ARIPiprazole 2 MG TAB PO SCH ×2 (08:58→20:36)
[2017-03-03] MEDS: ASPIRIN 81 MG ENTERIC TAB PO SCH (08:59)
[2017-03-03] MEDS: buPROPion **XL** TABLET 150MG (WELLBUTRIN XL) PO SCH (08:59)
[2017-03-03] MEDS: TORSEMIDE 100 MG TAB PO SCH (08:59)
[2017-03-03] MEDS: HumaLOG INSULIN (NovoLOG) PER UNIT SC SCH ×4 (09:01→20:39)
--- NOTE | 2017-03-03 09:09 | IPNPDOC ---
Subjective Date Seen The patient was seen on 03/03/17. Subjective Chief Complaint/HPI The patient is a 61-year-old female admitted with a reason for visit of SOB. Events since last encounter chest pain a little better today , continues to have dry cough not much expectoration , continues to have hemoptysis. Objective Physical Examination General Exam: Positive: Alert, Cooperative, No Acute Distress Eye Exam: Positive: PERRLA, Conjunctiva & lids normal, EOMI, Negative: Sclera icteric ENT Exam: Positive: Atraumatic, Mucous membr. moist/pink, Pharynx Normal Neck Exam: Positive: Supple Chest Exam: Positive: Wheezing, Other (tenderness in the right costochondral junctions. ) Heart Exam: Positive: Rate Normal, Regular Rhythm, Normal S1, Normal S2 Abdomen Exam: Positive: Normal bowel sounds, Soft, Negative: Tenderness, Hepatospenomegaly Extremity Exam: Positive: Normal pulses, Negative: Clubbing, Cyanosis, Edema Skin Exam: Positive: Nl turgor and temperature, Negative: Rash, Breakdown Assessment /Plan Problems (1) Hemoptysis Status: Acute Problem Text: patient immunosuppressed. will send AFB three samples place on airborne isolation (2) Chest pain Status: Acute Problem Text: will work up for cardiological cause negative. may be musculoskeletal from coughing will try pain meds. No PE in ct angio. (3) Lung infiltrate Status: Acute Response to Treatment: Stable Problem Text: possibility for pneumonia- CAP vs Aspiration pneumonia will put in for speech evaluation in AM Pt has history of being on honey thickend diet, has not been on this for some time aspiration precautions -keep HOB elevated s/p chemo & radiation many years ago for stage 3B non-small cell lung cancer blood cx pending WBC 13.2 despite being on chronic steroids, pts WBC has not been chronically elevated, suspect this could be new finding no fever in ED, although admitted to fever highest of 100.3 at home 93% on room air-not on home oxygen culture sensitivities from prior admission + for Group F Strep and Pseudomonas, pt has responded well to Levo in past., will begin Levofloxacin 750 mg Iv qd sputum culture pending (4) Lung cancer Status: Chronic Response to Treatment: Stable Problem Text: Stage 3B non-small cell lung cancer s/p chemo. & radiation seven years ago in remission no new lesions on imaging-no hx of weight loss continue to monitor (5) Pericardial effusion Status: Chronic Response to Treatment: Stable Problem Text: pt is not tachycardic, BP stable no radiographic changes will continue to monitor (6) Bronchial stenosis, right Status: Chronic Response to Treatment: Stable Problem Text: has been dilated 2x in past by [facility], most recent December 2016 stable and actually improved w/most recent dilatation continue to monitor (7) N&V (nausea and vomiting) Status: Acute Response to Treatment: Stable Problem Text: will schedule zofran Radiation esophageal stricture, sees GI doctor in [place] for balloon dilatation, most recent December 2016, has appt for this coming with him, will leave for outpt management and f/u stable continue to monitor (8) Hypokalemia Status: Acute Response to Treatment: Stable Problem Text: 3.1 on presentation will replete continue to monitor will check MAG level and replete if necessary (9) Anemia Status: Resolved Response to Treatment: Stable Problem Text: chronic Fe def. anemia H/H stable today, actually better than on past admissions do not suspect active source of bleeding continue to monitor (10) COPD exacerbation Status: Chronic Response to Treatment: Stable Problem Text: given hx of increasing SOB, change in sputum quality and production this could be TIFFANY exacerbation and cause of patients SOB will schedule O2 orders, Duonebs and columederaol 60mg q6h have ordered sputum cx will order Resp CPR panel continue to monitor (11) Radiation pneumonitis Status: Chronic Response to Treatment: Stable Problem Text: pt is on prednisone at home, chronic steroid use, will begin IV solumederol and d/c prednisone stable -no new changes on imaging no new radiation recently continue to monitor (12) Chronic kidney disease Status: Chronic Response to Treatment: Stable Problem Text: Kidney function is at baseline continue to monitor (13) HTN (hypertension) Status: Chronic Response to Treatment: Stable Problem Text: 113/89 conitnue to monitor c/w home meds stable (14) CHF (congestive heart failure) Status: Chronic Problem Text: chronic systolic diastolic heart failure EF of 45% looks to be euvolemic at this point. will continue with torsemide. (15) Anxiety and depression Status: Chronic Response to Treatment: Stable Problem Text: stable continue home meds (16) SILVER on CPAP Status: Chronic Response to Treatment: Stable Problem Text: stable continue home cpap (17) Immunodeficiency Status: Chronic Response to Treatment: Stable Problem Text: pt sees ID Dr Hays on monthly IVIG-hold for now, if pt still inpt. at time when she needs meds, will continue stable pt is on Bactrim for PCP prophylaxix- will continue (18) DM2 (diabetes mellitus, type 2) Status: Chronic Response to Treatment: Stable Problem Text: sliding scale (19) DVT of proximal leg (deep vein thrombosis) Status: Acute Response to Treatment: Stable Problem Text: scd teds Plan/VTE VTE Prophylaxis Ordered?: Yes VS, I&O, 24H, Fishbone Vital Signs/I&O Vital Signs Date Time Temp Pulse Resp B/P (MAP) Pulse Ox O2 Delivery O2 Flow Rate FiO2 03/03/17 06:00 96.6 89 20 130/68 (88) 94 Nasal Cannula 2.0 I&O- Last 24 Hours up to 6 AM 03/03/17 06:00 Intake Total 3690 ml Output Total 3150 ml Balance 540 ml Laboratory Data 24H LABS Laboratory Tests 2 03/02/17 11:59: Bedside Glucose (Misc Panel) 116H 03/02/17 13:05: Total Creatine Kinase 129, Creatine Kinase MB 2.8, Creatine Kinase MB Relative Index 2.17, Troponin I 0.02 03/02/17 16:46: Bedside Glucose (Misc Panel) 174H 03/02/17 20:52: Bedside Glucose (Misc Panel) 242H 03/03/17 06:04: White Blood Count 13.0H, Red Blood Count 3.86L, Hemoglobin 11.3L, Hematocrit 34.9L, Mean Corpuscular Volume 90.5, Mean Corpuscular Hemoglobin 29.3, Mean Corpuscular Hemoglobin Concent 32.4, Red Cell Distribution Width 16.3H, Platelet Count 230, Neutrophils (%) (Auto) 93.9H, Lymphocytes (%) (Auto) 1.7L, Monocytes (%) (Auto) 2.9, Eosinophils (%) (Auto) 0.8, Basophils (%) (Auto) 0.1, Neutrophils # (Auto) 12.2H, Lymphocytes # (Auto) 0.2L, Monocytes # (Auto) 0.4, Eosinophils # (Auto) 0.1, Basophils # (Auto) 0.0, Large Unclassified Cells % 0.7 , Large Unclassified Cells # 0.1, Anion Gap 10, Glomerular Filtration Rate 53.0 , Blood Urea Nitrogen 15, Creatinine 1.12H, Sodium Level 133L, Potassium Level 4.3, Chloride Level 97L, Carbon Dioxide Level 26, Calcium Level 10.0 CBC/BMP Laboratory Tests 03/03/17 06:04 Red Blood Count 3.86 L, Mean Corpuscular Volume 90.5, Mean Corpuscular Hemoglobin 29.3, Mean Corpuscular Hemoglobin Concent 32.4, Red Cell Distribution Width 16.3 H, Neutrophils (%) (Auto) 93.9 H, Lymphocytes (%) (Auto ) 1.7 L, Monocytes (%) (Auto) 2.9, Eosinophils (%) (Auto) 0.8, Basophils (%) ( Auto) 0.1, Neutrophils # (Auto) 12.2 H, Lymphocytes # (Auto) 0.2 L, Monocytes # (Auto) 0.4, Eosinophils # (Auto) 0.1, Basophils # (Auto) 0.0, Calcium Level 10.0 Microbiology Microbiology 03/01/17 Blood Culture - Preliminary, Resulted No growth after 24 hours . All specim... 03/01/17 Blood Culture - Preliminary, Resulted No growth after 24 hours . All specim... 03/01/17 Respiratory Virus Panel (PCR) ([facility]) - Final, Complete JEAN DELVALLE MD Mar 03, 2017 09:09
[2017-03-03] MEDS: ACAMPROSATE CALCIUM 333 MG TABLET (CAMPRAL) PO SCH ×3 (10:32→17:45)
[2017-03-03] MEDS: BACTRIM 80MG/400MG TAB PO SCH (10:34)
[2017-03-03] MEDS: VERAPAMIL 180 MG SR TAB PO SCH (10:34)
[2017-03-03] MEDS ORDERED: E-Z-PAQUE 96% w/w SUSP 176GM BTL As Ordered ONE (12:46)
[2017-03-03] MEDS ORDERED: VARIBAR NECTAR 40% w/v 240ML SUSP BTL As Ordered ONE (12:46)
[2017-03-03] MEDS ORDERED: VARIBAR PUDDING 40% w/v 230ML TUBE As Ordered ONE (12:46)
[2017-03-03 14:00] VITALS: BP 121/71
[2017-03-03] MEDS ORDERED: SODIUM CHLORIDE 0.9% 3ML NEB SOLUTION FOR INHALATION INH ONE (14:00)
[2017-03-03] MEDS: LevoFLOXacin IV 750 MG in APPROPRIATE DILUENT 1 EA IV SCH (20:36)
[2017-03-03] MEDS: MONTELUKAST 10 MG TAB PO SCH (20:36)
[2017-03-03 22:00] VITALS: BP 138/60
[2017-03-04] MEDS: ACETAMINOPHEN 500 MG TAB PO PRN ×2 (03:28→17:31)
[2017-03-04] MEDS: methylPREDNISolone INJ 40 MG/1 ML VIAL (J2920) IV SCH ×2 (05:33→17:32)
[2017-03-04 06:00] VITALS: BP 118/68
[2017-03-04 06:07] LABS: EOS % 0.3 % (0.0-3.0); LARGE UNSTAINED CELL # 0.1 K/mm3 (0.0-0.4); LARGE UNSTAINED CELL % 0.6 % (0.0-4.0); LYMPH # 0.4 K/mm3 (1.5-4.5); MEAN CORPUSCULAR HEMOGLOBIN 29.3 pg (27.0-33.0); MEAN CORPUSCULAR HGB CONC 33.3 g/dl (32.0-36.5); MONO # 0.4 K/mm3 (0.0-0.8); MONO % 4.7 % (0.0-5.0); NEUTROPHILS # 7.8 K/mm3 (1.8-7.7); NEUTROPHILS % 90.4 % (36.0-66.0); PLATELET COUNT, AUTOMATED 251 k/mm3 (150-450); RED CELL DISTRIBUTION WIDTH 16.6 % (11.5-14.5); WHITE BLOOD COUNT 8.6 K/mm3 (4.0-10.0)
[2017-03-04 06:23] LABS: CALCIUM LEVEL 9.5 MG/DL (8.5-10.1); CREATININE FOR GFR 1.42 MG/DL (0.55-1.02); GLOMERULAR FILTRATION RATE 40.3 (>51); POTASSIUM SERUM 3.4 MEQ/L (3.5-5.1)
[2017-03-04] MEDS: IPRATROPIUM 0.5MG/ALBUTEROL 2.5MG INH SOL UD 3ML (DUONEB)(J7620) NEB SCH ×4 (07:18→18:55)
[2017-03-04] MEDS: ALPRAZolam 0.25 MG TAB PO SCH ×4 (08:21→20:36)
[2017-03-04] MEDS: ARIPiprazole 2 MG TAB PO SCH ×2 (08:21→20:36)
[2017-03-04] MEDS: FERROUS SULFATE 325MG TAB PO SCH (08:21)
[2017-03-04] MEDS: TORSEMIDE 100 MG TAB PO SCH (08:22)
[2017-03-04] MEDS: ASPIRIN 81 MG ENTERIC TAB PO SCH (08:22)
[2017-03-04] MEDS: buPROPion **XL** TABLET 150MG (WELLBUTRIN XL) PO SCH (08:22)
[2017-03-04] MEDS: PANTOPRAZOLE 40MG TAB (PROTONIX) PO SCH ×2 (08:22→20:37)
[2017-03-04] MEDS: SERTRALINE 100 MG TAB PO SCH ×2 (08:22→20:36)
[2017-03-04] MEDS: VERAPAMIL 180 MG SR TAB PO SCH (08:23)
[2017-03-04] MEDS: ACAMPROSATE CALCIUM 333 MG TABLET (CAMPRAL) PO SCH ×3 (08:23→17:30)
[2017-03-04] MEDS: BACTRIM 80MG/400MG TAB PO SCH (08:23)
[2017-03-04] MEDS: HumaLOG INSULIN (NovoLOG) PER UNIT SC SCH ×4 (08:24→20:28)
--- NOTE | 2017-03-04 08:31 | CR ---
DATE OF CONSULTATION: 03/03/2017 REQUESTING PHYSICIAN: Dr. Taveras I was asked to consult by Dr. Taveras for evaluation of hemoptysis and infiltrate in a 61-year-old female with a known history of chronic obstructive pulmonary disease (COPD) and lung cancer. HISTORY OF PRESENT ILLNESS: Carmen is a pleasant 61-year-old female with a history of stage IIIB non-small cell carcinoma status post radiation and chemotherapy about 7 years ago. The patient has developed complication of radiation pneumonitis, bronchial and esophageal stenosis. She follows up at the [facility] where she had a dilatation of the right lower bronchus done on February 07. She also follows up with gastrointestinal (GI), Dr. Dickinson, for esophageal dilatation. The patient was doing well a week ago when I saw her in my office. She did not have any complaints, not using oxygen, was not on prednisone. The patient is on chronic prednisone therapy 20 mg daily and therefore takes Bactrim for PCP prophylaxis. She was doing fairly well until the day of admission when she develops a fever of 100.2, associated with some chills. She had chest pain and difficulty with swallowing her food. She was having some problems with esophageal dysphagia. She denied any abdominal pain. She had some nausea and vomiting, no urinary symptoms. She stated that she coughed up blood, but it was mostly frankly blood. There was no mucus in it, about a teaspoon, and therefore came to the emergency room. She called the [facility] as well as her screen printer because both symptoms were related to recent procedures. They both recommended she come to the ER. She also had a sweating episodes, but now these have resolved. She has not had a fever or chill in the past couple days. PAST MEDICAL HISTORY: Chronic obstructive pulmonary disease (COPD). Hypertension. Dyslipidemia. Stage IIIB non-small cell CA status post radiation and chemotherapy with radiation pneumonitis and bronchial stenosis. Esophageal stenosis. Diastolic congestive heart failure. Anxiety. Diabetes type 2. Depression. History of pericardial effusion status post window. Alcohol abuse on Campral. ALLERGIES: 1. CODEINE. FAMILY HISTORY: Mother has diabetes. SOCIAL HISTORY: She quit smoking but continues alcohol use. Lives at home with her . REVIEW OF SYSTEMS: She had low grade fever with some chills that have resolved. She has fatigue. She had cough with hemoptysis. She has some shortness of breath. No rash. No dysuria, hematuria. LABORATORY DATA: White count on admission was 13.2, today it was 13, hemoglobin 11.3, hematocrit 34.9, platelets 230. Sodium 133, potassium 4.3, chloride 97, bicarb 26, BUN 15, creatinine 1.1, glucose 110, calcium 10, CPK 129, troponin 0.02, BNP 294, total protein 7.5, albumin 3.5, lipase 125. Blood cultures two sets on 03/01 were negative. Respiratory virus panel was negative. AFB smear was negative, culture is pending. Second AFB was sent and a sputum cultures was sent and is pending. Chest x-ray showed an ill defined infiltrate around the right perihilar area and a CT chest with angiogram done showed increased right upper lobe infiltrate, right lower lobe infiltrate and left upper lobe infiltrate are no change. On physical exam temperature is 98.2, respirations 17, pulse 98, O2 sat 97% on room air. She has not been febrile during this hospitalization at least in the hospital for 48 hours. HEART: Normal S1-S2. Systolic ejection murmur best heard at the left upper sternal border. LUNGS: Few expiratory wheezes bilaterally. Fair air entry. ABDOMEN: Soft, nontender. No hepatosplenomegaly. EXTREMITIES: No clubbing, cyanosis or edema. No calf tenderness. Oropharynx is clear with no thrush. 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 The patient is admitted with hemoptysis after bronchial dilatation. She has low grade fever with increasing cough. The hemoptysis is not concerning for tuberculosis. She was doing well one week before admission until this short lived fever. There is nothing to suggest tuberculosis. She has received IV Levaquin and feeling much better. Her fever has resolved. PLAN: Continue Levaquin, switch to p.o. dosing. Sputum AFB times two were sent yesterday and today. If tomorrow the AFB is negative, could discontinue isolation. The patient does not have tuberculosis. The patient is due for IVIG on Friday if she is not discharge by then, please arrange that she gets her dose at the hospital before discharge. Thank you for the consultation.
[2017-03-04 14:00] VITALS: BP 130/69
[2017-03-04] MEDS ORDERED: POTASSIUM CHLORIDE 10 MEQ SR TABLET PO ONE (16:00)
--- NOTE | 2017-03-04 16:02 | IPNPDOC ---
Subjective Date Seen The patient was seen on 03/04/17. Subjective Chief Complaint/HPI The patient is a 61-year-old female admitted with a reason for visit of SOB. Events since last encounter Ms. Ayala tolerated breakfast well this morning and slept well. She still complains of hemotypsis and chest pain. She denies dysphagia, SOB, abdominal pain, diarrhea, constipation or n/v. General: Reports: Normal Appetite, Denies: Chills, Night Sweats, Fatigue, Malaise Constitutional: Denies: Chills, Fever, Malaise, Night Sweats, Weakness, Fatigue , Weight Loss, Lethargy Eyes: Denies: Pain, Vision change, Conjunctivae inflammation, Eyelid inflammation, Redness ENT: Denies: Head Aches, Ear Pain, Dysphagia, Sinus Congestion Skin: Denies: Rash, Lesions Pulmonary: Reports: Cough Cardiovascular: Reports: Chest Pain, Denies: Palpitations, Orthopnea, Lt Headedness Gastrointestinal: Denies: Nausea, Vomiting, Abdominal Pain, Diarrhea, Constipation Genitourinary: Denies: Dysuria, Frequency, Incontinence Hematologic: Denies: Bruising, Bleeding Excessively Musculoskeletal: Denies: Neck Pain, Back Pain, Joint Pain Neurological: Denies: Weakness, Numbness, Change in speech, Confusion Psych: Reports: Mood Normal Objective Physical Examination General Exam: Positive: Alert, Cooperative, No Acute Distress Eye Exam: Positive: PERRLA, Conjunctiva & lids normal, EOMI, Negative: Sclera icteric ENT Exam: Positive: Atraumatic, Mucous membr. moist/pink, Pharynx Normal Neck Exam: Positive: Supple, Negative: JVD, thyromegaly Chest Exam: Positive: Wheezing (scattered wheezes throughout right upper and lower lobes), Other (tenderness in the right costochondral junctions. ), Negative: Rales, Rhonchi Heart Exam: Positive: Rate Normal, Regular Rhythm, Normal S1, Normal S2, Negative: Gallops, Murmurs, Rubs Abdomen Exam: Positive: Normal bowel sounds, Soft, Negative: Tenderness, Hepatospenomegaly Extremity Exam: Positive: Normal pulses, Negative: Clubbing, Cyanosis, Edema Skin Exam: Positive: Nl turgor and temperature, Negative: Rash, Breakdown Neuro Exam: Positive: Normal Speech Psych Exam: Positive: Mental status NL, Mood NL Assessment /Plan Problems (1) Hemoptysis Status: Acute Problem Text: Pt's hemoptysis has decreased, but unfortunately it does continue The patient is currently on airborne isolation Sputum culture has been collected and results are pending Possibly due to CAP, will rule out TB with results of sputum culture-Came back Neg. today Infectious Disease saw the pt-appreciate their help-recommend switch to PO Levaquin-750 mg PO Daily The patient currently isn't experiencing other symptoms of TB (denies night sweats, fever, weight loss) PCR panel negative C/W with PO levaquin treatment. (2) Chest pain Status: Acute Problem Text: Possibly 2/2 intercostal pain due to frequent coughing Cardiac markers are negative and there was no evidence of PE on CT angiogram in ED The patient is currently on Ultram and Tylenol- states CP is better but still present with coughing Is currently on Benznotate for cough suppression (3) Lung infiltrate Status: Acute Response to Treatment: Stable Problem Text: Possible CAP. CT angiogram of the chest revealed an increase in the RUL infiltrate compared to prior imaging. Blood cultures revealed no growth after 48 hrs sputum culture preliminary showed yeast like organisms-will await final read and sensitivities The patient is currently on Levofloxacin 750mg qD. (4) Lung cancer Status: Chronic Response to Treatment: Stable Problem Text: Stage 3B non-small cell lung cancer s/p chemo. & radiation seven years ago The cancer is in remission and there are no new lesions on imaging along with no history of weight loss Will continue to monitor. (5) Pericardial effusion Status: Chronic Response to Treatment: Stable Problem Text: There have no new radiographic changes. Will continue to monitor. (6) Bronchial stenosis, right Status: Chronic Response to Treatment: Stable Problem Text: Currently stable and has been improved with recent dilation. No current complaints of SOB or dysphagia. Will continue to monitor. (7) N&V (nausea and vomiting) Status: Acute Response to Treatment: Stable Problem Text: The patient has no current complaints of nausea and vomiting or dysphagia. She has been prescribed Zofran PRN. Will continue to monitor. (8) Hypokalemia Status: Acute Response to Treatment: Stable Problem Text: Currently 3.4 Will replete with 40 mEq KCl PO Will continue to monitor Will check Mag level (9) Anemia Status: Resolved Response to Treatment: Stable Problem Text: 10.9/32.7 today H/H Chronic iron deficiency anemia. H/H is at baseline No active source of bleeding suspected Will continue to monitor. (10) COPD exacerbation Status: Chronic Response to Treatment: Stable Problem Text: The patient is not currently complaining of SOB. She is currently receiving duoneb treatments along with singulair. Will continue to monitor. (11) Radiation pneumonitis Status: Chronic Response to Treatment: Stable Problem Text: Patient is currently on Solumedrol. No new changes on imaging. Will continue to monitor. (12) Chronic kidney disease Status: Chronic Response to Treatment: Stable Problem Text: Cr 1.42 today Kidney function is at baseline. Will continue to monitor. (13) HTN (hypertension) Status: Chronic Response to Treatment: Stable Problem Text: Currently stable 130/69 Continue with home meds, will monitor. (14) CHF (congestive heart failure) Status: Chronic Problem Text: Currently euvolemic and stable, no sign of volume overload on exam Will hold torsemide in light of worsened BUN/Cr today continue to monitor (15) Anxiety and depression Status: Chronic Response to Treatment: Stable Problem Text: Stable, continue with home meds. (16) SILVER on CPAP Status: Chronic Response to Treatment: Stable Problem Text: stable continue home cpap (17) Immunodeficiency Status: Chronic Response to Treatment: Stable Problem Text: Patient is on bactrim for PCP prophylaxis; will continue. Per Infectious Disease- if pt is still inpt on Fri., will order IvIg home medication (18) DM2 (diabetes mellitus, type 2) Status: Chronic Response to Treatment: Stable Problem Text: sliding scale (19) DVT of proximal leg (deep vein thrombosis) Status: Acute Response to Treatment: Stable Problem Text: scd teds Plan/VTE VTE Prophylaxis Ordered?: Yes VS, I&O, 24H, Fishbone Vital Signs/I&O Vital Signs Date Time Temp Pulse Resp B/P (MAP) Pulse Ox O2 Delivery O2 Flow Rate FiO2 03/04/17 08:23 93 118/68 03/04/17 06:00 95.8 18 98 Room Air 03/03/17 09:00 2.0 I&O- Last 24 Hours up to 6 AM 03/04/17 06:00 Intake Total 3270 ml Output Total 5000 ml Balance -1730 ml Laboratory Data 24H LABS Laboratory Tests 2 03/04/17 05:45: White Blood Count 8.6, Red Blood Count 3.71L, Hemoglobin 10.9L, Hematocrit 32.7L , Mean Corpuscular Volume 88.0, Mean Corpuscular Hemoglobin 29.3, Mean Corpuscular Hemoglobin Concent 33.3, Red Cell Distribution Width 16.6H, Platelet Count 251, Neutrophils (%) (Auto) 90.4H, Lymphocytes (%) (Auto) 4.0L, Monocytes (%) (Auto) 4.7, Eosinophils (%) (Auto) 0.3, Basophils (%) (Auto) 0.0, Neutrophils # (Auto) 7.8H, Lymphocytes # (Auto) 0.4L, Monocytes # (Auto) 0.4, Eosinophils # (Auto) 0.0, Basophils # (Auto) 0.0, Large Unclassified Cells % 0.6 , Large Unclassified Cells # 0.1, Anion Gap 10, Glomerular Filtration Rate 40.3L , Blood Urea Nitrogen 24#H, Creatinine 1.42H, Sodium Level 135L, Potassium Level 3.4#L, Chloride Level 96L, Carbon Dioxide Level 29, Calcium Level 9.5 CBC/BMP Laboratory Tests 03/04/17 05:45 Red Blood Count 3.71 L, Mean Corpuscular Volume 88.0, Mean Corpuscular Hemoglobin 29.3, Mean Corpuscular Hemoglobin Concent 33.3, Red Cell Distribution Width 16.6 H, Neutrophils (%) (Auto) 90.4 H, Lymphocytes (%) (Auto ) 4.0 L, Monocytes (%) (Auto) 4.7, Eosinophils (%) (Auto) 0.3, Basophils (%) ( Auto) 0.0, Neutrophils # (Auto) 7.8 H, Lymphocytes # (Auto) 0.4 L, Monocytes # ( Auto) 0.4, Eosinophils # (Auto) 0.0, Basophils # (Auto) 0.0, Calcium Level 9.5 Microbiology Microbiology 03/01/17 Blood Culture - Preliminary, Resulted No Growth after 48 hours. All Specime... 03/01/17 Blood Culture - Preliminary, Resulted No Growth after 48 hours. All Specime... 03/04/17 Acid Fast Stain, Received Pending 03/04/17 Mycobacterial Culture, Received Pending 03/03/17 Acid Fast Stain, Received Pending 7/17/17 Mycobacterial Culture, Received Pending 03/03/17 Gram Stain - Final, Resulted 03/03/17 Sputum Culture, Resulted Pending 03/03/17 Acid Fast Stain - Final, Resulted 03/03/17 Mycobacterial Culture, Resulted Pending 03/01/17 Respiratory Virus Panel (PCR) ([facility]) - Final, Complete GME ATTESTATION GME ATTESTATION My preceptor for this patient encounter was physically present in the building during the encounter and was fully available. As needed, all aspects of the patient interview, examination, medical decision making process, and medical care plan development were reviewed and approved by the preceptor. Preceptor is aware and concurs with the plan as stated in the body of this note and will attest to such by his/her cosignature. ALLISON VERDUZCO DO Mar 04, 2017 10:09
[2017-03-04] MEDS: LevoFLOXacin 750 MG TABLET PO SCH (17:30)
[2017-03-04] MEDS: MONTELUKAST 10 MG TAB PO SCH (20:36)
[2017-03-05 06:00] VITALS: BP 130/74
[2017-03-05] MEDS: methylPREDNISolone INJ 40 MG/1 ML VIAL (J2920) IV SCH ×2 (06:11→18:13)
[2017-03-05 06:16] LABS: BASO % 0.1 % (0.0-1.0); EOS % 0.7 % (0.0-3.0); LARGE UNSTAINED CELL # 0.1 K/mm3 (0.0-0.4); LARGE UNSTAINED CELL % 0.8 % (0.0-4.0); LYMPH # 0.4 K/mm3 (1.5-4.5); LYMPH % 5.9 % (24.0-44.0); MEAN CORPUSCULAR HEMOGLOBIN 29.2 pg (27.0-33.0); MEAN CORPUSCULAR HGB CONC 32.7 g/dl (32.0-36.5); MEAN CORPUSCULAR VOLUME 89.3 fl (80.0-96.0); MONO # 0.4 K/mm3 (0.0-0.8); MONO % 5.5 % (0.0-5.0); NEUTROPHILS # 5.9 K/mm3 (1.8-7.7); NEUTROPHILS % 87.1 % (36.0-66.0); PLATELET COUNT, AUTOMATED 237 k/mm3 (150-450); RED CELL DISTRIBUTION WIDTH 16.4 % (11.5-14.5); WHITE BLOOD COUNT 6.7 K/mm3 (4.0-10.0)
[2017-03-05 06:25] LABS: CALCIUM LEVEL 9.6 MG/DL (8.5-10.1); CREATININE FOR GFR 1.51 MG/DL (0.55-1.02); GLOMERULAR FILTRATION RATE 37.5 (>51); MAGNESIUM LEVEL 2.2 MG/DL (1.8-2.4); POTASSIUM SERUM 3.6 MEQ/L (3.5-5.1)
[2017-03-05] MEDS ORDERED: DILUENT IV SCH (08:00)
[2017-03-05] MEDS ORDERED: IMMUNE GLOBULIN IV SCH (08:00)
[2017-03-05] MEDS: SERTRALINE 100 MG TAB PO SCH ×2 (08:04→20:12)
[2017-03-05] MEDS: ALPRAZolam 0.25 MG TAB PO SCH ×4 (08:04→20:12)
[2017-03-05] MEDS: PANTOPRAZOLE 40MG TAB (PROTONIX) PO SCH ×2 (08:04→20:12)
[2017-03-05] MEDS: FERROUS SULFATE 325MG TAB PO SCH (08:04)
[2017-03-05] MEDS: ARIPiprazole 2 MG TAB PO SCH ×2 (08:04→20:12)
[2017-03-05] MEDS: ACAMPROSATE CALCIUM 333 MG TABLET (CAMPRAL) PO SCH ×3 (08:04→18:12)
[2017-03-05] MEDS: ASPIRIN 81 MG ENTERIC TAB PO SCH (08:04)
[2017-03-05] MEDS: VERAPAMIL 180 MG SR TAB PO SCH (08:05)
[2017-03-05] MEDS: HumaLOG INSULIN (NovoLOG) PER UNIT SC SCH ×4 (08:06→20:12)
[2017-03-05] MEDS: BACTRIM 80MG/400MG TAB PO SCH (08:12)
[2017-03-05] MEDS: buPROPion **XL** TABLET 150MG (WELLBUTRIN XL) PO SCH (08:12)
[2017-03-05] MEDS: TORSEMIDE 100 MG TAB PO SCH (09:26)
[2017-03-05] MEDS: TIOTROPIUM INHALER/CAPSULE (SPIRIVA) INH SCH ×2 (09:39→09:40)
[2017-03-05] MEDS: IPRATROPIUM 0.5MG/ALBUTEROL 2.5MG INH SOL UD 3ML (DUONEB)(J7620) NEB SCH ×4 (09:39→19:59)
[2017-03-05] MEDS ORDERED: DILUENT IV ONE (10:00)
[2017-03-05] MEDS ORDERED: IMMUNE GLOBULIN 10% 5GM 5 GM in APPROPRIATE DILUENT 1 EA IV ONE (10:00)
[2017-03-05] MEDS ORDERED: IMMUNE GLOBULIN IV ONE (10:00)
--- NOTE | 2017-03-05 11:54 | IPNPDOC ---
Subjective Date Seen The patient was seen on 03/05/17. Subjective Chief Complaint/HPI The patient is a 61-year-old female admitted with a reason for visit of SOB. Events since last encounter Ms. Ayala is feeling better this morning. She had an episode of hemotypsis at 4am but states her coughing has been improving. She admitted to still having some chest pain but rated it a "2/10" and denied any n/v, abdominal pain, fever , chills, constipation or diarrhea. She walked around the hallway 4 times this morning and felt a little SOB but had no coughing episodes. General: Reports: Normal Appetite, Denies: Chills, Night Sweats, Fatigue, Malaise Constitutional: Denies: Chills, Fever, Malaise, Night Sweats, Weakness Eyes: Denies: Pain, Vision change ENT: Denies: Head Aches, Ear Pain, Dysphagia Skin: Denies: Rash, Lesions Pulmonary: Reports: Dyspnea (patient got a little SOB this morning after she walked around the aguilar 4 times. ), Cough Cardiovascular: Reports: Chest Pain, Denies: Palpitations, Orthopnea Gastrointestinal: Denies: Nausea, Vomiting, Abdominal Pain, Diarrhea, Constipation Genitourinary: Denies: Dysuria, Frequency, Incontinence Hematologic: Reports: Bruising (the patient has some contusions on her right and left forearms; she states she bruises easily and does not recall how she got the bruises. She states they could be due to the blood draws. Her platelet count has been normal during her visit so it most likely isn't a bleeding disorder. Patient also denies nosebleeds, bleeding from gums. ), Denies: Bleeding Excessively, Petecchia, Purpura Musculoskeletal: Denies: Neck Pain, Back Pain, Joint Pain, Muscle Pain Neurological: Denies: Weakness, Numbness, Change in speech, Confusion Psych: Reports: Mood Normal Objective Physical Examination General Exam: Positive: Alert, Cooperative, No Acute Distress Eye Exam: Positive: PERRLA, Conjunctiva & lids normal, EOMI, Negative: Sclera icteric ENT Exam: Positive: Atraumatic, Mucous membr. moist/pink, Pharynx Normal Neck Exam: Positive: Supple, Negative: JVD, thyromegaly Chest Exam: Positive: Wheezing (scattered wheezes throughout right upper lobe) , Other (tenderness in the right costochondral junctions. , continued rhonchi in RU and RLL), Negative: Rales, Rhonchi Heart Exam: Positive: Rate Normal, Regular Rhythm, Normal S1, Normal S2, Negative: Gallops, Murmurs, Rubs Abdomen Exam: Positive: Normal bowel sounds, Soft, Negative: Tenderness, Hepatospenomegaly Extremity Exam: Positive: Normal pulses, Negative: Clubbing, Cyanosis, Edema Skin Exam: Positive: Nl turgor and temperature, Negative: Rash, Breakdown Neuro Exam: Positive: Normal Gait, Normal Speech Psych Exam: Positive: Mental status NL, Mood NL, Oriented x 3 Assessment /Plan Problems (1) Hemoptysis Status: Acute Problem Text: Pt's hemoptysis has decreased, but unfortunately it does continue , she had an episode of hemoptysis yesterday morning. The patient has been removed from airborne isolation as AFB cultures are negative. will order sputum cytology-pending Possibly due to CAP, have ruled out TB sputum cultures show growth of "yeast-like organisms"; suspect this is 2/2 her repeated instrumentation of airways w/ repeated bronchial diltations and lung malignancy s/p radiation-will continue to monitor as pt is likely colonized from aforementioned reasons hemoptysis likely secondary to CAP, but will need follow up of sputum cytology Infectious Disease saw the pt-appreciate their help-pt will continue PO Levaquin -750 mg PO Daily (2) Chest pain Status: Acute Problem Text: Possibly 2/2 intercostal pain due to frequent coughing Cardiac markers are negative and there was no evidence of PE on CT angiogram in ED The patient is currently on Ultram and Tylenol- states CP is better but still present with coughing - the patient rated the chest pain a 2/10 this morning Is currently on Benznotate for cough suppression (3) Lung infiltrate Status: Acute Response to Treatment: Stable Problem Text: Possible CAP. CT angiogram of the chest revealed an increase in the RUL infiltrate compared to prior imaging. Blood cultures revealed no growth after 48 hrs sputum culture showed yeast like organisms The patient is currently on Levofloxacin 750mg qD. (4) Lung cancer Status: Chronic Response to Treatment: Stable Problem Text: Stage 3B non-small cell lung cancer s/p chemo. & radiation seven years ago The cancer is in remission and there are no new lesions on imaging along with no history of weight loss Will continue to monitor. Given hemoptysis, cytology is pending, but she will need this followed up outpatient (5) Pericardial effusion Status: Chronic Response to Treatment: Stable Problem Text: There have no new radiographic changes. Will continue to monitor. (6) Bronchial stenosis, right Status: Chronic Response to Treatment: Stable Problem Text: Currently stable and has been improved with recent dilation. No current complaints of SOB or dysphagia. Tolerate breakfast well this morning. Will continue to monitor. (7) CHF (congestive heart failure) Status: Chronic Problem Text: Currently euvolemic and stable, no sign of volume overload on exam Held morning dose of torsemide due to worsening BUN/creatine continue to monitor (8) HTN (hypertension) Status: Chronic Response to Treatment: Stable Problem Text: Currently stable 130/74 Continue with home meds, will monitor. (9) Anemia Status: Resolved Response to Treatment: Stable Problem Text: 12.1/36.9 today H/H Chronic iron deficiency anemia. H/H is at baseline and has normalized today No active source of bleeding other than known hemoptysis, which is decreasing Will continue to monitor. (10) Hypokalemia Status: Acute Response to Treatment: Stable Problem Text: Currently normalized at 3.6, magnesium is at 2.2 and calcium is at 9.6 Will continue to monitor (11) N&V (nausea and vomiting) Status: Acute Response to Treatment: Stable Problem Text: The patient has no current complaints of nausea and vomiting or dysphagia. She has been prescribed Zofran PRN. Will continue to monitor. Patient does have esophageal stricture, for which she follows in [place] and gets dilatations (12) COPD exacerbation Status: Chronic Response to Treatment: Stable Problem Text: Pt currently on solumederol 40 mg q12 h, will transition to Oral steroid tomorrow The patient is not currently complaining of SOB. She is currently receiving duoneb treatments along with singulair. Will continue to monitor. (13) Radiation pneumonitis Status: Chronic Response to Treatment: Stable Problem Text: Patient is currently on Solumedrol. No new changes on imaging. Will continue to monitor. (14) Anxiety and depression Status: Chronic Response to Treatment: Stable Problem Text: Stable, continue with home meds. (15) SILVER on CPAP Status: Chronic Response to Treatment: Stable Problem Text: stable continue home cpap (16) Immunodeficiency Status: Chronic Response to Treatment: Stable Problem Text: Patient is on bactrim for PCP prophylaxis; will continue. Per Infectious disease, was originally going to order IVIG today, but spoke with Dr. Hays who said it is ok for patient to get outpt infusion of IVIG 2 weeks from 03/04/17 (17) GAIL (acute kidney injury) Permanent Comment: ON CKD Last Edited By: Allison Verduzco DO on Mar 05, 2017 11 :52 Status: Acute Response to Treatment: Stable Problem Text: BUN is 25 and creatinine is 1.51 this morning. Increase since yesterday. Held torsemide this morning. Will check kidney function tomorrow, if improved may proceed with d/c in AM. Will continue to monitor. (18) DM2 (diabetes mellitus, type 2) Status: Chronic Response to Treatment: Stable Problem Text: sliding scale; not on any meds at home and A1c is 6.0, so apparently diet controlled Plan/VTE VTE Prophylaxis Ordered?: Yes (SCDs) Disposition possibly home tomorrow, pending kidney function VS, I&O, 24H, [facility] Vital Signs/I&O Vital Signs Date Time Temp Pulse Resp B/P (MAP) Pulse Ox O2 Delivery O2 Flow Rate FiO2 03/05/17 08:05 99 148/72 03/05/17 06:00 97.2 17 96 Room Air 03/03/17 09:00 2.0 I&O- Last 24 Hours up to 6 AM 03/05/17 06:00 Intake Total 3480 ml Output Total 4100 ml Balance -620 ml Laboratory Data 24H LABS Laboratory Tests 2 03/04/17 11:25: Bedside Glucose (Misc Panel) 136H 03/04/17 16:56: Bedside Glucose (Misc Panel) 79 03/04/17 20:16: Bedside Glucose (Misc Panel) 143H 03/05/17 05:51: White Blood Count 6.7, Red Blood Count 4.13, Hemoglobin 12.1, Hematocrit 36.9, Mean Corpuscular Volume 89.3, Mean Corpuscular Hemoglobin 29.2, Mean Corpuscular Hemoglobin Concent 32.7, Red Cell Distribution Width 16.4H, Platelet Count 237, Neutrophils (%) (Auto) 87.1H, Lymphocytes (%) (Auto) 5.9L, Monocytes (%) (Auto) 5.5H, Eosinophils (%) (Auto) 0.7, Basophils (%) (Auto) 0.1 , Neutrophils # (Auto) 5.9, Lymphocytes # (Auto) 0.4L, Monocytes # (Auto) 0.4, Eosinophils # (Auto) 0.0, Basophils # (Auto) 0.0, Large Unclassified Cells % 0.8 , Large Unclassified Cells # 0.1, Anion Gap 10, Glomerular Filtration Rate 37.5L , Estimated Mean Plasma Glucose 126H, Hemoglobin A1c 6.0, Blood Urea Nitrogen 25H, Creatinine 1.51H, Sodium Level 134L, Potassium Level 3.6, Chloride Level 96L, Carbon Dioxide Level 28, Calcium Level 9.6, Magnesium Level 2.2 CBC/BMP Laboratory Tests 03/05/17 05:51 Red Blood Count 4.13, Mean Corpuscular Volume 89.3, Mean Corpuscular Hemoglobin 29.2, Mean Corpuscular Hemoglobin Concent 32.7, Red Cell Distribution Width 16.4 H, Neutrophils (%) (Auto) 87.1 H, Lymphocytes (%) (Auto) 5.9 L, Monocytes ( %) (Auto) 5.5 H, Eosinophils (%) (Auto) 0.7, Basophils (%) (Auto) 0.1, Neutrophils # (Auto) 5.9, Lymphocytes # (Auto) 0.4 L, Monocytes # (Auto) 0.4, Eosinophils # (Auto) 0.0, Basophils # (Auto) 0.0, Calcium Level 9.6 Microbiology Microbiology 03/01/17 Blood Culture - Preliminary, Resulted No Growth after 72 hours. All specime... 03/01/17 Blood Culture - Preliminary, Resulted No Growth after 72 hours. All specime... 03/04/17 Acid Fast Stain - Final, Resulted 03/04/17 Mycobacterial Culture, Resulted Pending 03/03/17 Acid Fast Stain - Final, Resulted 03/03/17 Mycobacterial Culture, Resulted Pending 03/03/17 Gram Stain - Final, Resulted 03/03/17 Sputum Culture - Preliminary, Resulted Yeast Like Organism 03/03/17 Acid Fast Stain - Final, Resulted 03/03/17 Mycobacterial Culture, Resulted Pending 03/01/17 Respiratory Virus Panel (PCR) (DIANE) - Final, Complete ALLISON VERDUZCO DO Mar 05, 2017 09:09 SATISH PORTILLO Mar 05, 2017 16:15
[2017-03-05 14:00] VITALS: BP 126/64
[2017-03-05] MEDS: LevoFLOXacin 750 MG TABLET PO SCH (18:12)
[2017-03-05] MEDS: MONTELUKAST 10 MG TAB PO SCH (20:12)
[2017-03-05 22:00] VITALS: BP 122/68
--- NOTE | 2017-03-05 22:25 | IPN ---
DATE: 03/04/2017 Carmen is doing better, but she continues to have hemoptysis. She has a mild cough, mild shortness of breath, no fever or chills, no nausea, vomiting, or diarrhea, her appetite is good. She was scheduled to have her IV immunoglobulin on 03/05/2017, and was wondering whether this could be postponed or she should get the infusion in the hospital. LABORATORY DATA: White count is 8.6, hemoglobin 10.9, hematocrit 32.7, platelets 251, 90% neutrophils, 4% lymphocytes, 4% monocytes. Sodium 135, potassium 3.4, chloride 96, bicarbonate 29, BUN 24, creatinine 1.4, glucose 106, calcium 9.5. Sputum culture had yeast-like organism final. Acid-fast bacillus (AFB) smear times three are negative. Cultures are pending. Respiratory panel is negative and blood cultures are negative. IMPRESSION: 1. Possibility of a new right upper lobe pneumonia. Patient on Levaquin by mouth, doing better. 2. Hemoptysis. Probably a combination of radiation pneumonitis, pneumonia, and the recent bronchial dilatation done at [facility]. 3. Hypogammaglobulinemia. Patient is scheduled for intravenous immunoglobulin (IVIG) on 03/05/2017. This could be postponed for 2 weeks from now as the patient will be starting intravenous immunoglobulin (IVIG) every 6 weeks. PLAN: 1. Continue by mouth Levaquin a total of 7 days. Discontinue airborne isolation, patient does not have any symptoms to suggest tuberculosis. 2. Schedule intravenous immunoglobulin (IVIG) at the infusion unit in 2 weeks after discharge.
[2017-03-06] MEDS: methylPREDNISolone INJ 40 MG/1 ML VIAL (J2920) IV SCH (05:01)
[2017-03-06 05:08] LABS: BASO % 0.2 % (0.0-1.0); EOS % 0.2 % (0.0-3.0); LARGE UNSTAINED CELL % 0.6 % (0.0-4.0); LYMPH # 0.4 K/mm3 (1.5-4.5); MEAN CORPUSCULAR HEMOGLOBIN 28.8 pg (27.0-33.0); MEAN CORPUSCULAR HGB CONC 32.6 g/dl (32.0-36.5); MEAN CORPUSCULAR VOLUME 88.3 fl (80.0-96.0); MONO # 0.5 K/mm3 (0.0-0.8); MONO % 6.6 % (0.0-5.0); NEUTROPHILS # 6.2 K/mm3 (1.8-7.7); NEUTROPHILS % 87.5 % (36.0-66.0); PLATELET COUNT, AUTOMATED 256 k/mm3 (150-450); RED CELL DISTRIBUTION WIDTH 16.6 % (11.5-14.5); WHITE BLOOD COUNT 7.1 K/mm3 (4.0-10.0)
[2017-03-06 05:30] LABS: CALCIUM LEVEL 9.6 MG/DL (8.5-10.1); CREATININE FOR GFR 1.26 MG/DL (0.55-1.02); GLOMERULAR FILTRATION RATE 46.3 (>51); MAGNESIUM LEVEL 2.5 MG/DL (1.8-2.4); POTASSIUM SERUM 3.7 MEQ/L (3.5-5.1)
[2017-03-06 06:00] VITALS: BP 157/83
[2017-03-06] MEDS: TIOTROPIUM INHALER/CAPSULE (SPIRIVA) INH SCH (07:49)
[2017-03-06] MEDS: IPRATROPIUM 0.5MG/ALBUTEROL 2.5MG INH SOL UD 3ML (DUONEB)(J7620) NEB SCH ×2 (07:49→11:08)
[2017-03-06 08:49] LABS: CREATININE FOR GFR 1.12 MG/DL (0.55-1.02); POTASSIUM SERUM 4.1 MEQ/L (3.5-5.1)
[2017-03-06 09:00] VITALS: BP 149/75
[2017-03-06] MEDS: TORSEMIDE 100 MG TAB PO SCH (09:00)
[2017-03-06] MEDS: VERAPAMIL 180 MG SR TAB PO SCH (09:00)
[2017-03-06] MEDS: SERTRALINE 100 MG TAB PO SCH (09:01)
[2017-03-06] MEDS: ASPIRIN 81 MG ENTERIC TAB PO SCH (09:01)
[2017-03-06] MEDS: ACAMPROSATE CALCIUM 333 MG TABLET (CAMPRAL) PO SCH (09:01)
[2017-03-06] MEDS: FERROUS SULFATE 325MG TAB PO SCH (09:04)
[2017-03-06] MEDS: ACETAMINOPHEN 500 MG TAB PO PRN (09:04)
[2017-03-06] MEDS: ALPRAZolam 0.25 MG TAB PO SCH (09:05)
[2017-03-06] MEDS: BACTRIM 80MG/400MG TAB PO SCH (09:05)
[2017-03-06] MEDS: buPROPion **XL** TABLET 150MG (WELLBUTRIN XL) PO SCH (09:05)
[2017-03-06] MEDS: HumaLOG INSULIN (NovoLOG) PER UNIT SC SCH (09:05)
[2017-03-06] MEDS: PANTOPRAZOLE 40MG TAB (PROTONIX) PO SCH (09:05)
[2017-03-06] MEDS: ARIPiprazole 2 MG TAB PO SCH (09:05)
[2017-03-06] MEDS ORDERED: IPRASOL4 NEB (10:27)
[2017-03-06] MEDS ORDERED: PRED10TA2 PO (10:27)
[2017-03-06] MEDS ORDERED: LEVA750T7 PO (10:30)
--- NOTE | 2017-03-06 11:12 | DS.PDOC ---
Discharge Summary General Date of Admission Mar 01, 2017 at 17:49 Date of Discharge 03/06/2017 Discharge Summary DISCHARGE SUMMARY DATE OF ADMISSION: 03/01/2017 DATE OF DISCHARGE: 03/06/2017 PRIMARY CARE PHYSICIAN: Dr. Christian DISCHARGE DIAGNOS(E)S: Community-acquired pneumonia Hemoptysis Acute kidney injury Chest pain COPD exacerbation HPI & HOSPITAL COURSE: 61-year-old female with history of non-small cell lung cancer status post chemotherapy and radiation with resultant radiation pneumonitis as well as bronchial and esophageal stenoses (each of these requiring repeated dilations), history of pericardial effusion status post pericardial window in 2006, CD-4 lymphopenia and hypogammaglobulinemia on IVIG as well as chronic steroids and PCP prophylaxis, mixed chronic heart failure, SILVER on CPAP, COPD, diabetes mellitus type 2, hypertension, GERD, anxiety and depression who presented with hemoptysis. Imaging showed an increase in infiltrate, it was determined that most likely, this was secondary to community-acquired pneumonia. 1. Hemoptysis: The patient did not have any other symptoms of tuberculosis, however, AFB testing was done and was noted to be negative. Sputum cytology was also completed and was negative. I suspect this is secondary to community- acquired pneumonia, coupled with a recent bronchial dilatation as well as her underlying radiation pneumonitis. The patient's hemoglobin was stable throughout her stay. 2. Community acquired pneumonia: The patient was evaluated by Dr. Hays, who believes that most likely this is secondary to pneumonia, and the patient is being treated with 7 days of Levaquin. 3. Acute kidney injury: The patient's creatinine was noted to bump up to 1.5. It appears that her baseline creatinine is closer to 1.1 or 1.2. Torsemide was held for 2 days, and her creatinine improved to 1.1. It will be resumed at discharge. 4. Chest pain: This appears to be secondary to her cough and hemoptysis. Troponins were unremarkable and EKG did not indicate acute ischemia or infarct. 5. COPD exacerbation: The patient was wheezing on exam, and we suspect this is secondary to the underlying pneumonia. We briefly increased patient's steroids and had her on Solu-Medrol, and added DuoNeb therapy. At discharge, she is being transitioned to oral prednisone which will be tapered back down to her chronic dose of 20 mg daily. 6. CD4 lymphopenia and hypogammaglobulinemia: Continue chronic steroids and Bactrim for PCP prophylaxis. Patient was initially due for IVIG on March 04, but as per Dr. Hays's recommendations, she is going to be transitioned to every 6 weeks therapy, so this was held and at discharge, we arranged for it to be administered in the infusion center 2 weeks after March 04. 7. Mixed chronic heart failure: The patient appeared euvolemic throughout her stay. As noted above, we did hold her torsemide for 2 days given a mild acute kidney injury, but the torsemide was resumed on discharge. 8. Diabetes mellitus type 2: The patient's A1c was noted to be 6.0. She does not report any home medications. It appears that this is diet controlled. 9. Esophageal stenosis: The patient did not have any difficulty tolerating oral intake during this admission. Upon discharge, she had an appointment that same afternoon with her GI doctor in [place] to further evaluate this. DVT prophylaxis: SCDs PHYSICAL EXAMINATION ON DISCHARGE: VITAL SIGNS: Vital Sign - Last 24 Hours 03/05/17 03/05/17 03/05/17 03/06/17 14:00 20:40 22:00 06:00 Temp 98.3 97.2 97.2 Pulse 101 89 96 Resp B/P (MAP) 126/64 (84) 122/68 (86) 157/83 (107) Pulse Ox 95 98 96 O2 Delivery Room Air Room Air Room Air Room Air 03/06/17 09:00 B/P (MAP) 149/75 GENERAL: Awake, alert, no acute distress CARDIOVASCULAR EXAMINATION: Regular rate and rhythm RESPIRATORY EXAMINATION: Scattered wheezes but moving good air ABDOMINAL EXAMINATION: Soft, nontender, nondistended. Bowel sounds present. EXTREMITIES: No clubbing or edema noted. 2+ pulses in the radial bilaterally. NEURO: AAOx3, normal speech PSYCH: normal mood and affect DISPOSITION: Home DISCHARGE INSTRUCTIONS: Follow-up with PCP at Dr. Christian's office within one week. The patient should receive a repeat BMP at this time. Follow-up with security chief museum Dr. Sotelo within 2 weeks. Follow-up with Dr. Hays within 2 weeks. Keep GI appointment previously scheduled in [place]. IVIG infusion in the outpatient infusion center on March 18. If symptoms return, or if you experience worsening of your symptoms, please call your doctor or return to the emergency department. ITEMS THAT NEED OUTPATIENT FOLLOWUP: At the time of discharge, the patient's sputum cytology was still pending, this should be followed up by her PCP and/or her security chief museum. The patient should get a repeat BMP with her PCP to ensure that her kidney function has remained at baseline. Patient was seen and examined by me on the day of discharge, and I spent a total time of greater than 30 minutes on this discharge. Vital Signs/I&Os Vital Signs Date Time Temp Pulse Resp B/P (MAP) Pulse Ox O2 Delivery O2 Flow Rate FiO2 03/06/17 09:00 149/75 03/06/17 06:00 97.2 96 17 96 Room Air 03/03/17 09:00 2.0 I&O- Last 24 Hours up to 6 AM 03/06/17 06:00 Intake Total 2100 ml Output Total 1800 ml Balance 300 ml Laboratory Data Labs 24H Laboratory Tests 2 03/06/17 04:49: White Blood Count 7.1, Red Blood Count 3.98L, Hemoglobin 11.5L, Hematocrit 35.1L , Mean Corpuscular Volume 88.3, Mean Corpuscular Hemoglobin 28.8, Mean Corpuscular Hemoglobin Concent 32.6, Red Cell Distribution Width 16.6H, Platelet Count 256, Neutrophils (%) (Auto) 87.5H, Lymphocytes (%) (Auto) 5.0L, Monocytes (%) (Auto) 6.6H, Eosinophils (%) (Auto) 0.2, Basophils (%) (Auto) 0.2 , Neutrophils # (Auto) 6.2, Lymphocytes # (Auto) 0.4L, Monocytes # (Auto) 0.5, Eosinophils # (Auto) 0.0, Basophils # (Auto) 0.0, Large Unclassified Cells % 0.6 , Large Unclassified Cells # 0.0, Anion Gap 9, Glomerular Filtration Rate 46.3L , Blood Urea Nitrogen 21H, Creatinine 1.26H, Sodium Level 144#, Potassium Level 3.7, Chloride Level 105, Carbon Dioxide Level 30, Calcium Level 9.6, Magnesium Level 2.5H 03/06/17 07:59: Anion Gap 9, Glomerular Filtration Rate 53.0, Blood Urea Nitrogen 21H, Creatinine 1.12H, Sodium Level 132#L, Potassium Level 4.1, Chloride Level 96L, Carbon Dioxide Level 27, Calcium Level 9.0 CBC/BMP Laboratory Tests 03/06/17 04:49 Red Blood Count 3.98 L, Mean Corpuscular Volume 88.3, Mean Corpuscular Hemoglobin 28.8, Mean Corpuscular Hemoglobin Concent 32.6, Red Cell Distribution Width 16.6 H, Neutrophils (%) (Auto) 87.5 H, Lymphocytes (%) (Auto ) 5.0 L, Monocytes (%) (Auto) 6.6 H, Eosinophils (%) (Auto) 0.2, Basophils (%) ( Auto) 0.2, Neutrophils # (Auto) 6.2, Lymphocytes # (Auto) 0.4 L, Monocytes # ( Auto) 0.5, Eosinophils # (Auto) 0.0, Basophils # (Auto) 0.0, Calcium Level 9.6 03/06/17 07:59 Calcium Level 9.0 Microbiology Microbiology 03/01/17 Blood Culture - Preliminary, Resulted No Growth after 72 hours. All specime... 03/01/17 Blood Culture - Preliminary, Resulted No Growth after 72 hours. All specime... 03/04/17 Acid Fast Stain - Final, Resulted 03/04/17 Mycobacterial Culture, Resulted Pending 03/03/17 Acid Fast Stain - Final, Resulted 03/03/17 Mycobacterial Culture, Resulted Pending 03/03/17 Gram Stain - Final, Complete 03/03/17 Sputum Culture - Final, Complete Yeast Like Organism 03/03/17 Acid Fast Stain - Final, Resulted 03/03/17 Mycobacterial Culture, Resulted Pending 03/01/17 Respiratory Virus Panel (PCR) (DIANE) - Final, Complete Discharge Medications Scheduled (Spiriva Respimat) 1.25 Mcg/Act Aer, 1.25 MCG INH DAILY, (Reported) Acamprosate Calcium (Acamprosate Calcium Dr) 333 Mg Tab, 666 MG PO WM, (Reported ) Alprazolam (Alprazolam) 0.25 Mg Tab, 0.25 MG PO QID, (Reported) Aripiprazole (Abilify) 2 Mg Tab, 2 MG PO BID, (Reported) Aspirin (Aspirin EC) 81 Mg Tab, 81 MG PO DAILY, (Reported) Bupropion HCl (Bupropion HCl Xl) 300 Mg Tab, 300 MG PO DAILY, (Reported) Esomeprazole Magnesium Trihydr (Nexium) 40 Mg Cap, 40 MG PO BID, (Reported) Ferrous Sulfate (Ferrous Sulfate) 325 Mg Tab, 325 MG PO DAILY, (Reported) Fluticasone/Vilanterol (Breo Ellipta 200-25 Mcg/INH) 1 Inh Inh, 1 PUFF INH DAILY , (Reported) IV Immune Globulin (Rosado) (Privigen) 5 Gm/50 Ml Inj, 25 GM IV QMONTH, ( Reported) Levofloxacin Hemihydrate (Levaquin) 750 Mg Tab, 750 MG PO DAILY First dose tonight on 03/06/17 Montelukast Sodium (Singulair) 10 Mg Tab, 10 MG PO QHS, (Reported) Prednisone (Prednisone) 10 Mg Tab, 10 MG PO TAPER Take 4 tabs daily (40mg) x 4 days, then 3 tabs daily (30mg) x 4 days, then resume home dose of 2 tabs (20mg) daily Sertraline Hcl (Zoloft) 100 Mg Tab, 100 MG PO BID, (Reported) Torsemide (Torsemide) 100 Mg Tab, 100 MG PO DAILY, (Reported) Trimethoprim/Sulfamethoxazole (Bactrim 400-80 mg) 1 Tab Tab, 1 TAB PO DAILY, ( Reported) Verapamil HCl (Verapamil HCl ER) 180 Mg Tab, 180 MG PO DAILY, (Reported) Scheduled PRN Albuterol Sulfate (Ventolin Hfa) 200 Puff/8 Gm Aers, 2 PUFF INH QID PRN for SHORTNESS OF BREATH, (Reported) Albuterol/Ipratropium (Ipratropium [place]/Albut 0.5-2.5 (3) mg/3Ml) 1 Kristin Kristin, 3 ML NEB Q4HP PRN for SHORTNESS OF BREATH Benzonatate (Benzonatate) 100 Mg Cap, 100 MG PO BID PRN for COUGH, (Reported) Allergies Coded Allergies: Codeine (Verified Adverse Reaction, Mild, VOMITING, 11/21/12) SATISH PORTILLO Mar 06, 2017 11:12
== END 2017-03-06 11:45 | disposition home or self-care (01) | DRG 140 ==
LOC: M ED 12:25 → M ED INP 17:49 → M MSPAV 20:44
PROVIDERS: ADMIT Internal Medicine; ATTEND Hospitalist
DX: J44.0 Chronic obstructive pulmonary disease with (acute) lower respiratory infection (principal); J18.9 Pneumonia, unspecified organism; D80.1 Nonfamilial hypogammaglobulinemia; I11.0 Hypertensive heart disease with heart failure; R04.2 Hemoptysis; K22.2 Esophageal obstruction; I50.32 Chronic diastolic (congestive) heart failure; G47.33 Obstructive sleep apnea (adult) (pediatric); E11.9 Type 2 diabetes mellitus without complications; K21.9 Gastro-esophageal reflux disease without esophagitis; F41.9 Anxiety disorder, unspecified; F32.9 Major depressive disorder, single episode, unspecified; E87.6 Hypokalemia; Z79.82 Long term (current) use of aspirin; Z79.52 Long term (current) use of systemic steroids; Z79.899 Other long term (current) drug therapy; Z88.5 Allergy status to narcotic agent; Z87.891 Personal history of nicotine dependence; Z92.21 Personal history of antineoplastic chemotherapy; Z92.3 Personal history of irradiation; Z85.118 Personal history of other malignant neoplasm of bronchus and lung; Z99.89 Dependence on other enabling machines and devices; Z83.3 Family history of diabetes mellitus; J44.1 Chronic obstructive pulmonary disease with (acute) exacerbation

== ENCOUNTER → 2017-03-11 | Outpatient (REF) | payer OTHER ==
[~2017-03-11] MED LIST changes: +ASPI81TA24 PO; +BACT400T PO; +BREO1INH3 INH; +BUPR50TA PO; +ESOM1CAP5 PO; +FAMO40SU4 PO; +HEPA100SYR IV; +HEPA50VL SQ; +IPRASOL4 INH; +LEVA750T7 PO; +LIDO1SOL7 PO; +METH125VL IV; +ONDA4TAB5 PO; +PERC5TAB12 PO; +POTA10TA16 PO; +POTA20EL PO; +PRED10PA PO; +RANI15ELUD PO; +RANITIDINE PO; +SLF IV; +SPIR1AER INH; +TORS100T PO; +TRAM50TA2 PO; +VERA360C PO; +[UNRECOGNIZED DRUG - CODE] IV
== END ==
LOC: M LAB REF 13:24
PROVIDERS: ATTEND Nurse Practitioner Family
DX: R35.0 Frequency of micturition (principal)

== ENCOUNTER 2017-03-19 08:32 | Outpatient (CLI) | payer OTHER ==
[~2017-03-19] VITALS: Ht 165.1 cm; Wt 92.3 kg
[~2017-03-19 08:32] MED LIST changes: +ACETAMINOPHEN TAB 650MG DOSE (2X325MG) PO SCH; -BUPR50TA PO; -ESOM1CAP5 PO; -FAMO40SU4 PO; -HEPA100SYR IV; -HEPA50VL SQ; -IPRASOL4 INH; -LIDO1SOL7 PO; -METH125VL IV; -ONDA4TAB5 PO; -PERC5TAB12 PO; -POTA10TA16 PO; -POTA20EL PO; -PRED10PA PO; -RANI15ELUD PO; -RANITIDINE PO; -SLF IV; -TRAM50TA2 PO; -VERA360C PO; -[UNRECOGNIZED DRUG - CODE] IV; +diphenhydrAMINE 25 MG CAP PO SCH
[2017-03-19] MEDS ORDERED: IMMUNE GLOBULIN 10% 20GM 200ML 20 GM in APPROPRIATE DILUENT 1 EA IV ONE (08:45)
[2017-03-19] MEDS ORDERED: IMMUNE GLOBULIN 10% 5GM 5 GM in APPROPRIATE DILUENT 1 EA IV ONE (08:45)
[2017-03-19 10:14] LABS: IMMUNOGLOBULIN M 83.8 MG/DL (40-230)
[2017-03-20 14:15] LABS: %CD3+CD4+CD8+ 1.1 % (Not Estab.); %CD3+CD4+CD8- 22.3 % (Not Estab.); %CD3+CD4-CD8+ 27.6 % (Not Estab.); %CD3+CD4-CD8- 0.8 % (Not Estab.); ABS CD3+CD4+CD8+ 3 /uL (Not Estab.); ABS CD3+CD4+CD8- 67 /uL (Not Estab.); ABS CD3+CD4-CD8+ 83 /uL (Not Estab.); ABS CD3+CD4-CD8- 2 /uL (Not Estab.); CD4/CD8 NYSDOH RATIO 0.81 (Not Estab.); Eosinophils 0 % (.); HCT 38.3 % (34.0-46.6); HGB 12.7 g/dL (11.1-15.9); Monocytes 2 % (.); Neutrophils 94 % (.); WBC 9.5 x10E3/uL (3.4-10.8)
== END 2017-03-19 11:15 | disposition home or self-care (01) ==
LOC: M INFU 08:32
PROVIDERS: ATTEND Internal Medicine Infectious Disease
DX: D80.1 Nonfamilial hypogammaglobulinemia (principal); Z87.891 Personal history of nicotine dependence; Z88.2 Allergy status to sulfonamides; Z88.5 Allergy status to narcotic agent; Z79.52 Long term (current) use of systemic steroids; Z79.899 Other long term (current) drug therapy
CPT/HCPCS: 36415; 82784; 86360; 96365; 96366; J1569

== ENCOUNTER 2017-03-27 13:52 | Outpatient (RCR) | payer OTHER ==
[~2017-03-27 13:52] MED LIST changes: -ACETAMINOPHEN TAB 650MG DOSE (2X325MG) PO SCH; -diphenhydrAMINE 25 MG CAP PO SCH
[2017-03-30] MEDS ORDERED: PERC5TAB12 PO ×2 (00:21)
== END 2017-04-17 ==
LOC: M PR 13:52
PROVIDERS: ATTEND Internal Medicine Pulmonary Disease
DX: Z51.89 Encounter for other specified aftercare (principal); J44.9 Chronic obstructive pulmonary disease, unspecified

== ENCOUNTER 2017-03-29 21:23 | Emergency (ER) | payer OTHER ==
[~2017-03-29] VITALS: Ht 160 cm; Wt 88.3 kg
[2017-03-29] MEDS ORDERED: PERCOCET 5MG/325MG TAB PO ONE (22:00)
--- NOTE | 2017-03-29 23:10 | REPUSA ---
CLINICAL HISTORY: Left hip pain, lung cancer. COMPARISON: No study for comparison is available at the time of interpretation. TECHNIQUE: DX left hip, 2 views Osseous structures: There is a 1.7 cm lytic lesion in the inferior head of the left femur seen only o n AP view. There is no visible fracture. Joint spaces: The bones are well aligned. No articular surface abnormality is noted. Soft tissues: There is normal appearance of the soft tissues with no radiopaque foreign body seen. IMPRESSION: 1.7 cm lytic lesion of the left femoral head. Although this may represent a benign etiology such as g iant cell tumor, a lytic metastasis must be considered in a patient with personal history of lung can cer. Consider further evaluation with MRI of the left hip, without and with gadolinium. Alternately, a full body nuclear medicine bone scan may be considered to evaluate the full skeleton f or bone activity. A PET CT may also be useful to evaluate for active tumor cells.
[2017-03-29] MEDS ORDERED: MORPHINE 10 MG/ML 1ML VIAL IM ONE (23:15)
[2017-03-29] MEDS ORDERED: MORPHINE 4 MG/ML 1ML SYRINGE As Ordered ONE (23:18)
[2017-03-30 00:17] VITALS: BP 151/74
[2017-03-30] MEDS ORDERED: PERC5TAB12 PO ×2 (00:21)
--- NOTE | 2017-03-30 08:02 | REP ---
Left knee four views : There is no fracture or dislocation. Mineralization and joint spaces are normal. There are no calcifications or foreign bodies. Impression: Negative left knee . Signed by Jose Wolff MD 03/30/2017 07:53 A
== END 2017-03-30 00:28 | disposition home or self-care (01) ==
LOC: M ED 21:23
DX: M25.552 Pain in left hip (principal); M89.9 Disorder of bone, unspecified; I50.9 Heart failure, unspecified; I10 Essential (primary) hypertension; I31.9 Disease of pericardium, unspecified; N18.3 Chronic kidney disease, stage 3 (moderate); B00.9 Herpesviral infection, unspecified; Z87.891 Personal history of nicotine dependence; Z85.118 Personal history of other malignant neoplasm of bronchus and lung; Z92.3 Personal history of irradiation; Z92.21 Personal history of antineoplastic chemotherapy

== ENCOUNTER → 2017-04-03 | Outpatient (CLI) | payer OTHER ==
[~2017-04-03] MED LIST changes: +BUPR50TA PO; +ESOM1CAP5 PO; +FAMO40SU4 PO; +HEPA100SYR IV; +HEPA50VL SQ; +IPRASOL4 INH; +LIDO1SOL7 PO; +METH125VL IV; +ONDA4TAB5 PO; +PERC5TAB12 PO; +POTA10TA16 PO; +POTA20EL PO; +PRED10PA PO; +RANI15ELUD PO; +RANITIDINE PO; +SLF IV; +TRAM50TA2 PO; +VERA360C PO; +[UNRECOGNIZED DRUG - CODE] IV
--- NOTE | 2017-04-03 13:49 | REP ---
Chest x-ray: Two views. History: Follow-up pneumonia. The patient has a history of lung carcinoma status post radiation therapy. Comparison study March 01, 2017. Findings: Persistent perihilar opacities are again seen. There is slight improvement in the right perihilar region since the chest x-ray of March 01, 2017. These opacities are otherwise unchanged from recent chest CT and chest x-ray from March 01, 2017. No new infiltrate is seen. Pleural angles are sharp. Heart is not enlarged. Right hemidiaphragm remains slightly elevated. No significant bony abnormality is seen. Impression: Some improvement in right perihilar opacity. Perihilar opacities are otherwise stable and may be post radiation change. Signed by Moy Chaudhry MD 04/03/2017 02:43 P
== END ==
LOC: M RAD 11:41
PROVIDERS: ATTEND Nurse Practitioner Family
DX: Z85.118 Personal history of other malignant neoplasm of bronchus and lung (principal)

== ENCOUNTER → 2017-04-03 | Outpatient (CLI) | payer OTHER ==
--- NOTE | 2017-04-03 15:48 | REP ---
WHOLE BODY BONE SCAN: Following the intravenous administration of 22 mCi of technetium 99m MDP, the patient's whole body is imaged in the anterior and posterior projections. Additional oblique images are performed of the thoracic and pelvic regions as well as lateral views of the calvarium. Scattered arthritic uptake is seen in the shoulders bilaterally, as well as the knees bilaterally and in the lower thoracic spine. A focus of increased uptake in the anterior end of the right 8th rib and another focus in the left 11th rib are consistent with old rib fractures as seen on prior CT exams of the chest. I see no abnormal uptake in the proximal left femur at the site of a suspected lytic lesion. There is no scintigraphic evidence of osseous metastases. IMPRESSION: Scattered arthritic uptake. Focal increased uptake in left 11th and anterior right 8th ribs consistent with old fractures. No compelling scintigraphic evidence of osseous metastases. Signed by Jose Ramírez MD 04/03/2017 05:06 P
== END ==
LOC: M RAD 10:33
PROVIDERS: ATTEND Nurse Practitioner Adult Health
DX: Z85.118 Personal history of other malignant neoplasm of bronchus and lung (principal)
CPT/HCPCS: 78306; A9503

== ENCOUNTER 2017-04-18 08:48 | Outpatient (RCR) | payer OTHER ==
[~2017-04-18 08:48] MED LIST changes: -BUPR50TA PO; -ESOM1CAP5 PO; -FAMO40SU4 PO; -HEPA100SYR IV; -HEPA50VL SQ; -IPRASOL4 INH; -LIDO1SOL7 PO; -METH125VL IV; -ONDA4TAB5 PO; -POTA10TA16 PO; -POTA20EL PO; -PRED10PA PO; -RANI15ELUD PO; -RANITIDINE PO; -SLF IV; -TRAM50TA2 PO; -VERA360C PO; -[UNRECOGNIZED DRUG - CODE] IV
[2017-05-11] MEDS ORDERED: RANI15ELUD PO (11:09)
[2017-05-11] MEDS ORDERED: IPRASOL4 INH (18:28)
[2017-05-11] MEDS ORDERED: POTA10TA16 PO (18:28)
[2017-05-11] MEDS ORDERED: PRED10PA PO (18:28)
[2017-05-11] MEDS ORDERED: VERA360C PO (18:28)
== END 2017-05-17 ==
LOC: M PR 08:48
PROVIDERS: ATTEND Internal Medicine Pulmonary Disease
DX: Z51.89 Encounter for other specified aftercare (principal); J44.9 Chronic obstructive pulmonary disease, unspecified

== ENCOUNTER 2017-04-23 12:20 | Outpatient (CLI) | payer OTHER ==
[~2017-04-23] VITALS: Ht 165.1 cm; Wt 92.8 kg
[2017-04-23] MEDS ORDERED: diphenhydrAMINE 50 MG CAP PO ONE (12:30)
[2017-04-23] MEDS ORDERED: ACETAMINOPHEN TAB 650MG DOSE (2X325MG) PO ONE (12:30)
[2017-04-23] MEDS ORDERED: IMMUNE GLOBULIN 10% 5GM 5 GM in APPROPRIATE DILUENT 1 EA IV ONE (13:00)
[2017-04-23] MEDS ORDERED: IMMUNE GLOBULIN 10% 20GM 200ML 20 GM in APPROPRIATE DILUENT 1 EA IV ONE (13:00)
== END 2017-04-23 16:00 | disposition home or self-care (01) ==
LOC: M INFU 12:20
PROVIDERS: ATTEND Internal Medicine Infectious Disease
DX: D80.1 Nonfamilial hypogammaglobulinemia (principal); Z87.891 Personal history of nicotine dependence; Z85.118 Personal history of other malignant neoplasm of bronchus and lung; Z88.5 Allergy status to narcotic agent; Z88.2 Allergy status to sulfonamides; Z79.52 Long term (current) use of systemic steroids; Z79.899 Other long term (current) drug therapy
CPT/HCPCS: 96365; 96366; J1569

== ENCOUNTER 2017-05-11 10:47 | Observation (INO) | payer OTHER ==
[~2017-05-11] VITALS: Ht 160 cm; Wt 89.0 kg
[2017-05-11] MEDS ORDERED: RANI15ELUD PO (11:09)
[2017-05-11] MEDS ORDERED: NS 1,000 ML IV SCH (11:29)
[2017-05-11] MEDS ORDERED: NS 500 ML IV ONE (11:30)
[2017-05-11] MEDS ORDERED: ONDANSETRON 4MG/2ML VIAL (J2405) IV ONE (11:30)
[2017-05-11 11:58] LABS: BASO % 0.2 % (0.0-1.0); EOS % 0.4 % (0.0-3.0); LARGE UNSTAINED CELL % 0.6 % (0.0-4.0); LYMPH # 0.5 K/mm3 (1.5-4.5); LYMPH % 6.2 % (24.0-44.0); MEAN CORPUSCULAR HEMOGLOBIN 33.4 pg (27.0-33.0); MEAN CORPUSCULAR HGB CONC 35.6 g/dl (32.0-36.5); MEAN CORPUSCULAR VOLUME 93.9 fl (80.0-96.0); MONO # 0.4 K/mm3 (0.0-0.8); MONO % 5.1 % (0.0-5.0); NEUTROPHILS # 6.5 K/mm3 (1.8-7.7); NEUTROPHILS % 87.5 % (36.0-66.0); PLATELET COUNT, AUTOMATED 255 k/mm3 (150-450); WHITE BLOOD COUNT 7.4 K/mm3 (4.0-10.0)
[2017-05-11 12:04] LABS: INR 0.9
[2017-05-11 12:27] LABS: ALBUMIN 3.9 GM/DL (3.2-5.2); ALBUMIN/GLOBULIN RATIO 1.15 (1.00-1.93); BILIRUBIN,DIRECT 0.1 MG/DL (0.0-0.2); BILIRUBIN,TOTAL 0.4 MG/DL (0.2-1.0); CALCIUM LEVEL 8.8 MG/DL (8.5-10.1); CREATININE FOR GFR 1.3 MG/DL (0.55-1.02); GLOMERULAR FILTRATION RATE 44.6 (>51); TOTAL PROTEIN 7.3 GM/DL (6.4-8.2)
[2017-05-11] MEDS ORDERED: POTASSIUM CHLORIDE 10 MEQ SR TABLET PO ONE (13:15)
[2017-05-11] MEDS ORDERED: SODIUM CHLORIDE 0.9% 1000 ML IV ONE ×2 (13:15→18:00)
[2017-05-11] MEDS ORDERED: SUCRALFATE SUSP 1GM/10ML UD PO ONE (16:45)
[2017-05-11] MEDS: SUCRALFATE 1 GM TAB PO SCH (18:00)
[2017-05-11] MEDS ORDERED: PANTOPRAZOLE 40MG INJ (PROTONIX) (C9113) IV ONE (18:00)
[2017-05-11] MEDS ORDERED: PRED10PA PO (18:28)
[2017-05-11] MEDS ORDERED: VERA360C PO (18:28)
[2017-05-11] MEDS ORDERED: IPRASOL4 INH (18:28)
[2017-05-11] MEDS ORDERED: POTA10TA16 PO (18:28)
[2017-05-11 18:45] LABS: BASO % 0.1 % (0.0-1.0); EOS % 1.1 % (0.0-3.0); LARGE UNSTAINED CELL # 0.1 K/mm3 (0.0-0.4); LARGE UNSTAINED CELL % 0.9 % (0.0-4.0); LYMPH # 0.5 K/mm3 (1.5-4.5); LYMPH % 10.7 % (24.0-44.0); MEAN CORPUSCULAR HEMOGLOBIN 34.4 pg (27.0-33.0); MEAN CORPUSCULAR HGB CONC 35.9 g/dl (32.0-36.5); MEAN CORPUSCULAR VOLUME 95.7 fl (80.0-96.0); MONO # 0.4 K/mm3 (0.0-0.8); MONO % 7.1 % (0.0-5.0); NEUTROPHILS # 3.9 K/mm3 (1.8-7.7); PLATELET COUNT, AUTOMATED 225 k/mm3 (150-450); WHITE BLOOD COUNT 4.9 K/mm3 (4.0-10.0)
[2017-05-11] MEDS ORDERED: ALBUTEROL 90 MCG/ACT 8GM HFA INHALER INH PRN (18:45)
[2017-05-11] MEDS ORDERED: BENZONATATE 100 MG CAP PO PRN (18:45)
--- NOTE | 2017-05-11 19:00 | REPUSA ---
CLINICAL HISTORY: Intractable nausea/vomiting. TECHNIQUE: Multiple axial, coronal, sagittal CT images were obtained through the abdomen and pelvis without administration of oral or IV contrast material. COMMENTS: The liver is of uniform attenuation without mass or defect. There is no intra or extrahepatic biliar y ductal dilatation. The spleen is normal. The gallbladder is within normal limits. The pancreas i s of normal contour and attenuation characteristics. There is no evidence of adrenal mass. There is an 8 mm hyperdense focus noted in the mid pole of the left kidney most compatible with hemor rhagic or milk of calcium cyst. The kidneys are normal in size and shape. No renal or ureteral leona culi are identified. There is no hydroureter or hydronephrosis. There is no evidence for appendicitis. There is no bowel wall thickening. No evidence for small or large bowel obstruction. There is no evidence of abdominal ascites or lymphadenopathy. There is no evidence of intrinsic or extrinsic bladder mass. There is no pelvic ascites or lymphaden opathy. The patient is status post complete hysterectomy. Note is made of dense consolidation in the right lower lobe medially containing air bronchograms and measuring approximately 7.5 x 5 cm. This may represent pneumonia. Other possibilities as malignancy are not totally excluded. There is trace right pleural effusion noted. Pericardial effusion is als o noted. Consider cardiac workup. There is grade-1 anterolisthesis of L5 over S1 measures 7 mm. IMPRESSION: 1. 8 mm hyperdense focus noted in the mid pole of the left kidney most compatible with hemorrhagic o r milk of calcium cyst. Consider additional workup with CT or MRI pre and post contrast. 2. Trace right pleural effusion noted. Dense consolidation in the right lower lobe medially contai lori air bronchograms and measuring approximately 7.5 x 5 cm. This may represent pneumonia. Other p ossibilities as malignancy are not totally excluded. Further evaluation with CT of the chest with in travenous contrast is suggested. 3. Pericardial effusion is also noted. Consider cardiac workup.
[2017-05-11 19:07] LABS: CALCIUM LEVEL 8.3 MG/DL (8.5-10.1); CREATININE FOR GFR 1.22 MG/DL (0.55-1.02); MAGNESIUM LEVEL 1.7 MG/DL (1.8-2.4); POTASSIUM SERUM 3.3 MEQ/L (3.5-5.1)
[2017-05-11] MEDS ORDERED: KCL 40MEQ IN D5/0.45NS 1000ML 1,000 ML IV SCH (20:00)
--- NOTE | 2017-05-11 20:00 | REPUSA ---
CT of the chest without contrast Clinical statement: pericardial effusion. Technique: Multiple axial CT images were obtained with 5 mm cuts through the chest without administra tion of contrast. Comparison: 03/01/2017. Findings: There is no thoracic lymphadenopathy. The visualized portions of the thyroid gland is unrem arkable. There is a moderate sized pericardial effusion, which is grossly unchanged since the prior s tudy. For example, this measures approximate 2.7 cm along the anterior border of the right atrium. Tr compa amount of pericardial effusion is seen on the left ventricle as well. There are no pleural effusi ons. Chronic parenchymal changes adjacent to the mediastinum bilaterally are grossly stable, consiste nt with posttreatment changes. The lungs are otherwise clear. Limited imaging of the upper abdomen do es not demonstrate any acute abnormalities. There are no suspicious osseous lesions. Multilevel degen erative disc disease is noted throughout the lower thoracic spine. Impression: 1. Moderate sized pericardial effusion, grossly stable in size and appearance when compared the prior study. 2. Parenchymal scarring adjacent to the mediastinum bilaterally, consistent with posttreatment change s. This is also stable. 3. Previous infiltrates within the right upper lobe have resolved. Small right-sided pleural effusion seen on the prior study has also result. 4. Moderate spondylosis of the spine, grossly stable.
[2017-05-11 20:20] VITALS: BP 123/60
--- NOTE | 2017-05-11 20:38 | HPE ---
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 She also follows up at [facility]. CHIEF COMPLAINT: Intractable nausea and vomiting since Friday. HISTORY OF PRESENTING ILLNESS: This is a 61-year-old female with prior medical history significant for stage IIIB non-small cell lung cancer status post radiation and chemotherapy 7 years ago, complicated by radiation pneumonitis, bronchial and esophageal stenosis with every 4 months followup at [facility] where she has dilation of the right lower bronchus as well as every 3 months followup with director of field sales in [place], Dr. 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 The patient presents to the emergency room with intractable nausea and vomiting since Friday, unable to keep any solid and liquids down, initially able to tolerate apple juice, but has been throwing this up several times during the day, with epigastric pain without radiation. She called her director of field sales who recommended continuing her liquid Zantac 20 mL nightly. She has had an eight pound weight loss. Recent coronary angiogram was unremarkable according to the patient, which was done about 2 months ago. She denies any hematemesis or hemoptysis. No fever or chills. She has a chronic dry cough, some hoarseness of the voice which is also chronic. No difficulty breathing. No palpitations. No lightheadedness. No dizziness. The patient admits to having some chest pain, but most likely in the epigastric region, no radiation down the left arm or up to jaw. PAST MEDICAL HISTORY: 1. Diastolic congestive heart failure, ejection fraction of 75% on 11/13/2015, trace tricuspid regurgitation, trace mitral regurgitation, and mild aortic regurgitation. 2. Stage IIIB non-small cell lung cancer status post chemotherapy and radiation 7 years ago. 3. Radiation pneumonitis. 4. Bronchial esophageal stenosis. 5. Pericardial effusion status post pericardial window in 2006. 6. 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 7. Hypogammaglobulinemia on monthly intravenous immunoglobulin (IVIG) with Dr. Bhavani Hays. 8. Type 2 diabetes. 9. Anxiety and depression. 10. Alcohol abuse. 11. Chronic kidney disease stage III, baseline creatinine 1.15 to 1.3. ALLERGIES: CODEINE. HOME MEDICATIONS: - Zantac 300 mg nightly - nebulizer every 4 hours as needed - IVIG monthly, patient had last dose 2 weeks ago - Breo Ellipta one inhalation daily - Spiriva two puffs inhaled daily - alprazolam 0.25 four times a day - aspirin 81 daily - benzonatate 100 mg twice a day - bupropion 300 mg daily - ferrous sulfate 325 daily - Singulair 10 mg nightly - potassium chloride 10 mEq twice a day - prednisone 10 mg daily - ranitidine 150 mg/10 mL 20 mL by mouth nightly - Zoloft 100 mg twice a day - torsemide 100 daily - Bactrim one tablet daily - verapamil 360 mg daily FAMILY HISTORY: Mother had type 2 diabetes. SOCIAL HISTORY: Patient was a 25 year smoker at a half a pack per day, quit in 2006. Denies any alcohol use. Lives at home with her . REVIEW OF SYSTEMS: Per history of present illness (HPI). 12-point system otherwise negative. PHYSICAL EXAMINATION: Temperature 97.1, pulse 102, respiratory rate 18, blood pressure 124/59, 93% on room air. Generally, patient is awake, alert, oriented times three, answering questions appropriately. Anicteric sclerae, no jaundice. Pupils equally round and reactive to light. Extraocular muscles are intact. Normocephalic, atraumatic. Patient had a baseline hoarse voice, no stridor on examination. Able to speak in full sentences. No use of respiratory accessory muscles. LUNGS: Diminished breath sounds, but clear to auscultation. No wheezing, rales, or rhonchi. HEART: S1, S2, sinus rhythm. No murmurs, rubs, or gallops. ABDOMEN: Soft, slightly tender epigastric region, no rebound or guarding. Positive bowel sounds times four quadrants. EXTREMITIES: No cyanosis or clubbing. The patient has left lower extremity injury from recent hamstring injury. LABORATORY DATA: White count 4.9, hemoglobin 12, hematocrit 35, platelet count 225, 80% neutrophils. Sodium 141, potassium 3.3, chloride 100, bicarbonate 30, BUN 12, creatinine 1.22, glucose 88, magnesium 1.7. IMAGING STUDIES: CT abdomen and pelvis shows dense consolidation in the right lower lobe containing air bronchograms, may represent pneumonia. Other possibilities are malignancy, hemorrhagic or milk of calcium cysts 8 mm in the mid pole of the left kidney. Consider additional workup with CT or MR pre and post contrast. Raised right pleural effusion. Right lower lobe dense consolidation. Pericardial effusion is also noted. ASSESSMENT AND PLAN: This is a 61-year-old female with history of stage IIIB non-small cell lung cancer status post radiation and chemotherapy 7 years ago complicated by radiation pneumonitis, bronchoesophageal stenosis, pericardial effusion status post window, with every 3 month followup for esophageal dilation with Dr. Dickinson, director of field sales in [place], as well as right lower bronchus dilation at [facility] every 4 months, on chronic prednisone and Bactrim for PCP prophylaxis, presented to emergency room with intractable vomiting for the past few days since Friday. She was found to have slight hypokalemia, potassium level of 3, and magnesium of 1.7, unable to keep food and water down, and admitted for intractable vomiting. CT abdomen and pelvis showed possible right lower lobe pneumonia with note of a pericardial effusion. Patient has been afebrile with no change in her cough. Patient will be admitted as an inpatient for two midnights and assigned to Dr. Debra Olson for the following active issues: 1. Intractable nausea and vomiting. Concern is for esophageal stricture. Patient is due for esophageal dilation in [place] with Dr. Dickinson. We do not have gastroenterology available over the next 2 days, Friday and Friday. Will need to touch base with Dr. Dickinson in the morning to determine the need for transfer. 2. Chest pain. Cardiac markers are negative. EKG is unremarkable. Patient had a recent coronary angiogram about 2 months ago. Obtain the records from Dr. Park' office. Will monitor for now for persistent symptoms but unlikely related to cardiac issues. 3. History of pericardial effusion. The pericardial effusion is noted on CT of the abdomen and pelvis. Will obtain a dedicated CT of the chest as well echocardiogram. 4. History of stage IIIB non-small cell lung cancer, complicated by radiation pneumonitis, esophageal and tracheal stenosis. We will need to coordinate patient's care with her subspecialists in [facility] and [place], gastroenterology (GI) and otolaryngology (ENT), for further recommendations in the morning. Depending on their recommendations, may require transfer to [place] for dilation. 5. History of hypogammaglobulinemia. Patient is due for intravenous immunoglobulin (IVIG) in [address] Bhavani Hays. 6. History of chronic obstructive pulmonary disease (COPD). Continue on chronic prednisone and Bactrim prophylaxis. 7. Anxiety. Continue on Xanax. 8. Diastolic congestive heart failure. Since the patient is unable to take oral intake, will provide with IV fluid hydration for now. Will hold off on patient's torsemide for this evening. May resume if the patient is improved in the morning. 9. Electrolyte abnormalities. Low potassium and magnesium. Supplement with intravenous potassium and magnesium. Recheck levels in the morning. 10. Chronic iron deficiency anemia. May resume ferrous sulfate once patient takes oral medications. 11. Intractable vomiting, most likely due to esophageal stricture. Continue on every 6 hours Zofran. 12. Deep venous thrombosis (DVT) prophylaxis with heparin subcutaneous. Patient will be assigned to Dr. Debra Olson on 05/11/2017, at 10 p.m.
[2017-05-11] MEDS ORDERED: raNITIdine SYRUP 150 MG/10 ML UDC PO SCH (21:00)
[2017-05-11] MEDS ORDERED: MONTELUKAST 10 MG TAB PO SCH (21:00)
[2017-05-11] MEDS: ONDANSETRON 4MG/2ML VIAL (J2405) IV SCH (21:22)
[2017-05-11] MEDS: HEPARIN SOD (PORCINE) 5000 UNITS/ML VIAL SC SCH (21:23)
[2017-05-11] MEDS: SERTRALINE 100 MG TAB PO SCH (21:23)
[2017-05-11] MEDS: POTASSIUM CHLORIDE 10 MEQ SR TABLET PO SCH (21:24)
[2017-05-11] MEDS: ALPRAZolam 0.25 MG TAB PO SCH (21:24)
[2017-05-11] MEDS ORDERED: traMADol 50 MG TAB PO ONE (22:45)
[2017-05-11] MEDS ORDERED: MAG SULF 1GM/100ML (MAG RUN) 1 GM in APPROPRIATE DILUENT 1 EA IV ONE (23:00)
[2017-05-12] MEDS: ONDANSETRON 4MG/2ML VIAL (J2405) IV SCH ×3 (00:55→11:47)
[2017-05-12] MEDS: SUCRALFATE 1 GM TAB PO SCH ×3 (00:55→11:47)
[2017-05-12 06:00] VITALS: BP 128/57
[2017-05-12] MEDS: HEPARIN SOD (PORCINE) 5000 UNITS/ML VIAL SC SCH ×2 (06:00→13:07)
[2017-05-12 08:25] VITALS: BP 128/57
[2017-05-12] MEDS: POTASSIUM CHLORIDE 10 MEQ SR TABLET PO SCH (08:25)
[2017-05-12] MEDS: ALPRAZolam 0.25 MG TAB PO SCH ×2 (08:25→12:00)
[2017-05-12] MEDS: SERTRALINE 100 MG TAB PO SCH (08:25)
--- NOTE | 2017-05-12 08:27 | ECGEPIP ---
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
[2017-05-12] MEDS ORDERED: ACETAMINOPHEN TAB 650MG DOSE (2X325MG) PO PRN (08:30)
--- NOTE | 2017-05-12 08:34 | ECGEPIP ---
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
[2017-05-12 08:36] LABS: MEAN CORPUSCULAR HEMOGLOBIN 33.6 pg (27.0-33.0); MEAN CORPUSCULAR HGB CONC 34.7 g/dl (32.0-36.5); MEAN CORPUSCULAR VOLUME 96.8 fl (80.0-96.0); RED CELL DISTRIBUTION WIDTH 15.8 % (11.5-14.5); WHITE BLOOD COUNT 9.4 K/mm3 (4.0-10.0)
[2017-05-12 08:48] LABS: ALBUMIN 3.2 GM/DL (3.2-5.2); ALBUMIN/GLOBULIN RATIO 1.19 (1.00-1.93); BILIRUBIN,TOTAL 0.4 MG/DL (0.2-1.0); CALCIUM LEVEL 8.7 MG/DL (8.5-10.1); CREATININE FOR GFR 1.11 MG/DL (0.55-1.02); GLOMERULAR FILTRATION RATE 53.6 (>51); POTASSIUM SERUM 3.3 MEQ/L (3.5-5.1); TOTAL PROTEIN 5.9 GM/DL (6.4-8.2)
[2017-05-12] MEDS ORDERED: PANTOPRAZOLE 40MG INJ (PROTONIX) (C9113) IV SCH (09:00)
[2017-05-12] MEDS ORDERED: TORSEMIDE 100 MG TAB PO SCH (09:00)
[2017-05-12] MEDS ORDERED: BACTRIM 80MG/400MG TAB PO SCH (09:00)
[2017-05-12] MEDS ORDERED: ASPIRIN 81 MG ENTERIC TAB PO SCH (09:00)
[2017-05-12] MEDS ORDERED: FERROUS SULFATE 325MG TAB PO SCH (09:00)
[2017-05-12] MEDS ORDERED: buPROPion **XL** TABLET 150MG (WELLBUTRIN XL) PO SCH (09:00)
[2017-05-12] MEDS ORDERED: predniSONE 10 MG TAB PO SCH (09:00)
[2017-05-12] MEDS ORDERED: VERAPAMIL 180 MG SR TAB PO SCH (09:00)
[2017-05-12] MEDS ORDERED: POTASSIUM CHLORIDE 10% LIQ 20 MEQ/15 ML UDC PO ONE (11:45)
--- NOTE | 2017-05-12 12:12 | DS.PDOC ---
Discharge Summary General Date of Admission May 11, 2017 at 18:05 Date of Discharge May 12, 2017 Primary Care Physician: Jr Christian Collins Discharge Summary PROCEDURES PERFORMED DURING STAY: [None]. ADMITTING DIAGNOSES: 1. Intractable nausea and vomiting 2. History of pericardial effusion DISCHARGE DIAGNOSES: 1. Intractable nausea and vomiting 2. Esophageal Stricture COMPLICATIONS/CHIEF COMPLAINT: Intractable Vomiting With Nausea, Gerd. HISTORY OF PRESENT ILLNESS: This is a 61-year-old female with prior medical history significant for stage IIIB non-small cell lung cancer status post radiation and chemotherapy 7 years ago, complicated by radiation pneumonitis, bronchial and esophageal stenosis with every 4 months followup at [facility] where she has dilation of the right lower bronchus as well as every 3 months followup with area safety manager in [place], Dr. Dickinson, for esophageal dilatation, and ENT followup due to vocal cord edema in [place], on chronic prednisone and Bactrim prophylaxis, chronic obstructive pulmonary disease (COPD) , not oxygen dependent, hypertension, dyslipidemia, diastolic congestive heart failure, anxiety, type 2 diabetes, depression, history of pericardial effusion status post window, and alcohol abuse on [facility]. The patient presents to the emergency room with intractable nausea and vomiting since Friday, unable to keep any solid and liquids down, initially able to tolerate apple juice, but has been throwing this up several times during the day, with epigastric pain without radiation. She called her area safety manager who recommended continuing her liquid Zantac 20 mL nightly. She has had an eight pound weight loss. Recent coronary angiogram was unremarkable according to the patient, which was done about 2 months ago. She denies any hematemesis or hemoptysis. No fever or chills. She has a chronic dry cough, some hoarseness of the voice which is also chronic. No difficulty breathing. No palpitations. No lightheadedness. No dizziness. The patient admits to having some chest pain, but most likely in the epigastric region, no radiation down the left arm or up to jaw. HOSPITAL COURSE: Patient [facility] floor because of intractable vomiting. She was found to have slight hypokalemia, potassium level of 3, and magnesium of 1.7, unable to keep food and water down. CT abdomen and pelvis showed possible right lower lobe pneumonia with note of a pericardial effusion. Patient has been afebrile with no change in her cough. Patient is due for esophageal dilation in [place] with Dr. Dickinson. We do not have gastroenterology available on Friday and Friday we called the patient outpatient GI doctor, Dr. Dickinson to see if the patient needs to be inpatient transferred to [facility], or will he see her outpatient. The patient was stable overnight with no issue. Dr. Dickinson called on 05/12 morning stating that he will see the patient in [facility] 10:30 am on 05/14 for her esophageal dilation. Patient Chest pain was evaluated. Cardiac markers were negative, while EKG is unremarkable. Patient had a recent coronary angiogram about 2 months ago so she was monitored persistent symptoms but unlikely related to cardiac issues. Because of her history of chronic obstructive pulmonary disease (COPD), we continued her on chronic prednisone and Bactrim prophylaxis. Anxiety we continued on Xanax. Low potassium and magnesium was supplement with potassium and magnesium. For her Intractable vomiting, most likely due to esophageal stricture, she was on Zofran every 6 hours. DISCHARGE MEDICATIONS: Please see below. ALLERGIES: Please see below. PHYSICAL EXAMINATION ON DISCHARGE: VITAL SIGNS: Please see below. General Exam: Positive: Alert, Cooperative, No Acute Distress Eye Exam: Positive: PERRLA, Conjunctiva & lids normal ENT Exam: Positive: Atraumatic, Mucous member. moist/pink Chest Exam: Positive: Wheezing (expiratory) bilateral Heart Exam: Positive: Other (Dimished heart sounds), Abdomen Exam: Positive: Normal bowel sounds, non distended, non-tender, soft Neuro Exam: Positive: Normal Speech Psych Exam: Positive: Mental status NL, Mood NL LABORATORY DATA: Please see below. IMAGIN05/11/17 CT-pericardial effusion Impression: 1. Moderate sized pericardial effusion, grossly stable in size and appearance when compared the prior study. 2. Parenchymal scarring adjacent to the mediastinum bilaterally, consistent with posttreatment changes. This is also stable. 3. Previous infiltrates within the right upper lobe have resolved. Small right- sided pleural effusion seen on the prior study has also result. 4. Moderate spondylosis of the spine, grossly stable. CT abdomen and pelvis without contrast - intactable nausea and vomitting IMPRESSION: 1. 8 mm hyperdense focus noted in the mid pole of the left kidney most compatible with hemorrhagic or milk of calcium cyst. Consider additional workup with CT or MRI pre and post contrast. 2. Trace right pleural effusion noted. Dense consolidation in the right lower lobe medially containing air bronchograms and measuring approximately 7.5 x 5 cm. This may represent pneumonia. Other possibilities as malignancy are not totally excluded. Further evaluation with CT of the chest with intravenous contrast is suggested. 3. Pericardial effusion is also noted. Consider cardiac workup. ACTIVITY: As tolerated. DIET: Full Liquid Diet. DISCHARGE PLAN:This is a 61-year-old female with history of stage IIIB non- small cell lung cancer status post radiation and chemotherapy 7 years ago complicated by radiation pneumonitis, bronchoesophageal stenosis, pericardial effusion status post window, with every 3 month followup for esophageal dilation with Dr. Dickinson, area safety manager in [place], as well as right lower bronchus dilation at [facility] every 4 months, on chronic prednisone and Bactrim for PCP prophylaxis, presented to emergency room with intractable vomiting for the past few days since Friday. 1. Intractable nausea and vomiting likely due to esophageal stricture. Patient is due for esophageal dilation in [place] with Dr. Narvaez . Patient has an appointment with Dr. Narvaez on 05/14 at 10:30 in [facility] for esophageal dilation. Will discharge the patient this afternoon. 2. Chest pain. Cardiac markers are negative. EKG is unremarkable. Patient had a recent coronary angiogram about 2 months ago. Patient is denying chest pain this AM. Latest EKG from this morning, showed no change from previous EKG. 3. History of pericardial effusion. The pericardial effusion is noted on CT of the abdomen and pelvis. Patient had distant heart sounds on exam this morning. No JVD or shortness of breath was noted this AM. Last echo in 09/2016 showed trace pericardial effusion. Yesterday CT showed pericardial effusion, which is chronic for the patient. 4. History of stage IIIB non-small cell lung cancer, complicated by radiation pneumonitis, esophageal and tracheal stenosis. Patient will continue care with her subspecialists in [facility] and [place], gastroenterology (GI) and otolaryngology (ENT), for further recommendations. 5. History of hypogammaglobulinemia. Patient is due for intravenous immunoglobulin (IVIG) in [address] Bhavani Hays. 6. History of chronic obstructive pulmonary disease (COPD). Continue on chronic prednisone and Bactrim prophylaxis while in patient. 7. Anxiety. Continue on Xanax. 8. Congestive heart failure. Echo in 09/2016 showed 45% EF with hypokinetic anterior septum mid to apical portion. Patient can continue furosemide when discharged. 9. Electrolyte abnormalities. Low potassium (3.3) supplemented her before discharge with 40mEq of Liquid Potassium Chloride 10. Chronic iron deficiency anemia. May resume ferrous sulfate on discharge DISCHARGE INSTRUCTIONS: 1. Follow up with Dr. Barajas within 2 weeks 2. [facility] Narvaez 3. Full liquid Diet ITEMS TO FOLLOWUP ON OUTPATIENT: 1. Follow up with Dr. Barajas within 2 weeks 2. [facility] on 05/14/[address] Narvaez 3. Full liquid Diet DISCHARGE CONDITION: Stable. TIME SPENT ON DISCHARGE: Greater than 35 minutes. Vital Signs/I&Os Vital Signs Date Time Temp Pulse Resp B/P (MAP) Pulse Ox O2 Delivery O2 Flow Rate FiO2 05/12/17 08:25 100 128/57 05/12/17 06:00 97.5 17 95 Room Air I&O- Last 24 Hours up to 6 AM 05/13/17 06:00 Intake Total 660 ml Output Total 600 ml Balance 60 ml Laboratory Data Labs 24H Laboratory Tests 2 05/11/17 11:46: White Blood Count 7.4, Red Blood Count 4.30, Hemoglobin 14.4, Hematocrit 40.4, Mean Corpuscular Volume 93.9, Mean Corpuscular Hemoglobin 33.4H, Mean Corpuscular Hemoglobin Concent 35.6, Red Cell Distribution Width 16.0H, Platelet Count 255, Neutrophils (%) (Auto) 87.5H, Lymphocytes (%) (Auto) 6.2L, Monocytes (%) (Auto) 5.1H, Eosinophils (%) (Auto) 0.4, Basophils (%) (Auto) 0.2 , Neutrophils # (Auto) 6.5, Lymphocytes # (Auto) 0.5L, Monocytes # (Auto) 0.4, Eosinophils # (Auto) 0.0, Basophils # (Auto) 0.0, Large Unclassified Cells % 0.6 , Large Unclassified Cells # 0.0, Prothrombin Time 12.2L, Prothromb Time International Ratio 0.90, Anion Gap 11, Glomerular Filtration Rate 44.6L, Calcium Level 8.8, Aspartate Amino Transf (AST/SGOT) 18, Alanine Aminotransferase (ALT/SGPT) 27, Alkaline Phosphatase 61, Total Bilirubin 0.4, Direct Bilirubin 0.1, Total Creatine Kinase 189, Creatine Kinase MB 4.8H, Creatine Kinase MB Relative Index 2.53, Troponin I 0.07, SN-Iyo-I-Type Natriuretic Peptide 1299H, Total Protein 7.3, Albumin 3.9, Albumin/Globulin Ratio 1.15, Lipase 191, Thyroid Stimulating Hormone (TSH) 1.000 05/11/17 16:52: Total Creatine Kinase 165, Creatine Kinase MB 4.2H, Creatine Kinase MB Relative Index 2.54, Troponin I 0.08 05/11/17 18:29: White Blood Count 4.9, Red Blood Count 3.69L, Hemoglobin 12.7, Hematocrit 35.3L , Mean Corpuscular Volume 95.7, Mean Corpuscular Hemoglobin 34.4H, Mean Corpuscular Hemoglobin Concent 35.9, Red Cell Distribution Width 16.0H, Platelet Count 225, Neutrophils (%) (Auto) 80.0H, Lymphocytes (%) (Auto) 10.7L, Monocytes (%) (Auto) 7.1H, Eosinophils (%) (Auto) 1.1, Basophils (%) (Auto) 0.1 , Neutrophils # (Auto) 3.9, Lymphocytes # (Auto) 0.5L, Monocytes # (Auto) 0.4, Eosinophils # (Auto) 0.0, Basophils # (Auto) 0.0, Large Unclassified Cells % 0.9 , Large Unclassified Cells # 0.1, Anion Gap 11, Glomerular Filtration Rate 48.0L , Calcium Level 8.3L, Blood Urea Nitrogen 12, Creatinine 1.22H, Sodium Level 141 , Potassium Level 3.3L, Chloride Level 100, Carbon Dioxide Level 30, Magnesium Level 1.7L 05/11/17 23:30: Total Creatine Kinase 170, Creatine Kinase MB 3.8H, Creatine Kinase MB Relative Index 2.23, Troponin I 0.09 05/12/17 05:25: Total Creatine Kinase 137, Creatine Kinase MB 3.2, Creatine Kinase MB Relative Index 2.33, Troponin I 0.08 05/12/17 08:14: Anion Gap 9, Glomerular Filtration Rate 53.6, Blood Urea Nitrogen 8, Creatinine 1.11H, Sodium Level 137, Potassium Level 3.3L, Chloride Level 100, Carbon Dioxide Level 28, Calcium Level 8.7, Aspartate Amino Transf (AST/SGOT) 17, Alanine Aminotransferase (ALT/SGPT) 23, Alkaline Phosphatase 50, Total Bilirubin 0.4, Total Protein 5.9L, Albumin 3.2, Albumin/Globulin Ratio 1.19 CBC/BMP Laboratory Tests 05/11/17 11:46 Red Blood Count 4.30, Mean Corpuscular Volume 93.9, Mean Corpuscular Hemoglobin 33.4 H, Mean Corpuscular Hemoglobin Concent 35.6, Red Cell Distribution Width 16.0 H, Neutrophils (%) (Auto) 87.5 H, Lymphocytes (%) (Auto) 6.2 L, Monocytes ( %) (Auto) 5.1 H, Eosinophils (%) (Auto) 0.4, Basophils (%) (Auto) 0.2, Neutrophils # (Auto) 6.5, Lymphocytes # (Auto) 0.5 L, Monocytes # (Auto) 0.4, Eosinophils # (Auto) 0.0, Basophils # (Auto) 0.0 05/11/17 18:29 Red Blood Count 3.69 L, Mean Corpuscular Volume 95.7, Mean Corpuscular Hemoglobin 34.4 H, Mean Corpuscular Hemoglobin Concent 35.9, Red Cell Distribution Width 16.0 H, Neutrophils (%) (Auto) 80.0 H, Lymphocytes (%) (Auto ) 10.7 L, Monocytes (%) (Auto) 7.1 H, Eosinophils (%) (Auto) 1.1, Basophils (%) (Auto) 0.1, Neutrophils # (Auto) 3.9, Lymphocytes # (Auto) 0.5 L, Monocytes # ( Auto) 0.4, Eosinophils # (Auto) 0.0, Basophils # (Auto) 0.0, Calcium Level 8.3 L 05/12/17 08:14 Red Blood Count 3.52 L, Mean Corpuscular Volume 96.8 H, Mean Corpuscular Hemoglobin 33.6 H, Mean Corpuscular Hemoglobin Concent 34.7, Red Cell Distribution Width 15.8 H, Calcium Level 8.7, Aspartate Amino Transf (AST/SGOT) 17, Alanine Aminotransferase (ALT/SGPT) 23, Alkaline Phosphatase 50, Total Bilirubin 0.4, Total Protein 5.9 L, Albumin 3.2 Discharge Medications Scheduled (Spiriva Respimat) 1.25 Mcg/Act Aer, 2 PUFFS INH DAILY, (Reported) Alprazolam (Alprazolam) 0.25 Mg Tab, 0.25 MG PO QID, (Reported) Aspirin (Aspirin EC) 81 Mg Tab, 81 MG PO DAILY, (Reported) Bupropion HCl (Bupropion HCl Xl) 300 Mg Tab, 300 MG PO DAILY, (Reported) Esomeprazole Magnesium Trihydr (Nexium) 40 Mg Cap, 40 MG PO DAILY, (Reported) Ferrous Sulfate (Ferrous Sulfate) 325 Mg Tab, 325 MG PO DAILY, (Reported) Fluticasone/Vilanterol (Breo Ellipta 200-25 Mcg/INH) 1 Inh Inh, 1 PUFF INH DAILY , (Reported) IV Immune Globulin (Rosado) (Privigen) 5 Gm/50 Ml Inj, 25 GM IV QMONTH, ( Reported) Montelukast Sodium (Singulair) 10 Mg Tab, 10 MG PO QHS, (Reported) Potassium Chloride (Potassium Chloride ER) 10 Meq Tab, 10 MEQ PO BID, (Reported) Prednisone (Prednisone) 10 Mg Elvis, 10 MG PO DAILY, (Reported) Ranitidine HCl (Ranitidine HCl) 150 Mg/10 Ml Syrp, 20 ML PO QHS, (Reported) Sertraline Hcl (Zoloft) 100 Mg Tab, 100 MG PO BID, (Reported) Torsemide (Torsemide) 100 Mg Tab, 100 MG PO DAILY, (Reported) Trimethoprim/Sulfamethoxazole (Bactrim 400-80 mg) 1 Tab Tab, 1 TAB PO DAILY, ( Reported) Verapamil HCl (Verapamil HCl Sr) 360 Mg Cap, 360 MG PO DAILY, (Reported) Scheduled PRN Albuterol Sulfate (Ventolin Hfa) 200 Puff/8 Gm Aers, 2 PUFF INH QID PRN for SHORTNESS OF BREATH, (Reported) Albuterol/Ipratropium (Ipratropium [place]/Albut 0.5-2.5 (3) mg/3Ml) 1 Del Del, 1 DEL INH Q4H PRN for SHORTNESS OF BREATH, (Reported) Benzonatate (Benzonatate) 100 Mg Cap, 100 MG PO BID PRN for COUGH, (Reported) Allergies Coded Allergies: Codeine (Verified Adverse Reaction, Mild, VOMITING, 11/21/12) CLAUS CAROLINA DO May 12, 2017 11:46
--- NOTE | 2017-05-12 13:02 | REP ---
Left lower extremity Duplex Doppler venous ultrasound: Real time compression and duplex Doppler interrogation of the left lower extremity deep venous system is performed. The left common femoral, superficial femoral and popliteal veins are fully compressible with transducer pressure and demonstrate normal spontaneous and phasic flow, without evidence of deep venous thrombosis. Impression: No evidence of deep venous thrombosis of the left lower extremity femoral popliteal venous system. Signed by Jose Ramírez MD 05/11/2017 12:36 P
--- NOTE | 2017-05-12 13:13 | REP ---
PORTABLE CHEST: AP portable view of the chest is performed and compared to prior study of 04/03/2017. Elevation of the right hemidiaphragm is stable. There is mild cardiomegaly. Interstitial opacities in the perihilar region are stable probably representing postradiation fibrosis. There is no new infiltrate. Signed by Jose Ramírez MD 05/12/2017 05:43 P
--- NOTE | 2017-05-12 13:28 | REP ---
KUB ABDOMEN AND PELVIS: Two KUB films of abdomen and pelvis are performed. Scattered air is seen in bowel loops in the upper abdomen. There is no significant air in the rectum. Bowel gas pattern is nonspecific. No abnormal calcifications are seen. There appear to be mild vascular calcifications in the upper pelvis. There are degenerative changes of the spine. IMPRESSION: Nonspecific bowel gas pattern. Signed by Jose Ramírez MD 05/13/2017 05:12 P
[2017-05-12 14:00] VITALS: BP 126/67
--- NOTE | 2017-05-12 14:10 | IPNPDOC ---
Subjective Date Seen The patient was seen on 05/12/17. Subjective Chief Complaint/HPI The patient is a 61-year-old female admitted with a reason for visit of Intractable Vomiting With Nausea, Gerd. Events since last encounter Patient complaining of headache this morning, she was given acetaminophen for the exam. Patient states that she has an appetite has been eating. But she feels like things are getting stuck in her throat. Patient was due for a esophageal dilatation by Dr. Monk today. Will call him later today to further recommendation. Patient denies lightheadedness, dizziness vision change. Patient admits to feeling some palpitations but denies any chest pain, shortness of breath, trouble breathing. General: Reports: Normal Appetite Eyes: Denies: Pain, Vision change, Conjunctivae inflammation, Eyelid inflammation, Redness, Other ENT: Reports: Head Aches Pulmonary: Denies: Dyspnea, Cough, Pleuritic Chest Pain, Other Symptoms Cardiovascular: Reports: Palpitations Gastrointestinal: Denies: Nausea, Vomiting, Abdominal Pain, Diarrhea, Constipation, Melena, Hematochezia, Other Symptoms Psych: Reports: Mood Normal Objective Physical Examination General Exam: Positive: Alert, Cooperative, No Acute Distress Eye Exam: Positive: PERRLA, Conjunctiva & lids normal ENT Exam: Positive: Atraumatic, Mucous membr. moist/pink Chest Exam: Positive: Wheezing (expria) Heart Exam: Positive: Other (Dimished heart sounds) Abdomen Exam: Positive: Normal bowel sounds Neuro Exam: Positive: Normal Speech Psych Exam: Positive: Mental status NL, Mood NL Assessment /Plan Assessment This is a 61-year-old female with history of stage IIIB non-small cell lung cancer status post radiation and chemotherapy 7 years ago complicated by radiation pneumonitis, bronchoesophageal stenosis, pericardial effusion status post window, with every 3 month followup for esophageal dilation with Dr. Dickinson, street light inspector in [place], as well as right lower bronchus dilation at [facility] every 4 months, on chronic prednisone and Bactrim for PCP prophylaxis, presented to emergency room with intractable vomiting for the past few days since Friday. 1. Intractable nausea and vomiting likely due to esophageal stricture. Patient is due for esophageal dilation in [place] with Dr. Narvaez . We called Dr. Lui to see if he would like to transfer the patient because we dont have gastroenterology available til Fri. We are waiting for his recomendation. Will follow approiately. 2. Chest pain. Cardiac markers are negative. EKG is unremarkable. Patient had a recent coronary angiogram about 2 months ago. Patient is denying chest pain this AM. Latest EKG from this morning, showed no change from previous EKG. Will continue to monitor the patient. 3. History of pericardial effusion. The pericardial effusion is noted on CT of the abdomen and pelvis. Patient had distant heart sounds on exam this morning. No JVD was noted on exam. Will consider Echo. Last echo in 09/2016 showed trace pericardial effusion. 4. History of stage IIIB non-small cell lung cancer, complicated by radiation pneumonitis, esophageal and tracheal stenosis. We will need to coordinate patient's care with her subspecialists in [facility] and [place], gastroenterology (GI) and otolaryngology (ENT), for further recommendations in the morning. Depending on their recommendations, may require transfer to [place] for dilation. 5. History of hypogammaglobulinemia. Patient is due for intravenous immunoglobulin (IVIG) in [address] Bhavani Hays. 6. History of chronic obstructive pulmonary disease (COPD). Continue on chronic prednisone and Bactrim prophylaxis while in patient. 7. Anxiety. Continue on Xanax. 8. Congestive heart failure. Since the patient is unable to take oral intake, will provide with IV fluid hydration for now. Will hold off on patient' s torsemide for this evening. May resume if the patient is improved in the morning. Last echo in 09/2016 showed 45% EF with hypokinetic anterior septum mid to apical portion. 9. Electrolyte abnormalities. Low potassium (3.3) and magnesium (04/10= 1.7). Supplement with intravenous potassium and magnesium this AM. Recheck levels daily. 10. Chronic iron deficiency anemia. May resume ferrous sulfate once patient takes oral medications. 11. Intractable vomiting, most likely due to esophageal stricture. Continue on every 6 hours Zofran. 12. Deep venous thrombosis (DVT) prophylaxis with heparin subcutaneous. VS, I&O, 24H, Fishbone Vital Signs/I&O Vital Signs Date Time Temp Pulse Resp B/P (MAP) Pulse Ox O2 Delivery O2 Flow Rate FiO2 9/25/17 08:25 100 128/57 05/12/17 06:00 97.5 17 95 Room Air I&O- Last 24 Hours up to 6 AM 05/13/17 06:00 Intake Total 660 ml Output Total 600 ml Balance 60 ml Laboratory Data 24H LABS Laboratory Tests 2 05/11/17 11:46: White Blood Count 7.4, Red Blood Count 4.30, Hemoglobin 14.4, Hematocrit 40.4, Mean Corpuscular Volume 93.9, Mean Corpuscular Hemoglobin 33.4H, Mean Corpuscular Hemoglobin Concent 35.6, Red Cell Distribution Width 16.0H, Platelet Count 255, Neutrophils (%) (Auto) 87.5H, Lymphocytes (%) (Auto) 6.2L, Monocytes (%) (Auto) 5.1H, Eosinophils (%) (Auto) 0.4, Basophils (%) (Auto) 0.2 , Neutrophils # (Auto) 6.5, Lymphocytes # (Auto) 0.5L, Monocytes # (Auto) 0.4, Eosinophils # (Auto) 0.0, Basophils # (Auto) 0.0, Large Unclassified Cells % 0.6 , Large Unclassified Cells # 0.0, Prothrombin Time 12.2L, Prothromb Time International Ratio 0.90, Anion Gap 11, Glomerular Filtration Rate 44.6L, Calcium Level 8.8, Aspartate Amino Transf (AST/SGOT) 18, Alanine Aminotransferase (ALT/SGPT) 27, Alkaline Phosphatase 61, Total Bilirubin 0.4, Direct Bilirubin 0.1, Total Creatine Kinase 189, Creatine Kinase MB 4.8H, Creatine Kinase MB Relative Index 2.53, Troponin I 0.07, LJ-Plk-Q-Type Natriuretic Peptide 1299H, Total Protein 7.3, Albumin 3.9, Albumin/Globulin Ratio 1.15, Lipase 191, Thyroid Stimulating Hormone (TSH) 1.000 05/11/17 16:52: Total Creatine Kinase 165, Creatine Kinase MB 4.2H, Creatine Kinase MB Relative Index 2.54, Troponin I 0.08 05/11/17 18:29: White Blood Count 4.9, Red Blood Count 3.69L, Hemoglobin 12.7, Hematocrit 35.3L , Mean Corpuscular Volume 95.7, Mean Corpuscular Hemoglobin 34.4H, Mean Corpuscular Hemoglobin Concent 35.9, Red Cell Distribution Width 16.0H, Platelet Count 225, Neutrophils (%) (Auto) 80.0H, Lymphocytes (%) (Auto) 10.7L, Monocytes (%) (Auto) 7.1H, Eosinophils (%) (Auto) 1.1, Basophils (%) (Auto) 0.1 , Neutrophils # (Auto) 3.9, Lymphocytes # (Auto) 0.5L, Monocytes # (Auto) 0.4, Eosinophils # (Auto) 0.0, Basophils # (Auto) 0.0, Large Unclassified Cells % 0.9 , Large Unclassified Cells # 0.1, Anion Gap 11, Glomerular Filtration Rate 48.0L , Calcium Level 8.3L, Blood Urea Nitrogen 12, Creatinine 1.22H, Sodium Level 141 , Potassium Level 3.3L, Chloride Level 100, Carbon Dioxide Level 30, Magnesium Level 1.7L 05/11/17 23:30: Total Creatine Kinase 170, Creatine Kinase MB 3.8H, Creatine Kinase MB Relative Index 2.23, Troponin I 0.09 05/12/17 05:25: Total Creatine Kinase 137, Creatine Kinase MB 3.2, Creatine Kinase MB Relative Index 2.33, Troponin I 0.08 05/12/17 08:14: Anion Gap 9, Glomerular Filtration Rate 53.6, Blood Urea Nitrogen 8, Creatinine 1.11H, Sodium Level 137, Potassium Level 3.3L, Chloride Level 100, Carbon Dioxide Level 28, Calcium Level 8.7, Aspartate Amino Transf (AST/SGOT) 17, Alanine Aminotransferase (ALT/SGPT) 23, Alkaline Phosphatase 50, Total Bilirubin 0.4, Total Protein 5.9L, Albumin 3.2, Albumin/Globulin Ratio 1.19 CBC/BMP Laboratory Tests 05/11/17 11:46 Red Blood Count 4.30, Mean Corpuscular Volume 93.9, Mean Corpuscular Hemoglobin 33.4 H, Mean Corpuscular Hemoglobin Concent 35.6, Red Cell Distribution Width 16.0 H, Neutrophils (%) (Auto) 87.5 H, Lymphocytes (%) (Auto) 6.2 L, Monocytes ( %) (Auto) 5.1 H, Eosinophils (%) (Auto) 0.4, Basophils (%) (Auto) 0.2, Neutrophils # (Auto) 6.5, Lymphocytes # (Auto) 0.5 L, Monocytes # (Auto) 0.4, Eosinophils # (Auto) 0.0, Basophils # (Auto) 0.0 05/11/17 18:29 Red Blood Count 3.69 L, Mean Corpuscular Volume 95.7, Mean Corpuscular Hemoglobin 34.4 H, Mean Corpuscular Hemoglobin Concent 35.9, Red Cell Distribution Width 16.0 H, Neutrophils (%) (Auto) 80.0 H, Lymphocytes (%) (Auto ) 10.7 L, Monocytes (%) (Auto) 7.1 H, Eosinophils (%) (Auto) 1.1, Basophils (%) (Auto) 0.1, Neutrophils # (Auto) 3.9, Lymphocytes # (Auto) 0.5 L, Monocytes # ( Auto) 0.4, Eosinophils # (Auto) 0.0, Basophils # (Auto) 0.0, Calcium Level 8.3 L 05/12/17 08:14 Red Blood Count 3.52 L, Mean Corpuscular Volume 96.8 H, Mean Corpuscular Hemoglobin 33.6 H, Mean Corpuscular Hemoglobin Concent 34.7, Red Cell Distribution Width 15.8 H, Calcium Level 8.7, Aspartate Amino Transf (AST/SGOT) 17, Alanine Aminotransferase (ALT/SGPT) 23, Alkaline Phosphatase 50, Total Bilirubin 0.4, Total Protein 5.9 L, Albumin 3.2 GME ATTESTATION GME ATTESTATION My preceptor for this patient encounter was physically present in the building during the encounter and was fully available. As needed, all aspects of the patient interview, examination, medical decision making process, and medical care plan development were reviewed and approved by the preceptor. Preceptor is aware and concurs with the plan as stated in the body of this note and will attest to such by his/her cosignature. CLAUS CAROLINA DO May 12, 2017 10:31
--- NOTE | 2017-05-12 21:27 | ECGEPIP ---
Stationary ECG Study [facility] Test Date: 2017-05-12 Pat Name: KYM OLIVER Department: Room: [place] [address] Gender: F Track Rider: KENDY : 1955 Requested By: JOHN Wasserman Order Number: [id number] Reading MD: Ahmet Humphreys Measurements Intervals [place] Rate: 100 P: -85 TN: 146 QRS: 269 QRSD: 142 T: 34 QT: 409 QTc: 528 Interpretive Statements SINUS TACHYCARDIA WITH ELSY RIGHT AXIS DEVIATION RIGHT BUNDLE BRANCH BLOCK NO SIGNIFICANT CHANGES. COMPARED TO PRIOR EKG ON 05/11/2017 AT 16:58:42 Electronically Signed On 05-12-2017 21:27:17 EDT by Ahmet Humphreys
== END 2017-05-12 14:26 | disposition home or self-care (01) ==
LOC: M ED 10:47 → M ED INP 18:05 → M MSPAV 20:09
PROVIDERS: ADMIT General Practice; ATTEND Internal Medicine
DX: R11.2 Nausea with vomiting, unspecified (principal); K22.2 Esophageal obstruction; K21.9 Gastro-esophageal reflux disease without esophagitis; E87.6 Hypokalemia; N18.3 Chronic kidney disease, stage 3 (moderate); F10.10 Alcohol abuse, uncomplicated; J44.9 Chronic obstructive pulmonary disease, unspecified; I11.0 Hypertensive heart disease with heart failure; E78.5 Hyperlipidemia, unspecified; I50.30 Unspecified diastolic (congestive) heart failure; F32.9 Major depressive disorder, single episode, unspecified; E11.9 Type 2 diabetes mellitus without complications; D50.9 Iron deficiency anemia, unspecified; Z79.51 Long term (current) use of inhaled steroids; Z79.52 Long term (current) use of systemic steroids; Z92.3 Personal history of irradiation; Z85.118 Personal history of other malignant neoplasm of bronchus and lung; Z92.21 Personal history of antineoplastic chemotherapy; Z79.82 Long term (current) use of aspirin; Z79.899 Other long term (current) drug therapy; Z87.891 Personal history of nicotine dependence; R07.9 Chest pain, unspecified
CPT/HCPCS: 36415; 71010; 71250; 74000; 74176; 80048; 80053; 80076; 82550; 82553; 83690; 83735; 83880; 84443; 85025; 85027; 85610; 93005; 93041; 93971; 94760; 96361; 96374; 96375; 96376; 99285; C9113; J2405; J3475

== ENCOUNTER 2017-05-20 23:05 | Inpatient (IN) | payer OTHER ==
[~2017-05-20] VITALS: Ht 160 cm; Wt 87.1 kg
[~2017-05-20 23:05] MED LIST changes: +IPRASOL4 INH; +POTA10TA16 PO; +PRED10PA PO; +RANI15ELUD PO; +VERA360C PO
[2017-05-20] MEDS ORDERED: TRAM50TA2 PO (23:23)
[2017-05-20] MEDS ORDERED: ONDA4TAB5 PO (23:23)
[2017-05-21 00:19] LABS: CALCIUM LEVEL 9.2 MG/DL (8.5-10.1); CREATININE FOR GFR 1.29 MG/DL (0.55-1.02); POTASSIUM SERUM 3.1 MEQ/L (3.5-5.1)
[2017-05-21 00:21] LABS: BASO # 0.1 10^3/uL (0.0-0.2); BASO % 0.4 % (0.0-1.0); EOS # 0.1 10^3/uL (0.0-0.50); EOS % 0.6 % (0.0-3.0); IMMATURE GRANULOCYTE % 0.7 % (0-0); LYMPH # 0.6 10^3/uL (1.5-4.5); LYMPH % 4.4 % (24.0-44.0); MEAN CORPUSCULAR HEMOGLOBIN 32.9 pg (27.0-33.0); MEAN CORPUSCULAR VOLUME 96.7 fl (80.0-96.0); MONO # 0.6 10^3/uL (0.0-0.8); MONO % 3.9 % (0.0-5.0); NEUTROPHILS # 12.7 10^3/uL (1.8-7.7); PLATELET COUNT, AUTOMATED 306 10^3/uL (150-450); RED CELL DISTRIBUTION WIDTH 15.2 % (11.5-14.5); WHITE BLOOD COUNT 14.1 10^3/uL (4.0-10.0)
[2017-05-21] MEDS ORDERED: IPRATROPIUM 0.5MG/ALBUTEROL 2.5MG INH SOL UD 3ML (DUONEB)(J7620) NEB ONE (00:45)
[2017-05-21] MEDS ORDERED: ISOVUE-370 76% 100ML VIAL (Q9967) As Ordered ONE (01:31)
--- NOTE | 2017-05-21 03:20 | REPUSA ---
CLINICAL HISTORY: Aspiration. TECHNIQUE: Multiple axial CT images were obtained through the thorax with IV contrast material. COMMENTS: Comparison to the prior exam on 03/01/2017. Unchanged pericardial effusion. Decreased right pleural effusion. Unchanged paramediastinal left parenchymal/interstitial thickening. There is decreased right upper lobe infiltrates. Unchanged right lower lobe consolidation. Resolution of right pleural effusion. There is no evidence of pleural or parenchymal mass. There is no change in mediastinal and hilar lymphadenopathy The heart and great vessels are within normal limits. The visualized portions of the liver are of uniform attenuation without mass or defect. There is no i ntra or extrahepatic biliary ductal dilatation. The spleen is unremarkable. The visualized pancreas i s of normal contour and attenuation characteristics. There is no evidence of adrenal mass. The visual ized portions of the kidneys present no abnormalities. The bony structures are free of lytic or blastic lesions. Osteopenia. Increased dorsal kyphosis. Spondylosis. IMPRESSION: Almost resolution of right pleural effusion. Decreased right upper lobe pulmonary infiltrates. Unchanged right lower lobe pulmonary consolidation. Unchanged paramediastinal interstitial thickening from prior treatment. Thank you for your kind referral of this patient.
[2017-05-21] MEDS ORDERED: AMPICILLIN SOD/SULBACTAM SOD 1.5 GM in D5W 50 ML IV ONE (03:45)
[2017-05-21] MEDS ORDERED: ABIL1TAB13 PO (04:04)
[2017-05-21] MEDS ORDERED: PRED10TA2 PO (04:04)
[2017-05-21] MEDS ORDERED: FUROSEMIDE 40 MG/4 ML VIAL (J1940) IV STA (04:45)
[2017-05-21] MEDS ORDERED: POTASSIUM CHLORIDE 10% LIQ 20 MEQ/15 ML UDC PO STA (04:45)
[2017-05-21] MEDS: PIPERACILLIN/TAZOBACTAM SOD 3.375 GM in D5W MINI-BAG PLUS 50 ML IV SCH ×3 (05:00→18:15)
[2017-05-21] MEDS ORDERED: ACETAMINOPHEN TAB 650MG DOSE (2X325MG) PO PRN (05:00)
--- NOTE | 2017-05-21 05:50 | PHACANCOPD ---
PHARMACY VANCOMYCIN DOSING Pt Demographics Demographics Patient Age:61 , Weight:85.450 , Gender: female Adjusted Body Weight Date: 05/21/17, Adjusted Body Weight: [65.6] Kg Vancomycin Vancomycin indication: ASPIRATION PNA Vancomycin Target Ranges: 15-20 mcg/ml Vancomycin Load Y/N: No Load Dose Date Time Vancomycin Load Dose: Date: Time: Vancomycin Dose Date: 05/21/17. Current Vancomycin Dose: [1 GMX1,THEN 750MG q12H] Intermittent Dosing?: No Labs Labs Laboratory Tests 05/20/17 23:42 Red Blood Count 3.68 L, Mean Corpuscular Volume 96.7 H, Mean Corpuscular Hemoglobin 32.9, Mean Corpuscular Hemoglobin Concent 34.0, Red Cell Distribution Width 15.2 H, Neutrophils (%) (Auto) 90.0 H, Lymphocytes (%) (Auto ) 4.4 L, Monocytes (%) (Auto) 3.9, Eosinophils (%) (Auto) 0.6, Basophils (%) ( Auto) 0.4, Neutrophils # (Auto) 12.7 H, Lymphocytes # (Auto) 0.6 L, Monocytes # (Auto) 0.6, Eosinophils # (Auto) 0.1, Basophils # (Auto) 0.1, Calcium Level 9.2 Creatinine Clearance Date:05/21/17. Creatinine Clearance: [49].CALCULATED Pending Labs VANCOMYCIN TROUGH DUE 05/22@ 1700 Assessment and Plan Maintaining Current Dose?: Yes Reason for dose change: No Dose Change Pharmacist Note Pharmacist Note Date: 05/21/17. Pharmacist note:61 YOF ADMITTED W/ASPIRATION PNEUMONIA. SCR=1.29, CRCL=49,ALLERGY=CODEINE.TREATING WITH PIP/TAZO 3.375 GM IV Q6H AND VANCOMYCIN PER PHARMACY CONSULT. RECEIVED VANCO 1 GM@ 0600 05/21,THEN 750MG IV Q12H BEGINNING@1800.WILL DRAW FIRST TROUGH 05/22@1700. WILL CONTINUE TO FOLLOW LEVELS AND LABS ANICETO VARGAS [facility] May 21, 2017 05:50
--- NOTE | 2017-05-21 05:59 | HPEPDOC ---
General Date of Admission May 21, 2017 at 04:55 Primary Care Physician: Bahvani Hays MD Attending Physician: PÉREZ FARRELL MD Chief Complaint The patient is a 61-year-old female admitted with a reason for visit of Aspiration Pneumonia. Source: Patient Exam Limitations: No limitations Severity: Moderate History of Present Illness 61-year-old female, history of lung cancer status post chemoradiation, leading to esophageal stricture, history of aspiration pneumonia, presented in the emergency room for cough, fever, chills and shortness of breath. Recently she had endoscopy done and she was recommended to have pured diet only. She is accompanied with her . She denies any chest pain, palpitation or sick contact. Recent travel. She lives at home and is independent for ADLs. On arrival to the emergency room, her creatinine was found to be elevated and potassium was low. Home Medications Scheduled (Spiriva Respimat) 1.25 Mcg/Act Aer, 2 PUFFS INH DAILY, (Reported) Aripiprazole (Abilify) 2 Mg Tab, 2 MG PO BID, (Reported) Aspirin (Aspirin EC) 81 Mg Tab, 81 MG PO DAILY, (Reported) Bupropion HCl (Bupropion HCl Xl) 300 Mg Tab, 300 MG PO DAILY, (Reported) Esomeprazole Magnesium Trihydr (Nexium) 40 Mg Cap, 40 MG PO DAILY, (Reported) Ferrous Sulfate (Ferrous Sulfate) 325 Mg Tab, 325 MG PO DAILY, (Reported) Fluticasone/Vilanterol (Breo Ellipta 200-25 Mcg/INH) 1 Inh Inh, 1 PUFF INH DAILY , (Reported) Montelukast Sodium (Singulair) 10 Mg Tab, 10 MG PO QHS, (Reported) Potassium Chloride (Potassium Chloride ER) 10 Meq Tab, 10 MEQ PO TID, (Reported) Prednisone (Prednisone) 10 Mg Tab, 10 MG PO DAILY, (Reported) Ranitidine HCl (Ranitidine HCl) 150 Mg/10 Ml Syrp, 20 ML PO QHS, (Reported) Sertraline Hcl (Zoloft) 100 Mg Tab, 100 MG PO BID, (Reported) Torsemide (Torsemide) 100 Mg Tab, 100 MG PO DAILY, (Reported) Tramadol HCl (Tramadol HCl) 50 Mg Tab, 50 MG PO Q4H, (Reported) Trimethoprim/Sulfamethoxazole (Bactrim 400-80 mg) 1 Tab Tab, 1 TAB PO DAILY, ( Reported) Verapamil HCl (Verapamil HCl Sr) 360 Mg Cap, 360 MG PO DAILY, (Reported) Scheduled PRN Albuterol Sulfate (Ventolin Hfa) 200 Puff/8 Gm Aers, 2 PUFF INH QID PRN for SHORTNESS OF BREATH, (Reported) Albuterol/Ipratropium (Ipratropium Ashley/Albut 0.5-2.5 (3) mg/3Ml) 1 Del Del, 1 DEL INH Q4H PRN for SHORTNESS OF BREATH, (Reported) Alprazolam (Alprazolam) 0.25 Mg Tab, 0.25 MG PO QID PRN for ANXIETY, (Reported) Ondansetron HCl (Ondansetron HCl) 4 Mg Tab, 4 MG PO Q6H PRN for NAUSEA, ( Reported) Allergies Coded Allergies: Codeine (Verified Adverse Reaction, Mild, VOMITING, 11/21/12) Past Medical History Medical History lung cancer aspiration pneumonia , schizophrenia, anxiety, depression Surgical History None Family History Significant Family History: Heart disease Social History * Smoker: Denies Drugs: denies Recent Travel/Sick Contacts: Denies: Recent travel, Recent sick contacts Review of Symptoms Constitutional: Reports: Chills, Fever, Denies: Night Sweats Eyes: Denies: Pain, Vision change ENT: Denies: Head Aches, Ear Pain, Dysphagia Skin: Denies: Rash, Lesions, Breakdown Pulmonary: Reports: Dyspnea, Cough Cardiovascular: Reports: Orthopnea, Denies: Chest Pain, Palpitations, Paroxysmal Noc. Dyspnea, Lt Headedness Gastrointestinal: Denies: Nausea, Vomiting, Abdominal Pain, Diarrhea Genitourinary: Denies: Dysuria, Frequency, Incontinence, Retention Hematologic: Denies: Bruising, Bleeding Excessively Musculoskeletal: Denies: Neck Pain, Back Pain, Joint Pain, Muscle Pain, Spasms Neurological: Denies: Weakness, Numbness, Change in speech, Confusion Psych: Reports: Mood Normal, Denies: Depression, Memory Issues Physical Examination General Exam: Positive: Alert, No Acute Distress, Severe Distress Eye Exam: Positive: PERRLA, Conjunctiva & lids normal, EOMI, Negative: Sclera icteric ENT Exam: Positive: Atraumatic, Mucous membr. moist/pink, Pharynx Normal Neck Exam: Positive: Supple, Negative: JVD, thyromegaly Chest Exam: Positive: Normal air movement, Rhonchi, Wheezing, Diminished Heart Exam: Positive: Rate Normal, Regular Rhythm, Normal S1, Normal S2, Negative: Murmurs, Rubs Telemetry: Positive: No significant arrhythmia Abdomen Exam: Positive: Normal bowel sounds, Soft, Negative: Tenderness, Hepatospenomegaly Extremity Exam: Positive: Normal pulses, Negative: Clubbing, Cyanosis, Edema Skin Exam: Positive: Nl turgor and temperature, Negative: Breakdown, Lesion Neuro Exam: Positive: Normal Gait, Normal Speech, Cranial Nerves 3-12 NL, Reflexes 2+ Psych Exam: Positive: Mental status NL, Mood NL, Oriented x 3 Vital Signs Vital Signs Date Time Temp Pulse Resp B/P (MAP) Pulse Ox O2 Delivery O2 Flow Rate FiO2 05/21/17 05:30 110 92 05/21/17 05:15 119/55 (76) 05/21/17 04:19 98.6 20 05/20/17 23:56 Nasal Cannula 2.0 Laboratory Data Labs 24H Laboratory Tests 2 05/20/17 23:42: Immature Granulocyte % (Auto) 0.7H, White Blood Count 14.1H, Red Blood Count 3.68L, Hemoglobin 12.1, Hematocrit 35.6L, Mean Corpuscular Volume 96.7H, Mean Corpuscular Hemoglobin 32.9, Mean Corpuscular Hemoglobin Concent 34.0, Red Cell Distribution Width 15.2H, Platelet Count 306, Neutrophils (%) (Auto) 90.0H, Lymphocytes (%) (Auto) 4.4L, Monocytes (%) (Auto) 3.9, Eosinophils (%) (Auto) 0.6, Basophils (%) (Auto) 0.4, Neutrophils # (Auto) 12.7H, Lymphocytes # (Auto) 0.6L, Monocytes # (Auto) 0.6, Eosinophils # (Auto) 0.1, Basophils # (Auto) 0.1, Immature Granulocyte # (Auto) 0.1H, Nucleated Red Blood Cells % (auto) 0.0, Anion Gap 8, Glomerular Filtration Rate 45.0L, Blood Urea Nitrogen 11, Creatinine 1.29H, Sodium Level 138, Potassium Level 3.1L, Chloride Level 98, Carbon Dioxide Level 32, Calcium Level 9.2, IK-Fhh-M-Type Natriuretic Peptide 1117H CBC/BMP Laboratory Tests 05/20/17 23:42 Red Blood Count 3.68 L, Mean Corpuscular Volume 96.7 H, Mean Corpuscular Hemoglobin 32.9, Mean Corpuscular Hemoglobin Concent 34.0, Red Cell Distribution Width 15.2 H, Neutrophils (%) (Auto) 90.0 H, Lymphocytes (%) (Auto ) 4.4 L, Monocytes (%) (Auto) 3.9, Eosinophils (%) (Auto) 0.6, Basophils (%) ( Auto) 0.4, Neutrophils # (Auto) 12.7 H, Lymphocytes # (Auto) 0.6 L, Monocytes # (Auto) 0.6, Eosinophils # (Auto) 0.1, Basophils # (Auto) 0.1, Calcium Level 9.2 Assessment/Plan 51-year-old female, history of lung cancer status post chemoradiation, leading to his aphasia stricture leading to aspiration pneumonia, presented to the emergency room for aspiration pneumonia and CHF exacerbation Plan / VTE VTE Prophylaxis Ordered?: Yes Plan Plan Aspiration pneumonia= WBC 14, chest x-ray showing pneumonia. Patient has history of lung cancer will be as started on IV Zosyn and vancomycin. Gentamicin Hypokalemia. Potassium 3.1, repeated with oral potassium. Acute kidney injury. Creatinine 1.29, likely due to diuretics. Continue to monitor creatinine. CHF. BNP is 1117. Get echocardiogram. Continue with IV Lasix and stop torsemide. Hypertension. Continue with verapamil. 10. Lung cancer. Follow-up oncology as an outpatient. Schizophrenia. Continue with Abilify. Anxiety. Continue with her bupropion. The patient continue with sertraline. DVT prophylaxis heparin subcutaneous Disposition Patient will likely be discharged home in 2-3 days IVF: Discontinue Diet: Continue Current Respiratory: Increase Oxygen Diagnostics: Repeat Labs in AM Anticipated Discharge: Home LACHELLE ROBERT MD May 21, 2017 05:47
[2017-05-21 06:00] VITALS: BP 146/76
[2017-05-21] MEDS ORDERED: VANCOMYCIN HCL 1,000 MG, VIAL MATE ADAPTER 1 EACH in D5W 250 ML IV ONE (06:00)
[2017-05-21] MEDS ORDERED: KCL 10MEQ IN 100ML SWI (KRUN) 10 MEQ in APPROPRIATE DILUENT 1 EA IV ONE ×4 (06:30→21:15)
--- NOTE | 2017-05-21 06:35 | ECGEPIP ---
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
[2017-05-21 08:00] VITALS: BP 133/86
--- NOTE | 2017-05-21 08:05 | REP ---
PA and lateral chest: The comparisons are the portable chest dated and 12/05/[address] studies dated 10/25/2014 and 09/23/2016. The patient has history of non-small cell lung carcinoma. The brenda are enlarged bilaterally. On the prior CTs. There is chronic bilateral paramediastinal fibrosis, likely postradiation change. The remainder of the lung cabrera are clear. Cardiac size is normal. There is chronic elevation of the right hemidiaphragm. Impression: The brenda appear enlarged bilaterally, likely artifact from postradiation fibrosis. No acute cardiopulmonary findings. Signed by Jose Wolff MD 05/21/2017 07:56 A
[2017-05-21] MEDS ORDERED: ALPRAZolam 0.25 MG TAB PO PRN (08:45)
[2017-05-21] MEDS ORDERED: traMADol 50 MG TAB PO PRN (08:45)
[2017-05-21] MEDS ORDERED: ONDANSETRON 4 MG TAB (S0181) PO PRN (08:45)
[2017-05-21] MEDS: ASPIRIN 81 MG ENTERIC TAB PO SCH (09:00)
[2017-05-21] MEDS: VERAPAMIL 180 MG SR TAB PO SCH (09:00)
[2017-05-21] MEDS: TORSEMIDE 100 MG TAB PO SCH (09:00)
[2017-05-21] MEDS: ARIPiprazole 2 MG TAB PO SCH (09:00)
[2017-05-21] MEDS: PANTOPRAZOLE 40MG TAB (PROTONIX) PO SCH (09:00)
[2017-05-21] MEDS: SERTRALINE 100 MG TAB PO SCH (09:00)
[2017-05-21] MEDS: POTASSIUM CHLORIDE 10 MEQ SR TABLET PO SCH ×3 (09:00→19:29)
[2017-05-21] MEDS: FERROUS SULFATE 325MG TAB PO SCH (09:00)
[2017-05-21] MEDS: buPROPion **XL** TABLET 150MG (WELLBUTRIN XL) PO SCH (09:00)
[2017-05-21 10:48] LABS: MEAN CORPUSCULAR HEMOGLOBIN 32.7 pg (27.0-33.0); MEAN CORPUSCULAR HGB CONC 33.7 g/dl (32.0-36.5); MEAN CORPUSCULAR VOLUME 97.1 fl (80.0-96.0); RED CELL DISTRIBUTION WIDTH 15.3 % (11.5-14.5); WHITE BLOOD COUNT 12.5 10^3/uL (4.0-10.0)
[2017-05-21] MEDS ORDERED: IPRATROPIUM 0.5MG/ALBUTEROL 2.5MG INH SOL UD 3ML (DUONEB)(J7620) NEB PRN (11:00)
[2017-05-21] MEDS ORDERED: FUROSEMIDE 100 MG/10 ML VIAL (J1940) IV ONE (11:00)
[2017-05-21 11:42] LABS: CALCIUM LEVEL 9.1 MG/DL (8.5-10.1); CREATININE FOR GFR 1.05 MG/DL (0.55-1.02); GLOMERULAR FILTRATION RATE 57.1 (>51); POTASSIUM SERUM 3.1 MEQ/L (3.5-5.1)
[2017-05-21] MEDS: IPRATROPIUM 0.5MG/ALBUTEROL 2.5MG INH SOL UD 3ML (DUONEB)(J7620) NEB SCH ×3 (11:54→19:34)
[2017-05-21 12:00] VITALS: BP 123/58
[2017-05-21] MEDS: KCL 10MEQ IN 100ML SWI (KRUN) 10 MEQ in APPROPRIATE DILUENT 1 EA IV SCH ×8 (14:02→21:18)
[2017-05-21 15:00] VITALS: BP 136/73
[2017-05-21 16:00] VITALS: BP 116/86
[2017-05-21] MEDS: VANCOMYCIN HCL 750 MG, VIAL MATE ADAPTER 1 EACH in D5W 250 ML IV SCH (19:21)
[2017-05-21] MEDS: MONTELUKAST 10 MG TAB PO SCH (19:30)
[2017-05-21] MEDS: raNITIdine SYRUP 150 MG/10 ML UDC PO SCH (19:30)
[2017-05-21 20:00] VITALS: BP 116/56
--- NOTE | 2017-05-21 21:31 | CR ---
DATE OF CONSULTATION: 05/21/2017 I was asked by Dr. Gates to evaluate Ms. Ayala for persistent productive cough. HISTORY OF PRESENT ILLNESS: Ms. Ayala is a 61-year-old white female, well known to the pulmonary service because of her past medical history of chronic obstructive pulmonary disease (COPD) with hypoxemia, chronic corticosteroid usage, and history of stage IIIB non-small cell lung cancer. She also has evidence of bronchostenosis and radiation pneumonitis. Furthermore, she has obstructive sleep apnea. In addition to her respiratory problems, Ms. Ayala has swallowing difficulties for which she has undergone dilatation of her esophageal strictures approximately every 2 months. From a pulmonary perspective, she has not had any recent exacerbations, in fact was seen by Dr. Sotelo on 04/22/2017 with no acute pulmonary difficulties. She was last seen in [place] by gastroenterology last Friday (05/13/2017), at which time she underwent a stricture dilatation. Reportedly, I have heard handle sewer that there were chicken fragments, as well as several potential meals at the time that stricture was evaluated. She is to be on a pureed diet only. She reportedly did well until acutely becoming ill around 7:00 p.m. last night. According to her and Ms. Ayala, she ate her dinner normally. Her states that he then turned her around and asked her "Why do you have that piece of chocolate in your mouth?" She reports that she was just sucking on it, but shortly thereafter she started having a cough. Since the start, she has had a cough productive of slightly yellowish-green sputum with no significant purulence to it. She almost coughs and experiences emesis at the same time. She had no accompanying fevers or chills. She does not believe that she aspirated. No chest pain or pressure. She has noted some increased shortness of breath when coughing but not otherwise. She has felt chilled at times. On arrival to the emergency department, she had a chest CT scan done, which did not show any acute findings. She had a WBC count of 14.1 (on chronic corticosteroids). It was felt that she may have had an aspiration pneumonia and she was started on antibiotics. However, since her admission, she is continuing to have a near constant or fairly frequent cough with expectorations of a small amount of sputum, as described above. It is because of this persistent cough that pulmonary has been asked to be involved. PAST MEDICAL HISTORY: 1. COPD. A. Spirometry from 04/22/2017 showed an FEV1 of 1.46 liters (57%), and an FVC of 1.88 liters (56%). FEV1/FVC ratio was normal at 78%, normal inspiratory flow volume limb. 2. Immunosuppression due to chronic steroid use and a history of T cell count less than 200. A. She receives IgG therapy. 3. Bronchiostenosis, radiation pneumonitis. 4. Stage III B non-small cell lung cancer, diagnosed in 2008. A. Status post chemotherapy and radiation therapy. 5. Anxiety. 6. Depression. 7. Obstructive sleep apnea. A. Treated with CPAP 14 with a 4 liter bleed in. B. States she is compliant with the CPAP device. 8. History of congestive heart failure (CHF) with diastolic dysfunction grade 1. 9. Gastroesophageal reflux disease (GERD). A. Followed by ENT in [place] who recently documented continued irritation at the level of the cords. 10. History of cardiac tamponade. Status post pericardial window in the past. 11. History or chronic kidney disease. 12. Esophageal strictures for which she receives dilatation approximately every 2 months. I do not know how long that has been going on. 13. History of tobacco usage. ALLERGIES: CODEINE, I do not know what happens with that medication. MEDICATIONS: On admission: - albuterol MDI two puffs four times a day as needed - DuoNeb one nebulization every 4 hours as needed - Xanax 0.25 mg by mouth four times a day as needed - Abilify 2 mg twice a day - aspirin 81 mg by mouth daily - bupropion 300 mg by mouth daily - Nexium 400 mg by mouth daily - ferrous sulfate 325 mg by mouth daily - Breo 200/25 one puff daily - Singulair 10 mg daily - Zofran 4 mg by mouth every 6 hours as needed - potassium chloride 10 mEq by mouth three times a day - prednisone 10 mg by mouth daily - ranitidine 20 mL by mouth at night - Zoloft 100 mg by mouth twice a day - Spiriva Respimat two puffs daily - torsemide 100 mg by mouth daily - Tramadol 50 mg by mouth every four hours as needed - Bactrim single strength one by mouth daily - verapamil 360 mg by mouth daily FAMILY HISTORY: Noncontributory to this admission. SOCIAL HISTORY: Ms. Ayala is a former smoker, having an 80 pack year history, having quit around 2007. REVIEW OF SYSTEMS: As per history of present illness. The remainder of pertinent review of systems are negative. PHYSICAL EXAMINATION: GENERAL: Ms. Ayala is lying in bed in no acute distress; however, she has a frequent cough, which she expectorates small amounts of yellowish-green thin sputum. The cough sounds upper airway. She has expiratory "rattling" in the upper airway region. VITAL SIGNS: Temperature 98.1, pulse 117, respiratory rate 18, blood pressure 123/58 with a MAP of 79, SpO2 94% on 2 liters. HEENT: Anicteric. Nares patent bilaterally. Moist mucosa. Oxygen tubing in place. Oropharynx clear. No lesions. No evidence of drainage in the posterior oropharynx. Mallampati 3 to 4. NECK: Supple. Without jugular venous distention (JVD) or thyromegaly. Trachea is midline. LYMPHATICS: Without cervical or supraclavicular lymphadenopathy. LUNGS: Symmetric excursion. Diminished air entry. Rare end expiratory wheeze. No rhonchi or crackle appreciated. Transmitted upper airway noises. Prolonged expiratory phase with accentuation on force maneuver. No accessory muscle usage retractions. Normal percussion and palpation. CARDIOVASCULAR: Tachycardic. Regular rhythm. Normal S1, S2. No murmur, rub or gallop appreciated. ABDOMEN: Positive bowel sounds. Soft, nondistended. Mild generalized tenderness. No rebound or guarding. No hepatosplenomegaly or masses appreciated. EXTREMITIES: Without clubbing, cyanosis. Significant edema. Palpable pedal pulses bilaterally. LABORATORY DATA: Complete blood count (CBC) from this morning showed a hemoglobin of 12.3, hematocrit 36.5, platelet count 277,000. White blood cell count 12,500. Chemistry showed a sodium of 138, potassium 3.1, chloride 98, bicarbonate 31, anion gap 9, BUN 9, creatinine 1.1, glucose 135, calcium 9.1, magnesium 1.9. I reviewed her chest CT scan, as well as the report from 05/21/2017. That CT scan showed normal appearing cardiac silhouette and pulmonary vascular shadow. No mediastinal or hilar adenopathy. Minimal right pleural effusion. There remains right upper lobe, right lower lobe consolidated regions with air bronchograms, as well as consolidated region in the left upper lobe. Per the report, these are unchanged compared to CT scan from 03/01/2017. IMPRESSION: 1. Persistent cough. Her cough came on acutely and I do not believe it represents an aspiration pneumonia. Her cough also sounds upper airway in origin. I question whether there may have been another substance that she ate outside of pureed food that may have become lodged in her esophagus. She also has some difficulty with her vocal cords, but it sounds like that this was more from GERD. Again, this does not appear to be a lower airway cough and there are no findings on her chest CT scan to suggest aspiration pneumonitis or pneumonia, though she does have some consolidated regions related to previous XRT that may mask findings. 2. Chronic obstructive pulmonary disease (COPD). 3. Chronic steroid usage. 4. History of immunodeficiency for which she has received immunoglobulin. I do not know if she is still receiving that medication. 5. Chronic kidney disease. 6. Gastroesophageal reflux disease (GERD). 7. Obstructive sleep apnea, treated by CPAP therapy. 8. History of recurrent esophageal strictures, which require dilatation. Followed by gastroenterology in [place]. 9. History of lung cancer in 2008, which was treated with XRT and chemotherapy. 10. Bronchostenosis and radiation pneumonitis. 11. History of tobacco usage. RECOMMENDATIONS: 1. This appears to be an upper airway cough and I am not certain if there is a specific modality to help her. A trial could be done of Acapella (green based on her recent spirometry), though I am not certain that this would help her, as it again appears to be upper airway. There is no indication for vest. 2. As noted above, I do not feel that this is an aspiration pneumonia or pneumonitis. This is an acute onset, which is inconsistent with an infection and she has no history to suggest an infection. 3. It is concerning that this occurred around the time she was eating/sucking on a piece of chocolate, which is not in her dietary regimen. It is possible that she now has a recurrent esophageal blockage. 4. I recommend asking ENT to do a laryngoscopy to view the upper airway region. They may be able to tell us whether they see secretions and where they are rising from. 5. Depending upon how she does and the ENT findings, may need to consider having gastroenterology evaluate her esophagus, whether that be here or in [place]. 6. In regard to her pulmonary disease, I would keep her on her standing regimen. Thank you for this consultation. We will continue to follow with you. ALFREDO
[2017-05-22] VITALS: BP 107/64
[2017-05-22] MEDS: IPRATROPIUM 0.5MG/ALBUTEROL 2.5MG INH SOL UD 3ML (DUONEB)(J7620) NEB SCH ×6 (00:02→20:05)
[2017-05-22] MEDS: PIPERACILLIN/TAZOBACTAM SOD 3.375 GM in D5W MINI-BAG PLUS 50 ML IV SCH ×5 (00:20→22:07)
[2017-05-22 04:00] VITALS: BP 122/59
[2017-05-22 05:53] LABS: MEAN CORPUSCULAR HEMOGLOBIN 32.8 pg (27.0-33.0); MEAN CORPUSCULAR HGB CONC 33.5 g/dl (32.0-36.5); MEAN CORPUSCULAR VOLUME 97.8 fl (80.0-96.0); RED CELL DISTRIBUTION WIDTH 14.9 % (11.5-14.5); WHITE BLOOD COUNT 8.9 10^3/uL (4.0-10.0)
[2017-05-22] MEDS ORDERED: VANCOMYCIN HCL 1,000 MG, VIAL MATE ADAPTER 1 EACH in D5W 250 ML IV SCH (06:00)
[2017-05-22 06:30] LABS: ALBUMIN 2.7 GM/DL (3.2-5.2); ALBUMIN/GLOBULIN RATIO 0.73 (1.00-1.93); ALKALINE PHOSPHATASE 65 U/L (45-117); ALT/SGPT 16 U/L (12-78); AST/SGOT 11 U/L (15-37); BILIRUBIN,TOTAL 0.7 MG/DL (0.2-1.0); BLOOD UREA NITROGEN 11 MG/DL (7-18); CALCIUM LEVEL 9.1 MG/DL (8.5-10.1); CARBON DIOXIDE LEVEL 28 MEQ/L (21-32); CHLORIDE LEVEL 101 MEQ/L (98-107); CREATININE FOR GFR 0.89 MG/DL (0.55-1.02); GLOMERULAR FILTRATION RATE > 60.0 (>51); GLUCOSE, FASTING 127 MG/DL (70-105); TOTAL PROTEIN 6.4 GM/DL (6.4-8.2)
[2017-05-22] MEDS: VANCOMYCIN HCL 750 MG, VIAL MATE ADAPTER 1 EACH in D5W 250 ML IV SCH ×2 (06:38→18:41)
[2017-05-22 06:39] LABS: ANION GAP 9 MEQ/L (8-16); SODIUM LEVEL 138 MEQ/L (136-145)
[2017-05-22 06:50] LABS: POTASSIUM SERUM 2.9 MEQ/L (3.5-5.1)
[2017-05-22 08:00] VITALS: BP 119/69
[2017-05-22] MEDS: POTASSIUM CHLORIDE 10 MEQ SR TABLET PO SCH ×3 (09:00→21:00)
[2017-05-22] MEDS: KCL 10MEQ IN 100ML SWI (KRUN) 10 MEQ in APPROPRIATE DILUENT 1 EA IV SCH ×24 (09:29→21:00)
[2017-05-22 09:44] LABS: MAGNESIUM LEVEL 1.9 MG/DL (1.8-2.4)
[2017-05-22 12:00] VITALS: BP 113/65
--- NOTE | 2017-05-22 12:56 | IPNPDOC ---
Subjective Date Seen The patient was seen on 05/22/17. Subjective Chief Complaint/HPI Patient seen and examined at bedside. States that her cough and productive sputum have somewhat improved, but states that she still coughing up a significant amount of hernandez colored sputum. Denies any acute complaints of fevers , chills, chest pain, abdominal pain, or any nausea/vomiting. Objective Physical Examination General Exam: Positive: Alert, Cooperative, No Acute Distress ENT Exam: Positive: Atraumatic, Mucous membr. moist/pink Neck Exam: Negative: JVD, thyromegaly Chest Exam: Positive: Rhonchi, Diminished, Other (Upper airway wheezing noted) Heart Exam: Positive: Tachycardic, Regular Rhythm, Normal S1, Normal S2, Negative: Murmurs, Rubs Telemetry: Positive: Sinus Abdomen Exam: Positive: Soft, Negative: Tenderness Extremity Exam: Negative: Tenderness, Swelling Psych Exam: Positive: Oriented x 3 Assessment /Plan Plan/VTE VTE Prophylaxis Ordered?: Yes Plan IVF: Discontinue Diet: Continue Current Respiratory: Increase Oxygen Diagnostics: Repeat Labs in AM Anticipated Discharge: Home Persistent Cough, productive of Hernandez Colored Sputum CT Scan of the Chest with no acute changes Pulmonary input appreciated The patient's cough and sputum production has improved somewhat according to the patient--however she is still coughing up a significant amount of sputum I did speak to Dr. Franklin of ENT yesterday afternoon, who stated that he would take the patient for a Laryngoscopy this morning--We will follow up with the results We will keep the patient NPO in the meantime Cont Empiric Abx coverage The patient has remained afebrile, and her respiratory status has remained at its baseline Hx of COPD with Chronic Hypoxia CT of the Chest with no overt source of infection noted Pulm input noted Cont current regimen Stage III B non-small cell lung cancer, diagnosed in 2008. Status post chemotherapy and radiation therapy. Bronchiostenosis, Esophageal Stenosis, Radiation pneumonitis as complication of above Follows with GI in [place], ENT in [facility] for periodic dilatations Immunosuppression due to chronic steroid use and a history of T cell count less than 200. Patient recieves IgG therapy as outpatient Anxiety/Depression, Stable Obstructive sleep apnea. Cont home CPAP settings History of congestive heart failure (CHF) with diastolic dysfunction grade 1. Appears Euvolemic History of cardiac tamponade Status post pericardial window in the past. History or chronic kidney disease. Serum Cr at baseline DVT Prophylaxis Heparin SC Dispo--pending Laryngoscopy findings, clinical improvement VS, I&O, 24H, [facility] Vital Signs/I&O Vital Signs Date Time Temp Pulse Resp B/P (MAP) Pulse Ox O2 Delivery O2 Flow Rate FiO2 05/22/17 12:00 97.4 110 18 113/65 (81) 92 Nasal Cannula 2.0 Laboratory Data 24H LABS Laboratory Tests 2 05/22/17 05:29: Anion Gap 9, Glomerular Filtration Rate > 60.0, Blood Urea Nitrogen 11, Creatinine 0.89, Sodium Level 138, Potassium Level 2.9*L, Chloride Level 101, Carbon Dioxide Level 28, Calcium Level 9.1, Aspartate Amino Transf (AST/SGOT) 11L, Alanine Aminotransferase (ALT/SGPT) 16, Alkaline Phosphatase 65, Total Bilirubin 0.7, Total Protein 6.4, Albumin 2.7L, Magnesium Level 1.9, Albumin/ Globulin Ratio 0.73L CBC/BMP Laboratory Tests 05/22/17 05:29 Red Blood Count 3.63 L, Mean Corpuscular Volume 97.8 H, Mean Corpuscular Hemoglobin 32.8, Mean Corpuscular Hemoglobin Concent 33.5, Red Cell Distribution Width 14.9 H, Calcium Level 9.1, Aspartate Amino Transf (AST/SGOT) 11 L, Alanine Aminotransferase (ALT/SGPT) 16, Alkaline Phosphatase 65, Total Bilirubin 0.7, Total Protein 6.4, Albumin 2.7 L Microbiology Microbiology 05/21/17 Respiratory Virus Panel (PCR) (DIANE) - Final, Complete 05/21/17 Gram Stain - Final, Resulted 05/21/17 Sputum Culture - Preliminary, Resulted Yeast Like Organism PÉREZ FARRELL MD May 22, 2017 12:56
--- NOTE | 2017-05-22 15:45 | REP ---
RIGHT PICC LINE PLACEMENT: The procedure was performed by CESAR Hopkins under the direct supervision of Dr. Chaudhry. The procedure along with its risks, benefits, and complications were discussed with the patient prior to the examination. Informed consent was obtained both verbally and written. The patient was identified in the interventional suite and placed in a supine position. The right arm was marked, prepped and draped in the usual sterile fashion. A procedural time-out was performed to ensure that the correct patient, site and procedure were being performed. Under ultrasound guidance the right basilic vein was punctured. A thin guidewire was introduced and the needle removed. Local infiltrative anesthesia was achieved using 2% lidocaine. A break-away sheath was placed and the thin guidewire was removed. Under fluoroscopic observation, via the break-away sheath, a 39 cm dual lumen PICC line was placed with its tip at the distal superior vena cava. The catheter was flushed with heparinized saline and affixed to the patient's skin. The patient tolerated the procedure well and had no immediate complications. IMPRESSION: Uncomplicated right PICC line placement. Fluoroscopy time of 0.2 minutes. Reviewed by CESAR Aguilar 05/23/2017 08:20 AEdited and Signed by Moy Chaudhry MD 05/23/2017 08:41 A
[2017-05-22] MEDS: HEPARIN SOD (PORCINE) 5000 UNITS/ML VIAL SQ SCH ×2 (16:12→22:07)
--- NOTE | 2017-05-22 16:14 | HPE ---
DATE OF ADMISSION: 05/21/2017 She is a 61-year-old woman who presents with a history of difficulty breathing. The patient developed problems worsening over the last week. The patient has a history of carcinoma of the lung which was treated with radiation therapy. This happened back in 2008. Subsequent to that, she has developed difficulty swallowing. The patient was diagnosed with having an esophageal stricture and has been dilated. In addition, she has some narrowing of the trachea and has been dilated as well. Because of her aspiration, she was placed on a thickened diet. Repeat swallow x-ray showed there was no aspiration, so the patient stopped thickening her foods. The patient has repeated dilatations. She said they provided her with some relief of her swallowing for three months. She is on a pureed diet now. Two weeks ago, the patient had a dilatation done in [place]. Afterwards, she has had pain and difficulty with swallowing which is even worse. Again, the patient then developed the breathing problem which is productive of phlegm. The patient has been followed in this regard. The question is whether or not this is an upper airway problem. Examination today shows the patient is in distress, regarding her breathing, she is tachypneic. She is coughing up copious amounts of phlegm which is a creamy yellow color. I did a flexible nasopharyngoscopy. Examination shows that her upper airway looks normal. I could see phlegm come from the trachea up between the vocal cords. Her vocal cords moved normally. IMPRESSION: I think the patient has had an aspiration related to her esophageal stricture and dilatation. I do not think that she has an upper airway issue. I think she has difficulty swallowing even her phlegm. I think the patient likely has an aspiration pneumonitis. PLAN: I suggest the patient have a repeat barium swallow, cookie swallow examination here. The patient had one one month ago prior to her last dilation. If the patient is aspirating then I would suggest that she have consideration regarding gastrostomy feeding.
[2017-05-22] MEDS ORDERED: SODIUM CHLORIDE 0.9% INJ 10 ML SYR IV PRN (16:30)
[2017-05-22] MEDS: SODIUM CHLORIDE 0.9% INJ 10 ML SYR IV SCH ×2 (18:00)
--- NOTE | 2017-05-22 19:27 | ECGEPIP ---
Stationary ECG Study [facility] Test Date: 2017-05-22 Pat Name: KYM OLIVER Department: Room: [place] [address] Gender: F Wash Operator: KENDY : 1955 Requested By: YING LA Order Number: [id number] Reading MD: Cheryl Brandon Measurements Intervals [place] Rate: 111 P: -88 NC: 134 QRS: 262 QRSD: 139 T: 38 QT: 361 QTc: 493 Interpretive Statements ECTOPIC ATRIAL TACHYCARDIA MARKED RIGHT AXIS DEVIATION RIGHT BUNDLE BRANCH BLOCK NO CHANGE 05/20/17 Electronically Signed On 05-22-2017 19:26:50 EDT by Cheryl Brandon
[2017-05-22 20:51] VITALS: BP 117/67
[2017-05-22] MEDS: MONTELUKAST 10 MG TAB PO SCH (21:00)
[2017-05-22] MEDS: raNITIdine SYRUP 150 MG/10 ML UDC PO SCH (21:00)
--- NOTE | 2017-05-22 21:26 | PHACANCOPD ---
PHARMACY VANCOMYCIN DOSING Pt Demographics Demographics Patient Age:61 , Weight:86.500 , Gender: female Adjusted Body Weight Date: 05/21/17, Adjusted Body Weight: [65.6] Kg Vancomycin Vancomycin indication: ASPIRATION PNA Vancomycin Target Ranges: 15-20 mcg/ml Vancomycin Load Y/N: No Load Dose Date Time Vancomycin Load Dose: Date: Time: Vancomycin Dose Date: 05/21/17. Current Vancomycin Dose: [1 GMX1,THEN 750MG q12H] Intermittent Dosing?: No Labs Micro Microbiology 05/21/17 Respiratory Virus Panel (PCR) (DIANE) - Final, Complete 05/21/17 Gram Stain - Final, Resulted 05/21/17 Sputum Culture - Preliminary, Resulted Yeast Like Organism Creatinine Clearance Date:05/21/17. Creatinine Clearance: [49].CALCULATED Pending Labs VANCOMYCIN TROUGH DUE 05/22@ 1700 Assessment and Plan Maintaining Current Dose?: No Reason for dose change: Trough too low Pharmacist Note Pharmacist Note 05/22/17: Trough tonight resulted at 6.9mcg/ml. Will give an additional 750mg dose tonight so that a total of 1500mg is given tonight, and then will start the patient on an increased maintenance regimen of 1g IV Q12H tomorrow. Scr and output remains stable. We will continue to monitor the patient and schedule a follow-up trough accordingly. Date: 05/21/17. Pharmacist note:61 YOF ADMITTED W/ASPIRATION PNEUMONIA. SCR=1.29, CRCL=49,ALLERGY=CODEINE.TREATING WITH PIP/TAZO 3.375 GM IV Q6H AND VANCOMYCIN PER PHARMACY CONSULT. RECEIVED VANCO 1 GM@ 0600 05/21,THEN 750MG IV Q12H BEGINNING@1800.WILL DRAW FIRST TROUGH 05/22@1700. WILL CONTINUE TO FOLLOW LEVELS AND LABS [facility] May 22, 2017 21:26
[2017-05-22] MEDS ORDERED: VANCOMYCIN HCL 750 MG, VIAL MATE ADAPTER 1 EACH in D5W 250 ML IV ONE (22:00)
[2017-05-22] MEDS: SODIUM CHLORIDE 0.9% INJ 10 ML SYR IV PRN (23:35)
[2017-05-23] VITALS (7 sets, daily range): BP systolic 105–129; BP diastolic 56–67
[2017-05-23] MEDS: IPRATROPIUM 0.5MG/ALBUTEROL 2.5MG INH SOL UD 3ML (DUONEB)(J7620) NEB SCH ×7 (04:00→23:39)
[2017-05-23] MEDS: PIPERACILLIN/TAZOBACTAM SOD 3.375 GM in D5W MINI-BAG PLUS 50 ML IV SCH ×2 (05:51→11:16)
[2017-05-23] MEDS: SODIUM CHLORIDE 0.9% INJ 10 ML SYR IV SCH ×3 (05:52→18:00)
[2017-05-23] MEDS ORDERED: VANCOMYCIN HCL 1,000 MG, VIAL MATE ADAPTER 1 EACH in D5W 250 ML IV SCH (06:00)
[2017-05-23] MEDS: HEPARIN SOD (PORCINE) 5000 UNITS/ML VIAL SQ SCH ×3 (06:10→21:51)
[2017-05-23 06:11] LABS: MEAN CORPUSCULAR HEMOGLOBIN 32.4 pg (27.0-33.0); MEAN CORPUSCULAR HGB CONC 32.7 g/dl (32.0-36.5); MEAN CORPUSCULAR VOLUME 98.8 fl (80.0-96.0); RED CELL DISTRIBUTION WIDTH 14.6 % (11.5-14.5); WHITE BLOOD COUNT 6.6 10^3/uL (4.0-10.0)
[2017-05-23 06:47] LABS: ANION GAP 9 MEQ/L (8-16); BLOOD UREA NITROGEN 9 MG/DL (7-18); CALCIUM LEVEL 8.7 MG/DL (8.5-10.1); CARBON DIOXIDE LEVEL 29 MEQ/L (21-32); CHLORIDE LEVEL 100 MEQ/L (98-107); CREATININE FOR GFR 0.79 MG/DL (0.55-1.02); GLOMERULAR FILTRATION RATE > 60.0 (>51); GLUCOSE, FASTING 97 MG/DL (70-105); SODIUM LEVEL 138 MEQ/L (136-145)
[2017-05-23] MEDS: KCL 10MEQ IN 100ML SWI (KRUN) 10 MEQ in APPROPRIATE DILUENT 1 EA IV SCH ×16 (08:49→20:43)
[2017-05-23] MEDS: POTASSIUM CHLORIDE 10 MEQ SR TABLET PO SCH ×3 (08:54→21:00)
[2017-05-23] MEDS ORDERED: VARIBAR PUDDING 40% w/v 230ML TUBE As Ordered ONE ×2 (10:56→11:21)
[2017-05-23] MEDS ORDERED: E-Z-PAQUE 96% w/w SUSP 176GM BTL As Ordered ONE ×2 (10:56→11:21)
[2017-05-23] MEDS ORDERED: VARIBAR NECTAR 40% w/v 240ML SUSP BTL As Ordered ONE ×2 (10:56→11:21)
--- NOTE | 2017-05-23 13:35 | IPNPDOC ---
Subjective Date Seen The patient was seen on 05/23/17. Subjective Chief Complaint/HPI Patient seen and examined at the bedside this morning. States that her cough and productive sputum is slowing down. Denies any respiratory distress, chest pain, palpitations. No acute overnight events noted. Objective Physical Examination General Exam: Positive: Alert, Cooperative, No Acute Distress ENT Exam: Positive: Atraumatic, Mucous membr. moist/pink Neck Exam: Negative: JVD, thyromegaly Chest Exam: Positive: Rhonchi, Diminished Heart Exam: Positive: Tachycardic, Regular Rhythm, Normal S1, Normal S2, Negative: Murmurs, Rubs Telemetry: Positive: Sinus Abdomen Exam: Positive: Soft, Negative: Tenderness Extremity Exam: Negative: Tenderness, Swelling Psych Exam: Positive: Oriented x 3 Assessment /Plan Plan/VTE VTE Prophylaxis Ordered?: Yes Plan Persistent Cough, productive of Hernandez Colored Sputum Likely 2/2 Aspiration Event The above is complicated by Bronchiostenosis, Esophageal Stenosis from Hx of Radiation for Lung Cancer CT Scan of the Chest with no acute changes Pulmonary input appreciated s/p Nasopharyngoscopy with ENT on 05/22--report noted I did discuss the case with the patient's fire technology instructor from [place] (Dr. Cardozo). He informed me that the patient has not been adherent to her pureed diet recommendations. He reports that when she received an esophageal dilation last week, there were pieces of meat and vegetables found in the esophagus. In addition, there was no evidence of stricture/stenosis or occlusion during the procedure. He reports that her issue with aspiration is 2/ 2 the inability for her to transfer ingested material and peristalsis--however, she should have no problem with this if she remains adherent to her pureed diet. There is no indication for a feeding tube and or transfer at this time according to him. He has recommended that we obtain a swallowing study with Speech Therapy, and continue the patient on a pureed diet following the study if adequate. Hx of COPD with Chronic Hypoxia CT of the Chest with no overt source of infection noted Pulm input noted Cont current regimen Stage III B non-small cell lung cancer, diagnosed in 2008. Status post chemotherapy and radiation therapy. Bronchiostenosis, Esophageal Stenosis, Radiation pneumonitis as complication of above Follows with GI in [place], ENT in [facility] for periodic dilatations Immunosuppression due to chronic steroid use and a history of T cell count less than 200. Patient recieves IgG therapy as outpatient Anxiety/Depression, Stable Obstructive sleep apnea. Cont home CPAP settings History of congestive heart failure (CHF) with diastolic dysfunction grade 1. Appears Euvolemic History of cardiac tamponade Status post pericardial window in the past. History or chronic kidney disease. Serum Cr at baseline DVT Prophylaxis Heparin SC Dispo--pending clinical improvement. VS, I&O, 24H, Fishbone Vital Signs/I&O Vital Signs Date Time Temp Pulse Resp B/P (MAP) Pulse Ox O2 Delivery O2 Flow Rate FiO2 05/23/17 08:00 97.8 102 22 120/56 (77) 95 Room Air 05/22/17 12:00 I&O- Last 24 Hours up to 6 AM 05/24/17 06:00 Intake Total 0 ml Output Total 0 ml Balance 0 ml Laboratory Data 24H LABS Laboratory Tests 2 05/22/17 17:13: Vancomycin Level Trough 6.9L 05/23/17 00:15: Bedside Glucose (Misc Panel) 95 05/23/17 05:57: Anion Gap 9, Glomerular Filtration Rate > 60.0, Blood Urea Nitrogen 9, Creatinine 0.79, Sodium Level 138, Potassium Level 3.0#L, Chloride Level 100, Carbon Dioxide Level 29, Calcium Level 8.7 CBC/BMP Laboratory Tests 05/22/17 17:13 05/23/17 05:57 Calcium Level 8.7 05/23/17 05:58 Red Blood Count 3.40 L, Mean Corpuscular Volume 98.8 H, Mean Corpuscular Hemoglobin 32.4, Mean Corpuscular Hemoglobin Concent 32.7, Red Cell Distribution Width 14.6 H Microbiology Microbiology 05/21/17 Respiratory Virus Panel (PCR) (DIANE) - Final, Complete 05/21/17 Gram Stain - Final, Complete 05/21/17 Sputum Culture - Final, Complete Yeast Like Organism PÉREZ FARRELL MD May 23, 2017 13:35
[2017-05-23] MEDS: AMPICILLIN SOD/SULBACTAM SOD 1.5 GM in D5W 50 ML IV SCH ×2 (15:00→21:51)
--- NOTE | 2017-05-23 16:10 | REP ---
COOKIE SWALLOW: The procedure was performed by CESAR Anthony under the direct supervision of Dr. Chaudhry. The procedure was attended by Mercedes Rivas from Speech Pathology. The patient was unable to ingest any of the liquid barium due to coughing fits. Per Speech Pathology recommendations may try to attempt the procedure again Friday morning if the patient is still in house. 45 seconds of fluoroscopy time were utilized for this procedure. Reviewed by CESAR Aguilar 05/26/2017 08:30 AEdited and Signed by Moy Chaudhry MD 05/26/2017 12:14 P
[2017-05-23] MEDS: raNITIdine SYRUP 150 MG/10 ML UDC PO SCH (21:00)
[2017-05-23] MEDS: MONTELUKAST 10 MG TAB PO SCH (21:00)
[2017-05-24] MEDS: AMPICILLIN SOD/SULBACTAM SOD 1.5 GM in D5W 50 ML IV SCH ×4 (03:09→21:06)
[2017-05-24 04:00] VITALS: BP 107/53
[2017-05-24] MEDS: IPRATROPIUM 0.5MG/ALBUTEROL 2.5MG INH SOL UD 3ML (DUONEB)(J7620) NEB SCH ×6 (04:00→23:59)
[2017-05-24] MEDS: SODIUM CHLORIDE 0.9% INJ 10 ML SYR IV SCH ×5 (06:00→17:25)
[2017-05-24] MEDS: HEPARIN SOD (PORCINE) 5000 UNITS/ML VIAL SQ SCH ×3 (06:01→21:10)
[2017-05-24 06:14] LABS: MEAN CORPUSCULAR HEMOGLOBIN 32.8 pg (27.0-33.0); MEAN CORPUSCULAR HGB CONC 33.4 g/dl (32.0-36.5); MEAN CORPUSCULAR VOLUME 98.2 fl (80.0-96.0); RED CELL DISTRIBUTION WIDTH 14.4 % (11.5-14.5); WHITE BLOOD COUNT 5.7 10^3/uL (4.0-10.0)
[2017-05-24 06:48] LABS: ANION GAP 9 MEQ/L (8-16); BLOOD UREA NITROGEN 8 MG/DL (7-18); CALCIUM LEVEL 8.6 MG/DL (8.5-10.1); CARBON DIOXIDE LEVEL 25 MEQ/L (21-32); CHLORIDE LEVEL 105 MEQ/L (98-107); CREATININE FOR GFR 0.73 MG/DL (0.55-1.02); GLOMERULAR FILTRATION RATE > 60.0 (>51); GLUCOSE, FASTING 92 MG/DL (70-105); POTASSIUM SERUM 3.7 MEQ/L (3.5-5.1); SODIUM LEVEL 139 MEQ/L (136-145)
[2017-05-24 08:14] VITALS: BP 124/76
[2017-05-24] MEDS: POTASSIUM CHLORIDE 10 MEQ SR TABLET PO SCH ×3 (08:42→21:00)
[2017-05-24] MEDS: TORSEMIDE 100 MG TAB PO SCH (09:00)
[2017-05-24] MEDS: VERAPAMIL 180 MG SR TAB PO SCH (09:00)
[2017-05-24] MEDS: buPROPion **XL** TABLET 150MG (WELLBUTRIN XL) PO SCH (09:00)
[2017-05-24] MEDS: FERROUS SULFATE 325MG TAB PO SCH (09:00)
[2017-05-24] MEDS: ARIPiprazole 2 MG TAB PO SCH ×2 (09:00→21:00)
[2017-05-24] MEDS: ASPIRIN 81 MG ENTERIC TAB PO SCH (09:00)
[2017-05-24] MEDS: SERTRALINE 100 MG TAB PO SCH ×2 (09:00→21:00)
[2017-05-24] MEDS: PANTOPRAZOLE 40MG TAB (PROTONIX) PO SCH (09:00)
[2017-05-24 12:38] VITALS: BP 124/62
--- NOTE | 2017-05-24 13:54 | ECHO ---
DATE OF PROCEDURE: 05/21/2017 DATE OF : 1955 AGE: 61 REFERRING PROVIDER: Dr. Stephen Gates PATIENT LOCATION: Room 3229. REASON FOR THE ECHOCARDIOGRAM: Shortness of breath. 2D MEASUREMENTS: IVS: 1.3 cm LV: 3.8 cm LVPW: 1.3 cm LA: 3.4 cm Aorta: 2.8 cm IVC: 1.8 cm DOPPLER MEASUREMENTS: Peak velocity across the aortic valve: 1.2 m/s Peak velocity across the LVOT: 0.72 m/s Mitral E: 1.1 Mitral A: 0.79 with a ratio of 1.4 Maximum tricuspid valve velocity: 1.9 m/s 2D COMMENTS: 1. Normal left ventricular size with mildly increased left ventricular wall thickness. Left ventricular systolic function is normal with an estimated global left ventricular systolic ejection fraction of 55-60%. 2. Normal left atrium. Normal right atrium and right ventricle. 3. The atrial septum appeared to be normal without evidence of defect or shunt. 4. Normal aortic root. 5. Trace pericardial effusion noted. No evidence of cardiac tamponade. 6. Mildly calcified aortic valve with normal leaflet excursion. Mildly calcified mitral annulus with normal anterior mitral valve leaflet motion. Normal tricuspid valve. The pulmonic valve and proximal pulmonary artery branches were not well visualized. 7. The inferior vena cava was normal in size. Central venous pressure is most likely normal. DOPPLER: It detects mild aortic regurgitation and trace tricuspid regurgitation. The calculated pulmonary artery systolic pressure was normal. Abnormal relaxation pattern was noted across the mitral valve annulus, consistent with a pseudo-normal pattern. Left ventricular end-diastolic pressure might be elevated. IMPRESSION: 1. Normal global left ventricular systolic function. There were features of left ventricular diastolic dysfunction, as mentioned above. 2. Aortic valve sclerosis with mild aortic regurgitation but no aortic stenosis. 3. Isolated mitral annulus calcification. 4. Trace tricuspid regurgitation with a normal calculated pulmonary artery systolic pressure. 5. Trace pericardiac effusion. 6. The study was technically limited due to poor acoustic window. The above study was compared with prior study on 10/02/2016, and it seems that the left ventricular systolic function is now normal. No significant changes in the aortic regurgitation severity. MTDD
[2017-05-24] MEDS: SODIUM CHLORIDE 0.9% INJ 10 ML SYR IV PRN (15:15)
[2017-05-24 15:55] VITALS: BP 135/64
--- NOTE | 2017-05-24 17:12 | IPNPDOC ---
Subjective Date Seen The patient was seen on 05/24/17. Subjective Chief Complaint/HPI Patient seen and examined at the bedside. States that she's feeling much better today, reports that her productive cough has decreased. Denies any other acute complaints at this time. Objective Physical Examination General Exam: Positive: Alert, Cooperative, No Acute Distress ENT Exam: Positive: Atraumatic, Mucous membr. moist/pink Neck Exam: Negative: JVD, thyromegaly Chest Exam: Positive: Diminished Heart Exam: Positive: Tachycardic, Regular Rhythm, Normal S1, Normal S2, Negative: Murmurs, Rubs Telemetry: Positive: Sinus Abdomen Exam: Positive: Soft, Negative: Tenderness Extremity Exam: Negative: Tenderness, Swelling Psych Exam: Positive: Oriented x 3 Assessment /Plan Plan/VTE VTE Prophylaxis Ordered?: Yes Plan Persistent Cough, productive of Hernandez Colored Sputum Likely 2/2 Aspiration Event The above is complicated by Bronchiostenosis, Esophageal Stenosis from Hx of Radiation for Lung Cancer CT Scan of the Chest with no acute changes Pulmonary input appreciated s/p Nasopharyngoscopy with ENT on 05/22--report noted I did discuss the case with the patient's radiation control technician from [place] (Dr. Cardozo)--Please see note from 05/[address] Moore of GI today--we will scheduled the patient tentatively for an EGD on 05/26 for further investigation of dysphagia In the mean time, the patient has been started on TPN here Hx of COPD with Chronic Hypoxia CT of the Chest with no overt source of infection noted Pulm input noted Cont current regimen Stage III B non-small cell lung cancer, diagnosed in 2008. Status post chemotherapy and radiation therapy. Bronchiostenosis, Esophageal Stenosis, Radiation pneumonitis as complication of above Follows with GI in [place], ENT in [facility] for periodic dilatations Immunosuppression due to chronic steroid use and a history of T cell count less than 200. Patient recieves IgG therapy as outpatient Anxiety/Depression, Stable Obstructive sleep apnea. Cont home CPAP settings History of congestive heart failure (CHF) with diastolic dysfunction grade 1. Appears Euvolemic History of cardiac tamponade Status post pericardial window in the past. History or chronic kidney disease. Serum Cr at baseline DVT Prophylaxis Heparin SC Dispo--pending clinical improvement. VS, I&O, 24H, Fishbone Vital Signs/I&O Vital Signs Date Time Temp Pulse Resp B/P (MAP) Pulse Ox O2 Delivery O2 Flow Rate FiO2 05/24/17 15:55 97.5 106 26 135/64 (87) 95 Room Air 05/22/17 12:00 I&O- Last 24 Hours up to 6 AM 05/25/17 06:00 Intake Total 100 ml Output Total 0 ml Balance 100 ml Laboratory Data 24H LABS Laboratory Tests 2 05/24/17 05:52: Anion Gap 9, Glomerular Filtration Rate > 60.0, Blood Urea Nitrogen 8, Creatinine 0.73, Sodium Level 139, Potassium Level 3.7#, Chloride Level 105, Carbon Dioxide Level 25, Calcium Level 8.6 CBC/BMP Laboratory Tests 05/24/17 05:52 Red Blood Count 3.32 L, Mean Corpuscular Volume 98.2 H, Mean Corpuscular Hemoglobin 32.8, Mean Corpuscular Hemoglobin Concent 33.4, Red Cell Distribution Width 14.4, Calcium Level 8.6 Microbiology Microbiology 05/21/17 Respiratory Virus Panel (PCR) (DIANE) - Final, Complete 05/21/17 Gram Stain - Final, Complete 05/21/17 Sputum Culture - Final, Complete Yeast Like Organism PÉREZ FARRELL MD May 24, 2017 17:12
[2017-05-24] MEDS ORDERED: AMINO AC/ELECTROLYTE/DEX/CALC 2,000 ML IV SCH (18:00)
[2017-05-24] MEDS ORDERED: FAT EMULSION IV 20% 500 ML IV SCH (18:00)
[2017-05-24 20:00] VITALS: BP 125/63
[2017-05-24] MEDS: raNITIdine SYRUP 150 MG/10 ML UDC PO SCH (21:00)
[2017-05-24] MEDS: MONTELUKAST 10 MG TAB PO SCH (21:00)
--- NOTE | 2017-05-24 23:32 | CR.PDOC ---
[facility] Consultation Consultation DATE OF CONSULTATION: May 24, 2017 at 14:05 Primary physician/ hospitalist: Dr. Gates Reason for consult: Dysphagia and h/o esophageal stenosis. HPI: 61-year-old female, history of lung cancer status post chemoradiation, leading to esophageal stenosis ( prior h/o EGD few weeks ago at outside [facility] ( was recommended puree diet indefinitely as per patient), history of aspiration pneumonia, CHF ( baseline exercise tolerance less than few 1-2 blocks), was admitted to hospital for aspiration pneumonia and was unable to tolerate oral food intake and GI consulted for further management. Patient reports she was having only puree diet but prior to admission she started to spit out liquid contents and unable to keep any food down. Patient also reported cough, fever, chills and shortness of breath at the time of admission which are now improving on treatment. Pertinent negative GI symptoms: Patient denies diarrhea, abdominal pain, loss of appetite, early satiety or unintentional weight loss, melena or hematochezia. Patient reports regular bowel movements. Review of Systems: GI: as stated above CVS: No chest pain, No palpitations, decreased exercise tolerance. RS: Shortness of breath, and cough BOX FABRICATOR: No dizziness, No motor weakness, No sensory problems Hematology: No bruising, No gum bleeding, Musculoskeletal: No joint pain, ambulating well. Skin: No rash : No hematuria, No burning sensation of the urine ENT: No ear discharge/ pain, No dysphagia. Eyes: No photophobia. Home medications: reviewed. Antithrombotic agents - none Medical h/o: As above. Surgical h/o: None on abdomen. Social h/o: Alcohol denies, smoking denies, IVDA/ drugs denies. Family h/o of GI cancers - None Prior Endoscopies: --- EGD few weeks ago done in [place] report showed motor abnormality in the esophagus. --- Prior colonoscopy- unknown. Prior GI evaluation: None in [facility] Exam: Vitals: reviewed General: Alert and oriented x 3, not in acute distress HEENT: NO pallor, no icterus. Normal oropharynx, NO cervical lymph nodes. Chest: symmetric with bilateral air entry but noted crackles/ ronchi, CVS: S1, S2 heard, normal, no murmurs . Abdomen: non-distended, no surgical scars, soft, non-tender, no palpable masses , normal bowel sounds heard. Rectal exam: Patient refused / Deferred at this time . Extremities: no pedal edema, pulses palpable. BOX FABRICATOR: no focal motor or sensory deficits. Moves all extremities Skin: no rash. Labs: reviewed. Imaging: reviewed Impression: - Dysphagia likely from esophageal dysmotility vs esophageal stenosis needs further assessment. - Patient could not tolerate swallow evaluation due to coughing need to r/o oropharyngeal dysphagia as well ( based on PMD discussion with GI team at [place]). - Aspiration pneumonia and Shortness of breath on minimal exertion needs optimization of the pulmonary status. - Anemia normocytic. No iron deficiency in past labs multifactorial will need elective work up. Recommendations: - Patient educated about the test results, possible differential diagnoses and All questions answered. - NPO for now . - Continue PPI for now. - Follow with swallow evaluation. . - Change oral medications if not tolerated to IV formulations /liquid formulations if possible. - Patient is scheduled for EGD on friday. The procedure, indications, risks ( bleeding, perforation, infection, hypotension, respiratory depression, allergy, need for endotracheal intubation, surgery, colostomy, cardiac arrest, even ), benefits, limitations (e.g., missing a lesion), and all other alternatives ( including no intervention) were explained to the patient who understood and agreed for the procedure. Informed consent obtained. - Depending on EGD findings will plan for esophageal dilation/ prokinetic drugs. - Screening colonoscopy as per protocol electively. Plan of care discussed with patient and primary team. Patient verbalized understanding of the plan of care. Allergies Coded Allergies: Codeine (Verified Adverse Reaction, Mild, VOMITING, 11/21/12) Home Medications Scheduled (Spiriva Respimat) 1.25 Mcg/Act Aer, 2 PUFFS INH DAILY, (Reported) Aripiprazole (Abilify) 2 Mg Tab, 2 MG PO BID, (Reported) Aspirin (Aspirin EC) 81 Mg Tab, 81 MG PO DAILY, (Reported) Bupropion HCl (Bupropion HCl Xl) 300 Mg Tab, 300 MG PO DAILY, (Reported) Esomeprazole Magnesium Trihydr (Nexium) 40 Mg Cap, 40 MG PO DAILY, (Reported) Ferrous Sulfate (Ferrous Sulfate) 325 Mg Tab, 325 MG PO DAILY, (Reported) Fluticasone/Vilanterol (Breo Ellipta 200-25 Mcg/INH) 1 Inh Inh, 1 PUFF INH DAILY , (Reported) Montelukast Sodium (Singulair) 10 Mg Tab, 10 MG PO QHS, (Reported) Potassium Chloride (Potassium Chloride ER) 10 Meq Tab, 10 MEQ PO TID, (Reported) Prednisone (Prednisone) 10 Mg Tab, 10 MG PO DAILY, (Reported) Ranitidine HCl (Ranitidine HCl) 150 Mg/10 Ml Syrp, 20 ML PO QHS, (Reported) Sertraline Hcl (Zoloft) 100 Mg Tab, 100 MG PO BID, (Reported) Torsemide (Torsemide) 100 Mg Tab, 100 MG PO DAILY, (Reported) Tramadol HCl (Tramadol HCl) 50 Mg Tab, 50 MG PO Q4H, (Reported) Trimethoprim/Sulfamethoxazole (Bactrim 400-80 mg) 1 Tab Tab, 1 TAB PO DAILY, ( Reported) Verapamil HCl (Verapamil HCl Sr) 360 Mg Cap, 360 MG PO DAILY, (Reported) Scheduled PRN Albuterol Sulfate (Ventolin Hfa) 200 Puff/8 Gm Aers, 2 PUFF INH QID PRN for SHORTNESS OF BREATH, (Reported) Albuterol/Ipratropium (Ipratropium Deaver/Albut 0.5-2.5 (3) mg/3Ml) 1 Del Del, 1 DEL INH Q4H PRN for SHORTNESS OF BREATH, (Reported) Alprazolam (Alprazolam) 0.25 Mg Tab, 0.25 MG PO QID PRN for ANXIETY, (Reported) Ondansetron HCl (Ondansetron HCl) 4 Mg Tab, 4 MG PO Q6H PRN for NAUSEA, ( Reported) DAVID MARCOS MD May 24, 2017 23:32
[2017-05-25] MEDS: AMPICILLIN SOD/SULBACTAM SOD 1.5 GM in D5W 50 ML IV SCH ×4 (02:33→21:12)
[2017-05-25] MEDS: IPRATROPIUM 0.5MG/ALBUTEROL 2.5MG INH SOL UD 3ML (DUONEB)(J7620) NEB SCH ×6 (03:14→23:52)
[2017-05-25 05:00] VITALS: BP 131/60
[2017-05-25] MEDS: SODIUM CHLORIDE 0.9% INJ 10 ML SYR IV SCH ×4 (05:00→17:49)
[2017-05-25] MEDS: HEPARIN SOD (PORCINE) 5000 UNITS/ML VIAL SQ SCH ×3 (05:01→21:12)
[2017-05-25 05:23] LABS: MEAN CORPUSCULAR HEMOGLOBIN 33.1 pg (27.0-33.0); MEAN CORPUSCULAR HGB CONC 33.6 g/dl (32.0-36.5); MEAN CORPUSCULAR VOLUME 98.5 fl (80.0-96.0); RED CELL DISTRIBUTION WIDTH 14.2 % (11.5-14.5); WHITE BLOOD COUNT 5.6 10^3/uL (4.0-10.0)
[2017-05-25 05:45] LABS: ANION GAP 8 MEQ/L (8-16); BLOOD UREA NITROGEN 11 MG/DL (7-18); CALCIUM LEVEL 8.6 MG/DL (8.5-10.1); CARBON DIOXIDE LEVEL 27 MEQ/L (21-32); CHLORIDE LEVEL 105 MEQ/L (98-107); CREATININE FOR GFR 0.71 MG/DL (0.55-1.02); GLOMERULAR FILTRATION RATE > 60.0 (>51); GLUCOSE, FASTING 124 MG/DL (70-105); POTASSIUM SERUM 3.3 MEQ/L (3.5-5.1); SODIUM LEVEL 140 MEQ/L (136-145)
[2017-05-25 08:05] VITALS: BP 133/69
--- NOTE | 2017-05-25 10:28 | IPNPDOC ---
Subjective Date Seen The patient was seen on 05/25/17. Subjective Chief Complaint/HPI Patient seen and examined at the bedside. States that her productive cough has significantly decreased. Denies any acute complaints at this time. Objective Physical Examination General Exam: Positive: Alert, Cooperative, No Acute Distress ENT Exam: Positive: Atraumatic, Mucous membr. moist/pink Neck Exam: Negative: JVD, thyromegaly Chest Exam: Positive: Diminished Heart Exam: Positive: Tachycardic, Regular Rhythm, Normal S1, Normal S2 Telemetry: Positive: Sinus Abdomen Exam: Positive: Soft, Negative: Tenderness Extremity Exam: Negative: Tenderness, Swelling Psych Exam: Positive: Oriented x 3 Assessment /Plan Plan/VTE VTE Prophylaxis Ordered?: Yes Plan Persistent Cough, productive of Hernandez Colored Sputum Likely 2/2 Aspiration Event The above is complicated by Bronchiostenosis, Esophageal Stenosis from Hx of Radiation for Lung Cancer CT Scan of the Chest with no acute changes Pulmonary input appreciated s/p Nasopharyngoscopy with ENT on 05/22--report noted I did discuss the case with the patient's hearing aide technician from [place] (Dr. Cardozo)--Please see note from 05/[address] Moore of GI 05/24--we will schedule the patient tentatively for an EGD on 05/26 for further investigation of dysphagia In the mean time, the patient has been started on TPN here Hx of COPD with Chronic Hypoxia CT of the Chest with no overt source of infection noted Pulm input noted Cont current regimen Stage III B non-small cell lung cancer, diagnosed in 2008. Status post chemotherapy and radiation therapy. Bronchiostenosis, Esophageal Stenosis, Radiation pneumonitis as complication of above Follows with GI in [place], ENT in [facility] for periodic dilatations Immunosuppression due to chronic steroid use and a history of T cell count less than 200. Patient recieves IgG therapy as outpatient Anxiety/Depression, Stable Obstructive sleep apnea. Cont home CPAP settings History of congestive heart failure (CHF) with diastolic dysfunction grade 1. Appears Euvolemic History of cardiac tamponade Status post pericardial window in the past. History or chronic kidney disease. Serum Cr at baseline DVT Prophylaxis Heparin SC Dispo--pending clinical improvement. VS, I&O, 24H, Fishbone Vital Signs/I&O Vital Signs Date Time Temp Pulse Resp B/P (MAP) Pulse Ox O2 Delivery O2 Flow Rate FiO2 10/8/17 08:05 98.1 109 18 133/69 (90) 97 Room Air 05/22/17 12:00 I&O- Last 24 Hours up to 6 AM 05/26/17 05:59 Intake Total 190 ml Output Total 0 ml Balance 190 ml Laboratory Data 24H LABS Laboratory Tests 2 05/25/17 00:20: Bedside Glucose (Misc Panel) 119H 05/25/17 04:50: Anion Gap 8, Glomerular Filtration Rate > 60.0, Blood Urea Nitrogen 11, Creatinine 0.71, Sodium Level 140, Potassium Level 3.3L, Chloride Level 105, Carbon Dioxide Level 27, Calcium Level 8.6 CBC/BMP Laboratory Tests 05/25/17 04:50 Red Blood Count 3.26 L, Mean Corpuscular Volume 98.5 H, Mean Corpuscular Hemoglobin 33.1 H, Mean Corpuscular Hemoglobin Concent 33.6, Red Cell Distribution Width 14.2, Calcium Level 8.6 Microbiology Microbiology 05/21/17 Respiratory Virus Panel (PCR) (DIANE) - Final, Complete 05/21/17 Gram Stain - Final, Complete 05/21/17 Sputum Culture - Final, Complete Yeast Like Organism PÉREZ FARRELL MD May 25, 2017 10:28
[2017-05-25] MEDS: methylPREDNISolone INJ 125 MG/2 ML VIAL (J2930) IV SCH ×2 (10:44→17:49)
[2017-05-25 12:00] VITALS: BP 122/60
[2017-05-25 16:15] VITALS: BP 142/77
[2017-05-25] MEDS ORDERED: FAT EMULSION IV 20% 500 ML IV SCH (18:00)
[2017-05-25] MEDS ORDERED: POTASSIUM CHLORIDE INJ 66.7 MEQ in AMINO AC/ELECTROLYTE/DEX/CALC 2,000 ML IV SCH (18:00)
[2017-05-25] MEDS: SODIUM CHLORIDE 0.9% INJ 10 ML SYR IV PRN (21:12)
[2017-05-25 22:00] VITALS: BP 133/70
[2017-05-26] MEDS: methylPREDNISolone INJ 125 MG/2 ML VIAL (J2930) IV SCH ×3 (02:02→18:27)
[2017-05-26] MEDS: AMPICILLIN SOD/SULBACTAM SOD 1.5 GM in D5W 50 ML IV SCH ×4 (02:02→20:56)
[2017-05-26] MEDS: IPRATROPIUM 0.5MG/ALBUTEROL 2.5MG INH SOL UD 3ML (DUONEB)(J7620) NEB SCH ×6 (04:00→23:06)
[2017-05-26] MEDS: HEPARIN SOD (PORCINE) 5000 UNITS/ML VIAL SQ SCH ×3 (05:17→20:56)
[2017-05-26] MEDS: SODIUM CHLORIDE 0.9% INJ 10 ML SYR IV SCH ×3 (05:25→18:00)
[2017-05-26 05:50] LABS: MEAN CORPUSCULAR HEMOGLOBIN 32.3 pg (27.0-33.0); MEAN CORPUSCULAR HGB CONC 32.7 g/dl (32.0-36.5); MEAN CORPUSCULAR VOLUME 98.6 fl (80.0-96.0); RED CELL DISTRIBUTION WIDTH 13.9 % (11.5-14.5); WHITE BLOOD COUNT 6.5 10^3/uL (4.0-10.0)
[2017-05-26 06:00] VITALS: BP 155/77
[2017-05-26 06:14] LABS: ANION GAP 9 MEQ/L (8-16); BLOOD UREA NITROGEN 15 MG/DL (7-18); CALCIUM LEVEL 9.7 MG/DL (8.5-10.1); CARBON DIOXIDE LEVEL 24 MEQ/L (21-32); CHLORIDE LEVEL 107 MEQ/L (98-107); CREATININE FOR GFR 0.76 MG/DL (0.55-1.02); GLOMERULAR FILTRATION RATE > 60.0 (>51); GLUCOSE, FASTING 131 MG/DL (70-105); POTASSIUM SERUM 4.2 MEQ/L (3.5-5.1); SODIUM LEVEL 140 MEQ/L (136-145)
--- NOTE | 2017-05-26 12:33 | IPNPDOC ---
Subjective Date Seen The patient was seen on 05/26/17. Subjective Chief Complaint/HPI Patient seen and examined at the bedside. States that she is doing well, is eagerly anticipating her EGD today, as she has been told that she might be able to start a PO diet depending on outcome thereafter. No acute complaints noted. Objective Physical Examination General Exam: Positive: Alert, Cooperative, No Acute Distress ENT Exam: Positive: Atraumatic, Mucous membr. moist/pink Neck Exam: Negative: JVD, thyromegaly Chest Exam: Positive: Diminished Heart Exam: Positive: Tachycardic, Regular Rhythm, Normal S1, Normal S2 Telemetry: Positive: Sinus Abdomen Exam: Positive: Soft, Negative: Tenderness Extremity Exam: Negative: Tenderness, Swelling Psych Exam: Positive: Oriented x 3 Assessment /Plan Plan/VTE VTE Prophylaxis Ordered?: Yes Plan Persistent Cough, productive of Hernandez Colored Sputum Likely 2/2 Aspiration Event The above is complicated by Bronchiostenosis, Esophageal Stenosis from Hx of Radiation for Lung Cancer CT Scan of the Chest with no acute changes Pulmonary input appreciated s/p Nasopharyngoscopy with ENT on 05/22--report noted I did discuss the case with the patient's television maintenance worker from [place] (Dr. Cardozo)--Please see note from 05/[address] Moore of GI 05/24--we will schedule the patient tentatively for an EGD today for further investigation of dysphagia In the mean time, the patient has been started on TPN here Hx of COPD with Chronic Hypoxia CT of the Chest with no overt source of infection noted Pulm input noted Cont current regimen Stage III B non-small cell lung cancer, diagnosed in 2008. Status post chemotherapy and radiation therapy. Bronchiostenosis, Esophageal Stenosis, Radiation pneumonitis as complication of above Follows with GI in [place], ENT in [facility] for periodic dilatations Immunosuppression due to chronic steroid use and a history of T cell count less than 200. Patient recieves IgG therapy as outpatient Anxiety/Depression, Stable Obstructive sleep apnea. Cont home CPAP settings History of congestive heart failure (CHF) with diastolic dysfunction grade 1. Appears Euvolemic History of cardiac tamponade Status post pericardial window in the past. History or chronic kidney disease. Serum Cr at baseline DVT Prophylaxis Heparin SC Dispo--pending clinical improvement. VS, I&O, 24H, Fishbone Vital Signs/I&O Vital Signs Date Time Temp Pulse Resp B/P (MAP) Pulse Ox O2 Delivery O2 Flow Rate FiO2 05/26/17 09:00 Room Air 05/26/17 06:00 96.2 100 20 155/77 (103) 95 05/22/17 12:00 Laboratory Data 24H LABS Laboratory Tests 2 05/25/17 17:40: Bedside Glucose (Misc Panel) 133H 05/25/17 23:37: Bedside Glucose (Misc Panel) 164H 05/26/17 05:24: Anion Gap 9, Glomerular Filtration Rate > 60.0, Blood Urea Nitrogen 15, Creatinine 0.76, Sodium Level 140, Potassium Level 4.2#, Chloride Level 107, Carbon Dioxide Level 24, Calcium Level 9.7 CBC/BMP Laboratory Tests 05/26/17 05:24 Red Blood Count 3.47 L, Mean Corpuscular Volume 98.6 H, Mean Corpuscular Hemoglobin 32.3, Mean Corpuscular Hemoglobin Concent 32.7, Red Cell Distribution Width 13.9, Calcium Level 9.7 Microbiology Microbiology 05/21/17 Respiratory Virus Panel (PCR) (DIANE) - Final, Complete 05/21/17 Gram Stain - Final, Complete 05/21/17 Sputum Culture - Final, Complete Yeast Like Organism PÉREZ FARRELL MD May 26, 2017 12:33
--- NOTE | 2017-05-26 13:51 | ROOR ---
Patient Name: Carmen Ayala Procedure Date: 05/26/2017 12:17 PM Date of : 1955 Age: 61 Gender: Female Note Status: Finalized Procedure: Upper GI endoscopy Indications: Dysphagia Providers: Humphrey Moore MD Referring MD: EVANGELINA DRAKE JR, MD Requesting Provider: Medicines: Monitored Anesthesia Care Complications: No immediate complications. Procedure: Pre-Anesthesia Assessment: - Prior to the procedure, a History and Physical was performed, and patient medications and allergies were reviewed. The patient is competent. The risks and benefits of the procedure and the sedation options and risks were discussed with the patient. All questions were answered and informed consent was obtained. Patient identification and proposed procedure were verified by the physician, the nurse and the institutional asset manager in the procedure room. Mental Status Examination: alert and oriented. Airway Examination: normal oropharyngeal airway and neck mobility. Respiratory Examination: clear to auscultation. CV Examination: normal. Prophylactic Antibiotics: The patient does not require prophylactic antibiotics. Prior Anticoagulants: The patient has taken no previous anticoagulant or antiplatelet agents. ASA Grade Assessment: II - A patient with mild systemic disease. After reviewing the risks and benefits, the patient was deemed in satisfactory condition to undergo the procedure. The anesthesia plan was to use monitored anesthesia care (MAC). Immediately prior to administration of medications, the patient was re-assessed for adequacy to receive sedatives. The heart rate, respiratory rate, oxygen saturations, blood pressure, adequacy of pulmonary ventilation, and response to care were monitored throughout the procedure. The physical status of the patient was re-assessed after the procedure. The Endoscope was introduced through the mouth, and advanced to the second part of duodenum. The upper GI endoscopy was accomplished without difficulty. The patient tolerated the procedure well. 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 LA Grade C (one or more mucosal breaks continuous between tops of 2 or more mucosal folds, less than 75% circumference) esophagitis with no bleeding was found in the lower third of the esophagus. A medium-sized hiatal hernia was present. The Z-line was regular and was found 36 cm from the incisors. The entire examined stomach was normal. The duodenal bulb and second portion of the duodenum were normal. 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 - LA Grade C radiation esophagitis. - Medium-sized hiatal hernia. - Z-line regular, 36 cm from the incisors. - Normal stomach. - Normal duodenal bulb and second portion of the duodenum. - No specimens collected. Recommendation: - [facility]. - Patient has a contact number available for emergencies. The signs and symptoms of potential delayed complications were discussed with the patient. Return to normal activities tomorrow. Written discharge instructions were provided to the patient. - NPO. - Continue present medications. - Refer to a cardiothoracic surgeon for further evaluation.. - Needs CT chest with IV contrast to assess for any residual cancer. - Also needs pulmonary evaluation for possible bronchoscopic evaluation of the katie cancer. - Perform an upper GI endoscopy after above studies are complete for possible esophageal stent placement ( depending on stage and prognosis of lung cancer. - Return to primary care physician. Humphrey Moore MD Humphrey Moore MD 05/26/2017 1:50:52 PM This report has been signed electronically. Number of Addenda: 0 Note Initiated On: 05/26/2017 12:17 PM Estimated Blood Loss: Estimated blood loss was minimal.
[2017-05-26] MEDS ORDERED: fentaNYL 100 MCG/2 ML INJECTION (J3010) IV PRN (14:15)
[2017-05-26] MEDS ORDERED: ONDANSETRON 4MG/2ML VIAL (J2405) IV PRN (14:15)
[2017-05-26] MEDS ORDERED: LR 1,000 ML IV SCH (14:15)
[2017-05-26 14:25] VITALS: BP 138/70
[2017-05-26 15:00] VITALS: BP 161/81
[2017-05-26] MEDS: LR 1,000 ML IV SCH (15:15)
[2017-05-26 16:00] VITALS: BP 144/79
[2017-05-26] MEDS ORDERED: FAT EMULSION IV 20% 500 ML IV SCH (18:00)
[2017-05-26] MEDS ORDERED: AMINO AC/ELECTROLYTE/DEX/CALC 2,000 ML IV SCH (18:00)
[2017-05-26 22:00] VITALS: BP 135/73
[2017-05-27] MEDS: LR 1,000 ML IV SCH ×2 (00:30→09:19)
[2017-05-27] MEDS: methylPREDNISolone INJ 125 MG/2 ML VIAL (J2930) IV SCH ×3 (01:36→18:02)
[2017-05-27] MEDS: AMPICILLIN SOD/SULBACTAM SOD 1.5 GM in D5W 50 ML IV SCH ×3 (02:49→14:15)
[2017-05-27] MEDS: IPRATROPIUM 0.5MG/ALBUTEROL 2.5MG INH SOL UD 3ML (DUONEB)(J7620) NEB SCH ×4 (04:00→15:28)
[2017-05-27] MEDS: SODIUM CHLORIDE 0.9% INJ 10 ML SYR IV SCH ×2 (05:40→17:55)
[2017-05-27] MEDS: HEPARIN SOD (PORCINE) 5000 UNITS/ML VIAL SQ SCH ×2 (05:41→14:16)
[2017-05-27 06:00] VITALS: BP 141/67
[2017-05-27 06:04] LABS: MEAN CORPUSCULAR HEMOGLOBIN 32.4 pg (27.0-33.0); MEAN CORPUSCULAR HGB CONC 32.6 g/dl (32.0-36.5); MEAN CORPUSCULAR VOLUME 99.4 fl (80.0-96.0); WHITE BLOOD COUNT 8.4 10^3/uL (4.0-10.0)
[2017-05-27 06:25] LABS: ANION GAP 9 MEQ/L (8-16); BLOOD UREA NITROGEN 21 MG/DL (7-18); CALCIUM LEVEL 9.1 MG/DL (8.5-10.1); CARBON DIOXIDE LEVEL 25 MEQ/L (21-32); CHLORIDE LEVEL 109 MEQ/L (98-107); CREATININE FOR GFR 0.79 MG/DL (0.55-1.02); GLOMERULAR FILTRATION RATE > 60.0 (>51); GLUCOSE, FASTING 129 MG/DL (70-105); POTASSIUM SERUM 4.1 MEQ/L (3.5-5.1); SODIUM LEVEL 143 MEQ/L (136-145)
[2017-05-27] MEDS ORDERED: METH125VL IV (10:18)
[2017-05-27] MEDS ORDERED: SLF IV ×2 (10:18)
[2017-05-27] MEDS ORDERED: IPRASOL4 NEB ×2 (10:18)
[2017-05-27] MEDS ORDERED: HEPA100SYR IV ×2 (10:18)
[2017-05-27] MEDS ORDERED: HEPA50VL SQ (10:18)
[2017-05-27] MEDS ORDERED: [UNRECOGNIZED DRUG - CODE] IV (10:52)
--- NOTE | 2017-05-27 10:52 | DS.PDOC ---
Discharge Summary General Date of Admission May 21, 2017 at 04:55 Date of Discharge 05/27/2017 Primary Care Physician: Bhavani Hays MD Attending Physician: ANGELI CISNEROS DO Specialist/Consultants Involve: DAVID MARCOS MD Specialist/Consultants Involve Dr. Sotelo (Pulmonolgy) Discharge Summary PROCEDURES PERFORMED DURING STAY: EGD with findings: 10 mm Fistula in the middle third of the esophagus. - LA Grade C radiation esophagitis. - Medium-sized hiatal hernia. - Z-line regular, 36 cm from the incisors. - Normal stomach. - Normal duodenal bulb and second portion of the duodenum. - No specimens collected. Compilations none ADMITTING DIAGNOSES / DISCHARGE DIAGNOSES:: 1. New TE fistula: transfer to [facility] 2. Aspiration pneumonia 3. Hypokalemia. Resolved 4. Acute kidney injury: improved 6. CHF: compensated 7. Hypertension: stable 8. prior history of Lung CA ( Stage III B non-small cell) s/p chemo/radiation 9. 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 Schizophrenia on abilify 11. Anxiety: stable COMPLICATIONS/CHIEF COMPLAINT: Aspiration Pneumonia. HOSPITAL COURSE: 61-year-old female with history of lung cancer status post chemoradiation therapy with esophageal stricture disease requiring recurrent dilatation. She's recently had esophageal dilatation and [facility]. Presented to the emergency department with increasing shortness of breath what appeared to be aspiration pneumonia. She's been seen in-house by gastroenterology and pulmonology. Had an EGD performed which shows a [address] Sotelo was kind enough to discuss the case with pulmonology at [facility], where the patient is already established. Dr. Lovett has agreed to accept the patient on transfer. She remains nothing by mouth with IV fluids and TPN. Other current medications are listed below including Unasyn IV for antibiotic coverage.. DISCHARGE MEDICATIONS: Please see below. ALLERGIES: Please see below. PHYSICAL EXAMINATION ON DISCHARGE: VITAL SIGNS: Please see below. GENERAL: Acute distress, alert, oriented HEENT: Unremarkable NECK: Unremarkable CARDIOVASCULAR EXAMINATION: Regular rate and rhythm RESPIRATORY EXAMINATION: Bibasilar breath sounds, occasional wheeze, clears with cough ABDOMINAL EXAMINATION: Soft, nontender, nondistended, positive bowel sounds EXTREMITIES: No edema, no calf tenderness SKIN: Unremarkable NEUROLOGICAL EXAMINATION: Cranial nerves II through XII grossly intact. No acute deficits PSYCHIATRIC EXAMINATION: Stable LABORATORY DATA: Please see below. PROGNOSIS: Stable ACTIVITY: As tolerated. DIET: Nothing by mouth. DISCHARGE PLAN: Patient has been accepted on transfer by Dr. Lovett at [facility]. Transportation is currently being arranged. DISPOSITION: Transferred [facility]. DISCHARGE INSTRUCTIONS: Transferred [facility] DISCHARGE CONDITION: Stable. TIME SPENT ON DISCHARGE: Greater than 35 minutes. Vital Signs/I&Os Vital Signs Date Time Temp Pulse Resp B/P (MAP) Pulse Ox O2 Delivery O2 Flow Rate FiO2 05/27/17 06:00 97.2 89 20 141/67 (91) 91 Room Air 05/22/17 12:00 I&O- Last 24 Hours up to 6 AM 05/28/17 06:00 Intake Total 1240 ml Balance 1240 ml Laboratory Data Labs 24H Laboratory Tests 2 05/26/17 12:27: Bedside Glucose (Misc Panel) 125H 05/26/17 23:44: Bedside Glucose (Misc Panel) 143H 05/27/17 05:29: Bedside Glucose (Misc Panel) 143H 05/27/17 05:49: Anion Gap 9, Glomerular Filtration Rate > 60.0, Blood Urea Nitrogen 21H, Creatinine 0.79, Sodium Level 143, Potassium Level 4.1, Chloride Level 109H, Carbon Dioxide Level 25, Calcium Level 9.1 CBC/BMP Laboratory Tests 05/27/17 05:49 Red Blood Count 3.18 L, Mean Corpuscular Volume 99.4 H, Mean Corpuscular Hemoglobin 32.4, Mean Corpuscular Hemoglobin Concent 32.6, Red Cell Distribution Width 14.0, Calcium Level 9.1 FSBS Laboratory Tests Test 05/26/17 12:27 05/26/17 23:44 05/27/17 05:29 Range/Units Bedside Glucose (Misc Panel) 125 143 143 70-105 MG/DL Microbiology Microbiology 05/21/17 Respiratory Virus Panel (PCR) (DIANE) - Final, Complete 05/21/17 Gram Stain - Final, Complete 05/21/17 Sputum Culture - Final, Complete Yeast Like Organism Discharge Medications Scheduled (Unasyn 1.5 (1-0.5) gm) 1 Inj Inj, 1.5 INJ IV Q6H Albuterol/Ipratropium (Ipratropium [place]/Albut 0.5-2.5 (3) mg/3Ml) 1 Kristin Kristin, 3 ML NEB RQ4H Heparin Sod (Porcine) (Heparin Sodium) 5,000 Unit/Ml Inj, 5,000 UNITS SQ Q8H Heparin Sodium (Porcine) (Heparin Lock Flush/NaCl F) 100 Unit/Ml Inj, 200 UNITS IV PICC Methylprednisolone (Solu-Medrol) 125 Mg/2 Ml Inj, 80 MG IV Q8H Sodium Chloride (Sodium Chloride) 10 Ml Soln, 0 ML IV PICC Scheduled PRN Albuterol/Ipratropium (Ipratropium [place]/Albut 0.5-2.5 (3) mg/3Ml) 1 Kristin Kristin, 3 ML NEB Q2HP PRN for SOB/WHEEZING Heparin Sodium (Porcine) (Heparin Lock Flush/NaCl F) 100 Unit/Ml Inj, 200 UNITS IV ASDIRECTED PRN for SEE LABEL COMMENTS Sodium Chloride (Sodium Chloride) 10 Ml Soln, 0 ML IV ASDIRECTED PRN for SEE LABEL COMMENTS Allergies Coded Allergies: Codeine (Verified Adverse Reaction, Mild, VOMITING, 11/21/12) ANGELI CISNEROS DO May 27, 2017 10:52
[2017-05-27 14:00] VITALS: BP 171/78
--- NOTE | 2017-05-27 21:10 | IPNPDOC ---
Date Seen The patient was seen on 05/26/17.. Progress Note Interval history: Patient underwent EGD yesterday and she tolerated procedure well. ( detailed EGD findings - below). 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 -- LA Grade C radiation esophagitis noted. -- Medium sized hiatal hernia noted. Z line regular at 36 cm. -- Then entire examined stomach and duodenum were normal. Patient and her family ( at the request of Patient) were educated in detail about the procedure findings and management options from GI perspective for feeding. As patient was noted with tracheo- esophageal fistula - discussed the findings with hospitalist and also the pulmonary physician - Dr. Sotelo. As per discussion, will review the findings with CT surgery and patients primary oncologist and plan for further treatment. Also reviewed the option of PEG tube placement for nutritional support for the patient. Exaplained about the procedure to patient. Today, it was decided by the primary team as well as the pulmonary team here, after reviewing with patient and Pulmonary team at [facility] , to transfer patient to [place] for further management. I spoke with Dr. Sotelo and confirmed the same. So GI team will sign off. Please recall GI if any further concerns. DAVID MARCOS MD May 27, 2017 21:08
== END 2017-05-27 18:24 | disposition home or self-care (01) | DRG 137 ==
LOC: M ED 23:05 → M ED INP 05-21 04:55 → M PCU 05-21 15:00 → M MSPAV 05-25 15:35
PROVIDERS: ADMIT Internal Medicine; ATTEND Hospitalist
PROC: 02HV33Z Insertion of Infusion Device into Superior Vena Cava, Percutaneous Approach (ICD-10-PCS; 2017-05-22)
PROC: 0DJ08ZZ Inspection of Upper Intestinal Tract, Via Natural or Artificial Opening Endoscopic (ICD-10-PCS; principal; 2017-05-26)
DX: J69.0 Pneumonitis due to inhalation of food and vomit (principal); J86.0 Pyothorax with fistula; N17.9 Acute kidney failure, unspecified; I13.0 Hypertensive heart and chronic kidney disease with heart failure and stage 1 through stage 4 chronic kidney disease, or unspecified chronic kidney disease; K92.2 Gastrointestinal hemorrhage, unspecified; E87.6 Hypokalemia; F41.9 Anxiety disorder, unspecified; F20.9 Schizophrenia, unspecified; Z85.118 Personal history of other malignant neoplasm of bronchus and lung; Z92.3 Personal history of irradiation; K20.8 Other esophagitis; K44.9 Diaphragmatic hernia without obstruction or gangrene; Z79.899 Other long term (current) drug therapy; Z79.82 Long term (current) use of aspirin; Z88.5 Allergy status to narcotic agent; K22.8 Other specified diseases of esophagus; J44.9 Chronic obstructive pulmonary disease, unspecified; G47.33 Obstructive sleep apnea (adult) (pediatric); Z79.52 Long term (current) use of systemic steroids; K21.9 Gastro-esophageal reflux disease without esophagitis; N18.9 Chronic kidney disease, unspecified; Z87.891 Personal history of nicotine dependence

== ENCOUNTER → 2017-05-21 | Outpatient (CLI) | payer OTHER ==
[~2017-05-21] MED LIST changes: +BUPR50TA PO; +ESOM1CAP5 PO; +FAMO40SU4 PO; +GG/CODEINE; +HEPA100SYR IV; +HEPA50VL SQ; +LIDO1SOL7 PO; +LIDOCAINE 2% INJ 100 MG/5 ML SDV (FOR ANES.) As Ordered ONE; +METH125VL IV; +OMEP40CA2 PO; +ONDA4TAB5 PO; +POTA20EL PO; +PROPOFOL 200 MG/20 ML VIAL As Ordered ONE; +RANITIDINE PO; +SLF IV; +TRAM50TA2 PO; +ZOFR4TAB3 PO; +[UNRECOGNIZED DRUG - CODE] IV; +dexameTHASONE 4 MG/ML 1ML VIAL (J1100) As Ordered ONE
[2017-05-26 14:10] VITALS: BP_DIAS 3
== END ==
LOC: M INFU 11:00
PROVIDERS: ATTEND Internal Medicine Infectious Disease
DX: D80.1 Nonfamilial hypogammaglobulinemia (principal); Z53.8 Procedure and treatment not carried out for other reasons

== ENCOUNTER 2017-06-10 12:48 | Emergency (ER) | payer OTHER ==
[~2017-06-10] VITALS: Ht 160 cm; Wt 80.9 kg
[~2017-06-10 12:48] MED LIST changes: -BUPR50TA PO; -ESOM1CAP5 PO; -FAMO40SU4 PO; -GG/CODEINE; -LIDO1SOL7 PO; -LIDOCAINE 2% INJ 100 MG/5 ML SDV (FOR ANES.) As Ordered ONE; -OMEP40CA2 PO; -POTA20EL PO; -PROPOFOL 200 MG/20 ML VIAL As Ordered ONE; -RANITIDINE PO; -ZOFR4TAB3 PO; -dexameTHASONE 4 MG/ML 1ML VIAL (J1100) As Ordered ONE
[2017-06-10] MEDS ORDERED: LISI10TA4 PO (13:03)
[2017-06-10] MEDS ORDERED: FAMO40SU4 PO (13:03)
[2017-06-10] MEDS ORDERED: ALPR0.25 PO (13:04)
[2017-06-10] MEDS ORDERED: ESOM1CAP5 PO (13:04)
[2017-06-10] MEDS ORDERED: SERT-138 PO (13:04)
[2017-06-10] MEDS ORDERED: RANITIDINE PO (13:04)
[2017-06-10] MEDS ORDERED: POTA20EL PO (13:04)
[2017-06-10] MEDS ORDERED: BUPR50TA PO (13:04)
[2017-06-10] MEDS ORDERED: LIDOCAINE VISCOUS 2% SOLN 15ML UDC PO ONE ×2 (15:15→18:45)
[2017-06-10] MEDS ORDERED: D5W/0.45% SODIUM CHLORIDE 1,000 ML IV SCH (15:15)
[2017-06-10] MEDS ORDERED: MORPHINE 2 MG/ML 1ML SYRINGE IV ONE ×2 (15:15→18:00)
[2017-06-10] MEDS ORDERED: NS 1,000 ML IV ONE (15:15)
[2017-06-10 15:32] LABS: BASO % 0.2 % (0.0-1.0); EOS % 0.3 % (0.0-3.0); IMMATURE GRANULOCYTE % 0.5 % (0-0); LYMPH # 0.3 10^3/uL (1.5-4.5); LYMPH % 2.4 % (24.0-44.0); MEAN CORPUSCULAR HEMOGLOBIN 32.1 pg (27.0-33.0); MEAN CORPUSCULAR HGB CONC 32.9 g/dl (32.0-36.5); MEAN CORPUSCULAR VOLUME 97.4 fl (80.0-96.0); MONO # 0.4 10^3/uL (0.0-0.8); MONO % 3.3 % (0.0-5.0); NEUTROPHILS # 12.2 10^3/uL (1.8-7.7); NEUTROPHILS % 93.3 % (36.0-66.0); PLATELET COUNT, AUTOMATED 326 10^3/uL (150-450); RED CELL DISTRIBUTION WIDTH 13.7 % (11.5-14.5); WHITE BLOOD COUNT 13.1 10^3/uL (4.0-10.0)
[2017-06-10] MEDS ORDERED: ISOVUE-370 76% 100ML VIAL (Q9967) As Ordered ONE (15:40)
[2017-06-10 15:50] LABS: ALBUMIN 3.4 GM/DL (3.2-5.2); ALBUMIN/GLOBULIN RATIO 0.94 (1.00-1.93); BILIRUBIN,TOTAL 0.5 MG/DL (0.2-1.0); CALCIUM LEVEL 9.3 MG/DL (8.5-10.1); CREATININE FOR GFR 1.65 MG/DL (0.55-1.02); GLOMERULAR FILTRATION RATE 33.9 (>51)
[2017-06-10 15:52] LABS: POTASSIUM SERUM 5.5 MEQ/L (3.5-5.1)
--- NOTE | 2017-06-10 16:59 | REP ---
CT study of a neck soft tissues and chest with IV contrast: History: History of tracheoesophageal fistula with increased pain. Recent stenting. Comparison chest CT study May 21, 2017. CT contrast dose: 75 ml of intravenous Isovue 370. CT findings: There is no evidence of neck mass or abscess. Tortuous internal carotid arteries are seen. Bilateral carotid vascular calcification is noted. There is a low-density lesion in the lower pole of the left lobe of the thyroid measuring 16 mm in diameter. This is unchanged. No evidence of soft tissue abscess is seen in the neck. On the chest portion of the study, a thoracic esophageal stent is noted in place from just below the thoracic inlet to just above the gastroesophageal junction. At the level of the left mainstem bronchus, there is a focal defect in the posterior wall of the left mainstem bronchus which allows they are to extend adjacent to the outer margin of the stent. 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 There is no evidence of mediastinal mass or abscess. There is a perihilar pulmonary fibrosis pattern consistent with postradiation change. This is similar, essentially unchanged to the May 21, 2017 study. No new parenchymal infiltrate is seen. There are small bilateral pleural effusions right larger than left. The right pleural fluid collection has increased somewhat in size since the May 21, 2017 study. In addition, today's study demonstrates a moderate-sized pericardial effusion. This has increased in size from the prior study although it is not new finding. There is no evidence of pulmonary embolism. No evidence of aortic dissection is seen. Impression: 1. Increase in the size of right pleural and pericardial effusions in the interval since the May 21, 2017 study. 2. Esophageal stent in place. 3. Defect in the posterior wall of the left mainstem bronchus adjacent to the stent consistent with the site of the bronchoesophageal fistula. No mediastinal hematoma or abscess seen. 4. Stable lower pole left thyroid low density lesion. 5. Stable perihilar fibrotic changes in the lung parenchyma bilaterally consistent with postradiation change. Signed by Moy Chaudhry MD 06/10/2017 05:48 P
[2017-06-10] MEDS ORDERED: LIDO1SOL7 PO (19:22)
[2017-06-10 19:56] VITALS: BP 133/73
--- NOTE | 2017-06-11 12:12 | ED PDOC ---
Post-Departure Follow-Up dr archuleta faxed formal report of ct neck w contrast for fu Wanda Harden MD Jun 11, 2017 12:12
== END 2017-06-10 20:02 | disposition home or self-care (01) ==
LOC: M ED 12:48
DX: J86.0 Pyothorax with fistula (principal); K22.4 Dyskinesia of esophagus; R10.13 Epigastric pain; I50.9 Heart failure, unspecified; I10 Essential (primary) hypertension; E78.00 Pure hypercholesterolemia, unspecified; G47.33 Obstructive sleep apnea (adult) (pediatric); Z85.118 Personal history of other malignant neoplasm of bronchus and lung; Z87.891 Personal history of nicotine dependence; I31.3 Pericardial effusion (noninflammatory); Z96.89 Presence of other specified functional implants; Z79.899 Other long term (current) drug therapy; Z88.5 Allergy status to narcotic agent
CPT/HCPCS: 70491; 71260; 80053; 85025; 96374; 96375; 96376; 99284; Q9967

== ENCOUNTER 2017-06-30 08:39 | Outpatient (CLI) | payer OTHER ==
[~2017-06-30] VITALS: Ht 165.1 cm; Wt 92.3 kg
[~2017-06-30 08:39] MED LIST changes: +BUPR50TA PO; +ESOM1CAP5 PO; +FAMO40SU4 PO; +LIDO1SOL7 PO; +POTA20EL PO; +RANITIDINE PO
[2017-06-30] MEDS ORDERED: IMMUNE GLOBULIN 10% 5GM 5 GM in APPROPRIATE DILUENT 1 EA IV ONE (08:45)
[2017-06-30] MEDS ORDERED: IMMUNE GLOBULIN 10% 20GM 200ML 20 GM in APPROPRIATE DILUENT 1 EA IV ONE (08:45)
[2017-06-30] MEDS ORDERED: diphenhydrAMINE 50 MG CAP PO ONE (09:00)
[2017-06-30] MEDS ORDERED: ACETAMINOPHEN TAB 650MG DOSE (2X325MG) PO ONE (09:00)
[2017-06-30] MEDS ORDERED: OMEP40CA2 PO (17:32)
== END 2017-06-30 12:20 | disposition home or self-care (01) ==
LOC: M INFU 08:39
PROVIDERS: ATTEND Internal Medicine Infectious Disease
DX: D80.1 Nonfamilial hypogammaglobulinemia (principal); Z85.118 Personal history of other malignant neoplasm of bronchus and lung; Z87.891 Personal history of nicotine dependence; Z88.2 Allergy status to sulfonamides; Z88.5 Allergy status to narcotic agent; Z79.52 Long term (current) use of systemic steroids; Z79.899 Other long term (current) drug therapy
CPT/HCPCS: 96365; 96366; J1569

== ENCOUNTER 2017-07-07 09:13 | Emergency (ER) | payer OTHER ==
[~2017-07-07] VITALS: Ht 162.6 cm; Wt 76.4 kg
[~2017-07-07 09:13] MED LIST changes: +OMEP40CA2 PO
[2017-07-07] MEDS ORDERED: GG/CODEINE (09:24)
[2017-07-07] MEDS ORDERED: NS 1,000 ML IV ONE (12:15)
[2017-07-07] MEDS ORDERED: ONDANSETRON 4MG/2ML VIAL (J2405) IV ONE ×2 (12:15→13:45)
[2017-07-07 12:23] LABS: BASO % 0.1 % (0.0-1.0); EOS # 0.1 10^3/uL (0.0-0.50); EOS % 0.8 % (0.0-3.0); IMMATURE GRANULOCYTE % 0.3 % (0-0); LYMPH # 0.6 10^3/uL (1.5-4.5); LYMPH % 7.3 % (24.0-44.0); MEAN CORPUSCULAR HEMOGLOBIN 29.7 pg (27.0-33.0); MEAN CORPUSCULAR HGB CONC 31.8 g/dl (32.0-36.5); MEAN CORPUSCULAR VOLUME 93.5 fl (80.0-96.0); MONO # 0.4 10^3/uL (0.0-0.8); MONO % 4.9 % (0.0-5.0); NEUTROPHILS # 6.7 10^3/uL (1.8-7.7); NEUTROPHILS % 86.6 % (36.0-66.0); PLATELET COUNT, AUTOMATED 305 10^3/uL (150-450); RED CELL DISTRIBUTION WIDTH 14.1 % (11.5-14.5); WHITE BLOOD COUNT 7.8 10^3/uL (4.0-10.0)
[2017-07-07 12:42] LABS: ALBUMIN 3.1 GM/DL (3.2-5.2); ALBUMIN/GLOBULIN RATIO 0.74 (1.00-1.93); ALKALINE PHOSPHATASE 77 U/L (45-117); ALT/SGPT 16 U/L (12-78); AMYLASE 69 U/L (25-115); ANION GAP 7 MEQ/L (8-16); AST/SGOT 12 U/L (7-37); BILIRUBIN,DIRECT 0.1 MG/DL (0.0-0.2); BILIRUBIN,TOTAL 0.3 MG/DL (0.2-1.0); BLOOD UREA NITROGEN 9 MG/DL (7-18); CARBON DIOXIDE LEVEL 28 MEQ/L (21-32); CHLORIDE LEVEL 105 MEQ/L (98-107); CREATININE FOR GFR 0.93 MG/DL (0.55-1.02); GLOMERULAR FILTRATION RATE > 60.0 (>51); GLUCOSE, FASTING 89 MG/DL (70-105); POTASSIUM SERUM 3.9 MEQ/L (3.5-5.1); SODIUM LEVEL 140 MEQ/L (136-145); TOTAL PROTEIN 7.3 GM/DL (6.4-8.2)
[2017-07-07 13:03] LABS: INR 0.98
--- NOTE | 2017-07-07 13:24 | REP ---
Clinical: Abdominal pain. Technique: Upright view of the chest with supine and upright views of the abdomen and pelvis. Findings: Lung cabrera demonstrate stable presumed postradiation and postsurgical fibrotic changes primarily involving the brenda, right base and medial lung cabrera. No free air below the diaphragm to suspect pneumoperitoneum. Esophageal stent identified. No free air below the diaphragm to suspect pneumoperitoneum. Supine and upright views of the abdomen and pelvis demonstrate a gastrostomy tube in the left upper quadrant. The bowel gas pattern is nonspecific. No organomegaly. No abnormal calcifications. Skeletal structures stable. Impression: Postsurgical and postradiation type changes primarily involving the chest and mediastinum. Gastrostomy tube in satisfactory position. Nonspecific bowel gas pattern. Signed by Oh Torres MD 07/07/2017 01:15 P
[2017-07-07] MEDS ORDERED: ZOFR4TAB3 PO (14:33)
[2017-07-07 14:45] VITALS: BP 119/85
== END 2017-07-07 14:46 | disposition home or self-care (01) ==
LOC: M ED 09:13
DX: K52.9 Noninfective gastroenteritis and colitis, unspecified (principal); Z87.891 Personal history of nicotine dependence
CPT/HCPCS: 74022; 80048; 80076; 81001; 82150; 83690; 85025; 85610; 96374; 96375; 99284; J2405

== ENCOUNTER 2017-07-28 08:33 | Outpatient (CLI) | payer OTHER ==
[~2017-07-28] VITALS: Ht 165.1 cm; Wt 92.3 kg
[~2017-07-28 08:33] MED LIST changes: +GG/CODEINE; +ZOFR4TAB3 PO
[2017-07-28] MEDS ORDERED: IMMUNE GLOBULIN 10% 20GM 200ML 20 GM in APPROPRIATE DILUENT 1 EA IV ONE (09:00)
[2017-07-28] MEDS ORDERED: diphenhydrAMINE 50 MG CAP PO ONE (09:00)
[2017-07-28] MEDS ORDERED: ACETAMINOPHEN TAB 650MG DOSE (2X325MG) PO ONE (09:00)
[2017-07-28] MEDS ORDERED: IMMUNE GLOBULIN 10% 5GM 5 GM in APPROPRIATE DILUENT 1 EA IV ONE (09:00)
[2017-07-28 11:13] LABS: IMMUNOGLOBULIN M 92.7 MG/DL (40-230)
[2017-07-29 14:14] LABS: Eosinophils 2 % (Not Estab.); HCT 32.6 % (34.0-46.6); HGB 10.2 g/dL (11.1-15.9); Monocytes 6 % (Not Estab.); Neutrophils 84 % (Not Estab.); WBC 5.3 x10E3/uL (3.4-10.8)
== END 2017-07-28 12:00 | disposition home or self-care (01) ==
LOC: M INFU 08:33
PROVIDERS: ATTEND Internal Medicine Infectious Disease
DX: D80.1 Nonfamilial hypogammaglobulinemia (principal); Z85.118 Personal history of other malignant neoplasm of bronchus and lung; Z87.891 Personal history of nicotine dependence; Z93.1 Gastrostomy status; Z88.2 Allergy status to sulfonamides; Z88.5 Allergy status to narcotic agent; Z79.82 Long term (current) use of aspirin; Z79.52 Long term (current) use of systemic steroids; Z79.899 Other long term (current) drug therapy
CPT/HCPCS: 36415; 82784; 86360; 96365; 96366; J1569

== ENCOUNTER → 2017-09-08 | Outpatient (CLI) | payer OTHER ==
[2017-09-08 08:32] LABS: BASO % 0.3 % (0.0-1.0); EOS # 0.1 10^3/uL (0.0-0.50); EOS % 1.4 % (0.0-3.0); HEMATOCRIT 35.2 % (36.0-47.0); HEMOGLOBIN 10.9 g/dl (12.0-16.0); IMMATURE GRANULOCYTE # 0.1 10^3/uL (0-0); IMMATURE GRANULOCYTE % 0.8 % (0-0); LYMPH # 0.6 10^3/uL (1.5-4.5); LYMPH % 8.9 % (24.0-44.0); MEAN CORPUSCULAR HEMOGLOBIN 26.7 pg (27.0-33.0); MEAN CORPUSCULAR VOLUME 86.1 fl (80.0-96.0); MONO # 0.5 10^3/uL (0.0-0.8); MONO % 7.2 % (0.0-5.0); NEUTROPHILS # 5.3 10^3/uL (1.8-7.7); NEUTROPHILS % 81.4 % (36.0-66.0); PLATELET COUNT, AUTOMATED 302 10^3/uL (150-450); RED BLOOD COUNT 4.09 10^6/uL (4.00-5.40); RED CELL DISTRIBUTION WIDTH 15.2 % (11.5-14.5); WHITE BLOOD COUNT 6.5 10^3/uL (4.0-10.0)
[2017-09-08 09:06] LABS: BLOOD UREA NITROGEN 5 MG/DL (7-18)
[2017-09-08 09:06] LABS: CREATININE FOR GFR 0.71 MG/DL (0.55-1.02); FERRITIN 118 NG/ML (8-252); GLOMERULAR FILTRATION RATE > 60.0 (>45); IRON (FE) 30 UG/DL (50-170); PERCENT SATURATION 12.2 % (13.2-45.0); TOTAL IRON BINDING CAPACITY 246 UG/DL (250-450)
[2017-09-08 11:10] LABS: FOLATE 4.8 NG/ML
[2017-09-08 11:15] LABS: VITAMIN B12 LEVEL 249 PG/ML
== END ==
LOC: M LAB 07:38
DX: K20.8 Other esophagitis (principal)
CPT/HCPCS: 82565

== ENCOUNTER → 2017-09-10 | Outpatient (CLI) | payer OTHER | LOC: M PLARAD 10:45 | DX: C34.90 Malignant neoplasm of unspecified part of unspecified bronchus or lung (principal) | CPT/HCPCS: 78815 ==

== ENCOUNTER 2017-09-18 06:15 | Day surgery (SDC) | payer OTHER ==
[2017-09-18] MEDS: LR 1,000 ML IV (06:48)
[2017-09-18] MEDS ORDERED: fentaNYL 100 MCG/2 ML INJECTION (J3010) As Ordered (07:05)
[2017-09-18] MEDS ORDERED: MIDAZOLAM INJ 2 MG/2 ML VIAL (J2250) As Ordered (07:05)
[2017-09-18] MEDS ORDERED: LEVALBUTEROL 1.25 MG/0.5 ML CONCENTRATE NEB As Ordered (07:15)
[2017-09-18] MEDS ORDERED: LEVALBUTEROL 1.25 MG/0.5 ML CONCENTRATE NEB INH (07:30)
[2017-09-18] MEDS ORDERED: PROPOFOL 200 MG/20 ML VIAL As Ordered (08:12)
[2017-09-18] MEDS ORDERED: LIDOCAINE 2% INJ 100 MG/5 ML SDV (FOR ANES.) As Ordered (08:12)
[2017-09-18] MEDS ORDERED: ONDANSETRON 4MG/2ML VIAL (J2405) As Ordered (08:19)
== END 2017-09-18 09:45 | disposition home or self-care (01) ==
LOC: M SDC 06:15
DX: R11.10 Vomiting, unspecified (principal); Z97.8 Presence of other specified devices; K20.8 Other esophagitis; Z93.1 Gastrostomy status; I10 Essential (primary) hypertension; K21.9 Gastro-esophageal reflux disease without esophagitis; D64.9 Anemia, unspecified; Z92.21 Personal history of antineoplastic chemotherapy; Z92.3 Personal history of irradiation; J44.9 Chronic obstructive pulmonary disease, unspecified; G47.30 Sleep apnea, unspecified; Z79.899 Other long term (current) drug therapy; Z79.51 Long term (current) use of inhaled steroids
CPT/HCPCS: 43235

== ENCOUNTER 2017-09-22 08:40 | Outpatient (CLI) | payer OTHER ==
[2017-09-22] MEDS: ACETAMINOPHEN TAB 650MG DOSE (2X325MG) PO (09:20)
[2017-09-22] MEDS: diphenhydrAMINE 50 MG CAP PO (09:20)
[2017-09-22] MEDS: IMMUNE GLOBULIN 10% 5GM 5 GM in APPROPRIATE DILUENT 1 EA IV (09:22)
[2017-09-22] MEDS: IMMUNE GLOBULIN 10% 20GM 200ML 20 GM in APPROPRIATE DILUENT 1 EA IV (09:26)
== END 2017-09-22 12:30 | disposition home or self-care (01) ==
LOC: M INFU 08:40
DX: D80.1 Nonfamilial hypogammaglobulinemia (principal); Z79.82 Long term (current) use of aspirin; Z79.899 Other long term (current) drug therapy; Z88.2 Allergy status to sulfonamides; Z88.5 Allergy status to narcotic agent
CPT/HCPCS: J1569

== ENCOUNTER 2017-10-14 16:37 | Inpatient (IN) | payer OTHER ==
[2017-10-14 17:19] LABS: BASO % 0.3 % (0.0-1.0); EOS # 0.1 10^3/uL (0.0-0.50); EOS % 1.4 % (0.0-3.0); HEMATOCRIT 37.2 % (36.0-47.0); HEMOGLOBIN 11.8 g/dl (12.0-16.0); IMMATURE GRANULOCYTE % 0.6 % (0-3.0); LYMPH # 0.8 10^3/uL (1.5-4.5); LYMPH % 9.5 % (24.0-44.0); MEAN CORPUSCULAR HEMOGLOBIN 26.8 pg (27.0-33.0); MEAN CORPUSCULAR HGB CONC 31.7 g/dl (32.0-36.5); MEAN CORPUSCULAR VOLUME 84.5 fl (80.0-96.0); MONO # 0.6 10^3/uL (0.0-0.8); MONO % 6.8 % (0.0-5.0); NEUTROPHILS % 81.4 % (36.0-66.0); PLATELET COUNT, AUTOMATED 304 10^3/uL (150-450); RED CELL DISTRIBUTION WIDTH 16.2 % (11.5-14.5); WHITE BLOOD COUNT 8.6 10^3/uL (4.0-10.0)
[2017-10-14] MEDS: methylPREDNISolone INJ 125 MG/2 ML VIAL (J2930) IV (17:19)
[2017-10-14] MEDS: IPRATROPIUM 0.5MG/ALBUTEROL 2.5MG INH SOL UD 3ML (DUONEB)(J7620) NEB ×3 (17:28→17:50)
[2017-10-14 17:29] LABS: ABG pH (ARTERIAL) 7.501 UNITS (7.350-7.450)
[2017-10-14 17:30] LABS: ABG BASE EXCESS 1.8 (-2.0-2.0); ABG HCO3 24.5 MEQ/L (22.0-26.0); ABG O2 SATURATION 94.8 % (95.0-99.0); ABG PARTIAL PRESSURE O2 71.2 mmHg (75.0-100.0); ABG TOTAL CO2 25.4 MEQ/L (23.0-31.0)
[2017-10-14 17:32] LABS: ANION GAP 10 MEQ/L (8-16); BLOOD UREA NITROGEN 15 MG/DL (7-18); CALCIUM LEVEL 9.1 MG/DL (8.8-10.2); CARBON DIOXIDE LEVEL 27 MEQ/L (21-32); CHLORIDE LEVEL 101 MEQ/L (98-107); CK-MB VALUE MASS 2.1 NG/ML (0.0-3.6); CPK CREATINE PHOSPHOKINASE 66 U/L (26-192); CREATININE FOR GFR 0.78 MG/DL (0.55-1.30); GLOMERULAR FILTRATION RATE > 60.0 (>45); GLUCOSE, FASTING 72 MG/DL (70-100); MB/CK RELATIVE INDEX 3.18 (< OR =4); POTASSIUM SERUM 3.6 MEQ/L (3.5-5.1); SODIUM LEVEL 138 MEQ/L (136-145); TROPONIN I 0.03 NG/ML (< 0.10)
[2017-10-14 17:32] LABS: LACTIC ACID SEPSIS PROTOCOL 1.9 MMOL/L (0.4-2.0); NT-PRO BNP 1261 PG/ML (<125)
[2017-10-14 18:07] LABS: INFLUENZA A AMPLIFICATION NEGATIVE (NEGATIVE); INFLUENZA B AMPLIFICATION NEGATIVE (NEGATIVE)
[2017-10-14] MEDS: PERCOCET 5MG/325MG TAB PO (18:34)
[2017-10-14] MEDS ORDERED: ONDANSETRON 4 MG TAB (S0181) PO (19:30)
[2017-10-14] MEDS ORDERED: GLUCAGON FOR INJ 1 MG VIAL (J1610) SC (19:30)
[2017-10-14] MEDS ORDERED: DEXTROSE 50% 50 ML SYRINGE IV (19:30)
[2017-10-14] MEDS ORDERED: LEVALBUTEROL 1.25 MG/0.5 ML CONCENTRATE NEB INH (19:30)
[2017-10-14] MEDS ORDERED: GLUCOSE 4 GM CHEW TABLET PO (19:30)
[2017-10-14] MEDS ORDERED: ISOVUE-370 76% 100ML VIAL (Q9967) As Ordered (19:32)
[2017-10-14] MEDS: HumaLOG INSULIN (NovoLOG) PER UNIT SC (20:22)
[2017-10-14 20:27] LABS: BEDSIDE GLUCOSE 131 MG/DL (80-115)
[2017-10-14] MEDS: ALPRAZolam 0.25 MG TAB PO (20:31)
[2017-10-14] MEDS: PANTOPRAZOLE 40MG TAB (PROTONIX) PO (20:31)
[2017-10-14] MEDS: CEFTRIAXONE SOD 1 GM in APPROPRIATE DILUENT 1 EA IV (20:32)
[2017-10-14] MEDS: BENZONATATE 100 MG CAP PO (20:39)
[2017-10-14] MEDS: AZITHROMYCIN INJ 500 MG, VIAL MATE ADAPTER 1 EACH in D5W 250 ML IV (21:00)
[2017-10-14] MEDS: ADVAIR HFA 230/21MCG INHALER INH (21:00)
[2017-10-14 22:46] LABS: CK-MB VALUE MASS 1.7 NG/ML (0.0-3.6); CPK CREATINE PHOSPHOKINASE 58 U/L (26-192); MB/CK RELATIVE INDEX 2.93 (< OR =4); TROPONIN I 0.03 NG/ML (< 0.10)
[2017-10-14 22:47] LABS: ERYTHROCYTE SEDIMENTATION RATE 73 mm/hr (0-30)
[2017-10-15] MEDS: FUROSEMIDE 40 MG/4 ML VIAL (J1940) IV ×2 (01:19→08:46)
[2017-10-15 01:50] LABS: BEDSIDE GLUCOSE 201 MG/DL (80-115)
[2017-10-15] MEDS: methylPREDNISolone INJ 125 MG/2 ML VIAL (J2930) IV ×2 (04:54→16:52)
[2017-10-15] MEDS: KETOROLAC 30 MG/ML VIAL (J1885) IV (04:55)
[2017-10-15 06:10] LABS: HEMATOCRIT 34.1 % (36.0-47.0); HEMOGLOBIN 10.8 g/dl (12.0-16.0); MEAN CORPUSCULAR HEMOGLOBIN 26.6 pg (27.0-33.0); MEAN CORPUSCULAR HGB CONC 31.7 g/dl (32.0-36.5); PLATELET COUNT, AUTOMATED 280 10^3/uL (150-450); RED BLOOD COUNT 4.06 10^6/uL (4.00-5.40); RED CELL DISTRIBUTION WIDTH 15.9 % (11.5-14.5); WHITE BLOOD COUNT 6.6 10^3/uL (4.0-10.0)
[2017-10-15 06:24] LABS: ANION GAP 8 MEQ/L (8-16); BLOOD UREA NITROGEN 17 MG/DL (7-18); CALCIUM LEVEL 9.3 MG/DL (8.8-10.2); CARBON DIOXIDE LEVEL 28 MEQ/L (21-32); CHLORIDE LEVEL 101 MEQ/L (98-107); CREATININE FOR GFR 0.71 MG/DL (0.55-1.30); GLOMERULAR FILTRATION RATE > 60.0 (>45); GLUCOSE, FASTING 121 MG/DL (70-100); MAGNESIUM LEVEL 2.1 MG/DL (1.8-2.4); POTASSIUM SERUM 3.7 MEQ/L (3.5-5.1); SODIUM LEVEL 137 MEQ/L (136-145)
[2017-10-15] MEDS: ADVAIR HFA 230/21MCG INHALER INH ×2 (08:16→21:00)
[2017-10-15] MEDS: HumaLOG INSULIN (NovoLOG) PER UNIT SC ×4 (08:46→20:20)
[2017-10-15] MEDS: ALPRAZolam 0.25 MG TAB PO ×3 (08:47→20:08)
[2017-10-15] MEDS: PANTOPRAZOLE 40MG TAB (PROTONIX) PO ×2 (08:47→20:08)
[2017-10-15] MEDS: ENOXAPARIN 40 MG/0.4 ML SYRINGE (J1650) SC (08:47)
[2017-10-15] MEDS: SERTRALINE 100 MG TAB PO (08:47)
[2017-10-15] MEDS: buPROPion **XL** TABLET 150MG (WELLBUTRIN XL) PO (08:47)
[2017-10-15] MEDS: CEFTRIAXONE SOD 1 GM in APPROPRIATE DILUENT 1 EA IV ×2 (10:30→19:28)
[2017-10-15] MEDS: NIFEdipine 60 MG XL TAB PO (11:39)
[2017-10-15] MEDS: BENZONATATE 100 MG CAP PO ×3 (11:39→20:08)
[2017-10-15] MEDS: PERCOCET 5MG/325MG TAB PO ×2 (11:40→19:28)
[2017-10-15] MEDS: guaiFENesin/CODEINE SYRUP 5 ML UDC PO (12:10)
[2017-10-15 12:18] LABS: BEDSIDE GLUCOSE 121 MG/DL (80-115)
[2017-10-15] MEDS: MONTELUKAST 5 MG CHEWABLE TABLET PO (13:06)
[2017-10-15] MEDS: BACTRIM SUSP 160MG/800MG PER 20ML ORAL SYRINGE PO (16:52)
[2017-10-15 17:07] LABS: BEDSIDE GLUCOSE 86 MG/DL (80-115)
[2017-10-15] MEDS: AZITHROMYCIN INJ 500 MG, VIAL MATE ADAPTER 1 EACH in D5W 250 ML IV (20:08)
[2017-10-15 20:19] LABS: BEDSIDE GLUCOSE 117 MG/DL (80-115)
[2017-10-15] MEDS: guaiFENesin DM LIQ 10ML UD PO (23:47)
[2017-10-16] MEDS: methylPREDNISolone INJ 125 MG/2 ML VIAL (J2930) IV (05:00)
[2017-10-16 06:33] LABS: HEMATOCRIT 33.1 % (36.0-47.0); HEMOGLOBIN 10.5 g/dl (12.0-16.0); MEAN CORPUSCULAR HEMOGLOBIN 26.8 pg (27.0-33.0); MEAN CORPUSCULAR HGB CONC 31.7 g/dl (32.0-36.5); MEAN CORPUSCULAR VOLUME 84.4 fl (80.0-96.0); PLATELET COUNT, AUTOMATED 312 10^3/uL (150-450); RED BLOOD COUNT 3.92 10^6/uL (4.00-5.40); RED CELL DISTRIBUTION WIDTH 15.9 % (11.5-14.5); WHITE BLOOD COUNT 11.4 10^3/uL (4.0-10.0)
[2017-10-16 06:38] LABS: ANION GAP 8 MEQ/L (8-16); BLOOD UREA NITROGEN 22 MG/DL (7-18); CALCIUM LEVEL 8.9 MG/DL (8.8-10.2); CARBON DIOXIDE LEVEL 28 MEQ/L (21-32); CHLORIDE LEVEL 104 MEQ/L (98-107); CREATININE FOR GFR 0.76 MG/DL (0.55-1.30); GLOMERULAR FILTRATION RATE > 60.0 (>45); GLUCOSE, FASTING 103 MG/DL (70-100); MAGNESIUM LEVEL 2.4 MG/DL (1.8-2.4); POTASSIUM SERUM 3.6 MEQ/L (3.5-5.1); SODIUM LEVEL 140 MEQ/L (136-145)
[2017-10-16] MEDS: ADVAIR HFA 230/21MCG INHALER INH ×2 (07:05→19:20)
[2017-10-16] MEDS: HumaLOG INSULIN (NovoLOG) PER UNIT SC ×4 (07:30→21:00)
[2017-10-16 09:14] LABS: C REACTIVE PROTEIN QUANTITATIV 4.26 MG/DL (0.00-0.30)
[2017-10-16] MEDS: ENOXAPARIN 40 MG/0.4 ML SYRINGE (J1650) SC (09:36)
[2017-10-16] MEDS: MONTELUKAST 5 MG CHEWABLE TABLET PO (09:36)
[2017-10-16] MEDS: SERTRALINE 100 MG TAB PO (09:37)
[2017-10-16] MEDS: PANTOPRAZOLE 40MG TAB (PROTONIX) PO ×2 (09:37→21:03)
[2017-10-16] MEDS: buPROPion **XL** TABLET 150MG (WELLBUTRIN XL) PO (09:37)
[2017-10-16] MEDS: NIFEdipine 60 MG XL TAB PO (09:38)
[2017-10-16] MEDS: ALPRAZolam 0.25 MG TAB PO ×3 (09:38→21:03)
[2017-10-16] MEDS: BENZONATATE 100 MG CAP PO ×3 (09:38→21:03)
[2017-10-16] MEDS: PERCOCET 5MG/325MG TAB PO ×2 (09:38→19:33)
[2017-10-16] MEDS: BACTRIM SUSP 160MG/800MG PER 20ML ORAL SYRINGE PO (09:39)
[2017-10-16] MEDS: CEFTRIAXONE SOD 1 GM in APPROPRIATE DILUENT 1 EA IV ×2 (10:18→21:03)
[2017-10-16] MEDS: ACETAMINOPHEN TAB 650MG DOSE (2X325MG) PO (15:56)
[2017-10-16 17:54] LABS: BEDSIDE GLUCOSE 105 MG/DL (80-115)
[2017-10-16 17:54] LABS: BEDSIDE GLUCOSE 127 MG/DL (80-115)
[2017-10-16] MEDS: methylPREDNISolone INJ 40 MG/1 ML VIAL (J2920) IV (18:20)
[2017-10-16 20:30] LABS: BEDSIDE GLUCOSE 120 MG/DL (80-115)
[2017-10-16] MEDS: guaiFENesin DM LIQ 10ML UD PO (21:06)
[2017-10-16] MEDS: AZITHROMYCIN INJ 500 MG, VIAL MATE ADAPTER 1 EACH in D5W 250 ML IV (21:45)
[2017-10-17] MEDS: methylPREDNISolone INJ 40 MG/1 ML VIAL (J2920) IV ×2 (05:01→17:05)
[2017-10-17] MEDS: PERCOCET 5MG/325MG TAB PO ×2 (06:05→16:03)
[2017-10-17 06:28] LABS: HEMATOCRIT 32.3 % (36.0-47.0); HEMOGLOBIN 10.1 g/dl (12.0-16.0); MEAN CORPUSCULAR HGB CONC 31.3 g/dl (32.0-36.5); MEAN CORPUSCULAR VOLUME 86.4 fl (80.0-96.0); PLATELET COUNT, AUTOMATED 316 10^3/uL (150-450); RED BLOOD COUNT 3.74 10^6/uL (4.00-5.40); RED CELL DISTRIBUTION WIDTH 15.9 % (11.5-14.5); WHITE BLOOD COUNT 10.4 10^3/uL (4.0-10.0)
[2017-10-17 07:00] LABS: ANION GAP 6 MEQ/L (8-16); BLOOD UREA NITROGEN 17 MG/DL (7-18); C REACTIVE PROTEIN QUANTITATIV 1.68 MG/DL (0.00-0.30); CARBON DIOXIDE LEVEL 30 MEQ/L (21-32); CHLORIDE LEVEL 103 MEQ/L (98-107); CREATININE FOR GFR 0.79 MG/DL (0.55-1.30); GLOMERULAR FILTRATION RATE > 60.0 (>45); GLUCOSE, FASTING 100 MG/DL (70-100); MAGNESIUM LEVEL 2.1 MG/DL (1.8-2.4); POTASSIUM SERUM 3.7 MEQ/L (3.5-5.1); SODIUM LEVEL 139 MEQ/L (136-145)
[2017-10-17] MEDS: HumaLOG INSULIN (NovoLOG) PER UNIT SC ×4 (07:26→21:09)
[2017-10-17] MEDS: ADVAIR HFA 230/21MCG INHALER INH ×2 (08:00→20:55)
[2017-10-17] MEDS: SERTRALINE 100 MG TAB PO (10:18)
[2017-10-17] MEDS: ALPRAZolam 0.25 MG TAB PO ×3 (10:18→21:06)
[2017-10-17] MEDS: ENOXAPARIN 40 MG/0.4 ML SYRINGE (J1650) SC (10:18)
[2017-10-17] MEDS: BENZONATATE 100 MG CAP PO ×3 (10:18→21:06)
[2017-10-17] MEDS: ACETAMINOPHEN TAB 650MG DOSE (2X325MG) PO ×2 (10:18→21:08)
[2017-10-17] MEDS: PANTOPRAZOLE 40MG TAB (PROTONIX) PO ×2 (10:18→21:06)
[2017-10-17] MEDS: CEFTRIAXONE SOD 1 GM in APPROPRIATE DILUENT 1 EA IV (10:38)
[2017-10-17] MEDS: BACTRIM SUSP 160MG/800MG PER 20ML ORAL SYRINGE PO (10:38)
[2017-10-17] MEDS: MONTELUKAST 5 MG CHEWABLE TABLET PO (10:39)
[2017-10-17] MEDS: NIFEdipine 60 MG XL TAB PO (10:39)
[2017-10-17] MEDS: buPROPion **XL** TABLET 150MG (WELLBUTRIN XL) PO (10:43)
[2017-10-17] MEDS: LevoFLOXacin 750 MG TABLET PO (11:41)
[2017-10-17 12:45] LABS: BEDSIDE GLUCOSE 83 MG/DL (80-115)
[2017-10-17 17:13] LABS: BEDSIDE GLUCOSE 91 MG/DL (80-115)
[2017-10-17 21:09] LABS: BEDSIDE GLUCOSE 116 MG/DL (80-115)
[2017-10-17] MEDS: guaiFENesin DM LIQ 10ML UD PO (21:13)
[2017-10-18] MEDS: PERCOCET 5MG/325MG TAB PO ×2 (02:05→10:25)
[2017-10-18] MEDS: methylPREDNISolone INJ 40 MG/1 ML VIAL (J2920) IV (05:39)
[2017-10-18] MEDS: LevoFLOXacin 750 MG TABLET PO (05:40)
[2017-10-18 07:02] LABS: HEMATOCRIT 32.7 % (36.0-47.0); HEMOGLOBIN 10.3 g/dl (12.0-16.0); MEAN CORPUSCULAR HGB CONC 31.5 g/dl (32.0-36.5); MEAN CORPUSCULAR VOLUME 85.8 fl (80.0-96.0); PLATELET COUNT, AUTOMATED 292 10^3/uL (150-450); RED BLOOD COUNT 3.81 10^6/uL (4.00-5.40); WHITE BLOOD COUNT 7.5 10^3/uL (4.0-10.0)
[2017-10-18 07:22] LABS: ANION GAP 8 MEQ/L (8-16); BLOOD UREA NITROGEN 18 MG/DL (7-18); C REACTIVE PROTEIN QUANTITATIV 1.01 MG/DL (0.00-0.30); CALCIUM LEVEL 8.9 MG/DL (8.8-10.2); CARBON DIOXIDE LEVEL 27 MEQ/L (21-32); CHLORIDE LEVEL 103 MEQ/L (98-107); CREATININE FOR GFR 0.76 MG/DL (0.55-1.30); GLOMERULAR FILTRATION RATE > 60.0 (>45); GLUCOSE, FASTING 93 MG/DL (70-100); MAGNESIUM LEVEL 2.1 MG/DL (1.8-2.4); POTASSIUM SERUM 3.7 MEQ/L (3.5-5.1); SODIUM LEVEL 138 MEQ/L (136-145)
[2017-10-18] MEDS: HumaLOG INSULIN (NovoLOG) PER UNIT SC ×2 (07:30→12:00)
[2017-10-18] MEDS: buPROPion **XL** TABLET 150MG (WELLBUTRIN XL) PO (08:07)
[2017-10-18] MEDS: NIFEdipine 60 MG XL TAB PO (08:07)
[2017-10-18] MEDS: predniSONE 20 MG TAB PO (08:07)
[2017-10-18] MEDS: SERTRALINE 100 MG TAB PO (08:07)
[2017-10-18] MEDS: ALPRAZolam 0.25 MG TAB PO (08:07)
[2017-10-18] MEDS: PANTOPRAZOLE 40MG TAB (PROTONIX) PO (08:07)
[2017-10-18] MEDS: BENZONATATE 100 MG CAP PO (08:07)
[2017-10-18] MEDS: MONTELUKAST 5 MG CHEWABLE TABLET PO (08:08)
[2017-10-18] MEDS: ENOXAPARIN 40 MG/0.4 ML SYRINGE (J1650) SC (08:08)
[2017-10-18] MEDS: BACTRIM SUSP 160MG/800MG PER 20ML ORAL SYRINGE PO (08:08)
[2017-10-18] MEDS: ADVAIR HFA 230/21MCG INHALER INH (08:20)
== END 2017-10-18 12:21 | disposition home or self-care (01) | DRG 140 ==
LOC: M MSPAV 10-16 19:44 → M ED 16:37 → M ED INP 19:20 → M PCU 23:35
DX: J44.1 Chronic obstructive pulmonary disease with (acute) exacerbation (principal); I50.33 Acute on chronic diastolic (congestive) heart failure; J18.9 Pneumonia, unspecified organism; D80.1 Nonfamilial hypogammaglobulinemia; C34.90 Malignant neoplasm of unspecified part of unspecified bronchus or lung; Z93.1 Gastrostomy status; B95.5 Unspecified streptococcus as the cause of diseases classified elsewhere; I11.0 Hypertensive heart disease with heart failure; B97.10 Unspecified enterovirus as the cause of diseases classified elsewhere; B95.2 Enterococcus as the cause of diseases classified elsewhere; E11.9 Type 2 diabetes mellitus without complications; G47.33 Obstructive sleep apnea (adult) (pediatric); Z87.891 Personal history of nicotine dependence; Z99.89 Dependence on other enabling machines and devices; Z92.3 Personal history of irradiation; Z92.21 Personal history of antineoplastic chemotherapy; Z90.710 Acquired absence of both cervix and uterus; Z79.899 Other long term (current) drug therapy; J44.0 Chronic obstructive pulmonary disease with (acute) lower respiratory infection

== ENCOUNTER 2017-10-22 08:02 | Outpatient (CLI) | payer OTHER ==
[2017-10-22] MEDS: ACETAMINOPHEN TAB 650MG DOSE (2X325MG) PO (08:35)
[2017-10-22] MEDS: diphenhydrAMINE 50 MG CAP PO (08:35)
[2017-10-22] MEDS: IMMUNE GLOBULIN 10% 5GM 5 GM in APPROPRIATE DILUENT 1 EA IV (08:48)
[2017-10-22] MEDS: IMMUNE GLOBULIN 10% 20GM 200ML 20 GM in APPROPRIATE DILUENT 1 EA IV (08:49)
== END 2017-10-22 11:35 | disposition home or self-care (01) ==
LOC: M INFU 08:02
DX: D80.1 Nonfamilial hypogammaglobulinemia (principal); I31.9 Disease of pericardium, unspecified; D64.9 Anemia, unspecified; I10 Essential (primary) hypertension; K21.9 Gastro-esophageal reflux disease without esophagitis; F32.9 Major depressive disorder, single episode, unspecified; F41.9 Anxiety disorder, unspecified; Z79.82 Long term (current) use of aspirin; Z79.899 Other long term (current) drug therapy; Z88.2 Allergy status to sulfonamides; Z88.5 Allergy status to narcotic agent; Z87.891 Personal history of nicotine dependence
CPT/HCPCS: J1569

== ENCOUNTER 2017-11-19 09:09 | Inpatient (IN) | payer OTHER ==
[2017-11-19] MEDS: raNITIdine SYRUP 150 MG/10 ML UDC PO (09:00)
[2017-11-19] MEDS: NIFEdipine 60 MG XL TAB PO (09:00)
[2017-11-19] MEDS: MONTELUKAST 5 MG CHEWABLE TABLET PO (09:00)
[2017-11-19] MEDS: SERTRALINE 100 MG TAB PO (09:00)
[2017-11-19] MEDS: IPRATROPIUM 0.5MG/ALBUTEROL 2.5MG INH SOL UD 3ML (DUONEB)(J7620) NEB ×3 (10:04→20:58)
[2017-11-19 10:30] LABS: ABG BASE EXCESS 3.4 (-2.0-2.0); ABG HCO3 26.3 MEQ/L (22.0-26.0); ABG O2 SATURATION 96.4 % (95.0-99.0); ABG PARTIAL PRESSURE O2 83.8 mmHg (75.0-100.0); ABG STANDARD HCO3 27.5 MEQ/L (22.0-26.0); ABG TOTAL CO2 27.3 MEQ/L (23.0-31.0); ABG pH (ARTERIAL) 7.506 UNITS (7.350-7.450)
[2017-11-19 10:52] LABS: BASO % 0.3 % (0.0-1.0); EOS % 0.3 % (0.0-3.0); HEMATOCRIT 35.2 % (36.0-47.0); IMMATURE GRANULOCYTE % 0.6 % (0-3.0); LYMPH # 0.7 10^3/uL (1.5-4.5); LYMPH % 5.7 % (24.0-44.0); MEAN CORPUSCULAR HEMOGLOBIN 28.1 pg (27.0-33.0); MEAN CORPUSCULAR HGB CONC 31.3 g/dl (32.0-36.5); MEAN CORPUSCULAR VOLUME 89.8 fl (80.0-96.0); MONO # 0.7 10^3/uL (0.0-0.8); MONO % 5.8 % (0.0-5.0); NEUTROPHILS # 10.5 10^3/uL (1.8-7.7); NEUTROPHILS % 87.3 % (36.0-66.0); PLATELET COUNT, AUTOMATED 267 10^3/uL (150-450); RED BLOOD COUNT 3.92 10^6/uL (4.00-5.40); RED CELL DISTRIBUTION WIDTH 18.7 % (11.5-14.5)
[2017-11-19 11:10] LABS: LACTIC ACID SEPSIS PROTOCOL 1.5 MMOL/L (0.4-2.0)
[2017-11-19 11:21] LABS: ALBUMIN/GLOBULIN RATIO 0.75 (1.00-1.93); ALKALINE PHOSPHATASE 93 U/L (45-117); ALT/SGPT 17 U/L (12-78); ANION GAP 8 MEQ/L (8-16); AST/SGOT 9 U/L (7-37); BILIRUBIN,DIRECT < 0.1 MG/DL (0.0-0.2); BILIRUBIN,TOTAL 0.4 MG/DL (0.2-1.0); BLOOD UREA NITROGEN 10 MG/DL (7-18); CALCIUM LEVEL 9.1 MG/DL (8.8-10.2); CARBON DIOXIDE LEVEL 30 MEQ/L (21-32); CHLORIDE LEVEL 104 MEQ/L (98-107); CK-MB VALUE MASS 3.3 NG/ML (<3.6); CPK CREATINE PHOSPHOKINASE 95 U/L (26-192); CREATININE FOR GFR 0.79 MG/DL (0.55-1.30); GLOMERULAR FILTRATION RATE > 60.0 (>45); GLUCOSE, FASTING 101 MG/DL (70-100); MB/CK RELATIVE INDEX 3.47 (< OR =4); NT-PRO BNP 1636 PG/ML (<125); POTASSIUM SERUM 3.5 MEQ/L (3.5-5.1); SODIUM LEVEL 142 MEQ/L (136-145); THYROID STIMULATING HORMONE 0.661 uIU/ML (0.358-3.740); TROPONIN I 0.04 NG/ML (< 0.10)
[2017-11-19] MEDS ORDERED: ISOVUE-370 76% 100ML VIAL (Q9967) As Ordered (11:36)
[2017-11-19] MEDS: methylPREDNISolone INJ 125 MG/2 ML VIAL (J2930) IV ×2 (12:07→20:13)
[2017-11-19] MEDS: PIPERACILLIN/TAZOBACTAM SOD 3.375 GM in APPROPRIATE DILUENT 1 EA IV ×2 (12:30→20:13)
[2017-11-19 15:44] LABS: IMMUNOGLOBULIN G 937 MG/DL (681-1648); IMMUNOGLOBULIN M 89.4 MG/DL (40-230)
[2017-11-19] MEDS: guaiFENesin/CODEINE SYRUP 5 ML UDC PO (15:57)
[2017-11-19] MEDS: PERCOCET 5MG/325MG TAB PO ×2 (15:58→20:13)
[2017-11-19] MEDS: VANCOMYCIN HCL 1,000 MG, VIAL MATE ADAPTER 1 EACH in D5W 250 ML IV ×2 (15:58→21:26)
[2017-11-19] MEDS: BENZONATATE 100 MG CAP PO ×2 (16:00→21:11)
[2017-11-19] MEDS: buPROPion 100 MG TAB PO ×2 (16:00→21:11)
[2017-11-19] MEDS: ALPRAZolam 0.25 MG TAB PO ×2 (16:20→20:13)
[2017-11-19] MEDS: PANTOPRAZOLE 40MG INJ (PROTONIX) (C9113) IV (16:21)
[2017-11-19] MEDS: BACTRIM SUSP 160MG/800MG PER 20ML ORAL SYRINGE PO (16:22)
[2017-11-19 19:34] LABS: CK-MB VALUE MASS 2.9 NG/ML (<3.6); CPK CREATINE PHOSPHOKINASE 93 U/L (26-192); MB/CK RELATIVE INDEX 3.11 (< OR =4); TROPONIN I 0.02 NG/ML (< 0.10)
[2017-11-20] MEDS: PIPERACILLIN/TAZOBACTAM SOD 3.375 GM in APPROPRIATE DILUENT 1 EA IV ×4 (00:44→19:00)
[2017-11-20] MEDS: IPRATROPIUM 0.5MG/ALBUTEROL 2.5MG INH SOL UD 3ML (DUONEB)(J7620) NEB ×4 (02:00→20:39)
[2017-11-20] MEDS: methylPREDNISolone INJ 125 MG/2 ML VIAL (J2930) IV ×3 (03:48→21:23)
[2017-11-20 06:37] LABS: BASO % 0.1 % (0.0-1.0); HEMATOCRIT 34.3 % (36.0-47.0); HEMOGLOBIN 10.8 g/dl (12.0-15.5); IMMATURE GRANULOCYTE % 0.7 % (0-3.0); LYMPH # 0.3 10^3/uL (1.5-4.5); LYMPH % 2.6 % (24.0-44.0); MEAN CORPUSCULAR HEMOGLOBIN 27.9 pg (27.0-33.0); MEAN CORPUSCULAR HGB CONC 31.5 g/dl (32.0-36.5); MEAN CORPUSCULAR VOLUME 88.6 fl (80.0-96.0); MONO # 0.2 10^3/uL (0.0-0.8); NEUTROPHILS # 9.5 10^3/uL (1.8-7.7); NEUTROPHILS % 94.6 % (36.0-66.0); PLATELET COUNT, AUTOMATED 275 10^3/uL (150-450); RED BLOOD COUNT 3.87 10^6/uL (4.00-5.40); RED CELL DISTRIBUTION WIDTH 18.3 % (11.5-14.5); WHITE BLOOD COUNT 10.1 10^3/uL (4.0-10.0)
[2017-11-20] MEDS: PERCOCET 5MG/325MG TAB PO ×2 (06:40→21:22)
[2017-11-20] MEDS: guaiFENesin/CODEINE SYRUP 5 ML UDC PO ×2 (06:53→23:28)
[2017-11-20 06:56] LABS: ALBUMIN/GLOBULIN RATIO 0.77 (1.00-1.93); ALKALINE PHOSPHATASE 101 U/L (45-117); ALT/SGPT 15 U/L (12-78); ANION GAP 7 MEQ/L (8-16); AST/SGOT 10 U/L (7-37); BILIRUBIN,TOTAL 0.2 MG/DL (0.2-1.0); BLOOD UREA NITROGEN 12 MG/DL (7-18); CALCIUM LEVEL 9.1 MG/DL (8.8-10.2); CARBON DIOXIDE LEVEL 27 MEQ/L (21-32); CHLORIDE LEVEL 105 MEQ/L (98-107); CREATININE FOR GFR 0.88 MG/DL (0.55-1.30); GLOMERULAR FILTRATION RATE > 60.0 (>45); GLUCOSE, FASTING 139 MG/DL (70-100); MAGNESIUM LEVEL 2.3 MG/DL (1.8-2.4); POTASSIUM SERUM 4.5 MEQ/L (3.5-5.1); SODIUM LEVEL 139 MEQ/L (136-145); TOTAL PROTEIN 6.9 GM/DL (6.4-8.2)
[2017-11-20 06:57] LABS: POSITIVE DIFF POS FLAG
[2017-11-20 06:59] LABS: CK-MB VALUE MASS 2.4 NG/ML (<3.6); CPK CREATINE PHOSPHOKINASE 63 U/L (26-192); TROPONIN I 0.02 NG/ML (< 0.10)
[2017-11-20 08:04] LABS: C REACTIVE PROTEIN QUANTITATIV 4.61 MG/DL (0.00-0.30)
[2017-11-20] MEDS: raNITIdine SYRUP 150 MG/10 ML UDC PO (09:56)
[2017-11-20] MEDS: BENZONATATE 100 MG CAP PO ×3 (09:57→21:22)
[2017-11-20] MEDS: NIFEdipine 60 MG XL TAB PO (09:57)
[2017-11-20] MEDS: ALPRAZolam 0.25 MG TAB PO ×3 (09:57→21:22)
[2017-11-20] MEDS: buPROPion 100 MG TAB PO ×3 (09:57→21:23)
[2017-11-20] MEDS: PANTOPRAZOLE 40MG INJ (PROTONIX) (C9113) IV (09:57)
[2017-11-20] MEDS: SERTRALINE 100 MG TAB PO (09:57)
[2017-11-20] MEDS: VANCOMYCIN HCL 1,000 MG, VIAL MATE ADAPTER 1 EACH in D5W 250 ML IV ×2 (09:58→21:23)
[2017-11-20] MEDS: SCOPOLAMINE 1MG TRANSDERMAL PATCH TD (09:58)
[2017-11-20] MEDS: MONTELUKAST 5 MG CHEWABLE TABLET PO (10:05)
[2017-11-20 10:53] LABS: CPK CREATINE PHOSPHOKINASE 82 U/L (26-192); TROPONIN I 0.05 NG/ML (< 0.10)
[2017-11-20 10:54] LABS: CK-MB VALUE MASS 3.1 NG/ML (<3.6); MB/CK RELATIVE INDEX 3.78 (< OR =4)
[2017-11-20] MEDS: BACTRIM SUSP 160MG/800MG PER 20ML ORAL SYRINGE PO (10:56)
[2017-11-20] MEDS ORDERED: E-Z-PAQUE 96% w/w SUSP 176GM BTL As Ordered ×2 (12:33→13:09)
[2017-11-20] MEDS ORDERED: GASTROGRAFIN SOLUTION 30ML (Q9963) As Ordered (12:41)
[2017-11-20] MEDS: DRONABINOL 2.5 MG CAP (MARINOL) PO ×2 (14:14→17:43)
[2017-11-20] MEDS: ADVAIR HFA 230/21MCG INHALER INH ×2 (15:10→20:39)
[2017-11-20] MEDS: TIOTROPIUM INHALER/CAPSULE (SPIRIVA) INH (15:11)
[2017-11-20] MEDS: HEPARIN SOD (PORCINE) 5000 UNITS/ML VIAL SQ (21:24)
[2017-11-21] MEDS: PIPERACILLIN/TAZOBACTAM SOD 3.375 GM in APPROPRIATE DILUENT 1 EA IV ×4 (01:33→18:51)
[2017-11-21] MEDS: IPRATROPIUM 0.5MG/ALBUTEROL 2.5MG INH SOL UD 3ML (DUONEB)(J7620) NEB ×4 (02:00→19:37)
[2017-11-21] MEDS: methylPREDNISolone INJ 125 MG/2 ML VIAL (J2930) IV (04:41)
[2017-11-21 05:50] LABS: BASO % 0.1 % (0.0-1.0); IMMATURE GRANULOCYTE % 0.7 % (0-3.0); LYMPH # 0.3 10^3/uL (1.5-4.5); LYMPH % 2.7 % (24.0-44.0); MEAN CORPUSCULAR HGB CONC 31.3 g/dl (32.0-36.5); MEAN CORPUSCULAR VOLUME 89.6 fl (80.0-96.0); MONO # 0.3 10^3/uL (0.0-0.8); MONO % 3.3 % (0.0-5.0); NEUTROPHILS # 9.5 10^3/uL (1.8-7.7); NEUTROPHILS % 93.2 % (36.0-66.0); PLATELET COUNT, AUTOMATED 231 10^3/uL (150-450); RED BLOOD COUNT 3.57 10^6/uL (4.00-5.40); RED CELL DISTRIBUTION WIDTH 18.6 % (11.5-14.5); WHITE BLOOD COUNT 10.2 10^3/uL (4.0-10.0)
[2017-11-21 06:08] LABS: ALBUMIN 2.9 GM/DL (3.2-5.2); ALBUMIN/GLOBULIN RATIO 0.76 (1.00-1.93); ALKALINE PHOSPHATASE 86 U/L (45-117); ALT/SGPT 17 U/L (12-78); ANION GAP 6 MEQ/L (8-16); AST/SGOT 10 U/L (7-37); BILIRUBIN,TOTAL 0.3 MG/DL (0.2-1.0); BLOOD UREA NITROGEN 14 MG/DL (7-18); C REACTIVE PROTEIN QUANTITATIV 1.27 MG/DL (0.00-0.30); CARBON DIOXIDE LEVEL 28 MEQ/L (21-32); CHLORIDE LEVEL 106 MEQ/L (98-107); CREATININE FOR GFR 0.92 MG/DL (0.55-1.30); GLOMERULAR FILTRATION RATE > 60.0 (>45); GLUCOSE, FASTING 126 MG/DL (70-100); MAGNESIUM LEVEL 2.5 MG/DL (1.8-2.4); POTASSIUM SERUM 4.2 MEQ/L (3.5-5.1); SODIUM LEVEL 140 MEQ/L (136-145); TOTAL PROTEIN 6.7 GM/DL (6.4-8.2)
[2017-11-21 06:10] LABS: POSITIVE DIFF POS FLAG
[2017-11-21] MEDS: ADVAIR HFA 230/21MCG INHALER INH ×2 (07:32→19:40)
[2017-11-21] MEDS: TIOTROPIUM INHALER/CAPSULE (SPIRIVA) INH (07:32)
[2017-11-21] MEDS: BENZONATATE 100 MG CAP PO ×3 (09:51→20:33)
[2017-11-21] MEDS: buPROPion 100 MG TAB PO ×3 (09:51→20:33)
[2017-11-21] MEDS: NIFEdipine 60 MG XL TAB PO (09:51)
[2017-11-21] MEDS: ALPRAZolam 0.25 MG TAB PO ×3 (09:51→20:33)
[2017-11-21] MEDS: raNITIdine SYRUP 150 MG/10 ML UDC PO (09:51)
[2017-11-21] MEDS: DRONABINOL 2.5 MG CAP (MARINOL) PO ×3 (09:51→18:51)
[2017-11-21] MEDS: MONTELUKAST 5 MG CHEWABLE TABLET PO (09:51)
[2017-11-21] MEDS: SERTRALINE 100 MG TAB PO (09:52)
[2017-11-21] MEDS: PERCOCET 5MG/325MG TAB PO ×2 (09:52→21:30)
[2017-11-21] MEDS: PANTOPRAZOLE 40MG INJ (PROTONIX) (C9113) IV (09:52)
[2017-11-21] MEDS: HEPARIN SOD (PORCINE) 5000 UNITS/ML VIAL SQ ×2 (09:52→20:32)
[2017-11-21 10:03] LABS: VANCOMYCIN LEVEL TROUGH 13.4 UG/ML (10.0-20.0)
[2017-11-21] MEDS: VANCOMYCIN HCL 1,000 MG, VIAL MATE ADAPTER 1 EACH in D5W 250 ML IV ×2 (11:04→21:29)
[2017-11-21] MEDS: BACTRIM SUSP 160MG/800MG PER 20ML ORAL SYRINGE PO (11:04)
[2017-11-21] MEDS ORDERED: VARIBAR PUDDING 40% w/v 230ML TUBE As Ordered (11:12)
[2017-11-21] MEDS ORDERED: E-Z-PAQUE 96% w/w SUSP 176GM BTL As Ordered (11:12)
[2017-11-21] MEDS ORDERED: VARIBAR NECTAR 40% w/v 240ML SUSP BTL As Ordered (11:12)
[2017-11-21] MEDS: guaiFENesin/CODEINE SYRUP 5 ML UDC PO (15:47)
[2017-11-21] MEDS: methylPREDNISolone INJ 40 MG/1 ML VIAL (J2920) IV (15:48)
[2017-11-21] MEDS: SLF 3 ML SYR IV (20:33)
[2017-11-22] MEDS: PIPERACILLIN/TAZOBACTAM SOD 3.375 GM in APPROPRIATE DILUENT 1 EA IV ×4 (00:42→17:31)
[2017-11-22] MEDS: IPRATROPIUM 0.5MG/ALBUTEROL 2.5MG INH SOL UD 3ML (DUONEB)(J7620) NEB ×4 (01:01→19:54)
[2017-11-22] MEDS: methylPREDNISolone INJ 40 MG/1 ML VIAL (J2920) IV ×2 (04:01→15:56)
[2017-11-22] MEDS: SLF 3 ML SYR IV ×5 (06:24→21:27)
[2017-11-22 06:53] LABS: BASO % 0.1 % (0.0-1.0); HEMATOCRIT 32.4 % (36.0-47.0); IMMATURE GRANULOCYTE % 0.9 % (0-3.0); LYMPH # 0.6 10^3/uL (1.5-4.5); LYMPH % 5.4 % (24.0-44.0); MEAN CORPUSCULAR HEMOGLOBIN 28.1 pg (27.0-33.0); MEAN CORPUSCULAR HGB CONC 30.9 g/dl (32.0-36.5); MONO # 0.6 10^3/uL (0.0-0.8); MONO % 5.5 % (0.0-5.0); NEUTROPHILS # 9.1 10^3/uL (1.8-7.7); NEUTROPHILS % 88.1 % (36.0-66.0); PLATELET COUNT, AUTOMATED 264 10^3/uL (150-450); RED BLOOD COUNT 3.56 10^6/uL (4.00-5.40); RED CELL DISTRIBUTION WIDTH 18.9 % (11.5-14.5); WHITE BLOOD COUNT 10.3 10^3/uL (4.0-10.0)
[2017-11-22 07:02] LABS: ALBUMIN 2.9 GM/DL (3.2-5.2); ALBUMIN/GLOBULIN RATIO 0.76 (1.00-1.93); ALKALINE PHOSPHATASE 75 U/L (45-117); ALT/SGPT 17 U/L (12-78); ANION GAP 7 MEQ/L (8-16); AST/SGOT 12 U/L (7-37); BILIRUBIN,TOTAL 0.2 MG/DL (0.2-1.0); BLOOD UREA NITROGEN 15 MG/DL (7-18); C REACTIVE PROTEIN QUANTITATIV 0.61 MG/DL (0.00-0.30); CALCIUM LEVEL 8.7 MG/DL (8.8-10.2); CARBON DIOXIDE LEVEL 27 MEQ/L (21-32); CHLORIDE LEVEL 106 MEQ/L (98-107); CREATININE FOR GFR 0.96 MG/DL (0.55-1.30); GLOMERULAR FILTRATION RATE > 60.0 (>45); GLUCOSE, FASTING 91 MG/DL (70-100); MAGNESIUM LEVEL 2.4 MG/DL (1.8-2.4); POTASSIUM SERUM 3.7 MEQ/L (3.5-5.1); SODIUM LEVEL 140 MEQ/L (136-145); TOTAL PROTEIN 6.7 GM/DL (6.4-8.2)
[2017-11-22] MEDS: TIOTROPIUM INHALER/CAPSULE (SPIRIVA) INH (08:11)
[2017-11-22] MEDS: ADVAIR HFA 230/21MCG INHALER INH ×2 (08:12→19:54)
[2017-11-22] MEDS: MONTELUKAST 5 MG CHEWABLE TABLET PO (08:47)
[2017-11-22] MEDS: BENZONATATE 100 MG CAP PO ×3 (08:47→21:26)
[2017-11-22] MEDS: ONDANSETRON 4 MG ORAL DISINTEGRATING TAB (S0181) PO (08:47)
[2017-11-22] MEDS: SERTRALINE 100 MG TAB PO (08:48)
[2017-11-22] MEDS: NIFEdipine 60 MG XL TAB PO (08:48)
[2017-11-22] MEDS: ALPRAZolam 0.25 MG TAB PO ×3 (08:48→21:26)
[2017-11-22] MEDS: PANTOPRAZOLE 40MG INJ (PROTONIX) (C9113) IV (08:48)
[2017-11-22] MEDS: buPROPion 100 MG TAB PO ×3 (08:48→21:26)
[2017-11-22] MEDS: BACTRIM SUSP 160MG/800MG PER 20ML ORAL SYRINGE PO (08:49)
[2017-11-22] MEDS: DRONABINOL 2.5 MG CAP (MARINOL) PO ×3 (08:49→17:31)
[2017-11-22] MEDS: HEPARIN SOD (PORCINE) 5000 UNITS/ML VIAL SQ ×2 (08:51→21:00)
[2017-11-22] MEDS: raNITIdine SYRUP 150 MG/10 ML UDC PO (09:41)
[2017-11-22] MEDS: VANCOMYCIN HCL 1,000 MG, VIAL MATE ADAPTER 1 EACH in D5W 250 ML IV ×2 (09:41→21:27)
[2017-11-22] MEDS: PERCOCET 5MG/325MG TAB PO ×2 (09:41→21:27)
[2017-11-22] MEDS: guaiFENesin/CODEINE SYRUP 5 ML UDC PO (21:30)
[2017-11-23] MEDS: PIPERACILLIN/TAZOBACTAM SOD 3.375 GM in APPROPRIATE DILUENT 1 EA IV ×4 (00:43→18:08)
[2017-11-23 03:47] LABS: BASO % 0.1 % (0.0-1.0); HEMATOCRIT 32.9 % (36.0-47.0); HEMOGLOBIN 10.2 g/dl (12.0-15.5); IMMATURE GRANULOCYTE % 1.1 % (0-3.0); LYMPH # 0.5 10^3/uL (1.5-4.5); LYMPH % 5.2 % (24.0-44.0); MEAN CORPUSCULAR HEMOGLOBIN 28.3 pg (27.0-33.0); MEAN CORPUSCULAR VOLUME 91.1 fl (80.0-96.0); MONO # 0.5 10^3/uL (0.0-0.8); MONO % 5.2 % (0.0-5.0); NEUTROPHILS % 88.4 % (36.0-66.0); PLATELET COUNT, AUTOMATED 233 10^3/uL (150-450); RED BLOOD COUNT 3.61 10^6/uL (4.00-5.40); RED CELL DISTRIBUTION WIDTH 18.5 % (11.5-14.5); WHITE BLOOD COUNT 9.1 10^3/uL (4.0-10.0)
[2017-11-23 04:03] LABS: ALBUMIN 2.8 GM/DL (3.2-5.2); ALBUMIN/GLOBULIN RATIO 0.78 (1.00-1.93); ALKALINE PHOSPHATASE 77 U/L (45-117); ALT/SGPT 16 U/L (12-78); ANION GAP 7 MEQ/L (8-16); AST/SGOT 10 U/L (7-37); BILIRUBIN,TOTAL 0.2 MG/DL (0.2-1.0); BLOOD UREA NITROGEN 15 MG/DL (7-18); C REACTIVE PROTEIN QUANTITATIV 0.46 MG/DL (0.00-0.30); CALCIUM LEVEL 8.5 MG/DL (8.8-10.2); CARBON DIOXIDE LEVEL 28 MEQ/L (21-32); CHLORIDE LEVEL 107 MEQ/L (98-107); CREATININE FOR GFR 0.91 MG/DL (0.55-1.30); GLOMERULAR FILTRATION RATE > 60.0 (>45); GLUCOSE, FASTING 111 MG/DL (70-100); MAGNESIUM LEVEL 2.3 MG/DL (1.8-2.4); POTASSIUM SERUM 3.5 MEQ/L (3.5-5.1); SODIUM LEVEL 142 MEQ/L (136-145); TOTAL PROTEIN 6.4 GM/DL (6.4-8.2)
[2017-11-23] MEDS: methylPREDNISolone INJ 40 MG/1 ML VIAL (J2920) IV ×2 (05:55→15:33)
[2017-11-23] MEDS: SLF 3 ML SYR IV ×3 (06:00→20:50)
[2017-11-23] MEDS: ADVAIR HFA 230/21MCG INHALER INH ×2 (07:44→18:20)
[2017-11-23] MEDS: IPRATROPIUM 0.5MG/ALBUTEROL 2.5MG INH SOL UD 3ML (DUONEB)(J7620) NEB ×3 (07:44→18:23)
[2017-11-23] MEDS: TIOTROPIUM INHALER/CAPSULE (SPIRIVA) INH (07:44)
[2017-11-23] MEDS: PANTOPRAZOLE 40MG INJ (PROTONIX) (C9113) IV (08:14)
[2017-11-23] MEDS: BACTRIM SUSP 160MG/800MG PER 20ML ORAL SYRINGE PO (08:14)
[2017-11-23] MEDS: SCOPOLAMINE 1MG TRANSDERMAL PATCH TD (08:14)
[2017-11-23] MEDS: raNITIdine SYRUP 150 MG/10 ML UDC PO (08:14)
[2017-11-23] MEDS: DRONABINOL 2.5 MG CAP (MARINOL) PO ×3 (08:15→17:21)
[2017-11-23] MEDS: ALPRAZolam 0.25 MG TAB PO ×3 (08:15→20:49)
[2017-11-23] MEDS: MONTELUKAST 5 MG CHEWABLE TABLET PO (08:15)
[2017-11-23] MEDS: buPROPion 100 MG TAB PO ×3 (08:15→20:50)
[2017-11-23] MEDS: BENZONATATE 100 MG CAP PO ×3 (08:15→20:49)
[2017-11-23] MEDS: HEPARIN SOD (PORCINE) 5000 UNITS/ML VIAL SQ ×2 (08:16→20:51)
[2017-11-23] MEDS: NIFEdipine 60 MG XL TAB PO (08:16)
[2017-11-23] MEDS: SERTRALINE 100 MG TAB PO (08:16)
[2017-11-23] MEDS: VANCOMYCIN HCL 1,000 MG, VIAL MATE ADAPTER 1 EACH in D5W 250 ML IV ×2 (10:10→22:32)
[2017-11-23] MEDS: PERCOCET 5MG/325MG TAB PO ×2 (10:11→20:50)
[2017-11-23] MEDS: guaiFENesin/CODEINE SYRUP 5 ML UDC PO (22:31)
[2017-11-24] MEDS: PIPERACILLIN/TAZOBACTAM SOD 3.375 GM in APPROPRIATE DILUENT 1 EA IV ×2 (01:30→06:08)
[2017-11-24] MEDS: IPRATROPIUM 0.5MG/ALBUTEROL 2.5MG INH SOL UD 3ML (DUONEB)(J7620) NEB ×4 (02:00→23:14)
[2017-11-24] MEDS: SLF 3 ML SYR IV ×3 (04:46→21:04)
[2017-11-24] MEDS: methylPREDNISolone INJ 40 MG/1 ML VIAL (J2920) IV (04:46)
[2017-11-24 05:29] LABS: BASO % 0.2 % (0.0-1.0); EOS % 0.1 % (0.0-3.0); HEMATOCRIT 33.3 % (36.0-47.0); HEMOGLOBIN 10.1 g/dl (12.0-15.5); IMMATURE GRANULOCYTE % 1.5 % (0-3.0); LYMPH # 0.5 10^3/uL (1.5-4.5); LYMPH % 6.4 % (24.0-44.0); MEAN CORPUSCULAR HEMOGLOBIN 27.6 pg (27.0-33.0); MEAN CORPUSCULAR HGB CONC 30.3 g/dl (32.0-36.5); MONO # 0.5 10^3/uL (0.0-0.8); MONO % 5.4 % (0.0-5.0); NEUTROPHILS # 7.3 10^3/uL (1.8-7.7); NEUTROPHILS % 86.4 % (36.0-66.0); PLATELET COUNT, AUTOMATED 221 10^3/uL (150-450); RED BLOOD COUNT 3.66 10^6/uL (4.00-5.40); RED CELL DISTRIBUTION WIDTH 18.4 % (11.5-14.5); WHITE BLOOD COUNT 8.5 10^3/uL (4.0-10.0)
[2017-11-24 05:47] LABS: ALBUMIN 2.8 GM/DL (3.2-5.2); ALBUMIN/GLOBULIN RATIO 0.76 (1.00-1.93); ALKALINE PHOSPHATASE 76 U/L (45-117); ALT/SGPT 16 U/L (12-78); ANION GAP 6 MEQ/L (8-16); AST/SGOT 9 U/L (7-37); BILIRUBIN,TOTAL 0.2 MG/DL (0.2-1.0); BLOOD UREA NITROGEN 15 MG/DL (7-18); C REACTIVE PROTEIN QUANTITATIV < 0.30 MG/DL (0.00-0.30); CALCIUM LEVEL 8.5 MG/DL (8.8-10.2); CARBON DIOXIDE LEVEL 27 MEQ/L (21-32); CHLORIDE LEVEL 109 MEQ/L (98-107); CREATININE FOR GFR 0.95 MG/DL (0.55-1.30); GLOMERULAR FILTRATION RATE > 60.0 (>45); GLUCOSE, FASTING 83 MG/DL (70-100); MAGNESIUM LEVEL 2.4 MG/DL (1.8-2.4); POTASSIUM SERUM 3.5 MEQ/L (3.5-5.1); SODIUM LEVEL 142 MEQ/L (136-145); TOTAL PROTEIN 6.5 GM/DL (6.4-8.2)
[2017-11-24] MEDS: TIOTROPIUM INHALER/CAPSULE (SPIRIVA) INH (07:34)
[2017-11-24] MEDS: ADVAIR HFA 230/21MCG INHALER INH ×2 (07:35→23:14)
[2017-11-24] MEDS: raNITIdine SYRUP 150 MG/10 ML UDC PO (08:01)
[2017-11-24] MEDS: BENZONATATE 100 MG CAP PO ×3 (08:01→21:02)
[2017-11-24] MEDS: MONTELUKAST 5 MG CHEWABLE TABLET PO (08:01)
[2017-11-24] MEDS: BACTRIM SUSP 160MG/800MG PER 20ML ORAL SYRINGE PO (08:02)
[2017-11-24] MEDS: ALPRAZolam 0.25 MG TAB PO ×3 (08:02→21:03)
[2017-11-24] MEDS: DRONABINOL 2.5 MG CAP (MARINOL) PO ×3 (08:02→17:04)
[2017-11-24] MEDS: buPROPion 100 MG TAB PO ×3 (08:02→21:03)
[2017-11-24] MEDS: SERTRALINE 100 MG TAB PO (08:02)
[2017-11-24] MEDS: PANTOPRAZOLE 40MG INJ (PROTONIX) (C9113) IV (08:02)
[2017-11-24] MEDS: NIFEdipine 60 MG XL TAB PO (08:03)
[2017-11-24] MEDS: HEPARIN SOD (PORCINE) 5000 UNITS/ML VIAL SQ ×2 (08:04→21:00)
[2017-11-24] MEDS: VANCOMYCIN HCL 1,000 MG, VIAL MATE ADAPTER 1 EACH in D5W 250 ML IV (09:04)
[2017-11-24] MEDS: predniSONE 20 MG TAB PO (09:04)
[2017-11-24] MEDS: PERCOCET 5MG/325MG TAB PO ×2 (09:24→21:03)
[2017-11-24 10:30] LABS: VANCOMYCIN LEVEL TROUGH 17.4 UG/ML (10.0-20.0)
[2017-11-24] MEDS: guaiFENesin/CODEINE SYRUP 5 ML UDC PO ×2 (10:46→22:16)
[2017-11-24] MEDS: LevoFLOXacin 750 MG TABLET PO (12:45)
[2017-11-25] MEDS: IPRATROPIUM 0.5MG/ALBUTEROL 2.5MG INH SOL UD 3ML (DUONEB)(J7620) NEB ×4 (01:41→20:00)
[2017-11-25] MEDS: SLF 3 ML SYR IV ×3 (04:52→22:06)
[2017-11-25] MEDS: LevoFLOXacin 750 MG TABLET PO (04:52)
[2017-11-25 05:24] LABS: BASO % 0.2 % (0.0-1.0); EOS % 0.1 % (0.0-3.0); HEMATOCRIT 34.5 % (36.0-47.0); HEMOGLOBIN 10.6 g/dl (12.0-15.5); IMMATURE GRANULOCYTE % 0.9 % (0-3.0); LYMPH # 0.5 10^3/uL (1.5-4.5); LYMPH % 4.2 % (24.0-44.0); MEAN CORPUSCULAR HEMOGLOBIN 27.5 pg (27.0-33.0); MEAN CORPUSCULAR HGB CONC 30.7 g/dl (32.0-36.5); MEAN CORPUSCULAR VOLUME 89.6 fl (80.0-96.0); MONO # 0.6 10^3/uL (0.0-0.8); MONO % 4.8 % (0.0-5.0); NEUTROPHILS # 10.5 10^3/uL (1.8-7.7); NEUTROPHILS % 89.8 % (36.0-66.0); PLATELET COUNT, AUTOMATED 245 10^3/uL (150-450); RED BLOOD COUNT 3.85 10^6/uL (4.00-5.40); RED CELL DISTRIBUTION WIDTH 18.6 % (11.5-14.5); WHITE BLOOD COUNT 11.7 10^3/uL (4.0-10.0)
[2017-11-25 05:42] LABS: ALBUMIN 2.7 GM/DL (3.2-5.2); ALBUMIN/GLOBULIN RATIO 0.73 (1.00-1.93); ALKALINE PHOSPHATASE 76 U/L (45-117); ALT/SGPT 16 U/L (12-78); ANION GAP 5 MEQ/L (8-16); AST/SGOT 8 U/L (7-37); BILIRUBIN,TOTAL 0.2 MG/DL (0.2-1.0); BLOOD UREA NITROGEN 15 MG/DL (7-18); C REACTIVE PROTEIN QUANTITATIV 1.22 MG/DL (0.00-0.30); CALCIUM LEVEL 8.3 MG/DL (8.8-10.2); CARBON DIOXIDE LEVEL 28 MEQ/L (21-32); CHLORIDE LEVEL 110 MEQ/L (98-107); CREATININE FOR GFR 0.87 MG/DL (0.55-1.30); GLOMERULAR FILTRATION RATE > 60.0 (>45); GLUCOSE, FASTING 84 MG/DL (70-100); MAGNESIUM LEVEL 2.1 MG/DL (1.8-2.4); POTASSIUM SERUM 3.2 MEQ/L (3.5-5.1); SODIUM LEVEL 143 MEQ/L (136-145); TOTAL PROTEIN 6.4 GM/DL (6.4-8.2)
[2017-11-25] MEDS: ADVAIR HFA 230/21MCG INHALER INH ×2 (07:55→20:00)
[2017-11-25] MEDS: TIOTROPIUM INHALER/CAPSULE (SPIRIVA) INH (07:55)
[2017-11-25] MEDS: BACTRIM SUSP 160MG/800MG PER 20ML ORAL SYRINGE PO (08:11)
[2017-11-25] MEDS: PANTOPRAZOLE 40MG INJ (PROTONIX) (C9113) IV (08:12)
[2017-11-25] MEDS: MONTELUKAST 5 MG CHEWABLE TABLET PO (08:12)
[2017-11-25] MEDS: raNITIdine SYRUP 150 MG/10 ML UDC PO (08:12)
[2017-11-25] MEDS: BENZONATATE 100 MG CAP PO ×3 (08:13→22:04)
[2017-11-25] MEDS: ALPRAZolam 0.25 MG TAB PO ×3 (08:13→22:06)
[2017-11-25] MEDS: predniSONE 20 MG TAB PO ×2 (08:13→22:04)
[2017-11-25] MEDS: SERTRALINE 100 MG TAB PO (08:13)
[2017-11-25] MEDS: POTASSIUM CHLORIDE 10 MEQ SR TABLET PO (08:13)
[2017-11-25] MEDS: DRONABINOL 2.5 MG CAP (MARINOL) PO ×3 (08:13→18:11)
[2017-11-25] MEDS: buPROPion 100 MG TAB PO ×3 (08:14→22:05)
[2017-11-25] MEDS: HEPARIN SOD (PORCINE) 5000 UNITS/ML VIAL SQ ×3 (08:15→22:10)
[2017-11-25] MEDS: NIFEdipine 60 MG XL TAB PO (08:15)
[2017-11-25] MEDS: ONDANSETRON 4 MG ORAL DISINTEGRATING TAB (S0181) PO (08:16)
[2017-11-25] MEDS: guaiFENesin/CODEINE SYRUP 5 ML UDC PO ×2 (09:53→22:03)
[2017-11-25] MEDS: PERCOCET 5MG/325MG TAB PO ×2 (09:54→22:05)
[2017-11-26] MEDS: IPRATROPIUM 0.5MG/ALBUTEROL 2.5MG INH SOL UD 3ML (DUONEB)(J7620) NEB ×4 (01:56→20:34)
[2017-11-26] MEDS: LevoFLOXacin 750 MG TABLET PO (05:44)
[2017-11-26] MEDS: SLF 3 ML SYR IV ×3 (05:44→22:01)
[2017-11-26 06:27] LABS: BASO % 0.2 % (0.0-1.0); HEMATOCRIT 38.2 % (36.0-47.0); HEMOGLOBIN 11.9 g/dl (12.0-15.5); IMMATURE GRANULOCYTE % 0.9 % (0-3.0); LYMPH # 0.4 10^3/uL (1.5-4.5); LYMPH % 2.6 % (24.0-44.0); MEAN CORPUSCULAR HEMOGLOBIN 27.8 pg (27.0-33.0); MEAN CORPUSCULAR HGB CONC 31.2 g/dl (32.0-36.5); MEAN CORPUSCULAR VOLUME 89.3 fl (80.0-96.0); MONO # 0.3 10^3/uL (0.0-0.8); MONO % 2.1 % (0.0-5.0); NEUTROPHILS # 12.7 10^3/uL (1.8-7.7); NEUTROPHILS % 94.2 % (36.0-66.0); PLATELET COUNT, AUTOMATED 327 10^3/uL (150-450); RED BLOOD COUNT 4.28 10^6/uL (4.00-5.40); RED CELL DISTRIBUTION WIDTH 18.6 % (11.5-14.5); WHITE BLOOD COUNT 13.5 10^3/uL (4.0-10.0)
[2017-11-26 06:50] LABS: ALBUMIN 3.1 GM/DL (3.2-5.2); ALKALINE PHOSPHATASE 81 U/L (45-117); ALT/SGPT 17 U/L (12-78); ANION GAP 6 MEQ/L (8-16); AST/SGOT 10 U/L (7-37); BILIRUBIN,TOTAL 0.4 MG/DL (0.2-1.0); BLOOD UREA NITROGEN 16 MG/DL (7-18); C REACTIVE PROTEIN QUANTITATIV 6.63 MG/DL (0.00-0.30); CALCIUM LEVEL 9.1 MG/DL (8.8-10.2); CARBON DIOXIDE LEVEL 24 MEQ/L (21-32); CHLORIDE LEVEL 109 MEQ/L (98-107); CREATININE FOR GFR 0.96 MG/DL (0.55-1.30); GLOMERULAR FILTRATION RATE > 60.0 (>45); GLUCOSE, FASTING 123 MG/DL (70-100); MAGNESIUM LEVEL 2.5 MG/DL (1.8-2.4); POTASSIUM SERUM 4.5 MEQ/L (3.5-5.1); SODIUM LEVEL 139 MEQ/L (136-145); TOTAL PROTEIN 7.5 GM/DL (6.4-8.2)
[2017-11-26] MEDS: VANCOMYCIN HCL 1,000 MG, VIAL MATE ADAPTER 1 EACH in D5W 250 ML IV ×2 (08:18→13:42)
[2017-11-26] MEDS: BACTRIM SUSP 160MG/800MG PER 20ML ORAL SYRINGE PO (08:19)
[2017-11-26] MEDS: HEPARIN SOD (PORCINE) 5000 UNITS/ML VIAL SQ ×4 (08:20→22:06)
[2017-11-26] MEDS: PANTOPRAZOLE 40MG INJ (PROTONIX) (C9113) IV (08:20)
[2017-11-26] MEDS: DRONABINOL 2.5 MG CAP (MARINOL) PO ×3 (08:21→18:35)
[2017-11-26] MEDS: SERTRALINE 100 MG TAB PO (08:21)
[2017-11-26] MEDS: MONTELUKAST 5 MG CHEWABLE TABLET PO (08:21)
[2017-11-26] MEDS: buPROPion 100 MG TAB PO ×3 (08:21→21:59)
[2017-11-26] MEDS: raNITIdine SYRUP 150 MG/10 ML UDC PO (08:21)
[2017-11-26] MEDS: NIFEdipine 60 MG XL TAB PO (08:23)
[2017-11-26] MEDS: ALPRAZolam 0.25 MG TAB PO ×3 (08:24→22:01)
[2017-11-26] MEDS: SCOPOLAMINE 1MG TRANSDERMAL PATCH TD (08:24)
[2017-11-26] MEDS: predniSONE 20 MG TAB PO ×2 (08:25→22:01)
[2017-11-26] MEDS: BENZONATATE 100 MG CAP PO ×3 (08:25→22:01)
[2017-11-26] MEDS: TIOTROPIUM INHALER/CAPSULE (SPIRIVA) INH (08:28)
[2017-11-26] MEDS: ADVAIR HFA 230/21MCG INHALER INH ×2 (08:28→20:37)
[2017-11-26] MEDS: PIPERACILLIN/TAZOBACTAM SOD 3.375 GM in APPROPRIATE DILUENT 1 EA IV ×3 (10:06→21:59)
[2017-11-26] MEDS: guaiFENesin/CODEINE SYRUP 5 ML UDC PO ×2 (10:07→21:59)
[2017-11-26] MEDS: PERCOCET 5MG/325MG TAB PO ×2 (10:07→22:00)
[2017-11-27] MEDS: IPRATROPIUM 0.5MG/ALBUTEROL 2.5MG INH SOL UD 3ML (DUONEB)(J7620) NEB ×4 (02:00→21:28)
[2017-11-27] MEDS: VANCOMYCIN HCL 1,000 MG, VIAL MATE ADAPTER 1 EACH in D5W 250 ML IV (02:11)
[2017-11-27] MEDS: PIPERACILLIN/TAZOBACTAM SOD 3.375 GM in APPROPRIATE DILUENT 1 EA IV ×4 (04:17→22:28)
[2017-11-27] MEDS: SLF 3 ML SYR IV ×3 (05:21→22:28)
[2017-11-27] MEDS: TIOTROPIUM INHALER/CAPSULE (SPIRIVA) INH (07:33)
[2017-11-27] MEDS: ADVAIR HFA 230/21MCG INHALER INH ×2 (07:33→21:28)
[2017-11-27] MEDS: MONTELUKAST 5 MG CHEWABLE TABLET PO (08:13)
[2017-11-27] MEDS: BENZONATATE 100 MG CAP PO ×3 (08:14→22:29)
[2017-11-27] MEDS: buPROPion 100 MG TAB PO ×3 (08:14→22:29)
[2017-11-27] MEDS: SERTRALINE 100 MG TAB PO (08:14)
[2017-11-27] MEDS: DRONABINOL 2.5 MG CAP (MARINOL) PO ×3 (08:14→17:39)
[2017-11-27] MEDS: NIFEdipine 60 MG XL TAB PO (08:14)
[2017-11-27] MEDS: ALPRAZolam 0.25 MG TAB PO ×3 (08:14→22:29)
[2017-11-27] MEDS: predniSONE 20 MG TAB PO ×2 (08:14→22:29)
[2017-11-27] MEDS: HEPARIN SOD (PORCINE) 5000 UNITS/ML VIAL SQ ×2 (08:15→22:29)
[2017-11-27] MEDS: PANTOPRAZOLE 40MG INJ (PROTONIX) (C9113) IV (08:15)
[2017-11-27] MEDS: raNITIdine SYRUP 150 MG/10 ML UDC PO (08:15)
[2017-11-27] MEDS: BACTRIM SUSP 160MG/800MG PER 20ML ORAL SYRINGE PO (08:15)
[2017-11-27 08:22] LABS: BASO % 0.1 % (0.0-1.0); HEMATOCRIT 35.8 % (36.0-47.0); HEMOGLOBIN 11.3 g/dl (12.0-15.5); IMMATURE GRANULOCYTE % 0.8 % (0-3.0); LYMPH % 2.3 % (24.0-44.0); MEAN CORPUSCULAR HEMOGLOBIN 27.9 pg (27.0-33.0); MEAN CORPUSCULAR HGB CONC 31.6 g/dl (32.0-36.5); MEAN CORPUSCULAR VOLUME 88.4 fl (80.0-96.0); MONO # 0.3 10^3/uL (0.0-0.8); MONO % 2.9 % (0.0-5.0); NEUTROPHILS # 9.9 10^3/uL (1.8-7.7); NEUTROPHILS % 93.9 % (36.0-66.0); PLATELET COUNT, AUTOMATED 290 10^3/uL (150-450); RED BLOOD COUNT 4.05 10^6/uL (4.00-5.40); RED CELL DISTRIBUTION WIDTH 18.5 % (11.5-14.5); WHITE BLOOD COUNT 10.5 10^3/uL (4.0-10.0)
[2017-11-27 08:47] LABS: ALBUMIN 3.1 GM/DL (3.2-5.2); ALBUMIN/GLOBULIN RATIO 0.82 (1.00-1.93); ALKALINE PHOSPHATASE 81 U/L (45-117); ALT/SGPT 15 U/L (12-78); ANION GAP 9 MEQ/L (8-16); AST/SGOT 7 U/L (7-37); BILIRUBIN,TOTAL 0.4 MG/DL (0.2-1.0); BLOOD UREA NITROGEN 18 MG/DL (7-18); CALCIUM LEVEL 8.6 MG/DL (8.8-10.2); CARBON DIOXIDE LEVEL 23 MEQ/L (21-32); CHLORIDE LEVEL 107 MEQ/L (98-107); CREATININE FOR GFR 0.92 MG/DL (0.55-1.30); GLOMERULAR FILTRATION RATE > 60.0 (>45); GLUCOSE, FASTING 111 MG/DL (70-100); MAGNESIUM LEVEL 2.4 MG/DL (1.8-2.4); POTASSIUM SERUM 4.3 MEQ/L (3.5-5.1); SODIUM LEVEL 139 MEQ/L (136-145); TOTAL PROTEIN 6.9 GM/DL (6.4-8.2)
[2017-11-27 08:48] LABS: LYMPH # 0.2 10^3/uL (1.5-4.5); POSITIVE DIFF POS FLAG
[2017-11-27 09:40] LABS: C REACTIVE PROTEIN QUANTITATIV 3.18 MG/DL (0.00-0.30)
[2017-11-27] MEDS: PERCOCET 5MG/325MG TAB PO ×2 (10:29→22:30)
[2017-11-27] MEDS: guaiFENesin/CODEINE SYRUP 5 ML UDC PO ×2 (10:29→22:29)
[2017-11-28] MEDS: IPRATROPIUM 0.5MG/ALBUTEROL 2.5MG INH SOL UD 3ML (DUONEB)(J7620) NEB ×4 (02:00→20:00)
[2017-11-28] MEDS: PIPERACILLIN/TAZOBACTAM SOD 3.375 GM in APPROPRIATE DILUENT 1 EA IV ×4 (03:00→20:59)
[2017-11-28] MEDS: SLF 3 ML SYR IV ×3 (05:03→21:00)
[2017-11-28 08:03] LABS: HEMOGLOBIN 11.9 g/dl (12.0-15.5); IMMATURE GRANULOCYTE % 0.9 % (0-3.0); LYMPH # 0.3 10^3/uL (1.5-4.5); LYMPH % 2.8 % (24.0-44.0); MEAN CORPUSCULAR HEMOGLOBIN 28.1 pg (27.0-33.0); MEAN CORPUSCULAR HGB CONC 31.3 g/dl (32.0-36.5); MEAN CORPUSCULAR VOLUME 89.6 fl (80.0-96.0); MONO # 0.3 10^3/uL (0.0-0.8); MONO % 2.9 % (0.0-5.0); NEUTROPHILS # 9.6 10^3/uL (1.8-7.7); NEUTROPHILS % 93.4 % (36.0-66.0); PLATELET COUNT, AUTOMATED 321 10^3/uL (150-450); RED BLOOD COUNT 4.24 10^6/uL (4.00-5.40); RED CELL DISTRIBUTION WIDTH 18.5 % (11.5-14.5); WHITE BLOOD COUNT 10.2 10^3/uL (4.0-10.0)
[2017-11-28 08:28] LABS: ALBUMIN 3.3 GM/DL (3.2-5.2); ALBUMIN/GLOBULIN RATIO 0.89 (1.00-1.93); ALKALINE PHOSPHATASE 80 U/L (45-117); ALT/SGPT 15 U/L (12-78); ANION GAP 9 MEQ/L (8-16); AST/SGOT 9 U/L (7-37); BILIRUBIN,TOTAL 0.4 MG/DL (0.2-1.0); BLOOD UREA NITROGEN 18 MG/DL (7-18); C REACTIVE PROTEIN QUANTITATIV 2.48 MG/DL (0.00-0.30); CALCIUM LEVEL 8.9 MG/DL (8.8-10.2); CARBON DIOXIDE LEVEL 25 MEQ/L (21-32); CHLORIDE LEVEL 107 MEQ/L (98-107); CREATININE FOR GFR 0.96 MG/DL (0.55-1.30); GLOMERULAR FILTRATION RATE > 60.0 (>45); GLUCOSE, FASTING 102 MG/DL (70-100); MAGNESIUM LEVEL 2.4 MG/DL (1.8-2.4); POTASSIUM SERUM 4.4 MEQ/L (3.5-5.1); SODIUM LEVEL 141 MEQ/L (136-145)
[2017-11-28] MEDS: DRONABINOL 2.5 MG CAP (MARINOL) PO ×3 (08:33→18:23)
[2017-11-28] MEDS: BENZONATATE 100 MG CAP PO ×3 (08:33→21:00)
[2017-11-28] MEDS: SERTRALINE 100 MG TAB PO (08:33)
[2017-11-28 08:34] LABS: POSITIVE DIFF POS FLAG
[2017-11-28] MEDS: buPROPion 100 MG TAB PO ×3 (08:34→21:00)
[2017-11-28] MEDS: MONTELUKAST 5 MG CHEWABLE TABLET PO (08:34)
[2017-11-28] MEDS: predniSONE 20 MG TAB PO ×2 (08:34→21:00)
[2017-11-28] MEDS: HEPARIN SOD (PORCINE) 5000 UNITS/ML VIAL SQ ×3 (08:36→21:00)
[2017-11-28] MEDS: NIFEdipine 60 MG XL TAB PO (08:36)
[2017-11-28] MEDS: PANTOPRAZOLE 40MG INJ (PROTONIX) (C9113) IV (08:36)
[2017-11-28] MEDS: raNITIdine SYRUP 150 MG/10 ML UDC PO (08:36)
[2017-11-28] MEDS: BACTRIM SUSP 160MG/800MG PER 20ML ORAL SYRINGE PO (08:37)
[2017-11-28] MEDS: ALPRAZolam 0.25 MG TAB PO ×3 (08:44→21:00)
[2017-11-28] MEDS: TIOTROPIUM INHALER/CAPSULE (SPIRIVA) INH (08:45)
[2017-11-28] MEDS: ADVAIR HFA 230/21MCG INHALER INH ×2 (09:34→20:00)
[2017-11-28] MEDS: guaiFENesin/CODEINE SYRUP 5 ML UDC PO ×2 (10:44→22:59)
[2017-11-28] MEDS: PERCOCET 5MG/325MG TAB PO ×2 (10:45→23:00)
[2017-11-29] MEDS: IPRATROPIUM 0.5MG/ALBUTEROL 2.5MG INH SOL UD 3ML (DUONEB)(J7620) NEB ×4 (02:00→20:00)
[2017-11-29] MEDS: PIPERACILLIN/TAZOBACTAM SOD 3.375 GM in APPROPRIATE DILUENT 1 EA IV ×4 (02:57→20:30)
[2017-11-29 05:58] LABS: BASO % 0.1 % (0.0-1.0); HEMATOCRIT 36.1 % (36.0-47.0); HEMOGLOBIN 11.3 g/dl (12.0-15.5); IMMATURE GRANULOCYTE % 0.7 % (0-3.0); LYMPH % 2.8 % (24.0-44.0); MEAN CORPUSCULAR HEMOGLOBIN 27.8 pg (27.0-33.0); MEAN CORPUSCULAR HGB CONC 31.3 g/dl (32.0-36.5); MEAN CORPUSCULAR VOLUME 88.7 fl (80.0-96.0); MONO # 0.2 10^3/uL (0.0-0.8); MONO % 2.4 % (0.0-5.0); NEUTROPHILS # 8.2 10^3/uL (1.8-7.7); PLATELET COUNT, AUTOMATED 256 10^3/uL (150-450); RED BLOOD COUNT 4.07 10^6/uL (4.00-5.40); RED CELL DISTRIBUTION WIDTH 18.2 % (11.5-14.5); WHITE BLOOD COUNT 8.7 10^3/uL (4.0-10.0)
[2017-11-29] MEDS: SLF 3 ML SYR IV ×3 (05:58→21:47)
[2017-11-29 06:18] LABS: ALBUMIN 2.8 GM/DL (3.2-5.2); ALBUMIN/GLOBULIN RATIO 0.67 (1.00-1.93); ALKALINE PHOSPHATASE 74 U/L (45-117); ALT/SGPT 16 U/L (12-78); ANION GAP 8 MEQ/L (8-16); AST/SGOT 10 U/L (7-37); BILIRUBIN,TOTAL 0.2 MG/DL (0.2-1.0); BLOOD UREA NITROGEN 22 MG/DL (7-18); C REACTIVE PROTEIN QUANTITATIV 1.46 MG/DL (0.00-0.30); CALCIUM LEVEL 9.1 MG/DL (8.8-10.2); CARBON DIOXIDE LEVEL 25 MEQ/L (21-32); CHLORIDE LEVEL 107 MEQ/L (98-107); CREATININE FOR GFR 0.94 MG/DL (0.55-1.30); GLOMERULAR FILTRATION RATE > 60.0 (>45); GLUCOSE, FASTING 117 MG/DL (70-100); MAGNESIUM LEVEL 2.5 MG/DL (1.8-2.4); POTASSIUM SERUM 4.3 MEQ/L (3.5-5.1); SODIUM LEVEL 140 MEQ/L (136-145)
[2017-11-29 06:26] LABS: LYMPH # 0.2 10^3/uL (1.5-4.5); POSITIVE DIFF POS FLAG
[2017-11-29] MEDS: TIOTROPIUM INHALER/CAPSULE (SPIRIVA) INH (07:35)
[2017-11-29] MEDS: ADVAIR HFA 230/21MCG INHALER INH ×2 (07:35→21:22)
[2017-11-29] MEDS: HEPARIN SOD (PORCINE) 5000 UNITS/ML VIAL SQ ×2 (09:00→20:30)
[2017-11-29] MEDS: BENZONATATE 100 MG CAP PO ×3 (09:26→20:30)
[2017-11-29] MEDS: SERTRALINE 100 MG TAB PO (09:27)
[2017-11-29] MEDS: DRONABINOL 2.5 MG CAP (MARINOL) PO ×3 (09:27→17:57)
[2017-11-29] MEDS: predniSONE 20 MG TAB PO (09:27)
[2017-11-29] MEDS: buPROPion 100 MG TAB PO ×3 (09:27→20:30)
[2017-11-29] MEDS: MONTELUKAST 5 MG CHEWABLE TABLET PO (09:27)
[2017-11-29] MEDS: ALPRAZolam 0.25 MG TAB PO ×3 (09:28→20:30)
[2017-11-29] MEDS: NIFEdipine 60 MG XL TAB PO (09:30)
[2017-11-29] MEDS: raNITIdine SYRUP 150 MG/10 ML UDC PO (09:30)
[2017-11-29] MEDS: BACTRIM SUSP 160MG/800MG PER 20ML ORAL SYRINGE PO (09:30)
[2017-11-29] MEDS: PANTOPRAZOLE 40MG INJ (PROTONIX) (C9113) IV (09:31)
[2017-11-29] MEDS: SCOPOLAMINE 1MG TRANSDERMAL PATCH TD (09:31)
[2017-11-29] MEDS: guaiFENesin/CODEINE SYRUP 5 ML UDC PO ×2 (11:04→23:33)
[2017-11-29] MEDS: PERCOCET 5MG/325MG TAB PO ×2 (11:05→23:34)
[2017-11-30] MEDS: IPRATROPIUM 0.5MG/ALBUTEROL 2.5MG INH SOL UD 3ML (DUONEB)(J7620) NEB ×5 (01:54→20:00)
[2017-11-30] MEDS: PIPERACILLIN/TAZOBACTAM SOD 3.375 GM in APPROPRIATE DILUENT 1 EA IV ×4 (03:16→19:50)
[2017-11-30 05:46] LABS: EOS % 0.1 % (0.0-3.0); HEMATOCRIT 35.5 % (36.0-47.0); HEMOGLOBIN 11.1 g/dl (12.0-15.5); LYMPH # 0.5 10^3/uL (1.5-4.5); LYMPH % 6.3 % (24.0-44.0); MEAN CORPUSCULAR HEMOGLOBIN 27.8 pg (27.0-33.0); MEAN CORPUSCULAR HGB CONC 31.3 g/dl (32.0-36.5); MONO # 0.4 10^3/uL (0.0-0.8); MONO % 5.1 % (0.0-5.0); NEUTROPHILS # 6.8 10^3/uL (1.8-7.7); NEUTROPHILS % 87.5 % (36.0-66.0); PLATELET COUNT, AUTOMATED 243 10^3/uL (150-450); RED BLOOD COUNT 3.99 10^6/uL (4.00-5.40); RED CELL DISTRIBUTION WIDTH 18.2 % (11.5-14.5); WHITE BLOOD COUNT 7.8 10^3/uL (4.0-10.0)
[2017-11-30] MEDS: SLF 3 ML SYR IV ×3 (06:00→19:51)
[2017-11-30 06:06] LABS: ALBUMIN 2.8 GM/DL (3.2-5.2); ALBUMIN/GLOBULIN RATIO 0.74 (1.00-1.93); ALKALINE PHOSPHATASE 69 U/L (45-117); ALT/SGPT 13 U/L (12-78); ANION GAP 7 MEQ/L (8-16); AST/SGOT 6 U/L (7-37); BILIRUBIN,TOTAL 0.2 MG/DL (0.2-1.0); BLOOD UREA NITROGEN 25 MG/DL (7-18); C REACTIVE PROTEIN QUANTITATIV 0.86 MG/DL (0.00-0.30); CALCIUM LEVEL 8.7 MG/DL (8.8-10.2); CARBON DIOXIDE LEVEL 26 MEQ/L (21-32); CHLORIDE LEVEL 110 MEQ/L (98-107); CREATININE FOR GFR 1.05 MG/DL (0.55-1.30); GLOMERULAR FILTRATION RATE 56.9 (>45); GLUCOSE, FASTING 85 MG/DL (70-100); MAGNESIUM LEVEL 2.4 MG/DL (1.8-2.4); POTASSIUM SERUM 3.5 MEQ/L (3.5-5.1); SODIUM LEVEL 143 MEQ/L (136-145); TOTAL PROTEIN 6.6 GM/DL (6.4-8.2)
[2017-11-30] MEDS: ADVAIR HFA 230/21MCG INHALER INH ×2 (07:27→20:00)
[2017-11-30] MEDS: DRONABINOL 2.5 MG CAP (MARINOL) PO ×4 (08:20→17:58)
[2017-11-30] MEDS: TIOTROPIUM INHALER/CAPSULE (SPIRIVA) INH (08:21)
[2017-11-30] MEDS: HEPARIN SOD (PORCINE) 5000 UNITS/ML VIAL SQ ×2 (09:00→19:50)
[2017-11-30] MEDS: raNITIdine SYRUP 150 MG/10 ML UDC PO (10:31)
[2017-11-30] MEDS: MONTELUKAST 5 MG CHEWABLE TABLET PO (10:31)
[2017-11-30] MEDS: predniSONE 20 MG TAB PO (10:31)
[2017-11-30] MEDS: guaiFENesin/CODEINE SYRUP 5 ML UDC PO ×2 (10:31→22:10)
[2017-11-30] MEDS: PERCOCET 5MG/325MG TAB PO ×2 (10:32→22:11)
[2017-11-30] MEDS: SERTRALINE 100 MG TAB PO (10:32)
[2017-11-30] MEDS: BENZONATATE 100 MG CAP PO ×3 (10:32→19:49)
[2017-11-30] MEDS: PANTOPRAZOLE 40MG INJ (PROTONIX) (C9113) IV (10:33)
[2017-11-30] MEDS: NIFEdipine 60 MG XL TAB PO (10:33)
[2017-11-30] MEDS: BACTRIM SUSP 160MG/800MG PER 20ML ORAL SYRINGE PO (10:33)
[2017-11-30] MEDS: NS 1,000 ML IV (10:33)
[2017-11-30] MEDS: ALPRAZolam 0.25 MG TAB PO ×3 (10:33→19:49)
[2017-11-30] MEDS: buPROPion 100 MG TAB PO ×3 (10:34→19:49)
[2017-12-01] MEDS: IPRATROPIUM 0.5MG/ALBUTEROL 2.5MG INH SOL UD 3ML (DUONEB)(J7620) NEB ×5 (02:00→23:49)
[2017-12-01] MEDS: PIPERACILLIN/TAZOBACTAM SOD 3.375 GM in APPROPRIATE DILUENT 1 EA IV ×4 (03:04→20:32)
[2017-12-01] MEDS: SLF 3 ML SYR IV ×3 (03:05→20:33)
[2017-12-01] MEDS: PERCOCET 5MG/325MG TAB PO ×2 (06:31→18:48)
[2017-12-01 06:36] LABS: BASO % 0.1 % (0.0-1.0); EOS % 0.4 % (0.0-3.0); HEMATOCRIT 37.5 % (36.0-47.0); HEMOGLOBIN 11.8 g/dl (12.0-15.5); LYMPH # 0.7 10^3/uL (1.5-4.5); LYMPH % 6.1 % (24.0-44.0); MEAN CORPUSCULAR HEMOGLOBIN 28.2 pg (27.0-33.0); MEAN CORPUSCULAR HGB CONC 31.5 g/dl (32.0-36.5); MEAN CORPUSCULAR VOLUME 89.5 fl (80.0-96.0); MONO # 0.3 10^3/uL (0.0-0.8); MONO % 3.1 % (0.0-5.0); NEUTROPHILS # 9.7 10^3/uL (1.8-7.7); NEUTROPHILS % 89.3 % (36.0-66.0); PLATELET COUNT, AUTOMATED 289 10^3/uL (150-450); RED BLOOD COUNT 4.19 10^6/uL (4.00-5.40); RED CELL DISTRIBUTION WIDTH 18.3 % (11.5-14.5); WHITE BLOOD COUNT 10.8 10^3/uL (4.0-10.0)
[2017-12-01 07:12] LABS: ALBUMIN 2.9 GM/DL (3.2-5.2); ALBUMIN/GLOBULIN RATIO 0.73 (1.00-1.93); ALKALINE PHOSPHATASE 72 U/L (45-117); ALT/SGPT 17 U/L (12-78); ANION GAP 7 MEQ/L (8-16); AST/SGOT 12 U/L (7-37); BILIRUBIN,TOTAL 0.4 MG/DL (0.2-1.0); BLOOD UREA NITROGEN 22 MG/DL (7-18); C REACTIVE PROTEIN QUANTITATIV 1.47 MG/DL (0.00-0.30); CALCIUM LEVEL 8.8 MG/DL (8.8-10.2); CARBON DIOXIDE LEVEL 24 MEQ/L (21-32); CHLORIDE LEVEL 111 MEQ/L (98-107); CREATININE FOR GFR 0.89 MG/DL (0.55-1.30); GLOMERULAR FILTRATION RATE > 60.0 (>45); GLUCOSE, FASTING 70 MG/DL (70-100); MAGNESIUM LEVEL 2.4 MG/DL (1.8-2.4); POTASSIUM SERUM 3.5 MEQ/L (3.5-5.1); SODIUM LEVEL 142 MEQ/L (136-145); TOTAL PROTEIN 6.9 GM/DL (6.4-8.2)
[2017-12-01] MEDS: TIOTROPIUM INHALER/CAPSULE (SPIRIVA) INH (07:36)
[2017-12-01] MEDS: ADVAIR HFA 230/21MCG INHALER INH ×2 (07:37→21:02)
[2017-12-01] MEDS: PANTOPRAZOLE 40MG INJ (PROTONIX) (C9113) IV (07:57)
[2017-12-01] MEDS: raNITIdine SYRUP 150 MG/10 ML UDC PO (07:58)
[2017-12-01] MEDS: NIFEdipine 60 MG XL TAB PO (07:58)
[2017-12-01] MEDS: SERTRALINE 100 MG TAB PO (07:58)
[2017-12-01] MEDS: BENZONATATE 100 MG CAP PO ×3 (07:59→20:32)
[2017-12-01] MEDS: DRONABINOL 2.5 MG CAP (MARINOL) PO ×3 (07:59→18:08)
[2017-12-01] MEDS: buPROPion 100 MG TAB PO ×3 (07:59→20:32)
[2017-12-01] MEDS: ALPRAZolam 0.25 MG TAB PO ×3 (07:59→20:32)
[2017-12-01] MEDS: predniSONE 20 MG TAB PO (07:59)
[2017-12-01] MEDS: MONTELUKAST 5 MG CHEWABLE TABLET PO (07:59)
[2017-12-01] MEDS: BACTRIM SUSP 160MG/800MG PER 20ML ORAL SYRINGE PO (08:00)
[2017-12-01] MEDS: HEPARIN SOD (PORCINE) 5000 UNITS/ML VIAL SQ ×2 (08:00→20:32)
[2017-12-01] MEDS: guaiFENesin/CODEINE SYRUP 5 ML UDC PO (09:58)
[2017-12-01 11:54] LABS: AMORPHOUS SEDIMENT SMALL (NEGATIVE); APPEARANCE, URINE CLEAR (CLEAR); BACTERIA, URINE AUTO NEGATIVE (NEGATIVE); BILIRUBIN, URINE AUTO NEGATIVE (NEGATIVE); BLOOD, URINE BLOOD NEGATIVE (NEGATIVE); CALCIUM OXALATE CRYSTALS SMALL; COLOR, URINE YELLOW (YELLOW); GLUCOSE, URINE (UA) AUTO NEGATIVE (NEGATIVE); KETONE, URINE AUTO NEGATIVE (NEGATIVE); LEUKOCYTE ESTERASE, URINE AUTO NEGATIVE (NEGATIVE); MUCUS, URINE SMALL (NEGATIVE); NITRITE, URINE AUTO NEGATIVE (NEGATIVE); PROTEIN, URINE AUTO NEGATIVE (NEGATIVE); RBC, URINE AUTO 0 /HPF (0-3); SPECIFIC GRAVITY URINE AUTO 1.026 (1.002-1.035); SQUAMOUS EPITHELIAL CELL UR AU 0 /HPF (0-6); UROBILINOGEN, URINE AUTO 0.2 mg/dL (0.0-2.0); WBC, URINE AUTO 1 /HPF (0-3)
[2017-12-02] MEDS: PIPERACILLIN/TAZOBACTAM SOD 3.375 GM in APPROPRIATE DILUENT 1 EA IV ×2 (02:35→09:13)
[2017-12-02] MEDS: guaiFENesin/CODEINE SYRUP 5 ML UDC PO ×2 (02:35→20:18)
[2017-12-02] MEDS: SLF 3 ML SYR IV ×3 (02:35→20:19)
[2017-12-02 06:16] LABS: BASO % 0.1 % (0.0-1.0); EOS % 0.3 % (0.0-3.0); HEMATOCRIT 33.4 % (36.0-47.0); HEMOGLOBIN 10.3 g/dl (12.0-15.5); IMMATURE GRANULOCYTE % 1.6 % (0-3.0); LYMPH # 0.6 10^3/uL (1.5-4.5); LYMPH % 6.7 % (24.0-44.0); MEAN CORPUSCULAR HEMOGLOBIN 27.6 pg (27.0-33.0); MEAN CORPUSCULAR HGB CONC 30.8 g/dl (32.0-36.5); MEAN CORPUSCULAR VOLUME 89.5 fl (80.0-96.0); MONO # 0.4 10^3/uL (0.0-0.8); MONO % 4.1 % (0.0-5.0); NEUTROPHILS # 7.6 10^3/uL (1.8-7.7); NEUTROPHILS % 87.2 % (36.0-66.0); PLATELET COUNT, AUTOMATED 227 10^3/uL (150-450); RED BLOOD COUNT 3.73 10^6/uL (4.00-5.40); RED CELL DISTRIBUTION WIDTH 18.2 % (11.5-14.5); WHITE BLOOD COUNT 8.8 10^3/uL (4.0-10.0)
[2017-12-02 06:36] LABS: ALBUMIN 2.6 GM/DL (3.2-5.2); ALKALINE PHOSPHATASE 71 U/L (45-117); ALT/SGPT 14 U/L (12-78); ANION GAP 7 MEQ/L (8-16); AST/SGOT 11 U/L (7-37); BILIRUBIN,TOTAL 0.2 MG/DL (0.2-1.0); BLOOD UREA NITROGEN 18 MG/DL (7-18); CALCIUM LEVEL 8.2 MG/DL (8.8-10.2); CARBON DIOXIDE LEVEL 25 MEQ/L (21-32); CHLORIDE LEVEL 112 MEQ/L (98-107); CREATININE FOR GFR 0.91 MG/DL (0.55-1.30); GLOMERULAR FILTRATION RATE > 60.0 (>45); GLUCOSE, FASTING 79 MG/DL (70-100); MAGNESIUM LEVEL 2.3 MG/DL (1.8-2.4); POTASSIUM SERUM 3.3 MEQ/L (3.5-5.1); SODIUM LEVEL 144 MEQ/L (136-145); TOTAL PROTEIN 6.3 GM/DL (6.4-8.2)
[2017-12-02] MEDS: IPRATROPIUM 0.5MG/ALBUTEROL 2.5MG INH SOL UD 3ML (DUONEB)(J7620) NEB ×3 (07:48→20:00)
[2017-12-02] MEDS: TIOTROPIUM INHALER/CAPSULE (SPIRIVA) INH (07:49)
[2017-12-02] MEDS: ADVAIR HFA 230/21MCG INHALER INH ×2 (07:49→20:00)
[2017-12-02] MEDS: BACTRIM SUSP 160MG/800MG PER 20ML ORAL SYRINGE PO (09:13)
[2017-12-02] MEDS: ALPRAZolam 0.25 MG TAB PO ×3 (09:14→20:18)
[2017-12-02] MEDS: HEPARIN SOD (PORCINE) 5000 UNITS/ML VIAL SQ ×2 (09:14→20:17)
[2017-12-02] MEDS: SCOPOLAMINE 1MG TRANSDERMAL PATCH TD (09:14)
[2017-12-02] MEDS: PANTOPRAZOLE 40MG INJ (PROTONIX) (C9113) IV (09:14)
[2017-12-02] MEDS: BENZONATATE 100 MG CAP PO ×3 (09:15→20:18)
[2017-12-02] MEDS: NIFEdipine 60 MG XL TAB PO (09:16)
[2017-12-02] MEDS: raNITIdine SYRUP 150 MG/10 ML UDC PO (09:17)
[2017-12-02] MEDS: SERTRALINE 100 MG TAB PO (09:17)
[2017-12-02] MEDS: predniSONE 20 MG TAB PO (09:17)
[2017-12-02] MEDS: MONTELUKAST 5 MG CHEWABLE TABLET PO (09:17)
[2017-12-02] MEDS: DRONABINOL 2.5 MG CAP (MARINOL) PO ×3 (09:17→17:28)
[2017-12-02] MEDS: buPROPion 100 MG TAB PO ×3 (09:17→20:18)
[2017-12-02] MEDS: POTASSIUM CHLORIDE 10 MEQ SR TABLET PO (09:18)
[2017-12-02] MEDS: PERCOCET 5MG/325MG TAB PO (17:28)
[2017-12-03] MEDS: IPRATROPIUM 0.5MG/ALBUTEROL 2.5MG INH SOL UD 3ML (DUONEB)(J7620) NEB ×3 (02:00→08:40)
[2017-12-03] MEDS: SLF 3 ML SYR IV (06:00)
[2017-12-03 06:25] LABS: BASO % 0.1 % (0.0-1.0); EOS % 0.4 % (0.0-3.0); HEMATOCRIT 34.1 % (36.0-47.0); HEMOGLOBIN 10.5 g/dl (12.0-15.5); LYMPH # 0.6 10^3/uL (1.5-4.5); LYMPH % 7.4 % (24.0-44.0); MEAN CORPUSCULAR HGB CONC 30.8 g/dl (32.0-36.5); MEAN CORPUSCULAR VOLUME 90.9 fl (80.0-96.0); MONO # 0.3 10^3/uL (0.0-0.8); NEUTROPHILS # 7.3 10^3/uL (1.8-7.7); NEUTROPHILS % 87.1 % (36.0-66.0); PLATELET COUNT, AUTOMATED 231 10^3/uL (150-450); RED BLOOD COUNT 3.75 10^6/uL (4.00-5.40); RED CELL DISTRIBUTION WIDTH 18.1 % (11.5-14.5); WHITE BLOOD COUNT 8.3 10^3/uL (4.0-10.0)
[2017-12-03 06:44] LABS: ALBUMIN 2.7 GM/DL (3.2-5.2); ALBUMIN/GLOBULIN RATIO 0.73 (1.00-1.93); ALKALINE PHOSPHATASE 67 U/L (45-117); ALT/SGPT 16 U/L (12-78); ANION GAP 5 MEQ/L (8-16); AST/SGOT 12 U/L (7-37); BILIRUBIN,TOTAL 0.2 MG/DL (0.2-1.0); BLOOD UREA NITROGEN 15 MG/DL (7-18); C REACTIVE PROTEIN QUANTITATIV 1.73 MG/DL (0.00-0.30); CALCIUM LEVEL 8.5 MG/DL (8.8-10.2); CARBON DIOXIDE LEVEL 27 MEQ/L (21-32); CHLORIDE LEVEL 112 MEQ/L (98-107); CREATININE FOR GFR 0.93 MG/DL (0.55-1.30); GLOMERULAR FILTRATION RATE > 60.0 (>45); GLUCOSE, FASTING 79 MG/DL (70-100); MAGNESIUM LEVEL 2.3 MG/DL (1.8-2.4); POTASSIUM SERUM 3.8 MEQ/L (3.5-5.1); SODIUM LEVEL 144 MEQ/L (136-145); TOTAL PROTEIN 6.4 GM/DL (6.4-8.2)
[2017-12-03] MEDS: TIOTROPIUM INHALER/CAPSULE (SPIRIVA) INH (07:36)
[2017-12-03] MEDS: ADVAIR HFA 230/21MCG INHALER INH (07:36)
[2017-12-03] MEDS: ALPRAZolam 0.25 MG TAB PO (10:08)
[2017-12-03] MEDS: DRONABINOL 2.5 MG CAP (MARINOL) PO (10:08)
[2017-12-03] MEDS: SERTRALINE 100 MG TAB PO (10:08)
[2017-12-03] MEDS: predniSONE 20 MG TAB PO (10:08)
[2017-12-03] MEDS: BENZONATATE 100 MG CAP PO (10:08)
[2017-12-03] MEDS: buPROPion 100 MG TAB PO (10:09)
[2017-12-03] MEDS: PANTOPRAZOLE 40MG INJ (PROTONIX) (C9113) IV (10:09)
[2017-12-03] MEDS: raNITIdine SYRUP 150 MG/10 ML UDC PO (10:09)
[2017-12-03] MEDS: MONTELUKAST 5 MG CHEWABLE TABLET PO (10:09)
[2017-12-03] MEDS: BACTRIM SUSP 160MG/800MG PER 20ML ORAL SYRINGE PO (10:10)
[2017-12-03] MEDS: PERCOCET 5MG/325MG TAB PO (10:12)
[2017-12-03] MEDS: NIFEdipine 60 MG XL TAB PO (10:16)
[2017-12-03] MEDS: HEPARIN SOD (PORCINE) 5000 UNITS/ML VIAL SQ (10:21)
== END 2017-12-03 11:09 | disposition home or self-care (01) | DRG 139 ==
LOC: M MSPAV 11-25 15:04 → M ED 09:09 → M ED INP 15:23 → M PCU 17:45
DX: J18.9 Pneumonia, unspecified organism (principal); J86.0 Pyothorax with fistula; D80.1 Nonfamilial hypogammaglobulinemia; I13.0 Hypertensive heart and chronic kidney disease with heart failure and stage 1 through stage 4 chronic kidney disease, or unspecified chronic kidney disease; J44.1 Chronic obstructive pulmonary disease with (acute) exacerbation; K22.2 Esophageal obstruction; I50.32 Chronic diastolic (congestive) heart failure; N18.3 Chronic kidney disease, stage 3 (moderate); Z93.1 Gastrostomy status; K21.9 Gastro-esophageal reflux disease without esophagitis; F41.9 Anxiety disorder, unspecified; F32.9 Major depressive disorder, single episode, unspecified; G47.33 Obstructive sleep apnea (adult) (pediatric); E11.9 Type 2 diabetes mellitus without complications; Z85.118 Personal history of other malignant neoplasm of bronchus and lung; Z79.899 Other long term (current) drug therapy